=== PATIENT | male | born 1940 | race Caucasian/White ===

== ENCOUNTER 2017-01-18 09:15 | Outpatient (RCR) | payer MEDICARE ==
[~2017-01-18 09:15] MED LIST: ASPI325T32 PO; BNZ40T PO; EPLE50TA3 PO; FESO4TAB; HYDR-3583 PO; HYDROCODONE/APAP; IBP200T PO; LORA10TA2 PO; MELO-198 PO; MULT-608 PO; NF-ESOM40C; OLME20TA5; OMEP40CA36 PO; ONDA4TAB11 PO; PIOG1TAB6 PO; SIMV40TA2; SIMV80TA3 PO; SPIR50TA6; TANSULOSIN PO; TERA10CA15 PO; TMSL.4C; TOLTA4 PO; [UNRECOGNIZED DRUG - CODE]
== END 2017-01-18 10:07 | disposition home or self-care (01) ==
PROVIDERS: ATTEND Internal Medicine
DX: M48.06 Spinal stenosis, lumbar region (principal)

== ENCOUNTER → 2017-01-24 | Outpatient (CLI) | payer MEDICARE ==
--- NOTE | 2017-01-24 13:07 | Diagnostic Imaging Report ---
PROCEDURE: MRI lumbar spine. TECHNIQUE: Multiplanar, multisequence MRI of the lumbar spine was performed without contrast. INDICATION: Increased leg pain. COMPARISON: 03/17/2015. FINDINGS: There is minimal posterior translation of L2 over L3. Minimal posterior translation of L5 over S1 is also seen. This is similar to 2015 exam. There is straightening of the curvature in the upper lumbar spine and around the thoracolumbar junction. There is a mild old compression fracture of L1 vertebral body. There is a bone marrow edema in the posterior aspect of the endplates around L2-L3 level. This level demonstrates moderate disc height loss. There is also mild disc height loss at L5-S1. There is a congenital narrowing of the AP dimension of the spinal canal at the L2 level reducing the AP dimension of the spinal canal to 9.5 mm near the lower aspect of L2. Relatively narrow AP dimension of the spinal canal is also noted at L1 level, however no significant canal stenosis is present. There is also congenital spinal canal stenosis at the L5 vertebral level with the central canal AP dimension ranging from 5 mm at the upper vertebra to 6.6 mm at the caudal aspect of L5 vertebral body. T12-L1: There is a bilateral mild facet hypertrophy. No disc herniation. There is no central canal stenosis. There is mild narrowing of the AP dimension of the spinal canal along the right and left aspects of the canal from the facet and ligamentum flavum hypertrophy projecting along the posterolateral aspect of the thecal sac bilaterally with no high-grade stenosis. The foramina are patent. L1-L2: No disc herniation. There is zntq-si-uppbsaem facet hypertrophy. No central canal stenosis. The conus medullaris terminates at lower L1 level. No foraminal stenosis. There is mild spinal canal stenosis seen at the L2 vertebral body level secondary to congenital short pedicles reducing the AP dimension of the spinal canal to 9.5 mm. L2-L3: There is a diffuse disc bulge and bilateral thdbojly-fw-diedmk facet arthropathy. This results in severe spinal canal stenosis reducing the AP dimension of the canal to 6 mm and associated with severe compression of the lateral recess bilaterally at this level. This appears to have slightly worsened compared to 2015 exam. The neural foramina demonstrate bilateral moderate stenosis worse on the right side. L3-L4: There is a disc bulge asymmetric to the left and bilateral wkwtnrdg-iv-nmoepe facet hypertrophy. There is moderate central canal stenosis reducing the AP dimension of the canal to 8 mm. The lateral recess demonstrates vfhwfati-te-oxhlxn narrowing on the right side and moderate stenosis on the left. The foramina demonstrate bilateral stenosis, qsrwlmty-vw-wpdwld along the outer aspect of the left foramen and dvbqeutw-su-gqemga on the right side as well, particularly at the outer aspect of the foramen. The extraforaminal lateral aspect of the disc is also abutting the L3 spinal nerves just after exiting the foramina on both sides. L4-L5: There is a diffuse disc bulge and bilateral moderate facet hypertrophy, particularly on the right. Prominent posterior ligamentous hypertrophy is seen also at this level. There is hzbwprwg-ou-tbaxlv central canal stenosis, worst just below the disc level with reduced AP dimension of the spinal canal to 5 mm. The lateral recess demonstrates bilateral stenosis iesilshv-ud-apfycv on the right and moderate on the left. There is suggestion of prior left hemilaminectomy at this level. Correlate with surgical history. Bilateral foraminal stenosis mild on the left and moderate on the right side is seen. Extraforaminal disc component is abutting the exiting spinal nerves bilaterally. L5-S1: There is diffuse disc bulge and bilateral mild facet hypertrophy. There is moderate central canal stenosis reducing the AP dimension of the canal to 7.7 mm and there is bilateral lateral recess stenosis, ylutatxd-ym-bukunu on the left and moderate on the right side. The foramina demonstrate bilateral stenosis ymuamwke-lt-uidehm on the right and mild on the left. IMPRESSION: There is severe spinal canal stenosis at L2-L3 level. Multilevel spinal canal stenosis and other findings as described above. 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 Dictated by: Dictated on workstation # [id number]
== END ==
LOC: RAD 09:15
PROVIDERS: ATTEND Internal Medicine
DX: M48.06 Spinal stenosis, lumbar region (principal); M51.36 Other intervertebral disc degeneration, lumbar region
CPT/HCPCS: 72148

== ENCOUNTER → 2018-01-11 | Outpatient (RCR) | payer MEDICARE | END | disposition home or self-care (01) | LOC: CR3 12-12 07:30 | PROVIDERS: ATTEND Internal Medicine | DX: Z29.8 Encounter for other specified prophylactic measures (principal) ==

== ENCOUNTER → 2018-02-15 | Outpatient (RCR) | payer MEDICARE | END | disposition home or self-care (01) | LOC: CR3 01-16 13:00 | PROVIDERS: ATTEND Internal Medicine | DX: Z29.8 Encounter for other specified prophylactic measures (principal) ==

== ENCOUNTER 2018-03-16 06:00 | Outpatient (RCR) | payer MEDICARE | END 2018-03-19 | disposition home or self-care (01) | LOC: CR3 06:00 | PROVIDERS: ATTEND Internal Medicine | DX: Z29.8 Encounter for other specified prophylactic measures (principal) ==

== ENCOUNTER 2018-04-06 06:00 | Outpatient (RCR) | payer MEDICARE ==
[2018-04-12] MEDS ORDERED: OMEP40CA36 PO (16:10)
[2018-04-12] MEDS ORDERED: TAMS0.4C2 PO (16:10)
[2018-04-12] MEDS ORDERED: SIMV80TA5 PO (16:10)
[2018-04-12] MEDS ORDERED: EPLE25TA4 PO (16:10)
[2018-04-12] MEDS ORDERED: PIOG1TAB PO (16:10)
[2018-04-12] MEDS ORDERED: BENA20TA7 PO (16:10)
[2018-04-19] MEDS ORDERED: ASPI-808 PO (17:03)
[2018-04-19] MEDS ORDERED: CLD600T PO (17:03)
[2018-04-19] MEDS ORDERED: OXYC-471 PO (17:03)
== END 2018-04-20 | disposition home or self-care (01) ==
LOC: CR3 06:00
PROVIDERS: ATTEND Internal Medicine
DX: Z29.8 Encounter for other specified prophylactic measures (principal)

== ENCOUNTER 2018-04-12 10:04 | Inpatient (IN) | payer MEDICARE ==
[~2018-04-12] VITALS: Ht 177.8 cm; Wt 87.6 kg
[2018-04-12 14:10] VITALS: BP 154/90
--- NOTE | 2018-04-12 14:23 | Physical Therapy Evaluation ---
PT Evaluation-General Medical Diagnosis Admission Date 04/12/2018 Medical Diagnosis: left femur fx Onset Date: Apr 09, 2018 Therapy Diagnosis Therapy Diagnosis: Weakness; abn gait Height/Weight Height (Feet): 5 Height (Inches): 11.00 Weight (Pounds): 195 Weight (Ounces): 6.0 Precautions Precautions/Isolations: Standard Precautions Weight Bear Status Right Lower Extremity: Right Full Weight Bearing Left Lower Extremity: Left Weight Bearing/Tolerated Referral Physician: Dee Reason for Referral: Evaluation/Treatment Medical History Pertinent Medical History: DM, HTN Additional Medical History back surgery. Current History Pt tripped on a step at a scientology in [place]. He was transported to the hospital and found to have a left femur fx and underwent repair with IM nail. Reviewed History: Yes Social History Home: Single Level (with a basement) Current Living Status: Spouse Entry Into Home: Stairs Without Railing (2 steps to enter) PT Steps Inside Home: 14 Prior/Core FIM Prior Level of Function Functional [place] Measure 0=Not Assessed/NA 4=Minimal Assistance 1=Total Assistance 5=Supervision or Setup 2=Maximal Assistance 6=Modified [place] 3=Moderate Assistance 7=Complete [place] Bed Mobility: 7 Transfers (B,C,W/C) (FIM): 7 Gait: 7 community ambulator; still drives. PT Evaluation-Current Subjective Reports he feels "shaky" this afternoon. Pain Numeric Pain Scale: 10-Worst Possible Pain Location: Left Location Body Site: Hip Pain Description: Stabbing (sharp) Comment: pt reports pain to be 1/10 at rest. Pt/Family Goals Return home when able. Objective Patient Orientation: Person, Place, Time, Situation Problem Solving: Fair ROM/Strength ROM Lower Extremities WNL Strenght Lower Extremities Right LE grossly 5/5; left LE grossly 3/5. Integumentary/Posture Integumentary Refer to nursing notes. Bowel Incontinence: No Bladder Incontinence: No Posture normal and symmetrical Neuromuscular (Tone, Coordination, Reflexes) no noted functional deficits. Sensory Vision: Wears Glasses Hearing: Functional Sensation Right Lower Extremit: Intact Sensation Left Lower Extremity: Intact Transfers Functional [place] Measure 0=Not Assessed/NA 4=Minimal Assistance 1=Total Assistance 5=Supervision or Setup 2=Maximal Assistance 6=Modified [place] 3=Moderate Assistance 7=Complete IndependenceIRFPAI Quality Coding Scale 6 Independent with activity with or without an assistive device 5 Patient requires set up or clean up by helper. Patient completes activity by themselves 4 Supervision or touching assist (CGA). [place] provide cues , steadying assist 3 The helper provides less than half the effort to complete the activity 2 The helper provides more than half the effort to complete the activity 1 Dependent. The helper does all the effort to complete an activity 7 Patient refused to complete or attempt activity 9 The patient did not perform the activity before the current illness or injury 88 Not attempted due to Medical conditions or safety concerns Transfers (B, C, W/C) (FIM): 3 Roll Left to Right (QC): 3 Supine to/from Sit: 3 (assist with both legs to get in and out of bed; slow with transfer. ) Sit to/from Stand: 4 (min assist to stand and skilled cues for hand placement and sequencing. ) Sit to Lying (QC): 3 Lying to Sitting/Side of Bed(Q: 3 Sit to Stand (QC): 4 Chair/Yll-dm-Grjwl Xfer(QC): 4 Car Transfer (QC): 4 (assist to lift left leg out of car. ) skilled cues for sequencing and safety. Gait Does the Patient Walk?: Yes Mode of Locomotion: Walk Anticipated Mode of Locomotion: Walk Gait (FIM): 2 Distance (FIM): 1=up to 49 ft Walk 10 feet (QC): 4 Walk 50 ft with 2 Turns(QC): 88 Walk 150 ft (QC): 88 Walking 10ft/uneven surface-QC: 88 Distance: 25 ft x 2 Gait Level of Assist: 4 (CGA at gait belt; skilled cues for sequencing. ) Gait Assistive Device: FWW Comments/Gait Description Slow gait; slightly antalgic; painful with WB on the left. Wheelchair Training Does the Pt Use a Wheelchair?: No Stairs Stairs (FIM): 1 (not tested this date, but will assess 04/13/18) 1 Step (curb) (QC): 88 4 Steps (QC): 88 12 Steps (QC): 88 If not tested on admit;explain will assess 04/13/18 Balance Sitting Static: Good Sitting Dynamic: Good Standing Static: Fair Standing Dynamic: Fair Picking up an Object (QC): 88 Treatment Co treatment with OT to address functional mobility to address bed mobiltiy, toileting, walking in his room. PT addressed functional transfers and walking as OT addressed UE use and participation in tasks of ADL's. Pt worked on functional dynamic standing and seated balance as pt completed toileting and dressing tasks. Skill of 2 clinicians required due to cues required and complexity of tasks to complete. Pt's surgery is new and requires heavy cues and assist to complete skills. Assessment/Needs Pt is post fall with hip fracture left that has been reparied with IM nail He is WBAT but has pain with WB activities. He is significantly limited in functional transfers, gait, strength, balance and functional activity tolerance. He was indep at [facility] and needs up to mod assist with cues at this time. He is an excellent caandidate for skilled intervention to return to his [facility]. Rehab Potential: Good PT Short Term Goals Short Term Goals Time Frame: Apr 19, 2018 Transfers (B,C,W/C) (FIM): 4 Gait (FIM): 4 Distance (FIM): 3=150 ft Gait Level of Assist: 4 Gait Assistive Device: FWW PT Residential Subcontractor Goals Mcfp Goals PT Residential Subcontractor Goals Time Frame: Apr 28, 2018 Transfers (B,C,W/C) (FIM): 6 Sit to Lying (QC): 6 Lying-Sitting on Side/Bed(QC): 6 Sit to Stand (QC): 6 Roll Left to Right (QC): 6 Chair/Wni-io-Jvyec Xfer(QC): 6 Car Transfer (QC): 6 Does the Patient Walk: Yes Gait (FIM): 6 Gait distance (FIM): 3=150 ft Walk 10 feet (QC): 6 Walk 10ft-Uneven Surface(QC): 6 Walk 50ft with 2 Turns (QC): 6 Walk 150 ft (QC): 6 Gait Assistive Device: FWW Does the Pt use WC or Scooter?: No Stairs (FIM): 5 (household) # of Steps: 4 1 Step (curb) (QC): 6 4 Steps (QC): 6 12 Steps (QC): 88 Picking up an Object (QC): 4 PT Plan Problem List Problem List: Activity Tolerance, Functional Strength, Safety, Balance, Gait, Transfer, Bed Mobility Treatment/Plan Treatment Plan: Continue Plan of Care Treatment Plan: Bed Mobility, Education, Functional Activity True, Functional Strength, Group Therapy, Gait, Safety, Therapeutic Exercise, Transfers Treatment Duration: Apr 28, 2018 Frequency: At least 5 of 7 days/Wk (IRF) Estimated Hrs Per Day: 1.5 hours per day Patient and/or Family Agrees t: Yes Safety Risks/Education Patient Education: Gait Training, Transfer Techniques, Safety Issues Teaching Recipient: Patient, Family Teaching Methods: Discussion Response to Teaching: Reinforcement Needed Time/GCodes Time In: 1400 Time Out: 1540 (except 6090-7799 (OT eval)) Total Billed Treatment Time: 90 Total Billed Treatment visit EVM 10 FA 80 NOREEN HAQ PT Apr 12, 2018 14:23
--- NOTE | 2018-04-12 15:43 | Occupational Therapy Eval ---
OT Evaluation-General/PLF Medical Diagnosis Admission Date Apr 12, 2018 at 14:00 Medical Diagnosis: left femur fx Onset Date: Apr 09, 2018 Therapy Diagnosis Therapy Diagnosis: Weakness, Decreased ADL skills Height/Weight Height (Feet): 5 Height (Inches): 11.00 Weight (Pounds): 195 Weight (Ounces): 6.0 Precautions Precautions/Isolations: Standard Precautions Weight Bear Status Weight Bearing Restriction: Weight Bearing/Tolerated Referral Physician: Dee Referral Reason: Activity Tolerance, Self Care, Evaluation/Treatment, Strengthening/ROM Medical History Pertinent Medical History: DM, GERD, HTN Additional Medical History Spinal stenosis, back surgery Current History Pt. fell in bathroom while at congregation. Fx left femur. Had IM nail placed. Reviewed History: Yes Social History Home: Single Level (with a basement) Current Living Status: Spouse Entry Into Home: Stairs Without Railing (2 steps to enter) Steps Into Home: 2 Steps Inside Home: 14 ADL-Prior Level of Function ADL PLOF Comments Pt. was independent with all tasks. DME/Equipment: Shower DME/Equipment Comments Pt. does not have equipment. 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 reports pain with movement, but does not state a pain level. Nursing aware. Appearance Pt. is up in wheelchair upon entering facility. Agrees to work with therapy. Mental Status/Objective Patient Orientation: Person, Place, Time, Situation Current Glasses/Contacts: Yes Hearing Aids: Yes Hand Dominance: Right Upper Extremity ROM WFL ADL-Treatment Functional [place] Measure 0=Not Assessed/NA 4=Minimal Assistance 1=Total Assistance 5=Supervision or Setup 2=Maximal Assistance 6=Modified [place] 3=Moderate Assistance 7=Complete IndependenceIRFPAI Quality Coding Scale 6 Independent with activity with or without an assistive device 5 Patient requires set up or clean up by helper. Patient completes activity by themselves 4 Supervision or touching assist (CGA). [place] provide cues , steadying assist 3 The helper provides less than half the effort to complete the activity 2 The helper provides more than half the effort to complete the activity 1 Dependent. The helper does all the effort to complete an activity 7 Patient refused to complete or attempt activity 9 The patient did not perform the activity before the current illness or injury 88 Not attempted due to Medical conditions or safety concerns Lower Body Dressing (FIM): 2 (Pt. is unable to reach his feet or bring them up to him.) Lower Body Dressing (QC): 2 On/Off Footwear (QC): 2 Toileting (FIM): 4 (CGA in stance and assist to pull pants up from floor.) Toileting Hygiene (QC): 4 Transfers (B, C, W/C) (FIM): 4 (Min assist to ambulate with walker to bathroom. ) Toilet/Commode Transfer (FIM): 4 Toilet Transfer (QC): 4 Other Treatments OT/PT co-treated due to pt's fatigue from [place] in private vehicle. PT focused on transfer training and LE assessment while OT facilitated ADL training. Pt. unable to reach feet so OT issued and educated pt. on AE for hospital use. Pt. shown sock aide, dressing stick, shoe horn, and merchandise deliverer. Educated about rehab goals and OT goals. Pt. also issued red theraband and pink hand sponge to increase overall strength and independence with daily tasks. Pt. verbalizes understanding. OT ordered pt. dinner. All needs met in room. Education OT Patient Education: Correct positioning, Exercise program, Modified ADL techniques, Progress toward Goal/Update tx plan, Purpose of tx/functional activities, Reviewed precautions, Rehab process, Transfer techniques, Use of adapted equipment Teaching Recipient: Patient Teaching Methods: Demonstration, Discussion Response to Teaching: Verbalize Understanding, Return Demonstration OT Short Term Goals Short Term Goals Time Frame: Apr 19, 2018 Eating(FIM): 5 Grooming(FIM): 5 Bathing(FIM): 4 Upper Body Dressing(FIM): 5 Lower Body Dressing(FIM): 4 Toileting(FIM): 5 Transfers (B,C,W/C) (FIM): 5 Toilet/Commode Transfer(FIM): 5 Shower Transfer(FIM): 4 Additional Short Term Goals: 1-Demonstrate ADL Tasks, 2-Verbalize Understanding , 3-ImproveStrength/True 1=Demonstrate adherence to instructed precautions during ADL tasks. 2=Patient will verbalize/demonstrate understanding of assistive devices/ modifications for ADL. 3=Patient will improve strength/tolerance for activity to enable patient to perform ADL's. OT Highway Maintenance Technician Goals Highway Maintenance Technician Goals Time Frame: Apr 26, 2018 Eating (FIM): 6 Eating (QC): 6 Groomin Oral Hygiene (QC): 6 Bathing(FIM): 5 Shower/Bathe Self (QC): 5 Upper Body Dressing(FIM): 6 Upper Body Dressing (QC): 6 Lower Body Dressing(FIM): 6 Lower Body Dressing (QC): 6 On/Off Footwear (QC): 6 Toileting(FIM): 6 Toileting Hygiene (QC): 6 Transfers (B,C,W/C) (FIM): 6 Toilet/Commode Transfer(FIM): 6 Toilet/Commode Transfer (QC): 6 Shower Transfer(FIM): 5 Additional Goals: 1-Demonstrate ADL Tasks, 2-Verbalize Understanding, 3- ImproveStrength/True 1=Demonstrate adherence to instructed precautions during ADL tasks. 2=Patient will verbalize/demonstrate understanding of assistive devices/ modifications for ADL. 3=Patient will improve strength/tolerance for activity to enable patient to perform ADL's. OT Education/Plan Problem List/Assessment Assessment: Decreased Activ Tolerance, Dependent Transfers, Impaired I ADL's, Impaired Self-Care Skills Discharge Recommendations Plan/Recommendations: Continue POC Therapy D/C Recommendations: Home w/ Family Support, Occupational Therapy Home Care Equpiment Recommendations-D/C: Bath Chair, Hip Kit Comment Pt. will need walker. Patient/Family Goals To return home independently with spouse assist as needed. Treatment Plan/Plan of Care Treatment,Training & Education: Yes Patient would benefit from OT for education, treatment and training to promote independence in ADL's, mobility, safety and/or upper extremity function for ADL' s. Plan of Care: ADL Retraining, Functional Mobility Treatment Duration: Apr 26, 2018 Frequency: At least 5 of 7 days/Wk (IRF) Estimated Hrs Per Day: 1.5 hours per day Agreement: Yes Rehab Potential: Good Time/GCodes Start Time: 14:10 Stop Time: 15:40 Total Time Billed (hr/min): 90 Billed Treatment Time 4634-4197 1, EVM [id number]-va-treat with PT ADL x 50minutes, Ex x 30minutes Please see above note for designated co-treatment roles. EDGAR CARABALLO OT Apr 12, 2018 15:43
[2018-04-12] MEDS ORDERED: EPLE25TA4 PO (16:10)
[2018-04-12] MEDS ORDERED: SIMV80TA5 PO (16:10)
[2018-04-12] MEDS ORDERED: TAMS0.4C2 PO (16:10)
[2018-04-12] MEDS ORDERED: BENA20TA7 PO (16:10)
[2018-04-12] MEDS ORDERED: PIOG1TAB PO (16:10)
[2018-04-12] MEDS ORDERED: OMEP40CA36 PO (16:10)
[2018-04-12] MEDS: oxyCODONE/APAP 5/325MG (PERCOCET 5) TABLET PO PRN (16:20)
--- NOTE | 2018-04-12 17:12 | Consultation-Hospitalist ---
HPI History of Present Illness: HPI/Chief Complaint Mr. Ayala is a 77-year-old white male in his usual state of reasonable health until a fall occurring in the bathroom that was unfamiliar to him at a [place] in [place]. He was in somewhat of a hurry to get to the commode and reports he landed very hard on his left hip sustaining an apparent intertrochanteric fracture. He is now postop day 2 status post left hemiarthroplasty performed at a local [place] [facility]. Other than local soreness and one episode of a shaking spell that occurred when he was using his walker yesterday he voices no other complaints. He has a history of type II diabetes mellitus that is been under excellent control and has not had problems with a significant hyperglycemia. He denies chest discomfort or shortness of breath at rest. He did not have any associated lightheadedness when getting up and there was no change in consciousness was episode of bilateral upper extremity shaking that lasted for minutes or 2 and resolved when he sat down. Review of systems otherwise essentially unremarkable see below. Date Seen 04/12/18 Attending Physician Jed Kern MD PCP Dianne Suarez MD Referring Physician Date of Admission Apr 12, 2018 at 14:00 Home Medications & Allergies Home Medications Reviewed patient Home Medication Reconciliation performed by pharmacy medication reconciliations solid waste landfill technician and/or nursing. Patients Allergies have been reviewed. Allergies Allergies Coded Allergies No Known Drug Allergies (Verified10/26/07) Past Lbbtnfl-Drtsuu-Zzyjqb Hx Past Med/Social Hx: Reviewed and Corrections made Patient Social History Alcohol Use: Occasionally Uses Alcohol Beverage of Choice: Beer Recent Hopitalizations: No (OCT 20 HEART CATH) Immunizations Up To Date Date of Pneumonia Vaccine: Jun 12, 2014 Date of Influenza Vaccine: Jun 16, 2016 Seasonal Allergies Seasonal Allergies: Yes Past Medical History Surgeries: Gallbladder, Rectal, Vasectomy Neurological: Neuropathy Reproductive: No Sexually Transmitted Disease: No Musculoskeletal: Chronic Back Pain Endocrine: Diabetes, 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 Family History No Pertinent Family Hx Review of Systems Constitutional: no symptoms reported, see HPI Respiratory: no symptoms reported, see HPI; No cough, No dyspnea on exertion, No hemoptysis, No orthopnea, No phlegm, No short of breath Cardiovascular: no symptoms reported; No chest pain, No edema, No Hx of Intervention, No palpitations, No syncope, No vascular heart diseas Physical Exam Physical Exam Vital Signs Vital Signs - First Documented 04/12/18 04/12/18 14:10 14:59 Temp 97.7 Pulse 95 Resp 20 B/P (MAP) 154/90 (111) Pulse Ox 100 O2 Delivery Room Air Capillary Refill : Height, Weight, BMI Height: 5'11.00" Weight: 195lbs. 6.0oz. [id number]; BMI Method:Stated General Appearance: No Apparent Distress, WD/WN HEENT: PERRL/EOMI Neck: Full Range of Motion, Normal Inspection, Non Tender, Supple, Carotid Bruit Respiratory: Chest Non Tender, Lungs Clear, Normal Breath Sounds, No Accessory Muscle Use, No Respiratory Distress Cardiovascular: Regular Rate, Rhythm, No Edema, No Gallop, No JVD, Normal Peripheral Pulses, Systolic Murmur (2/6) Extremity: No Calf Tenderness, No Pedal Edema, Swelling (L thigh no purpura or evidence for hematoma/discreat.) Results Results/Procedures Labs Laboratory Tests 04/13/18 06:06 Patient resulted labs reviewed. Assessment/Plan Assessment and Plan Assess & Plan/Chief Complaint A/P 1. Postop day 2 status post left hemiarthroplasty for significant trauma- related fracture. Patient states that the orthopedist commented that his bones were strong and not consistent with osteoporosis patient transferred to acute rehabilitation for physical occupational therapy. 2. Hypertension we'll continue current medications as his initial supine blood pressure is mildly elevated in the 150/80 range but we'll obtain orthostatic blood pressure check if there is a significant drop we may need to hold his MARGARITA inhibitor for now we are resuming all of his home medications. 3. Type II diabetes mellitus continue pioglitazone/metformin twice a day fingersticks twice a day should be adequate. 4. Patient forces bowels have not moved postanesthesia and on narcotic therapy. Will initiate Senokot S twice a day and MiraLAX at at bedtime holding for diarrhea. 5. Prostatism continue Flomax obtain post void residual. DIANNE SUAREZ MD Apr 12, 2018 17:12
[2018-04-12 18:41] VITALS: BP 107/55
--- NOTE | 2018-04-12 19:41 | History & Physicial ---
History of Present Illness History of Present Illness Reason for visit/HPI Patient went to a cheondoism in [facility]. Patient went to the bathroom. Patient tripped over a step trying to get to the commode. Patient fell on his left hip getting an intertrochanteric fracture. Patient had surgery. Postop day 2. Patient has history of diabetes and hypertension. Previous surgeries anus, gallbladder, 2 back surgeries with laminectomies, vasectomy in 2 heart catheter negative. Family history heart and cancer in family denies asthma TB lung disease Date of Admission Apr 12, 2018 at 14:00 Time Seen by Provider: 19:10 I consulted on this patient on 04/12/18 19:31 Attending Physician Jed Kern MD Admitting Physician Ramone Hudson MD Consult Allergies and Home Medications Allergies Coded Allergies: No Known Drug Allergies (Verified , 10/26/07) Home Medications Benazepril HCl 20 Mg Tablet, 20 MG PO DAILY, (Reported) Eplerenone 25 Mg Tablet, 25 MG PO DAILY, (Reported) Omeprazole 40 Mg Capsule.dr, 40 MG PO DAILY, (Reported) Pioglitazone HCl/Metformin HCl 1 Each Tablet, 1 TAB PO BID, (Reported) Simvastatin 80 Mg Tablet, 80 MG PO HS, (Reported) Tamsulosin HCl 0.4 Mg Cap.er.24h, 0.4 MG PO DAILY, (Reported) Patient Home Medication List Home Medication List Reviewed: Yes Past Avxemld-Yzwyap-Pzscys Hx Patient Social History Marrital Status: Employed/Student: retired Alcohol Beverage of Choice: Beer Recent Foreign Travel: No Contact w/other who traveled: No Recent Hopitalizations: No (OCT 20 HEART CATH) Recent Infectious Disease Expo: No Immunizations Up To Date Date of Pneumonia Vaccine: Jun 12, 2014 Date of Influenza Vaccine: Jun 16, 2016 Seasonal Allergies Seasonal Allergies: Yes Surgeries Gallbladder, Rectal, Vasectomy Respiratory No Cardiovascular Hypertension Neurological Neuropathy Reproductive System Hx Reproductive Disorders: No Sexually Transmitted Disease: No Musculoskeletal Chronic Back Pain Endocrine Endocrine Disorders: Diabetes, Non-Insulin dep HEENT Hearing Impairment: Hearing Aide Left Cancer Skin Family Medical History Significant Family History: No Pertinent Family Hx Constitutional: no symptoms reported EENTM: no symptoms reported Respiratory: no symptoms reported Cardiovascular: no symptoms reported Genitourinary: no symptoms reported Physical Exam Vital Signs Vital Signs - First Documented 04/12/18 04/12/18 14:10 14:59 Temp 97.7 Pulse 95 Resp 20 B/P (MAP) 154/90 (111) Pulse Ox 100 O2 Delivery Room Air Capillary Refill : Height, Weight, BMI Height: 5'11.00" Weight: 195lbs. 6.0oz. 88.727168il; BMI Method:Stated General Appearance: No Apparent Distress, WD/WN Eyes: Bilateral Eye Normal Inspection HEENT: Normal ENT Inspection Neck: Full Range of Motion, Normal Inspection Respiratory: Chest Non Tender, Lungs Clear, No Accessory Muscle Use Cardiovascular: Regular Rate, Rhythm, No Murmur Gastrointestinal: Non Tender, Soft Assessment/Plan Assessment and Plan Left hip fracture. Diabetes. Hypertension. Admission Diagnosis Admission Status: Inpatient Order (span 2 midnights) Reason for Inpatient Admission: Hip fracture. Patient needs physical therapy and occupational therapy JANE CALL DO Apr 12, 2018 19:41
[2018-04-12] MEDS ORDERED: PATIENT MAY USE OWN MED,SINGLE MED PO SCH (20:00)
[2018-04-12] MEDS: SENNA W/DOCUSATE (SENOKOT S) TABLET PO SCH (20:26)
[2018-04-12] MEDS: ACETAMINOPHEN 325 MG TABLET PO SCH (20:26)
[2018-04-12] MEDS: POLYETHYLENE GLYCOL 17 GM (MIRALAX) PACK PO SCH (20:27)
[2018-04-12] MEDS: SIMvastatin 40 MG (ZOCOR) TAB PO SCH (20:27)
[2018-04-12] MEDS: ENOXAPARIN 40 MG/0.4 ML (LOVENOX) SYR SC SCH (20:38)
[2018-04-13 02:00] VITALS: BP_SYST 126; BP_SYST 138; BP_SYST 146; BP_DIAS 72; BP_DIAS 73
[2018-04-13] MEDS: metFORMIN 500 MG (GLUCOPHAGE) TAB PO SCH ×2 (06:08→17:30)
[2018-04-13] MEDS: PANTOPRAZOLE 40 MG (PROTONIX) TAB PO SCH ×2 (06:08→11:44)
[2018-04-13 06:23] LABS: HEMOGLOBIN 8.5 G/DL (13.3-17.7); MEAN PLATELET VOLUME 10.4 FL (7.4-10.4); RED BLOOD COUNT 2.93 10^6/uL (4.35-5.85); RED CELL DISTRIBUTION WIDTH 14.7 % (10.0-14.5)
[2018-04-13 06:38] LABS: ALANINE AMINOTRANSFERASE 12 U/L (0-55); ALBUMIN 3.3 GM/DL (3.2-4.5); ALKALINE PHOSPHATASE 55 U/L (40-136); BILIRUBIN,TOTAL 1.4 MG/DL (0.1-1.0); BUN/CREATININE RATIO 26; CALCIUM 9.1 MG/DL (8.5-10.1); CARBON DIOXIDE 26 MMOL/L (21-32); CHLORIDE 104 MMOL/L (98-107); CREATININE SERUM 0.82 MG/DL (0.60-1.30); GFR ESTIMATED > 60; GLUCOSE 134 MG/DL (70-105); POTASSIUM 4.4 MMOL/L (3.6-5.0); SODIUM 137 MMOL/L (135-145); TOTAL PROTEIN 5.6 GM/DL (6.4-8.2)
--- NOTE | 2018-04-13 07:06 | PM&R Post Admission Assessment ---
Post Admission Physician Asses Date seen by provider: Apr 13, 2018 Time seen by provider: 07:00 The preadmission screen agrees with the post admission assessment that the patient is a good candidate for inpatient rehabilitation. The patient will have a comprehensive program of inpatient rehabilitation with a goal of maximizing level of functional independence prior to discharge home with spouse. The patient will have PT/OT ninety minutes per day, each discipline, five days a week for 2 weeks for gait, strengthening, conditioning, balance, ADLs, any patient/family/caregiver training as necessary. Speech therapy to do cognitive assessment and treat as indicated. Rehabilitation nursing to assist with bowel, bladder, skin, wound care, medication administration, pain management. Parachute Cushion Installer to assist with discharge planning, community reentry. SCD's for DVT prophylaxis. He appears to be well motivated to participate in three hours of therapy a day. He should be able to tolerate three hours of therapy a day from a medical and surgical standpoint. He should benefit from the three hours of therapy a day. He has a reasonable discharge plan, reasonable discharge rehabilitation goals and a supportive family. He has various comorbidities that need to be closely monitored with medications and treatments adjusted on a daily basis as needed. These include: HTN Postopanemia BPH Type 2 DM Barriers to discharge for this patient who had been independent prior to this are for him to be modified independent to supervision for ADLs and mobility skills prior to discharge home with spouse, so as to lessen the burden of the caregivers. Risks for this patient include: 1. Fall 2. Fracture 3. DVT 4. Pulmonary embolism 5. Wound infection 6. Skin breakdown 7. Contractures 8. Poorly controlled pain 9. Urinary retention 10. UTI 11. Respiratory infection 12. Aspiration 13. poorly controlled HTN 14. Poorly controlled DM 15.Worsening postop anemia Estimated Length of Stay: 14 days Prognosis: Rehab prognosis appears good for goal of discharge home with spouse and C modified independent to supervision for ADLs and mobility skills. General: Alert, Oriented X3, Cooperative, No Acute Distress HEENT: Atraumatic, PERRLA, EOMI, Mucous Memb Moist/[place] Neck: Supple, No JVD Lungs: Clear to Auscultation Heart: Regular Rate Abdomen: Normal Bowel Sounds, Soft, No Tenderness Extremities: Other (Trace edema left ankle) Neuro: Other (Weakness left hip with guarding) TRESSA DELACRUZ MD Apr 13, 2018 07:06
[2018-04-13] MEDS: oxyCODONE/APAP 5/325MG (PERCOCET 5) TABLET PO PRN ×2 (08:07→21:29)
[2018-04-13] MEDS: ASPIRIN 325 MG (5 GR) TABLET PO SCH (08:07)
[2018-04-13] MEDS: SENNA W/DOCUSATE (SENOKOT S) TABLET PO SCH ×2 (08:07→20:34)
[2018-04-13] MEDS: lisINopril 20 MG (PRINIVIL) TABLET PO SCH (08:07)
[2018-04-13] MEDS: ACETAMINOPHEN 325 MG TABLET PO SCH ×3 (08:08→20:34)
--- NOTE | 2018-04-13 08:27 | Progress Note (SOAP) ---
Subjective Time Seen by Provider: 08:25 Subjective/Events-last exam Hip fracture. Patient feeling okay. Patient sore in half Objective Exam Vital Signs Date Time Temp Pulse Resp B/P (MAP) Pulse Ox O2 Delivery O2 Flow Rate FiO2 04/13/18 02:00 99.0 81 16 146/73 (97) 96 Room Air 04/13/18 02:00 146/73 (97) 138/72 (94) 126/73 (90) 04/12/18 18:41 95 20 107/55 (72) 96 Room Air 04/12/18 17:00 Room Air 04/12/18 14:59 97.7 04/12/18 14:10 95 20 154/90 (111) 100 Room Air I & O 04/13/18 07:00 Intake Total 690 ml Output Total 1000 ml Balance -310 ml Capillary Refill : Less Than 3 Seconds General Appearance: No Apparent Distress, WD/WN HEENT: Normal ENT Inspection Neck: Full Range of Motion, Normal Inspection Respiratory: Lungs Clear, Normal Breath Sounds, No Accessory Muscle Use, No Respiratory Distress Cardiovascular: Regular Rate, Rhythm Gastrointestinal: non tender, soft Results Lab Laboratory Tests 04/12/18 14:48: Glucometer 139H 04/12/18 20:23: Glucometer 174H 04/13/18 04:23: Glucometer 134H 04/13/18 06:06: White Blood Count 6.0, Red Blood Count 2.93L, Hemoglobin 8.5L, Hematocrit 25L, Mean Corpuscular Volume 87, Mean Corpuscular Hemoglobin 29, Mean Corpuscular Hemoglobin Concent 34, Red Cell Distribution Width 14.7H, Platelet Count 167, Mean Platelet Volume 10.4, Sodium Level 137, Potassium Level 4.4, Chloride Level 104, Carbon Dioxide Level 26, Anion Gap 7, Blood Urea Nitrogen 21H, Creatinine 0.82, Estimat Glomerular Filtration Rate > 60, BUN/Creatinine Ratio 26, Glucose Level 134H, Calcium Level 9.1, Total Bilirubin 1.4H, Aspartate Amino Transf (AST/SGOT) 22, Alanine Aminotransferase (ALT/SGPT) 12, Alkaline Phosphatase 55, Total Protein 5.6L, Albumin 3.3 Assessment/Plan Assessment/Plan Assess & Plan/Chief Complaint Hip fracture. Diabetes Clinical Quality Measures Admission Status Admission Dx Left hip fracture. Diabetes. Hypertension. DVT/VTE Risk/Contraindication: Risk Factor Score Per Nursin RFS Level Per Nursing on Admit: 4+=Very High JANE CALL DO Apr 13, 2018 08:27
[2018-04-13] MEDS ORDERED: BISACODYL 10 MG SUPP (DULCOLAX) PR PRN (08:30)
[2018-04-13] MEDS ORDERED: NON-FORMULARY MEDICATION 1 EA EA PO SCH (09:00)
--- NOTE | 2018-04-13 10:06 | Occupational Ther Daily Note ---
OT Current Status-Daily Note Subjective Pt. has just had a pain pill. Reports pain with movement but does not state a pain level. Appearance Pt. is up in chair. Agrees to shower. Mental Status/Objective Patient Orientation: Person, Place, Time, Situation Functional [place] Measure 0=Not Assessed/NA 4=Minimal Assistance 1=Total Assistance 5=Supervision or Setup 2=Maximal Assistance 6=Modified [place] 3=Moderate Assistance 7=Complete [place] ADL-Treatment Functional [place] Measure 0=Not Assessed/NA 4=Minimal Assistance 1=Total Assistance 5=Supervision or Setup 2=Maximal Assistance 6=Modified [place] 3=Moderate Assistance 7=Complete IndependenceIRFPAI Quality Coding Scale 6 Independent with activity with or without an assistive device 5 Patient requires set up or clean up by helper. Patient completes activity by themselves 4 Supervision or touching assist (CGA). [place] provide cues , steadying assist 3 The helper provides less than half the effort to complete the activity 2 The helper provides more than half the effort to complete the activity 1 Dependent. The helper does all the effort to complete an activity 7 Patient refused to complete or attempt activity 9 The patient did not perform the activity before the current illness or injury 88 Not attempted due to Medical conditions or safety concerns Grooming (FIM): 5 Oral Hygiene (QC): 5 Bathing (FIM): 4 (CGA in stance.) Shower/Bathe Self (QC): 4 Upper Body (FIM): 5 Upper Body Dressing (QC): 5 Lower Body Dressing (FIM): 3 (Pt. practiced with AE.) Lower Body Dressing (QC): 3 On/Off Footwear (QC): 3 Toileting (FIM): 5 Toileting Hygiene (QC): 4 Transfers (B, C, W/C) (FIM): 4 (CGA) Toilet/Commode Transfer (FIM): 4 Toilet Transfer (QC): 4 Shower Transfer(FIM): 4 Other Treatment Pt. practiced with AE. After ADLs, ambulated to dining area, approximately 100 feet, and then rested. All needs met. Required increased time and CGA at times. Education OT Patient Education: Correct positioning, Exercise program, Modified ADL techniques, Progress toward Goal/Update tx plan, Purpose of tx/functional activities, Reviewed precautions, Rehab process, Transfer techniques Teaching Recipient: Patient Teaching Methods: Demonstration, Discussion Response to Teaching: Verbalize Understanding, Return Demonstration OT Short Term Goals Short Term Goals Time Frame: Apr 19, 2018 Eating(FIM): 5 Grooming(FIM): 5 Bathing(FIM): 4 Upper Body Dressing(FIM): 5 Lower Body Dressing(FIM): 4 Toileting(FIM): 5 Transfers (B,C,W/C) (FIM): 4 Toilet/Commode Transfer(FIM): 5 Shower Transfer(FIM): 4 Additional Short Term Goals: 1-Demonstrate ADL Tasks, 2-Verbalize Understanding , 3-ImproveStrength/True 1=Demonstrate adherence to instructed precautions during ADL tasks. 2=Patient will verbalize/demonstrate understanding of assistive devices/ modifications for ADL. 3=Patient will improve strength/tolerance for activity to enable patient to perform ADL's. OT Detention Goals Cylinder Die Machine Helper Goals Time Frame: Apr 26, 2018 Eating (FIM): 6 Eating (QC): 6 Groomin Oral Hygiene (QC): 6 Bathing(FIM): 5 Shower/Bathe Self (QC): 5 Upper Body Dressing(FIM): 6 Upper Body Dressing (QC): 6 Lower Body Dressing(FIM): 6 Lower Body Dressing (QC): 6 On/Off Footwear (QC): 6 Toileting(FIM): 6 Toileting Hygiene (QC): 6 Transfers (B,C,W/C) (FIM): 6 Toilet/Commode Transfer(FIM): 6 Toilet/Commode Transfer (QC): 6 Shower Transfer(FIM): 5 Additional Goals: 1-Demonstrate ADL Tasks, 2-Verbalize Understanding, 3- ImproveStrength/True 1=Demonstrate adherence to instructed precautions during ADL tasks. 2=Patient will verbalize/demonstrate understanding of assistive devices/ modifications for ADL. 3=Patient will improve strength/tolerance for activity to enable patient to perform ADL's. OT Education/Plan Problem List/Assessment Assessment: Decreased Activ Tolerance, Impaired I ADL's, Impaired Self-Care Skills Discharge Recommendations Plan/Recommendations: Continue POC Therapy D/C Recommendations: Home w/ Family Support, Occupational Therapy Home Care Treatment Plan/Plan of Care Treatment,Training & Education: Yes Patient would benefit from OT for education, treatment and training to promote independence in ADL's, mobility, safety and/or upper extremity function for ADL' s. Plan of Care: ADL Retraining, Functional Mobility Treatment Duration: Apr 26, 2018 Frequency: At least 5 of 7 days/Wk (IRF) Estimated Hrs Per Day: 1.5 hours per day Agreement: Yes Rehab Potential: Good Time/GCodes Start Time: 08:30 Stop Time: 10:00 Total Time Billed (hr/min): 90 Billed Treatment Time 1, ADL x 6 EDGAR CARABALLO OT Apr 13, 2018 10:06
--- NOTE | 2018-04-13 11:26 | Physical Therapy Daily Note ---
PT Daily Note-Current Subjective Pt sitting in chair in Therapy [facility] after just finishing with OT upon arrival. Pt agrees to PT. Pain Numeric Pain Scale: 7 Location: Left Location Body Site: Hip Pain Description: Ache Mental Status Patient Orientation: Person, Place, Time, Situation Transfers Functional [place] Measure 0=Not Assessed/NA 4=Minimal Assistance 1=Total Assistance 5=Supervision or Setup 2=Maximal Assistance 6=Modified [place] 3=Moderate Assistance 7=Complete IndependenceIRFPAI Quality Coding Scale 6 Independent with activity with or without an assistive device 5 Patient requires set up or clean up by helper. Patient completes activity by themselves 4 Supervision or touching assist (CGA). [place] provide cues , steadying assist 3 The helper provides less than half the effort to complete the activity 2 The helper provides more than half the effort to complete the activity 1 Dependent. The helper does all the effort to complete an activity 7 Patient refused to complete or attempt activity 9 The patient did not perform the activity before the current illness or injury 88 Not attempted due to Medical conditions or safety concerns Scootin Supine to/from Sit: 4 Sit to/from Stand: 5 Sit to Lying (QC): 4 Sit to Stand (QC): 5 Weight Bearing Right Lower Extremity: Right Full Weight Bearing Left Lower Extremity: Left Weight Bearing/Tolerated Gait Training Does the Patient Walk?: Yes Distance (FIM): 3=150 ft Distance: 150' Walk 10 feet (QC): 5 Walk 50 ft with 2 Turns(QC): 5 Walk 150 ft (QC): 5 Walking 10ft/uneven surface-QC: 4 Gait Level of Assist: 4 Gait Persons Needed: 1 Gait Assistive Device: FWW Pt walks with slow oj & slight antalgic gait pattern but pt doesn't let this limit participation. Wheelchair Training Does the Pt Use a Wheelchair?: No Stair Training Stair Training: Handrails/: uses walker #of Steps: 1 1 Step (curb) (QC): 88 Pt reports increase in pain and cannot lift L knee to step on single stair. Pt will be tested again in a few days as pt continues to gain strength. Exercises Seated Therapy Exercises: Ankle pumps, Long arc quads, Hip flexion, Kicking activity, Hip abd/add Seated Reps: 20 NuStep Minutes: 10 NuStep Workload: 3 Treatments Pt transfers from chair to standing using FWW at [facility]. Pt ambulates in hallway using FWW at close SBA. Pt uses NuStep for 10m at [facility] 3 then takes short rest followed by Seated Ex in chair. Pt ambulates back to room and rest in bed. Pt transfers to supine in bed to rest at SBA. ST to follow for tx right after. Pt has all needs met, including call light in hand. Assessment Current Status: Good Progress Pt is motivated & pushes self to continue to make progress. Pt reports pain & weakness with Seated Ex but is making improvement with transfers and ambulation. PT Short Term Goals Short Term Goals Time Frame: Apr 19, 2018 Transfers (B,C,W/C) (FIM): 4 Gait (FIM): 4 Distance (FIM): 3=150 ft Gait Level of Assist: 4 Gait Assistive Device: FWW PT Appeals Rn Goals Skilled Nursing Goals PT Appeals Rn Goals Time Frame: Apr 28, 2018 Transfers (B,C,W/C) (FIM): 6 Sit to Lying (QC): 6 Lying-Sitting on Side/Bed(QC): 6 Sit to Stand (QC): 6 Roll Left to Right (QC): 6 Chair/Mog-sm-Vvzbu Xfer(QC): 6 Car Transfer (QC): 6 Does the Patient Walk: Yes Gait (FIM): 6 Gait distance (FIM): 3=150 ft Walk 10 feet (QC): 6 Walk 10ft-Uneven Surface(QC): 6 Walk 50ft with 2 Turns (QC): 6 Walk 150 ft (QC): 6 Gait Assistive Device: FWW Does the Pt use WC or Scooter?: No Stairs (FIM): 5 (household) # of Steps: 4 1 Step (curb) (QC): 6 4 Steps (QC): 6 12 Steps (QC): 88 Picking up an Object (QC): 4 PT Plan Problem List Problem List: Activity Tolerance, Functional Strength, Safety, Balance, Gait, Transfer Treatment/Plan Treatment Plan: Continue Plan of Care Treatment Plan: Bed Mobility, Education, Functional Activity True, Functional Strength, Group Therapy, Gait, Safety, Therapeutic Exercise, Transfers Treatment Duration: Apr 28, 2018 Frequency: At least 5 of 7 days/Wk (IRF) Estimated Hrs Per Day: 1.5 hours per day Patient and/or Family Agrees t: Yes Safety Risks/Education Patient Education: Gait Training, Transfer Techniques, Correct Positioning, Safety Issues Teaching Recipient: Patient Teaching Methods: Discussion Response to Teaching: Verbalize Understanding Time/GCodes Time In: 1000 Time Out: 1115 Total Billed Treatment Time: 75 Total Billed Treatment 1, GT x2 (30m), EX x2 (30m) & FA (15m) G Codes Necessary: GRETEL Mckenna CLASSIFIED ADVERTISING SUPERVISOR Apr 13, 2018 11:26
--- NOTE | 2018-04-13 11:40 | ST Cognitive Linguistic Eval ---
Speech Evaluation-General Medical Diagnosis left femur fx Onset Date: Apr 09, 2018 Therapy Diagnosis Therapy Diagnosis: Cognition Precautions Precautions/Isolations: Fall Prevention, Standard Precautions Referral Referring Physician: Dr. Kern Reason for Referral: Evaluation/Treatment Medical History Pertinent Medical History: DM, GERD, HTN Current History L Femur Fx Reviewed History: Yes Social History Home: Single Level Current Living Status: Other Family Speech PLF-Current Status Prior Level of Function pt was independent Subjective Pt pleasant and cooperative. Language Eval: Auditory Comprehends Simple Yes/No Ques: Functional Follows 1-Step Commands: Functional Follows Complex Directions: Functional Follows General Conversations: Functional Language Eval: Verbal Language Completes Spontaneous Greeting: Functional Word Finding: Functional Requests Basic Needs: Functional States Basic Personal Info: Functional Expresses Complex Ideas: Functional Language Evaluation: Reading NT Objective Cognitive Domain Attention: WNL Memory: WNL Problem Solving: Functional Objective Results [facility] was administered to assess Cognitive-linguistic functioning. Results are as follows: Memory: 3 word recall immediate 3/3; delayed 3/3 and remote delay 3/3 Paragraph recall immediate 4/4; delayed 4/4 Organization/sequencin/4 Problem Solving: Simple - 4.4; Abstract/complex 2/2 and Comparisons 5/5. Speech-language WFL Impression Cognitive-linguistic skills WFL. Communication/Social Cognition Comprehension: 7 Expression: 7 Social Interaction: 7 Problem Solvin Memory: 7 Speech Patient Assess Expression of Ideas/Wants: Expression (4) Understanding Verbal Content: Understands (4) Brief Interview-Mental Status: Yes Repetition of Three Words: Three (3) Temporal Orientation: Year: Correct (3) Temporal Orientation: Month: Accurate within 5 days(2) Temporal Orientation: Day: Correct (1) Recall : Wear to say "Sock": Yes, no cue required (2) Recall : Color: Yes, no cue required (2) Recall : Bed: Yes, no cue required (2) Speech Short Term Goals Short Term Goals Short Term Goals STGs not established as skilled ST not indicated at this time. Speech Usp Goals Administration Intern Goals LTGs not established as skilled ST is not indicated. Speech-Plan Patient/Family Goals Patient/Family Goals: to return to home Treatment Plan Speech Therapy Treatment Plan: Modify Plan, See Comments (Skilled ST not indicated.) no ST indicated. Frequency: Modified Program (IRF) (Skilled ST not indicated) Estimated Hrs Per Day: Other (no skilled ST indicated) Rehab Potential: Good Barriers to Learning: None identified. Pt/Family Agrees to Plan: Yes Safety Risks/Education Teaching Recipient: Patient, Significant Other Response to Teaching: Verbalize Understanding Time Speech Therapy Time In: 11:15 Speech Therapy Time Out: 11:30 Total Billed Time: 15 Billed Treatment Time 1, JERRINDJAHAIRA Gonsales Apr 13, 2018 11:40
[2018-04-13] MEDS ORDERED: inSUlin ASPART (NovoLOG) 1 UNIT/0.01 ML (CHARGE PER UNIT) SC SCH (16:00)
[2018-04-13] MEDS: TAMSULOSIN 0.4 MG (FLOMAX) CAP PO SCH (17:30)
[2018-04-13 18:05] VITALS: BP 122/68
[2018-04-13] MEDS: SIMvastatin 40 MG (ZOCOR) TAB PO SCH (20:34)
[2018-04-13] MEDS: ENOXAPARIN 40 MG/0.4 ML (LOVENOX) SYR SC SCH (20:35)
[2018-04-13] MEDS: POLYETHYLENE GLYCOL 17 GM (MIRALAX) PACK PO SCH (20:35)
[2018-04-13] MEDS: inSUlin ASPART (NovoLOG) 1 UNIT/0.01 ML (CHARGE PER UNIT) SC SCH (20:50)
[2018-04-14 05:37] VITALS: BP 144/67
[2018-04-14] MEDS: inSUlin ASPART (NovoLOG) 1 UNIT/0.01 ML (CHARGE PER UNIT) SC SCH ×4 (05:46→21:15)
[2018-04-14 06:06] LABS: HEMOGLOBIN 7.9 G/DL (13.3-17.7); MEAN PLATELET VOLUME 10.4 FL (7.4-10.4); RED BLOOD COUNT 2.65 10^6/uL (4.35-5.85); RED CELL DISTRIBUTION WIDTH 14.5 % (10.0-14.5); WHITE BLOOD COUNT 4.6 10^3/uL (4.3-11.0)
[2018-04-14] MEDS: metFORMIN 500 MG (GLUCOPHAGE) TAB PO SCH ×2 (06:44→17:40)
[2018-04-14] MEDS: PANTOPRAZOLE 40 MG (PROTONIX) TAB PO SCH (06:44)
[2018-04-14] MEDS: oxyCODONE/APAP 5/325MG (PERCOCET 5) TABLET PO PRN (07:58)
[2018-04-14] MEDS: SENNA W/DOCUSATE (SENOKOT S) TABLET PO SCH ×2 (07:58→21:21)
[2018-04-14] MEDS: ASPIRIN 325 MG (5 GR) TABLET PO SCH (07:58)
[2018-04-14] MEDS: ACETAMINOPHEN 325 MG TABLET PO SCH ×3 (08:03→21:22)
[2018-04-14] MEDS: lisINopril 20 MG (PRINIVIL) TABLET PO SCH (08:04)
--- NOTE | 2018-04-14 08:24 | PM & R (SOAP) Progress Note ---
Subjective This was a face to face visit with the patient. Date Seen by Provider: Apr 14, 2018 Time Seen by Provider: 08:15 Subjective/Events-last exam Patient was seen in his room this AM Records reviewed Patient min assist for transfers Appreciate Dr veliz note. Sitting up in chair Objective Physician Exam Last Set of Vital Signs Vital Signs Date Time Temp Pulse Resp B/P (MAP) Pulse Ox O2 Delivery O2 Flow Rate FiO2 04/14/18 05:37 98.2 89 19 144/67 (92) 97 Room Air Capillary Refill : Less Than 3 Seconds I&O Intake and Output 04/14/18 00:00 Intake Total 1190 ml Output Total 1000 ml Balance 190 ml Intake Oral 1190 ml Output Urine Total 1000 ml # Voids 5 General: Alert, Oriented X3, Cooperative, No Acute Distress HEENT: Atraumatic, PERRLA, EOMI, Mucous Memb Moist/[place] Neck: Supple, No JVD Lungs: Clear to Auscultation Heart: Regular Rate Abdomen: Normal Bowel Sounds, Soft, No Tenderness Extremities: Other (Trace edema left ankle) Neuro: Other (Weakness left hip with guarding) Results Lab Data Laboratory Tests 04/12/18 14:48: Glucometer 139H 04/12/18 20:23: Glucometer 174H 04/13/18 04:23: Glucometer 134H 04/13/18 06:06: White Blood Count 6.0, Red Blood Count 2.93L, Hemoglobin 8.5L, Hematocrit 25L, Mean Corpuscular Volume 87, Mean Corpuscular Hemoglobin 29, Mean Corpuscular Hemoglobin Concent 34, Red Cell Distribution Width 14.7H, Platelet Count 167, Mean Platelet Volume 10.4, Sodium Level 137, Potassium Level 4.4, Chloride Level 104, Carbon Dioxide Level 26, Anion Gap 7, Blood Urea Nitrogen 21H, Creatinine 0.82, Estimat Glomerular Filtration Rate > 60, BUN/Creatinine Ratio 26, Glucose Level 134H, Calcium Level 9.1, Total Bilirubin 1.4H, Aspartate Amino Transf (AST/SGOT) 22, Alanine Aminotransferase (ALT/SGPT) 12, Alkaline Phosphatase 55, Total Protein 5.6L, Albumin 3.3 04/13/18 12:24: Glucometer 135H 04/13/18 15:59: Glucometer 135H 04/13/18 20:00: Stool Occult Blood Immunoassay NEGATIVE 04/13/18 20:49: Glucometer 162H 04/14/18 05:04: Glucometer 125H 04/14/18 05:17: White Blood Count 4.6, Red Blood Count 2.65L, Hemoglobin 7.9L, Hematocrit 23L, Mean Corpuscular Volume 87, Mean Corpuscular Hemoglobin 30, Mean Corpuscular Hemoglobin Concent 34, Red Cell Distribution Width 14.5, Platelet Count 176, Mean Platelet Volume 10.4 Assessment/Plan Assessment and Plan S/P left hip repair as a result of fall Postop anemia Type 2 DM HTN controlled with meds Plan Continue PT/OT Team Conference next week 04-19-18 F/U with DR Hudson PRN Patient voiding and having BMS Co-Morbidities that are continuing to impact the rehab process: (include details ) TRESSA DELACRUZ MD Apr 14, 2018 08:24
--- NOTE | 2018-04-14 08:28 | Individualized Plan of Care ---
Individualized Plan of Care Rehab Nursing IPOC Order Admission Date Apr 12, 2018 at 14:00 Current Orders Orders Admission Arrival Bed Request (04/12/18 14:15) Admission Arrival Bed Request (04/12/18 14:00) Cho 60g/M 1snack (16-2000 Doroteo) (04/12/18 Lunch) Acetaminophen Tablet/Caplet (Tylenol T (04/12/18 21:00) Oxycodone/Apap 5/325mg Tablet (Percocet (04/12/18 15:15) Pt Evaluate/Treat Request (04/12/18 14:00) Request Ot Evaluate & Treat (04/12/18 14:00) Request For Cognitive Services (04/12/18 14:00) Consult Internal Medicine (04/12/18 14:00) Admission Order(Inpt,Obs,Sdc) (04/12/18 14:00) Patient Visit (04/12/18 ) Pt Eval Moderate Complexity (04/12/18 ) Functional Activities, Ea 15 (04/12/18 ) Cbc No Diff (04/13/18 06:00) Comprehensive Metabolic Panel (04/13/18 06:00) Nursing Communication (Order) (04/12/18 17:13) Aspirin Tablet (Aspirin Tablet) (04/13/18 09:00) Enoxaparin Injection (Lovenox Injection) (04/12/18 19:45) Simvastatin Tablet (Zocor Tablet) (04/12/18 21:00) Metformin Tablet (Glucophage Tablet) (04/13/18 07:00) Senna S Tablet (Senokot S Tablet) (04/12/18 21:00) Polyethylene Glycol Powder Pkt (Miralax (04/12/18 21:00) Tamsulosin Capsule (Flomax Capsule) (04/13/18 18:00) Non-Formulary Medication (Non-Formulary (04/13/18 09:00) Patient May Use Own Med,Single (Patient (04/12/18 20:00) Pantoprazole Tablet (Protonix Tablet) (04/13/18 07:00) Lisinopril Tablet (Zestril Tablet) (04/13/18 09:00) Ambulate TID (04/12/18 20:55) Sequential Compression Device 08,20 (04/12/18 20:55) Dvt/Vte Risk - Notifiy Physici 08 (04/12/18 20:55) Cbc No Diff (04/14/18 06:00) Occult Blood Stool (04/13/18 20:02) Bisacodyl Suppository (Dulcolax Supposit (04/13/18 08:30) Insulin Aspart (Novolog) (Novolog (Charg (04/13/18 16:00) Patient Visit (04/13/18 ) Gait Training, Ea 15 Min (04/13/18 ) Exercise Therap, Ea 15 Min (04/13/18 ) Functional Activities, Ea 15 (04/13/18 ) Insulin Aspart (Novolog) (Novolog (Charg (04/13/18 21:00) Patient Visit (04/13/18 ) Speech Sound Lang Comp (04/13/18 ) Rehab Nursing Orders: Disease Management & Educaiton, DVT Prophylaxis, Fall Prevention, Medication Management & Education, Nutrition Management, Pain Management, Patient/Family Support, Wound Management Other Nursing Orders: Monitor for postop urinary retention and constipation PT IPOC Problem List: Activity Tolerance, Functional Strength, Safety, Balance, Gait, Transfer Treatment Plan: Continue Plan of Care Bed Mobility, Education, Functional Activity True, Functional Strength, Group Therapy, Gait, Safety, Therapeutic Exercise, Transfers Treatment Duration: Apr 28, 2018 Frequency: At least 5 of 7 days/Wk (IRF) Estimated Hrs Per Day: 1.5 hours per day OT IPOC Problems: Decreased Activ Tolerance, Impaired I ADL's, Impaired Self-Care Skills OT Treatment, Training and Edu: Yes Plan of Care: ADL Retraining, Functional Mobility Treatment Duration: Apr 26, 2018 Frequency: At least 5 of 7 days/Wk (IRF) Estimated Hrs Per Day: 1.[address] IPOC Speech Therapy Treatment Plan: Discontinue ST Treatment Duration: Apr 14, 2018 Frequency: Modified Program (IRF) (Skilled ST not indicated) Estimated Hrs Per Day: Other (no skilled ST indicated) Chlorine Cell Tender/Case Mgmt Chlorine Cell Tender/Case Managemen: Discharge Planning, Patient/Family Counseling Dietitian/Ground Water Pump Installer Dietitian/Ground Water Pump Installer to monitor nutritional status and make changes and/or recommendations as needed and work with speech pathology on dietary upgrades as the occur. Physician IPOC Medical Issues being managed closely and that require the 24 hour availability of a physician: HTN DM Postop anemia Medical Issues: Bowel/Bladder Function, DVT Prophylaxis, Falls Precautions, Fluid/Electrolyte/Nutrition Balance, Infection Protection, Pain Management, Wound Care, Other (List) (as per above) Brief Synthesis of Preadmission Screen, Post-Admission Evaluation, and Therapy Evaluations: 77 yo male who fell while visiting a episcopalian in [facility] sustaining a left hip fracture had repair and now referred to IRU Had been Independent and living with spouse in [place] PCP DR sierra [facility] as per above DM2 and HTN Medical Prognosis: Good Anticipated Length of Stay: 04-26-18 Modified Independent to super vsion for adls and monbility skills Anticipated d/c Destination: Home with spouse with [facility] TRESSA DELACRUZ MD Apr 14, 2018 08:28
--- NOTE | 2018-04-14 11:10 | Progress Note-Hospitalist ---
Subjective HPI/CC On Admission Date Seen by Provider: Apr 14, 2018 Time Seen by Provider: 10:40 Mr. Ayala is a 77-year-old white male in his usual state of reasonable health until a fall occurring in the bathroom that was unfamiliar to him at a [place] in [place]. He was in somewhat of a hurry to get to the commode and reports he landed very hard on his left hip sustaining an apparent intertrochanteric fracture. He is now postop day 2 status post left hemiarthroplasty performed at a local [place] [facility]. Other than local soreness and one episode of a shaking spell that occurred when he was using his walker yesterday he voices no other complaints. He has a history of type II diabetes mellitus that is been under excellent control and has not had problems with a significant hyperglycemia. He denies chest discomfort or shortness of breath at rest. He did not have any associated lightheadedness when getting up and there was no change in consciousness was episode of bilateral upper extremity shaking that lasted for minutes or 2 and resolved when he sat down. Review of systems otherwise essentially unremarkable see below. Subjective/Events-last exam Patient was evaluated today while he was exercising on the new step machine. He was able to speak in sentences while exercising reported that yesterday he started to feel like he was making some progress. He is still having hip discomfort that was significant enough that he was unable to attempt to climb stairs yesterday. Little better today does limber up with activity. He was able to get out of bed with standby assistance but needs help getting back into bed present report. He's had no chest discomfort and over the past 24 hours is had 4 bowel movements without incontinence last slightly loose. MiraLAX has been discontinued. Normally he takes 2-3 Senokot daily to prevent constipation. He denies shortness of breath or abdominal pain. Objective Exam Vital Signs Vital Signs Date Time Temp Pulse Resp B/P (MAP) Pulse Ox O2 Delivery O2 Flow Rate FiO2 04/14/18 05:37 98.2 89 19 144/67 (92) 97 Room Air Capillary Refill : Less Than 3 Seconds General Appearance: No Apparent Distress, WD/WN HEENT: Pale Conjunctivae (L), Pale Conjunctivae (R) Respiratory: Chest Non Tender, Lungs Clear, Normal Breath Sounds, No Accessory Muscle Use, No Respiratory Distress Cardiovascular: Regular Rate, Rhythm, No Edema, No Gallop, No JVD, Normal Peripheral Pulses, Systolic Murmur (2/6 unchanged from baseline) Gastrointestinal: Normal Bowel Sounds, No Organomegaly, No Pulsatile Mass, Non Tender, Soft Extremity: Normal Capillary Refill, Normal Range of Motion, Non Tender, No Calf Tenderness, No Pedal Edema, Swelling (About the left hip only and decreased compared to Wednesdays evaluation. No purpura noted. No drainage on the bandaging.) Results/Procedures Lab Laboratory Tests 04/14/18 05:17 Patient resulted labs reviewed. Assessment/Plan Assessment and Plan Assess & Plan/Chief Complaint A/P 1. Postop day 4 status post left hemiarthroplasty for significant trauma- related fracture. Patient states that the orthopedist commented that his bones were strong and not consistent with osteoporosis. Patient is making good progress and highly motivated.. 2. Hypertension under reasonable control continue home medication. 3. Type II diabetes mellitus continue pioglitazone/ metformin with good control on fingerstick blood sugars and no hypoglycemia.. 4. Postoperative constipation resolved. Will continue Senokot the patient is used to taking and hold MiraLAX. 5. Prostatism continue Flomax no obstructive symptomatology. 6. Postoperative left hip pain discussed the addition of Celebrex there would likely for safe for pain control and the patient has no history of peptic ulcer disease and while he is on a regular strength aspirin daily is also on proton pump inhibitor therapy which should put him at low risk for ulceration. We'll monitor blood pressure and he was warned about the potential for edema exacerbation and indigestion. We'll give 100 mg Celebrex now and then 100 mg twice a day. Renal function has been normal. 6. Postoperative anemia secondary to blood loss hemoglobin 7.9 but he patient hemodynamically stable we'll check CBC in a couple of days. Hemoccult stools were negative as well.. Clinical Quality Measures DVT/VTE Risk/Contraindication: Risk Factor Score Per Nursin RFS Level Per Nursing on Admit: 4+=Very High DIANNE SUAREZ MD Apr 14, 2018 11:10
[2018-04-14] MEDS ORDERED: CELECOXIB 100 MG (CeleBREX) CAP PO NR (11:41)
--- NOTE | 2018-04-14 12:18 | Physical Therapy Daily Note ---
PT Daily Note-Current Subjective Pt in restroom upon arrival, Nurse present and reapplying bandages. Pt agrees to PT. Transfers Functional [place] Measure 0=Not Assessed/NA 4=Minimal Assistance 1=Total Assistance 5=Supervision or Setup 2=Maximal Assistance 6=Modified [place] 3=Moderate Assistance 7=Complete IndependenceIRFPAI Quality Coding Scale 6 Independent with activity with or without an assistive device 5 Patient requires set up or clean up by helper. Patient completes activity by themselves 4 Supervision or touching assist ([facility]). [place] provide cues , steadying assist 3 The helper provides less than half the effort to complete the activity 2 The helper provides more than half the effort to complete the activity 1 Dependent. The helper does all the effort to complete an activity 7 Patient refused to complete or attempt activity 9 The patient did not perform the activity before the current illness or injury 88 Not attempted due to Medical conditions or safety concerns Scootin Sit to/from Stand: 4 Sit to Stand (QC): 4 Weight Bearing Right Lower Extremity: Right Full Weight Bearing Left Lower Extremity: Left Weight Bearing/Tolerated Gait Training Does the Patient Walk?: Yes Distance (FIM): 3=150 ft Distance: 150' Walk 10 feet (QC): 4 Walk 50 ft with 2 Turns(QC): 4 Walk 150 ft (QC): 4 Gait Level of Assist: 4 Gait Persons Needed: 1 Gait Assistive Device: FWW Exercises Seated Therapy Exercises: Ankle pumps, Long arc quads, Hip flexion, Kicking activity, Hip abd/add Seated Reps: 15 NuStep Minutes: 15 NuStep Workload: 4 Treatments Pt finishes in restroom then rests in recliner. Pt transfers from recliner to standing using FWW at [facility]. Pt ambulates in hallway using FWW at [facility], taking a rest break along the way. Pt uses NuStep for 15m at [facility] 4, followed by Seated Ex. Pt returns to room to rest in recliner at end of tx. Pt has all needs met, including call light in hand. Assessment Current Status: Good Progress Pt takes extended time to ambulate and rests as needed for fatigue. PT Short Term Goals Short Term Goals Time Frame: Apr 19, 2018 Transfers (B,C,W/C) (FIM): 4 Gait (FIM): 4 Distance (FIM): 3=150 ft Gait Level of Assist: 4 Gait Assistive Device: FWW PT Crochet Beader Goals Usp Goals PT Usp Goals Time Frame: Apr 28, 2018 Transfers (B,C,W/C) (FIM): 6 Sit to Lying (QC): 6 Lying-Sitting on Side/Bed(QC): 6 Sit to Stand (QC): 6 Roll Left to Right (QC): 6 Chair/Cyn-gs-Smgaw Xfer(QC): 6 Car Transfer (QC): 6 Does the Patient Walk: Yes Gait (FIM): 6 Gait distance (FIM): 3=150 ft Walk 10 feet (QC): 6 Walk 10ft-Uneven Surface(QC): 6 Walk 50ft with 2 Turns (QC): 6 Walk 150 ft (QC): 6 Gait Assistive Device: FWW Does the Pt use WC or Scooter?: No Stairs (FIM): 5 (household) # of Steps: 4 1 Step (curb) (QC): 6 4 Steps (QC): 6 12 Steps (QC): 88 Picking up an Object (QC): 4 PT Plan Problem List Problem List: Activity Tolerance, Functional Strength, Gait Treatment/Plan Treatment Plan: Continue Plan of Care Treatment Plan: Bed Mobility, Education, Functional Activity True, Functional Strength, Group Therapy, Gait, Safety, Therapeutic Exercise, Transfers Treatment Duration: Apr 28, 2018 Frequency: At least 5 of 7 days/Wk (IRF) Estimated Hrs Per Day: 1.5 hours per day Patient and/or Family Agrees t: Yes Safety Risks/Education Patient Education: Gait Training, Transfer Techniques, Correct Positioning, Safety Issues Teaching Recipient: Patient Teaching Methods: Discussion Response to Teaching: Verbalize Understanding Time/GCodes Time In: 1000 Time Out: 1100 Total Billed Treatment Time: 60 Total Billed Treatment 1,GT (15m), FA (15m) & EX x2 (30m) G Codes Necessary: No GRETEL BARTLETT CUSTOMER SALES ADVISOR Apr 14, 2018 12:18
--- NOTE | 2018-04-14 14:17 | Occupational Ther Daily Note ---
OT Current Status-Daily Note Subjective Pt. reports that his knees are stiff, but does not report a pain level. Does state that he has had pain medication this morning. Appearance Pt. up in chair in room. Agrees to work with OT. Mental Status/Objective Patient Orientation: Person, Place Functional [place] Measure 0=Not Assessed/NA 4=Minimal Assistance 1=Total Assistance 5=Supervision or Setup 2=Maximal Assistance 6=Modified [place] 3=Moderate Assistance 7=Complete [place] ADL-Treatment Functional [place] Measure 0=Not Assessed/NA 4=Minimal Assistance 1=Total Assistance 5=Supervision or Setup 2=Maximal Assistance 6=Modified [place] 3=Moderate Assistance 7=Complete IndependenceIRFPAI Quality Coding Scale 6 Independent with activity with or without an assistive device 5 Patient requires set up or clean up by helper. Patient completes activity by themselves 4 Supervision or touching assist ([facility]). [place] provide cues , steadying assist 3 The helper provides less than half the effort to complete the activity 2 The helper provides more than half the effort to complete the activity 1 Dependent. The helper does all the effort to complete an activity 7 Patient refused to complete or attempt activity 9 The patient did not perform the activity before the current illness or injury 88 Not attempted due to Medical conditions or safety concerns Grooming (FIM): 5 (SBA to stand at sink and brush teeth and hair.) Oral Hygiene (QC): 4 Upper Body (FIM): 5 Upper Body Dressing (QC): 4 Lower Body Dressing (FIM): 4 (Min assist with AE. Pt. had difficulty getting left shoe on. OT donned it for him after putting elastic laces in shoes.) Lower Body Dressing (QC): 4 On/Off Footwear (QC): 3 Toileting (FIM): 5 Toileting Hygiene (QC): 5 Transfers (B, C, W/C) (FIM): 5 (With walker) Toilet/Commode Transfer (FIM): 5 Toilet Transfer (QC): 4 Other Treatment Pt. declined showering but agreed to get dressed. Pt. utilized AE this date and completed LE with AE. Tolerated this well with increased time needed. Pt. ambulated approximately 100 feet with SBA and walker after ADLs. Pt. up in chair awaiting PT after OT treatment. All needs met. Education OT Patient Education: Correct positioning, Modified ADL techniques, Progress toward Goal/Update tx plan, Purpose of tx/functional activities, Reviewed precautions, Rehab process, Transfer techniques, Use of adapted equipment Teaching Recipient: Patient Teaching Methods: Demonstration, Discussion Response to Teaching: Verbalize Understanding, Return Demonstration OT Short Term Goals Short Term Goals Time Frame: Apr 19, 2018 Eating(FIM): 5 Grooming(FIM): 5 Bathing(FIM): 4 Upper Body Dressing(FIM): 5 Lower Body Dressing(FIM): 4 Toileting(FIM): 5 Transfers (B,C,W/C) (FIM): 4 Toilet/Commode Transfer(FIM): 5 Shower Transfer(FIM): 4 Additional Short Term Goals: 1-Demonstrate ADL Tasks, 2-Verbalize Understanding , 3-ImproveStrength/True 1=Demonstrate adherence to instructed precautions during ADL tasks. 2=Patient will verbalize/demonstrate understanding of assistive devices/ modifications for ADL. 3=Patient will improve strength/tolerance for activity to enable patient to perform ADL's. OT Fpc Goals Vice President Of Software Development Goals Time Frame: Apr 26, 2018 Eating (FIM): 6 Eating (QC): 6 Groomin Oral Hygiene (QC): 6 Bathing(FIM): 5 Shower/Bathe Self (QC): 5 Upper Body Dressing(FIM): 6 Upper Body Dressing (QC): 6 Lower Body Dressing(FIM): 6 Lower Body Dressing (QC): 6 On/Off Footwear (QC): 6 Toileting(FIM): 6 Toileting Hygiene (QC): 6 Transfers (B,C,W/C) (FIM): 6 Toilet/Commode Transfer(FIM): 6 Toilet/Commode Transfer (QC): 6 Shower Transfer(FIM): 5 Additional Goals: 1-Demonstrate ADL Tasks, 2-Verbalize Understanding, 3- ImproveStrength/True 1=Demonstrate adherence to instructed precautions during ADL tasks. 2=Patient will verbalize/demonstrate understanding of assistive devices/ modifications for ADL. 3=Patient will improve strength/tolerance for activity to enable patient to perform ADL's. OT Education/Plan Problem List/Assessment Assessment: Decreased Activ Tolerance, Impaired I ADL's, Impaired Self-Care Skills Discharge Recommendations Plan/Recommendations: Continue POC Therapy D/C Recommendations: Home w/ Family Support, Occupational Therapy Home Care Treatment Plan/Plan of Care Treatment,Training & Education: Yes Patient would benefit from OT for education, treatment and training to promote independence in ADL's, mobility, safety and/or upper extremity function for ADL' s. Plan of Care: ADL Retraining, Functional Mobility, Group Exercise/Act as Ind, UE Funct Exercise/Act Treatment Duration: Apr 26, 2018 Frequency: At least 5 of 7 days/Wk (IRF) Estimated Hrs Per Day: 1.5 hours per day Agreement: Yes Rehab Potential: Good Time/GCodes Start Time: 08:30 Stop Time: 09:30 Total Time Billed (hr/min): 60 Billed Treatment Time 1, ADL x 4 EDGAR CARABALLO OT Apr 14, 2018 14:17
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
[2018-04-14 17:15] VITALS: BP 156/72
[2018-04-14] MEDS: TAMSULOSIN 0.4 MG (FLOMAX) CAP PO SCH (17:40)
[2018-04-14] MEDS: ENOXAPARIN 40 MG/0.4 ML (LOVENOX) SYR SC SCH (19:59)
[2018-04-14] MEDS: SIMvastatin 40 MG (ZOCOR) TAB PO SCH (21:22)
[2018-04-14] MEDS: CELECOXIB 100 MG (CeleBREX) CAP PO SCH (21:22)
[2018-04-14] MEDS: POLYETHYLENE GLYCOL 17 GM (MIRALAX) PACK PO SCH (21:23)
[2018-04-15] MEDS: inSUlin ASPART (NovoLOG) 1 UNIT/0.01 ML (CHARGE PER UNIT) SC SCH ×4 (05:58→21:54)
[2018-04-15 05:59] VITALS: BP 138/75
[2018-04-15] MEDS: PANTOPRAZOLE 40 MG (PROTONIX) TAB PO SCH (06:37)
[2018-04-15] MEDS: metFORMIN 500 MG (GLUCOPHAGE) TAB PO SCH ×2 (06:37→17:15)
[2018-04-15] MEDS: CALCIUM CARB + VIT D 600 MG (CALCARB + D) TAB PO SCH (06:37)
--- NOTE | 2018-04-15 08:00 | PM & R (SOAP) Progress Note ---
Subjective This was a face to face visit with the patient. Date Seen by Provider: Apr 15, 2018 Time Seen by Provider: 07:30 Subjective/Events-last exam Patient was seen in his room this AM Patient CGA to min assist for gait with walker.Appreciate DR veliz note and orders Review of Systems Musculoskeletal: leg pain Objective Physician Exam Last Set of Vital Signs Vital Signs Date Time Temp Pulse Resp B/P (MAP) Pulse Ox O2 Delivery O2 Flow Rate FiO2 04/15/18 05:59 98.6 82 20 138/75 (96) 98 Room Air Capillary Refill : Less Than 3 Seconds I&O Intake and Output 04/15/18 00:00 Intake Total 1060 ml Output Total 1120 ml Balance -60 ml Intake Oral 1060 ml Output Urine Total 1120 ml # Voids 4 # Bowel Movements 4 General: Alert, Oriented X3, Cooperative, No Acute Distress HEENT: Atraumatic, PERRLA, EOMI, Mucous Memb Moist/[place] Neck: Supple, No JVD Lungs: Clear to Auscultation Heart: Regular Rate Abdomen: Normal Bowel Sounds, Soft, No Tenderness Extremities: Other (Trace edema left ankle) Neuro: Other (Weakness left hip with guarding) Results Lab Data Laboratory Tests 04/12/18 14:48: Glucometer 139H 04/12/18 20:23: Glucometer 174H 04/13/18 04:23: Glucometer 134H 04/13/18 06:06: White Blood Count 6.0, Red Blood Count 2.93L, Hemoglobin 8.5L, Hematocrit 25L, Mean Corpuscular Volume 87, Mean Corpuscular Hemoglobin 29, Mean Corpuscular Hemoglobin Concent 34, Red Cell Distribution Width 14.7H, Platelet Count 167, Mean Platelet Volume 10.4, Sodium Level 137, Potassium Level 4.4, Chloride Level 104, Carbon Dioxide Level 26, Anion Gap 7, Blood Urea Nitrogen 21H, Creatinine 0.82, Estimat Glomerular Filtration Rate > 60, BUN/Creatinine Ratio 26, Glucose Level 134H, Calcium Level 9.1, Total Bilirubin 1.4H, Aspartate Amino Transf (AST/SGOT) 22, Alanine Aminotransferase (ALT/SGPT) 12, Alkaline Phosphatase 55, Total Protein 5.6L, Albumin 3.3 04/13/18 12:24: Glucometer 135H 04/13/18 15:59: Glucometer 135H 04/13/18 20:00: Stool Occult Blood Immunoassay NEGATIVE 04/13/18 20:49: Glucometer 162H 04/14/18 05:04: Glucometer 125H 04/14/18 05:17: White Blood Count 4.6, Red Blood Count 2.65L, Hemoglobin 7.9L, Hematocrit 23L, Mean Corpuscular Volume 87, Mean Corpuscular Hemoglobin 30, Mean Corpuscular Hemoglobin Concent 34, Red Cell Distribution Width 14.5, Platelet Count 176, Mean Platelet Volume 10.4 04/14/18 10:57: Glucometer 132H 04/14/18 15:49: Glucometer 134H 04/14/18 21:08: Glucometer 163H 04/15/18 04:52: Glucometer 130H Assessment/Plan Assessment and Plan S/P left hip repair as a result of fall Post op anemia Type 2 DM HTN controlled with med Plan Continue PT/Ot Calsium replacement Celebrex resumed for arthric pain Team Conference next week F/U with PCP PRN Co-Morbidities that are continuing to impact the rehab process: (include details ) TRESSA DELACRUZ MD Apr 15, 2018 08:00
[2018-04-15] MEDS: ASPIRIN 325 MG (5 GR) TABLET PO SCH (08:16)
[2018-04-15] MEDS: SENNA W/DOCUSATE (SENOKOT S) TABLET PO SCH ×2 (08:16→21:55)
[2018-04-15] MEDS: CELECOXIB 100 MG (CeleBREX) CAP PO SCH ×2 (08:16→21:54)
[2018-04-15] MEDS: lisINopril 20 MG (PRINIVIL) TABLET PO SCH (08:16)
[2018-04-15] MEDS: ACETAMINOPHEN 325 MG TABLET PO SCH ×3 (08:16→21:54)
--- NOTE | 2018-04-15 11:24 | Physical Therapy Daily Note ---
PT Daily Note-Current Subjective States that he is doing okay. Pain Numeric Pain Scale: 5-Moderate Pain Transfers Functional [place] Measure 0=Not Assessed/NA 4=Minimal Assistance 1=Total Assistance 5=Supervision or Setup 2=Maximal Assistance 6=Modified [place] 3=Moderate Assistance 7=Complete IndependenceIRFPAI Quality Coding Scale 6 Independent with activity with or without an assistive device 5 Patient requires set up or clean up by helper. Patient completes activity by themselves 4 Supervision or touching assist (CGA). [place] provide cues , steadying assist 3 The helper provides less than half the effort to complete the activity 2 The helper provides more than half the effort to complete the activity 1 Dependent. The helper does all the effort to complete an activity 7 Patient refused to complete or attempt activity 9 The patient did not perform the activity before the current illness or injury 88 Not attempted due to Medical conditions or safety concerns Transfers (B, C, W/C) (FIM): 5 Scootin Rollin Supine to/from Sit: 5 Sit to/from Stand: 5 Weight Bearing Right Lower Extremity: Right Full Weight Bearing Left Lower Extremity: Left Weight Bearing/Tolerated Gait Training Gait (FIM): 5 Distance (FIM): 3=150 ft Distance: 150' x 2 Gait Level of Assist: 5 Gait Persons Needed: 1 Gait Assistive Device: FWW Exercises Standin way Ex=Flex, Abd, Ext Standing Reps: 10 NuStep Minutes: 10 NuStep Workload: 5 Assessment Current Status: Excellent Progress The patient did well with all activities. PT Short Term Goals Short Term Goals Time Frame: Apr 19, 2018 Transfers (B,C,W/C) (FIM): 4 Gait (FIM): 4 Distance (FIM): 3=150 ft Gait Level of Assist: 4 Gait Assistive Device: FWW PT Senior Care Goals Brake Linings Coater Goals PT Senior Care Goals Time Frame: Apr 28, 2018 Transfers (B,C,W/C) (FIM): 6 Sit to Lying (QC): 6 Lying-Sitting on Side/Bed(QC): 6 Sit to Stand (QC): 6 Roll Left to Right (QC): 6 Chair/Qph-no-Htxpo Xfer(QC): 6 Car Transfer (QC): 6 Does the Patient Walk: Yes Gait (FIM): 6 Gait distance (FIM): 3=150 ft Walk 10 feet (QC): 6 Walk 10ft-Uneven Surface(QC): 6 Walk 50ft with 2 Turns (QC): 6 Walk 150 ft (QC): 6 Gait Assistive Device: FWW Does the Pt use WC or Scooter?: No Stairs (FIM): 5 (household) # of Steps: 4 1 Step (curb) (QC): 6 4 Steps (QC): 6 12 Steps (QC): 88 Picking up an Object (QC): 4 PT Plan Treatment/Plan Treatment Plan: Continue Plan of Care Treatment Plan: Bed Mobility, Education, Functional Activity True, Functional Strength, Group Therapy, Gait, Safety, Therapeutic Exercise, Transfers Treatment Duration: Apr 28, 2018 Frequency: At least 5 of 7 days/Wk (IRF) Estimated Hrs Per Day: 1.5 hours per day Patient and/or Family Agrees t: Yes Time/GCodes Time In: 1030 Time Out: 1100 Total Billed Treatment Time: 30 Total Billed Treatment 1, GT x 15, EX x 15 JOHNNIE JIM PT Apr 15, 2018 11:24
[2018-04-15 18:04] VITALS: BP 162/82
[2018-04-15] MEDS: TAMSULOSIN 0.4 MG (FLOMAX) CAP PO SCH (18:06)
[2018-04-15] MEDS: oxyCODONE/APAP 5/325MG (PERCOCET 5) TABLET PO PRN (21:54)
[2018-04-15] MEDS: ENOXAPARIN 40 MG/0.4 ML (LOVENOX) SYR SC SCH (21:54)
[2018-04-15] MEDS: SIMvastatin 40 MG (ZOCOR) TAB PO SCH (21:54)
[2018-04-15] MEDS: POLYETHYLENE GLYCOL 17 GM (MIRALAX) PACK PO SCH (21:55)
[2018-04-16 05:34] VITALS: BP 164/70
[2018-04-16] MEDS: metFORMIN 500 MG (GLUCOPHAGE) TAB PO SCH ×2 (06:34→17:28)
[2018-04-16] MEDS: CALCIUM CARB + VIT D 600 MG (CALCARB + D) TAB PO SCH (06:34)
[2018-04-16] MEDS: PANTOPRAZOLE 40 MG (PROTONIX) TAB PO SCH (06:34)
[2018-04-16] MEDS: inSUlin ASPART (NovoLOG) 1 UNIT/0.01 ML (CHARGE PER UNIT) SC SCH ×4 (06:34→21:24)
[2018-04-16] MEDS: ACETAMINOPHEN 325 MG TABLET PO SCH ×3 (07:44→20:07)
[2018-04-16] MEDS: lisINopril 20 MG (PRINIVIL) TABLET PO SCH (07:44)
[2018-04-16] MEDS: ASPIRIN 325 MG (5 GR) TABLET PO SCH (07:44)
[2018-04-16] MEDS: CELECOXIB 100 MG (CeleBREX) CAP PO SCH ×2 (07:45→20:07)
[2018-04-16] MEDS: SENNA W/DOCUSATE (SENOKOT S) TABLET PO SCH ×2 (07:45→20:08)
[2018-04-16] MEDS ORDERED: PATIENT MAY USE OWN MED,SINGLE MED PO SCH ×2 (09:15→17:00)
[2018-04-16] MEDS ORDERED: EPLERONONE 25 MG PO SCH ×2 (09:30→10:00)
[2018-04-16 10:58] LABS: BASOPHILS % (AUTO) 1 % (0-10); EOSINOPHILS # (AUTO) 0.1 10^3/uL (0.0-0.3); EOSINOPHILS % (AUTO) 3 % (0-10); HEMATOCRIT 26 % (40-54); HEMOGLOBIN 8.5 G/DL (13.3-17.7); LYMPHOCYTES # (AUTO) 0.8 X 10^3 (1.0-4.0); LYMPHOCYTES % (AUTO) 18 % (12-44); MEAN CORPUSCULAR HEMOGLOBIN 29 PG (25-34); MEAN CORPUSCULAR HGB CONC 33 G/DL (32-36); MEAN CORPUSCULAR VOLUME 88 FL (80-99); MEAN PLATELET VOLUME 9.8 FL (7.4-10.4); MONOCYTES # (AUTO) 0.8 X 10^3 (0.0-1.0); MONOCYTES % (AUTO) 17 % (0-12); NEUTROPHILS # (AUTO) 2.8 X 10^3 (1.8-7.8); NEUTROPHILS % (AUTO) 62 % (42-75); PLATELET COUNT 273 10^3/uL (130-400); RED BLOOD COUNT 2.94 10^6/uL (4.35-5.85); RED CELL DISTRIBUTION WIDTH 14.9 % (10.0-14.5); WHITE BLOOD COUNT 4.5 10^3/uL (4.3-11.0)
[2018-04-16 11:39] LABS: BUN/CREATININE RATIO 30; CALCIUM 9.3 MG/DL (8.5-10.1); CARBON DIOXIDE 23 MMOL/L (21-32); CHLORIDE 101 MMOL/L (98-107); GFR ESTIMATED > 60; GLUCOSE 106 MG/DL (70-105); POTASSIUM 4.3 MMOL/L (3.6-5.0); SODIUM 135 MMOL/L (135-145)
[2018-04-16 13:02] LABS: BASOPHILS % (MANUAL) 2 %; EOSINOPHILS % (MANUAL) 3 %; LYMPHOCYTES % (MANUAL) 28 %; MONOCYTES % (MANUAL) 9 %; NEUTROPHILS % (MANUAL) 58 %; RBC MORPH NORMAL
[2018-04-16] MEDS: oxyCODONE/APAP 5/325MG (PERCOCET 5) TABLET PO PRN (14:52)
[2018-04-16 15:49] VITALS: BP 142/76
[2018-04-16] MEDS: TAMSULOSIN 0.4 MG (FLOMAX) CAP PO SCH (17:28)
[2018-04-16] MEDS: EPLERONONE 25 MG PO SCH (17:29)
[2018-04-16] MEDS: ENOXAPARIN 40 MG/0.4 ML (LOVENOX) SYR SC SCH (20:06)
[2018-04-16] MEDS: SIMvastatin 40 MG (ZOCOR) TAB PO SCH (20:07)
[2018-04-16] MEDS: POLYETHYLENE GLYCOL 17 GM (MIRALAX) PACK PO SCH (20:07)
[2018-04-17 05:10] VITALS: BP 135/66
[2018-04-17] MEDS: inSUlin ASPART (NovoLOG) 1 UNIT/0.01 ML (CHARGE PER UNIT) SC SCH ×4 (06:08→21:24)
[2018-04-17] MEDS: CALCIUM CARB + VIT D 600 MG (CALCARB + D) TAB PO SCH (06:09)
[2018-04-17] MEDS: metFORMIN 500 MG (GLUCOPHAGE) TAB PO SCH ×2 (06:09→17:33)
[2018-04-17] MEDS: PANTOPRAZOLE 40 MG (PROTONIX) TAB PO SCH (06:09)
--- NOTE | 2018-04-17 08:37 | Occupational Ther Daily Note ---
OT Current Status-Daily Note Subjective No pain reported. Appearance Pt. up in chair. Agrees to shower. Mental Status/Objective Patient Orientation: Person, Place, Time, Situation Functional [place] Measure 0=Not Assessed/NA 4=Minimal Assistance 1=Total Assistance 5=Supervision or Setup 2=Maximal Assistance 6=Modified [place] 3=Moderate Assistance 7=Complete [place] ADL-Treatment Functional [place] Measure 0=Not Assessed/NA 4=Minimal Assistance 1=Total Assistance 5=Supervision or Setup 2=Maximal Assistance 6=Modified [place] 3=Moderate Assistance 7=Complete IndependenceIRFPAI Quality Coding Scale 6 Independent with activity with or without an assistive device 5 Patient requires set up or clean up by helper. Patient completes activity by themselves 4 Supervision or touching assist (CGA). [place] provide cues , steadying assist 3 The helper provides less than half the effort to complete the activity 2 The helper provides more than half the effort to complete the activity 1 Dependent. The helper does all the effort to complete an activity 7 Patient refused to complete or attempt activity 9 The patient did not perform the activity before the current illness or injury 88 Not attempted due to Medical conditions or safety concerns Grooming (FIM): 5 (SBA to stand and shave/brush teeth.) Oral Hygiene (QC): 4 Bathing (FIM): 5 Shower/Bathe Self (QC): 4 Upper Body (FIM): 5 Upper Body Dressing (QC): 5 Lower Body Dressing (FIM): 5 (SBA with AE) Lower Body Dressing (QC): 4 On/Off Footwear (QC): 4 Transfers (B, C, W/C) (FIM): 5 Shower Transfer(FIM): 5 Education OT Patient Education: Correct positioning, Modified ADL techniques, Progress toward Goal/Update tx plan, Purpose of tx/functional activities, Reviewed precautions, Rehab process, Transfer techniques Teaching Recipient: Patient Teaching Methods: Demonstration, Discussion Response to Teaching: Verbalize Understanding, Return Demonstration OT Short Term Goals Short Term Goals Time Frame: Apr 19, 2018 Eating(FIM): 5 Grooming(FIM): 5 Bathing(FIM): 4 Upper Body Dressing(FIM): 5 Lower Body Dressing(FIM): 4 Toileting(FIM): 5 Transfers (B,C,W/C) (FIM): 4 Toilet/Commode Transfer(FIM): 5 Shower Transfer(FIM): 4 Additional Short Term Goals: 1-Demonstrate ADL Tasks, 2-Verbalize Understanding , 3-ImproveStrength/True 1=Demonstrate adherence to instructed precautions during ADL tasks. 2=Patient will verbalize/demonstrate understanding of assistive devices/ modifications for ADL. 3=Patient will improve strength/tolerance for activity to enable patient to perform ADL's. OT Inspector Barrel Goals Group Home Goals Time Frame: Apr 26, 2018 Eating (FIM): 6 Eating (QC): 6 Groomin Oral Hygiene (QC): 6 Bathing(FIM): 5 Shower/Bathe Self (QC): 5 Upper Body Dressing(FIM): 6 Upper Body Dressing (QC): 6 Lower Body Dressing(FIM): 6 Lower Body Dressing (QC): 6 On/Off Footwear (QC): 6 Toileting(FIM): 6 Toileting Hygiene (QC): 6 Transfers (B,C,W/C) (FIM): 6 Toilet/Commode Transfer(FIM): 6 Toilet/Commode Transfer (QC): 6 Shower Transfer(FIM): 5 Additional Goals: 1-Demonstrate ADL Tasks, 2-Verbalize Understanding, 3- ImproveStrength/True 1=Demonstrate adherence to instructed precautions during ADL tasks. 2=Patient will verbalize/demonstrate understanding of assistive devices/ modifications for ADL. 3=Patient will improve strength/tolerance for activity to enable patient to perform ADL's. OT Education/Plan Problem List/Assessment Assessment: Decreased Activ Tolerance, Impaired I ADL's, Impaired Self-Care Skills Discharge Recommendations Plan/Recommendations: Continue POC Therapy D/C Recommendations: Home w/ Family Support Equpiment Recommendations-D/C: Extended Bath Bench Treatment Plan/Plan of Care Treatment,Training & Education: Yes Patient would benefit from OT for education, treatment and training to promote independence in ADL's, mobility, safety and/or upper extremity function for ADL' s. Plan of Care: ADL Retraining, Functional Mobility, Group Exercise/Act as Ind, UE Funct Exercise/Act Treatment Duration: Apr 26, 2018 Frequency: At least 5 of 7 days/Wk (IRF) Estimated Hrs Per Day: 1.5 hours per day Agreement: Yes Rehab Potential: Good Time/GCodes Start Time: 07:30 Stop Time: 08:15 Total Time Billed (hr/min): 45 Billed Treatment Time 1, ADL x 3 NACCARATO,EDGAR OT Apr 17, 2018 08:36
[2018-04-17] MEDS: SENNA W/DOCUSATE (SENOKOT S) TABLET PO SCH ×2 (08:55→20:00)
[2018-04-17] MEDS: ASPIRIN 325 MG (5 GR) TABLET PO SCH (08:55)
[2018-04-17] MEDS: lisINopril 20 MG (PRINIVIL) TABLET PO SCH (08:55)
[2018-04-17] MEDS: CELECOXIB 100 MG (CeleBREX) CAP PO SCH ×2 (08:55→20:14)
[2018-04-17] MEDS: ACETAMINOPHEN 325 MG TABLET PO SCH ×2 (08:56→12:21)
--- NOTE | 2018-04-17 10:07 | Physical Therapy Daily Note ---
PT Daily Note-Current Subjective Patient reports he just received his pain medication. Pain Numeric Pain Scale: 7 Location: Left Location Body Site: Thigh Pain Description: Ache, Acute Mental Status Patient Orientation: Normal For Age Transfers Functional [place] Measure 0=Not Assessed/NA 4=Minimal Assistance 1=Total Assistance 5=Supervision or Setup 2=Maximal Assistance 6=Modified [place] 3=Moderate Assistance 7=Complete IndependenceIRFPAI Quality Coding Scale 6 Independent with activity with or without an assistive device 5 Patient requires set up or clean up by helper. Patient completes activity by themselves 4 Supervision or touching assist (CGA). [place] provide cues , steadying assist 3 The helper provides less than half the effort to complete the activity 2 The helper provides more than half the effort to complete the activity 1 Dependent. The helper does all the effort to complete an activity 7 Patient refused to complete or attempt activity 9 The patient did not perform the activity before the current illness or injury 88 Not attempted due to Medical conditions or safety concerns Transfers (B, C, W/C) (FIM): 6 Scootin Rollin Roll Left to Right (QC): 6 Supine to/from Sit: 6 Sit to/from Stand: 6 Sit to Lying (QC): 6 Sit to Stand (QC): 6 Chair/Fht-hm-Unhug Xfer(QC): 6 Bed to/from Chair: 6 Car Transfer (QC): 6 Weight Bearing Right Lower Extremity: Right Full Weight Bearing Left Lower Extremity: Left Weight Bearing/Tolerated Gait Training Does the Patient Walk?: Yes Gait (FIM): 6 Distance (FIM): 3=150 ft Distance: 200' x 4 Walk 10 feet (QC): 6 Walk 50 ft with 2 Turns(QC): 6 Walk 150 ft (QC): 6 Gait Level of Assist: 6 Gait Assistive Device: FWW slow, steady, antalgic Exercises Supine Ex: Ankle pumps, Quad Set, Heel Slides, Straight leg raise Supine Reps: 25 Seated Therapy Exercises: Long arc quads Seated Reps: 25 (2 sets) NuStep Minutes: 15 NuStep Workload: 6 (to improve functional strength and mobility) Assessment Patient progressing with treatment plan and voices desire to return to home this week. PT Short Term Goals Short Term Goals Time Frame: Apr 19, 2018 Transfers (B,C,W/C) (FIM): 4 Gait (FIM): 4 Distance (FIM): 3=150 ft Gait Level of Assist: 4 Gait Assistive Device: FWW PT Intermediate Goals Sap Pp Consultant Goals PT Intermediate Goals Time Frame: Apr 28, 2018 Transfers (B,C,W/C) (FIM): 6 Sit to Lying (QC): 6 Lying-Sitting on Side/Bed(QC): 6 Sit to Stand (QC): 6 Rollin Roll Left to Right (QC): 6 Chair/Gbs-yv-Kmfca Xfer(QC): 6 Car Transfer (QC): 6 Does the Patient Walk: Yes Gait (FIM): 6 Gait distance (FIM): 3=150 ft Walk 10 feet (QC): 6 Walk 10ft-Uneven Surface(QC): 6 Walk 50ft with 2 Turns (QC): 6 Walk 150 ft (QC): 6 Gait Assistive Device: FWW Does the Pt use WC or Scooter?: No Stairs (FIM): 5 (household) # of Steps: 4 1 Step (curb) (QC): 6 4 Steps (QC): 6 12 Steps (QC): 88 Picking up an Object (QC): 4 PT Plan Treatment/Plan Treatment Plan: Continue Plan of Care Treatment Plan: Bed Mobility, Education, Functional Activity True, Functional Strength, Group Therapy, Gait, Safety, Therapeutic Exercise, Transfers Treatment Duration: Apr 28, 2018 Frequency: At least 5 of 7 days/Wk (IRF) Estimated Hrs Per Day: 1.5 hours per day Patient and/or Family Agrees t: Yes Time/GCodes Time In: 903 Time Out: 1003 Total Billed Treatment Time: 60 Total Billed Treatment 1 visit EX x 2 35 min GT x 2 25 min ELPIDIO CARDOSO PT Apr 17, 2018 10:07
--- NOTE | 2018-04-17 14:48 | Therapy Group Daily Note ---
Therapy Daily Group Note Patient Education Topic Home Safety, Fall Prevention Exercises LE Seated Exercise, UE Exercise Other/Notes Pt ambulated using FWW to OT/PT group. Group consisted of introductions (name, place living, favorite food/restaurant), socialization, pt led UE/LE seated exercises, safe transfers, fall prevention and home safety. Pt introduced self appropriately and actively listened to peers. Pt was able to complete UE/LE seated exercises and lead one exercise. Pt contributed to peer conversations and discussions throughout group. Pt verbalized understanding about educational topics. Pt ambulated back to room after group and sat in recliner. Call light/phone in reach. All needs met in room. Start Time: 13:00 Stop Time: 14:15 Total Billed Treatment Time: 75 Total Billed Treatment 1-GRP NOREEN MACDONALD Apr 17, 2018 14:48
[2018-04-17] MEDS: TAMSULOSIN 0.4 MG (FLOMAX) CAP PO SCH (17:33)
[2018-04-17] MEDS: EPLERONONE 25 MG PO SCH (17:44)
--- NOTE | 2018-04-17 18:01 | PM & R (SOAP) Progress Note ---
Subjective This was a face to face visit with the patient. Date Seen by Provider: Apr 17, 2018 Time Seen by Provider: 17:30 Subjective/Events-last exam Patient was seen in his room this afternoon.Patient Modified Independent for transfers.Moved to Independent living apartment Objective Physician Exam Last Set of Vital Signs Vital Signs Date Time Temp Pulse Resp B/P (MAP) Pulse Ox O2 Delivery O2 Flow Rate FiO2 04/17/18 05:10 98.7 84 17 135/66 (89) 95 Room Air Capillary Refill : Less Than 3 Seconds I&O Intake and Output 04/17/18 00:00 Intake Total 910 ml Output Total 1065 ml Balance -155 ml Intake Oral 910 ml Output Urine Total 1065 ml # Bowel Movements 2 General: Alert, Oriented X3, Cooperative, No Acute Distress HEENT: Atraumatic, PERRLA, EOMI, Mucous Memb Moist/[place] Neck: Supple, No JVD Lungs: Clear to Auscultation Heart: Regular Rate Abdomen: Normal Bowel Sounds, Soft, No Tenderness Extremities: Other (Trace edema left ankle) Neuro: Other (Weakness left hip with guarding) Results Lab Data Laboratory Tests 04/14/18 21:08: Glucometer 163H 04/15/18 04:52: Glucometer 130H 04/15/18 11:31: Glucometer 122H 04/15/18 15:56: Glucometer 113H 04/15/18 20:34: Glucometer 124H 04/16/18 05:48: Glucometer 110 04/16/18 10:34: Glucometer 117H 04/16/18 10:50: White Blood Count 4.5, Red Blood Count 2.94L, Hemoglobin 8.5L, Hematocrit 26L, Mean Corpuscular Volume 88, Mean Corpuscular Hemoglobin 29, Mean Corpuscular Hemoglobin Concent 33, Red Cell Distribution Width 14.9H, Platelet Count 273, Mean Platelet Volume 9.8, Neutrophils (%) (Auto) 62, Lymphocytes (%) (Auto) 18, Monocytes (%) (Auto) 17H, Eosinophils (%) (Auto) 3, Basophils (%) (Auto) 1, Neutrophils # (Auto) 2.8, Lymphocytes # (Auto) 0.8L, Monocytes # (Auto) 0.8, Eosinophils # (Auto) 0.1, Basophils # (Auto) 0.0, Neutrophils % (Manual) 58, Lymphocytes % (Manual) 28, Monocytes % (Manual) 9, Eosinophils % (Manual) 3, Basophils % (Manual) 2, Blood Morphology Comment NORMAL, Sodium Level 135, Potassium Level 4.3, Chloride Level 101, Carbon Dioxide Level 23, Anion Gap 11, Blood Urea Nitrogen 27H, Creatinine 0.90, Estimat Glomerular Filtration Rate > 60, BUN/Creatinine Ratio 30, Glucose Level 106H, Calcium Level 9.3 04/16/18 16:14: Glucometer 126H 04/16/18 20:16: Glucometer 143H 04/17/18 05:33: Glucometer 120H 04/17/18 11:02: Glucometer 109 04/17/18 15:55: Glucometer 113H Assessment/Plan Assessment and Plan S/P left hip repair as a result of fall Postop anemia Type 2 DM HTN controlled with med Plan Continue PT/Ot Team Conference 04-19-18 F/U with PCP PRN Co-Morbidities that are continuing to impact the rehab process: (include details ) TRESSA DELACRUZ MD Apr 17, 2018 18:01
[2018-04-17 18:50] VITALS: BP 159/73
[2018-04-17] MEDS: POLYETHYLENE GLYCOL 17 GM (MIRALAX) PACK PO SCH (20:00)
[2018-04-17] MEDS: SIMvastatin 40 MG (ZOCOR) TAB PO SCH (20:14)
[2018-04-17] MEDS: ENOXAPARIN 40 MG/0.4 ML (LOVENOX) SYR SC SCH (20:14)
[2018-04-18 05:15] VITALS: BP 147/72
[2018-04-18] MEDS: inSUlin ASPART (NovoLOG) 1 UNIT/0.01 ML (CHARGE PER UNIT) SC SCH ×4 (05:46→21:14)
[2018-04-18] MEDS: metFORMIN 500 MG (GLUCOPHAGE) TAB PO SCH ×2 (06:01→16:56)
[2018-04-18] MEDS: CALCIUM CARB + VIT D 600 MG (CALCARB + D) TAB PO SCH (06:01)
[2018-04-18] MEDS: PANTOPRAZOLE 40 MG (PROTONIX) TAB PO SCH (06:01)
[2018-04-18] MEDS: SENNA W/DOCUSATE (SENOKOT S) TABLET PO SCH ×2 (08:12→20:20)
[2018-04-18] MEDS: ASPIRIN 325 MG (5 GR) TABLET PO SCH (08:13)
[2018-04-18] MEDS: lisINopril 20 MG (PRINIVIL) TABLET PO SCH (08:13)
[2018-04-18] MEDS: CELECOXIB 100 MG (CeleBREX) CAP PO SCH ×2 (08:13→20:19)
[2018-04-18] MEDS: oxyCODONE/APAP 5/325MG (PERCOCET 5) TABLET PO PRN ×2 (08:18→12:09)
--- NOTE | 2018-04-18 08:44 | PM & R (SOAP) Progress Note ---
Subjective This was a face to face visit with the patient. Date Seen by Provider: Apr 18, 2018 Time Seen by Provider: 07:55 Subjective/Events-last exam Patient was seen in his room this AM Patient Modified Independent for transfers Having BMS and voiding . Objective Physician Exam Last Set of Vital Signs Vital Signs Date Time Temp Pulse Resp B/P (MAP) Pulse Ox O2 Delivery O2 Flow Rate FiO2 04/18/18 05:15 97.8 79 17 147/72 (97) 97 Room Air Capillary Refill : Less Than 3 Seconds I&O Intake and Output 04/18/18 00:00 Intake Total 1650 ml Output Total 1650 ml Balance 0 ml Intake Oral 1650 ml Output Urine Total 1650 ml # Voids 7 # Bowel Movements 3 General: Alert, Oriented X3, Cooperative, No Acute Distress HEENT: Atraumatic, PERRLA, EOMI, Mucous Memb Moist/[place] Neck: Supple, No JVD Lungs: Clear to Auscultation Heart: Regular Rate Abdomen: Normal Bowel Sounds, Soft, No Tenderness Extremities: Other (Trace edema left ankle) Neuro: Other (Weakness left hip with guarding) Results Lab Data Laboratory Tests 04/15/18 11:31: Glucometer 122H 04/15/18 15:56: Glucometer 113H 04/15/18 20:34: Glucometer 124H 04/16/18 05:48: Glucometer 110 04/16/18 10:34: Glucometer 117H 04/16/18 10:50: White Blood Count 4.5, Red Blood Count 2.94L, Hemoglobin 8.5L, Hematocrit 26L, Mean Corpuscular Volume 88, Mean Corpuscular Hemoglobin 29, Mean Corpuscular Hemoglobin Concent 33, Red Cell Distribution Width 14.9H, Platelet Count 273, Mean Platelet Volume 9.8, Neutrophils (%) (Auto) 62, Lymphocytes (%) (Auto) 18, Monocytes (%) (Auto) 17H, Eosinophils (%) (Auto) 3, Basophils (%) (Auto) 1, Neutrophils # (Auto) 2.8, Lymphocytes # (Auto) 0.8L, Monocytes # (Auto) 0.8, Eosinophils # (Auto) 0.1, Basophils # (Auto) 0.0, Neutrophils % (Manual) 58, Lymphocytes % (Manual) 28, Monocytes % (Manual) 9, Eosinophils % (Manual) 3, Basophils % (Manual) 2, Blood Morphology Comment NORMAL, Sodium Level 135, Potassium Level 4.3, Chloride Level 101, Carbon Dioxide Level 23, Anion Gap 11, Blood Urea Nitrogen 27H, Creatinine 0.90, Estimat Glomerular Filtration Rate > 60, BUN/Creatinine Ratio 30, Glucose Level 106H, Calcium Level 9.3 04/16/18 16:14: Glucometer 126H 04/16/18 20:16: Glucometer 143H 04/17/18 05:33: Glucometer 120H 04/17/18 11:02: Glucometer 109 04/17/18 15:55: Glucometer 113H 04/17/18 20:10: Glucometer 122H 04/18/18 05:38: Glucometer 122H Assessment/Plan Assessment and Plan S/P left hip repair for fracture as a result of a fall Postop anemia Type 2 DM HTN controlled Plan Continue PT/OT Team Conference in AM Co-Morbidities that are continuing to impact the rehab process: (include details ) TRESSA DELACRUZ MD Apr 18, 2018 08:44
--- NOTE | 2018-04-18 08:48 | Occupational Ther Daily Note ---
OT Current Status-Daily Note Subjective Pt alert, sitting in chair. Pt agrees to therapy. No c/o pain at this time. Mental Status/Objective Patient Orientation: Person, Place, Time, Situation Functional [place] Measure 0=Not Assessed/NA 4=Minimal Assistance 1=Total Assistance 5=Supervision or Setup 2=Maximal Assistance 6=Modified [place] 3=Moderate Assistance 7=Complete [place] ADL-Treatment Functional [place] Measure 0=Not Assessed/NA 4=Minimal Assistance 1=Total Assistance 5=Supervision or Setup 2=Maximal Assistance 6=Modified [place] 3=Moderate Assistance 7=Complete IndependenceIRFPAI Quality Coding Scale 6 Independent with activity with or without an assistive device 5 Patient requires set up or clean up by helper. Patient completes activity by themselves 4 Supervision or touching assist (CGA). [place] provide cues , steadying assist 3 The helper provides less than half the effort to complete the activity 2 The helper provides more than half the effort to complete the activity 1 Dependent. The helper does all the effort to complete an activity 7 Patient refused to complete or attempt activity 9 The patient did not perform the activity before the current illness or injury 88 Not attempted due to Medical conditions or safety concerns Grooming (FIM): 6 (Using FWW at sink, pt able to complete by self.) Oral Hygiene (QC): 6 Bathing (FIM): 6 (Using shower bench, hand held shower, grabbar and long handle sponge pt able to complete by self.) Bathing Location: L Arm, R Arm, L Upper Leg, R Upper Leg, L Lower Leg ( including foot), R Lower Leg (including foot), Chest, Abdomen, Buttocks, Perineal Area Shower/Bathe Self (QC): 6 Upper Body (FIM): 5 (After set up, pt able to complete by self.) Upper Body Dressing (QC): 5 Lower Body Dressing (FIM): 5 (After set up, pt able to complete by self using AE.) Lower Body Dressing (QC): 5 On/Off Footwear (QC): 5 Tub Transfer(FIM): 5 (SBA using tub transfer bench, FWW and grabbars.) After therapy, pt left in care of PT. All needs met in room. OT Short Term Goals Short Term Goals Time Frame: Apr 19, 2018 Eating(FIM): 5 Grooming(FIM): 5 Bathing(FIM): 4 Upper Body Dressing(FIM): 5 Lower Body Dressing(FIM): 4 Toileting(FIM): 5 Transfers (B,C,W/C) (FIM): 4 Toilet/Commode Transfer(FIM): 5 Shower Transfer(FIM): 4 Additional Short Term Goals: 1-Demonstrate ADL Tasks, 2-Verbalize Understanding , 3-ImproveStrength/True 1=Demonstrate adherence to instructed precautions during ADL tasks. 2=Patient will verbalize/demonstrate understanding of assistive devices/ modifications for ADL. 3=Patient will improve strength/tolerance for activity to enable patient to perform ADL's. OT Manager Assisted Living Goals Manager Assisted Living Goals Time Frame: Apr 26, 2018 Eating (FIM): 6 Eating (QC): 6 Groomin Oral Hygiene (QC): 6 Bathing(FIM): 5 Shower/Bathe Self (QC): 5 Upper Body Dressing(FIM): 6 Upper Body Dressing (QC): 6 Lower Body Dressing(FIM): 6 Lower Body Dressing (QC): 6 On/Off Footwear (QC): 6 Toileting(FIM): 6 Toileting Hygiene (QC): 6 Transfers (B,C,W/C) (FIM): 6 Toilet/Commode Transfer(FIM): 6 Toilet/Commode Transfer (QC): 6 Shower Transfer(FIM): 5 Additional Goals: 1-Demonstrate ADL Tasks, 2-Verbalize Understanding, 3- ImproveStrength/True 1=Demonstrate adherence to instructed precautions during ADL tasks. 2=Patient will verbalize/demonstrate understanding of assistive devices/ modifications for ADL. 3=Patient will improve strength/tolerance for activity to enable patient to perform ADL's. OT Education/Plan Discharge Recommendations Plan/Recommendations: Continue POC Treatment Plan/Plan of Care Patient would benefit from OT for education, treatment and training to promote independence in ADL's, mobility, safety and/or upper extremity function for ADL' s. Plan of Care: ADL Retraining, Functional Mobility, Group Exercise/Act as Ind, UE Funct Exercise/Act Treatment Duration: Apr 26, 2018 Frequency: At least 5 of 7 days/Wk (IRF) Estimated Hrs Per Day: 1.5 hours per day Agreement: Yes Rehab Potential: Good Time/GCodes Start Time: 08:00 Stop Time: 09:00 Total Time Billed (hr/min): 60 Billed Treatment Time 1 visit-ADL 4 (60 min) NOREEN MACDONALD Apr 18, 2018 08:48
--- NOTE | 2018-04-18 10:02 | Physical Therapy Daily Note ---
PT Daily Note-Current Subjective Patient has been instructed to be ad you in room and hallway. RN notified. Pain Numeric Pain Scale: 5-Moderate Pain Location: Left Location Body Site: Hip Pain Description: Ache Comment: with pain medication issued Mental Status Patient Orientation: Normal For Age Transfers Functional [place] Measure 0=Not Assessed/NA 4=Minimal Assistance 1=Total Assistance 5=Supervision or Setup 2=Maximal Assistance 6=Modified [place] 3=Moderate Assistance 7=Complete IndependenceIRFPAI Quality Coding Scale 6 Independent with activity with or without an assistive device 5 Patient requires set up or clean up by helper. Patient completes activity by themselves 4 Supervision or touching assist (CGA). [place] provide cues , steadying assist 3 The helper provides less than half the effort to complete the activity 2 The helper provides more than half the effort to complete the activity 1 Dependent. The helper does all the effort to complete an activity 7 Patient refused to complete or attempt activity 9 The patient did not perform the activity before the current illness or injury 88 Not attempted due to Medical conditions or safety concerns Transfers (B, C, W/C) (FIM): 6 Scootin Rollin Roll Left to Right (QC): 6 Supine to/from Sit: 6 Sit to/from Stand: 6 Sit to Lying (QC): 6 Sit to Stand (QC): 6 Chair/Xev-sp-Truun Xfer(QC): 6 Bed to/from Chair: 6 Car Transfer (QC): 6 Weight Bearing Right Lower Extremity: Right Full Weight Bearing Left Lower Extremity: Left Weight Bearing/Tolerated Gait Training Gait (FIM): 6 Distance (FIM): 3=150 ft Distance: 300' x 2 Walk 10 feet (QC): 6 Walk 50 ft with 2 Turns(QC): 6 Walk 150 ft (QC): 6 Walking 10ft/uneven surface-QC: 6 Gait Level of Assist: 6 Gait Assistive Device: FWW antalgic, functional, safe with FWW Exercises Supine Ex: Ankle pumps, Quad Set, Heel Slides, Straight leg raise Supine Reps: 20 (2 sets) Standin way Ex=Flex, Abd, Ext, Mini squats Standing Reps: 20 (2 sets) NuStep Minutes: 15 NuStep Workload: 6 (to improve functional mobility and strength) Assessment Patient requires recovery periods due to fatigue. Patient is much improved and feels comfortable with modified independent LOF with gross motor skills. PT Short Term Goals Short Term Goals Time Frame: Apr 19, 2018 Transfers (B,C,W/C) (FIM): 4 Gait (FIM): 4 Distance (FIM): 3=150 ft Gait Level of Assist: 4 Gait Assistive Device: FWW PT Snf Goals Snf Goals PT Snf Goals Time Frame: Apr 28, 2018 Transfers (B,C,W/C) (FIM): 6 Sit to Lying (QC): 6 Lying-Sitting on Side/Bed(QC): 6 Sit to Stand (QC): 6 Rollin Roll Left to Right (QC): 6 Chair/Eaf-tn-[place] Xfer(QC): 6 Car Transfer (QC): 6 Does the Patient Walk: Yes Gait (FIM): 6 Gait distance (FIM): 3=150 ft Walk 10 feet (QC): 6 Walk 10ft-Uneven Surface(QC): 6 Walk 50ft with 2 Turns (QC): 6 Walk 150 ft (QC): 6 Gait Assistive Device: FWW Does the Pt use WC or Scooter?: No Stairs (FIM): 5 (household) # of Steps: 4 1 Step (curb) (QC): 6 4 Steps (QC): 6 12 Steps (QC): 88 Picking up an Object (QC): 4 PT Plan Treatment/Plan Treatment Plan: Continue Plan of Care Treatment Plan: Bed Mobility, Education, Functional Activity True, Functional Strength, Group Therapy, Gait, Safety, Therapeutic Exercise, Transfers Treatment Duration: Apr 28, 2018 Frequency: At least 5 of 7 days/Wk (IRF) Estimated Hrs Per Day: 1.5 hours per day Patient and/or Family Agrees t: Yes Time/GCodes Time In: 900 Time Out: 1000 Total Billed Treatment Time: 60 Total Billed Treatment 1 visit FA 14 min EX x 3 46 min ELPIDIO CARDOSO PT Apr 18, 2018 10:02
--- NOTE | 2018-04-18 14:15 | Physical Therapy Daily Note ---
PT Daily Note-Current Subjective Patient met PT in hallway. Pain Numeric Pain Scale: 5-Moderate Pain Location: Left Location Body Site: Hip Pain Description: Acute Mental Status Patient Orientation: Normal For Age Transfers Functional [place] Measure 0=Not Assessed/NA 4=Minimal Assistance 1=Total Assistance 5=Supervision or Setup 2=Maximal Assistance 6=Modified [place] 3=Moderate Assistance 7=Complete IndependenceIRFPAI Quality Coding Scale 6 Independent with activity with or without an assistive device 5 Patient requires set up or clean up by helper. Patient completes activity by themselves 4 Supervision or touching assist (CGA). [place] provide cues , steadying assist 3 The helper provides less than half the effort to complete the activity 2 The helper provides more than half the effort to complete the activity 1 Dependent. The helper does all the effort to complete an activity 7 Patient refused to complete or attempt activity 9 The patient did not perform the activity before the current illness or injury 88 Not attempted due to Medical conditions or safety concerns Transfers (B, C, W/C) (FIM): 6 Scootin Rollin Roll Left to Right (QC): 6 Supine to/from Sit: 6 Sit to/from Stand: 6 Sit to Lying (QC): 6 Sit to Stand (QC): 6 Chair/Xvu-kz-Cdckf Xfer(QC): 6 Bed to/from Chair: 6 Car Transfer (QC): 6 Weight Bearing Right Lower Extremity: Right Partial Weight Bearing Left Lower Extremity: Left Weight Bearing/Tolerated Gait Training Does the Patient Walk?: Yes Gait (FIM): 6 Distance (FIM): 3=150 ft Distance: 225' x 2 Walk 10 feet (QC): 6 Walk 50 ft with 2 Turns(QC): 6 Walk 150 ft (QC): 6 Gait Level of Assist: 6 Gait Assistive Device: FWW steady, antalgic Stair Training Stair Training: Handrails/: 1 handrail, uses walker Stairs (FIM): 5 #of Steps: 8 1 Step (curb) (QC): 5 4 Steps (QC): 5 Stairs: Pattern: Step to Level of Assist: 5 Exercises NuStep Minutes: 15 NuStep Workload: 6 Assessment Patient is highly motivated with progress and has no c/o at this time. PT to increase activity as tolerated by patient. PT Short Term Goals Short Term Goals Time Frame: Apr 19, 2018 Transfers (B,C,W/C) (FIM): 4 Gait (FIM): 4 Distance (FIM): 3=150 ft Gait Level of Assist: 4 Gait Assistive Device: FWW PT Residential Goals Residential Goals PT [employer] Aid Goals Time Frame: Apr 28, 2018 Transfers (B,C,W/C) (FIM): 6 Sit to Lying (QC): 6 Lying-Sitting on Side/Bed(QC): 6 Sit to Stand (QC): 6 Rollin Roll Left to Right (QC): 6 Chair/Beb-yo-Ryyco Xfer(QC): 6 Car Transfer (QC): 6 Does the Patient Walk: Yes Gait (FIM): 6 Gait distance (FIM): 3=150 ft Walk 10 feet (QC): 6 Walk 10ft-Uneven Surface(QC): 6 Walk 50ft with 2 Turns (QC): 6 Walk 150 ft (QC): 6 Gait Assistive Device: FWW Does the Pt use WC or Scooter?: No Stairs (FIM): 5 (household) # of Steps: 4 1 Step (curb) (QC): 6 4 Steps (QC): 6 12 Steps (QC): 88 Picking up an Object (QC): 4 PT Plan Treatment/Plan Treatment Plan: Continue Plan of Care Treatment Plan: Bed Mobility, Education, Functional Activity True, Functional Strength, Group Therapy, Gait, Safety, Therapeutic Exercise, Transfers Treatment Duration: Apr 28, 2018 Frequency: At least 5 of 7 days/Wk (IRF) Estimated Hrs Per Day: 1.5 hours per day Patient and/or Family Agrees t: Yes Time/GCodes Time In: 1300 Time Out: 1330 Total Billed Treatment Time: 30 Total Billed Treatment 1 visit EX 15 min FA 15 min ELPIDIO CARDOSO PT Apr 18, 2018 14:15
--- NOTE | 2018-04-18 14:46 | Occupational Ther Daily Note ---
OT Current Status-Daily Note Subjective Took over care from PT. Mental Status/Objective Patient Orientation: Person, Place, Time, Situation Functional [place] Measure 0=Not Assessed/NA 4=Minimal Assistance 1=Total Assistance 5=Supervision or Setup 2=Maximal Assistance 6=Modified [place] 3=Moderate Assistance 7=Complete [place] ADL-Treatment Functional [place] Measure 0=Not Assessed/NA 4=Minimal Assistance 1=Total Assistance 5=Supervision or Setup 2=Maximal Assistance 6=Modified [place] 3=Moderate Assistance 7=Complete IndependenceIRFPAI Quality Coding Scale 6 Independent with activity with or without an assistive device 5 Patient requires set up or clean up by helper. Patient completes activity by themselves 4 Supervision or touching assist (CGA). [place] provide cues , steadying assist 3 The helper provides less than half the effort to complete the activity 2 The helper provides more than half the effort to complete the activity 1 Dependent. The helper does all the effort to complete an activity 7 Patient refused to complete or attempt activity 9 The patient did not perform the activity before the current illness or injury 88 Not attempted due to Medical conditions or safety concerns Pt completed arm bike 15 min duration at 30 hernandez resistance to increase strength and activity tolerance for daily functional tasks. Pt completed fine motor tasks to strengthen career development associate and pinch for daily functional tasks. Resistive clothespins 2x each hand completed. Medium resistive theraputty with small objects to find completed. After therapy, pt sitting in EOB with call light/ phone in reach. All needs met in room. OT Short Term Goals Short Term Goals Time Frame: Apr 19, 2018 Eating(FIM): 5 Grooming(FIM): 5 Bathing(FIM): 4 Upper Body Dressing(FIM): 5 Lower Body Dressing(FIM): 4 Toileting(FIM): 5 Transfers (B,C,W/C) (FIM): 4 Toilet/Commode Transfer(FIM): 5 Shower Transfer(FIM): 4 Additional Short Term Goals: 1-Demonstrate ADL Tasks, 2-Verbalize Understanding , 3-ImproveStrength/True 1=Demonstrate adherence to instructed precautions during ADL tasks. 2=Patient will verbalize/demonstrate understanding of assistive devices/ modifications for ADL. 3=Patient will improve strength/tolerance for activity to enable patient to perform ADL's. OT Meter Reader Chief Goals Snf Goals Time Frame: Apr 26, 2018 Eating (FIM): 6 Eating (QC): 6 Groomin Oral Hygiene (QC): 6 Bathing(FIM): 5 Shower/Bathe Self (QC): 5 Upper Body Dressing(FIM): 6 Upper Body Dressing (QC): 6 Lower Body Dressing(FIM): 6 Lower Body Dressing (QC): 6 On/Off Footwear (QC): 6 Toileting(FIM): 6 Toileting Hygiene (QC): 6 Transfers (B,C,W/C) (FIM): 6 Toilet/Commode Transfer(FIM): 6 Toilet/Commode Transfer (QC): 6 Shower Transfer(FIM): 5 Additional Goals: 1-Demonstrate ADL Tasks, 2-Verbalize Understanding, 3- ImproveStrength/True 1=Demonstrate adherence to instructed precautions during ADL tasks. 2=Patient will verbalize/demonstrate understanding of assistive devices/ modifications for ADL. 3=Patient will improve strength/tolerance for activity to enable patient to perform ADL's. OT Education/Plan Discharge Recommendations Plan/Recommendations: Continue POC Treatment Plan/Plan of Care Patient would benefit from OT for education, treatment and training to promote independence in ADL's, mobility, safety and/or upper extremity function for ADL' s. Plan of Care: ADL Retraining, Functional Mobility, Group Exercise/Act as Ind, UE Funct Exercise/Act Treatment Duration: Apr 26, 2018 Frequency: At least 5 of 7 days/Wk (IRF) Estimated Hrs Per Day: 1.5 hours per day Agreement: Yes Rehab Potential: Good Time/GCodes Start Time: 13:30 Stop Time: 14:00 Total Time Billed (hr/min): 30 Billed Treatment Time 1 visit-EX 2 (30 min) NOREEN MACDONALD Apr 18, 2018 14:46
[2018-04-18] MEDS: TAMSULOSIN 0.4 MG (FLOMAX) CAP PO SCH (16:56)
[2018-04-18] MEDS: EPLERONONE 25 MG PO SCH (17:17)
[2018-04-18 17:50] VITALS: BP 162/78
[2018-04-18] MEDS: ENOXAPARIN 40 MG/0.4 ML (LOVENOX) SYR SC SCH (20:19)
[2018-04-18] MEDS: SIMvastatin 40 MG (ZOCOR) TAB PO SCH (20:20)
[2018-04-18] MEDS: POLYETHYLENE GLYCOL 17 GM (MIRALAX) PACK PO SCH (20:20)
[2018-04-19 05:15] VITALS: BP 134/71
[2018-04-19] MEDS: inSUlin ASPART (NovoLOG) 1 UNIT/0.01 ML (CHARGE PER UNIT) SC SCH ×4 (05:40→20:20)
[2018-04-19] MEDS: metFORMIN 500 MG (GLUCOPHAGE) TAB PO SCH ×2 (06:20→16:59)
[2018-04-19] MEDS: CALCIUM CARB + VIT D 600 MG (CALCARB + D) TAB PO SCH (06:20)
[2018-04-19] MEDS: PANTOPRAZOLE 40 MG (PROTONIX) TAB PO SCH (06:20)
--- NOTE | 2018-04-19 08:20 | PM & R (SOAP) Progress Note ---
Subjective This was a face to face visit with the patient. Date Seen by Provider: Apr 19, 2018 Time Seen by Provider: 07:50 Subjective/Events-last exam Patient was seen in his room this AM C/O left wrist pain thinks it his CTS asks about Brace will f/u.Patient Modified Independent for transfers. Review of Systems Musculoskeletal: other (left wrist pain) Objective Physician Exam Last Set of Vital Signs Vital Signs Date Time Temp Pulse Resp B/P (MAP) Pulse Ox O2 Delivery O2 Flow Rate FiO2 04/19/18 05:15 99.6 73 16 134/71 (92) 96 Room Air Capillary Refill : Less Than 3 Seconds I&O Intake and Output 04/19/18 00:00 Intake Total 1320 ml Balance 1320 ml Intake Oral 1320 ml # Voids 8 # Bowel Movements 6 General: Alert, Oriented X3, Cooperative, No Acute Distress HEENT: Atraumatic, PERRLA, EOMI, Mucous Memb Moist/[place]ck: Supple, No JVD Lungs: Clear to Auscultation Heart: Regular Rate Abdomen: Normal Bowel Sounds, Soft, No Tenderness Extremities: Other (Trace edema left ankle) Neuro: Other (Weakness left hip with guarding) Results Lab Data Laboratory Tests 04/16/18 10:34: Glucometer 117H 04/16/18 10:50: White Blood Count 4.5, Red Blood Count 2.94L, Hemoglobin 8.5L, Hematocrit 26L, Mean Corpuscular Volume 88, Mean Corpuscular Hemoglobin 29, Mean Corpuscular Hemoglobin Concent 33, Red Cell Distribution Width 14.9H, Platelet Count 273, Mean Platelet Volume 9.8, Neutrophils (%) (Auto) 62, Lymphocytes (%) (Auto) 18, Monocytes (%) (Auto) 17H, Eosinophils (%) (Auto) 3, Basophils (%) (Auto) 1, Neutrophils # (Auto) 2.8, Lymphocytes # (Auto) 0.8L, Monocytes # (Auto) 0.8, Eosinophils # (Auto) 0.1, Basophils # (Auto) 0.0, Neutrophils % (Manual) 58, Lymphocytes % (Manual) 28, Monocytes % (Manual) 9, Eosinophils % (Manual) 3, Basophils % (Manual) 2, Blood Morphology Comment NORMAL, Sodium Level 135, Potassium Level 4.3, Chloride Level 101, Carbon Dioxide Level 23, Anion Gap 11, Blood Urea Nitrogen 27H, Creatinine 0.90, Estimat Glomerular Filtration Rate > 60, BUN/Creatinine Ratio 30, Glucose Level 106H, Calcium Level 9.3 04/16/18 16:14: Glucometer 126H 04/16/18 20:16: Glucometer 143H 04/17/18 05:33: Glucometer 120H 04/17/18 11:02: Glucometer 109 04/17/18 15:55: Glucometer 113H 04/17/18 20:10: Glucometer 122H 04/18/18 05:38: Glucometer 122H 04/18/18 10:54: Glucometer 120H 04/18/18 15:53: Glucometer 108 04/18/18 20:57: Glucometer 137H 04/19/18 05:38: Glucometer 121H Assessment/Plan Assessment and Plan S/P left hip repair for fracture /fall Postop anemia Left wrist pain due to WT bearing Postop anemia Thye 2 DM HTN controlled Plan Continue PT/OT Team Conference later today-see report for full functional update and POC and ELOS F/U re RX for left wrist pain most likely due to overuse Discharge probably by end of week Co-Morbidities that are continuing to impact the rehab process: (include details ) TRESSA DELACRUZ MD Apr 19, 2018 08:20
[2018-04-19] MEDS: ASPIRIN 325 MG (5 GR) TABLET PO SCH (08:27)
[2018-04-19] MEDS: oxyCODONE/APAP 5/325MG (PERCOCET 5) TABLET PO PRN (08:27)
[2018-04-19] MEDS: CELECOXIB 100 MG (CeleBREX) CAP PO SCH ×2 (08:27→19:59)
[2018-04-19] MEDS: lisINopril 20 MG (PRINIVIL) TABLET PO SCH (08:27)
[2018-04-19] MEDS: SENNA W/DOCUSATE (SENOKOT S) TABLET PO SCH ×2 (08:33→20:06)
--- NOTE | 2018-04-19 09:34 | Occupational Ther Daily Note ---
OT Current Status-Daily Note Subjective No pain reported. Appearance Pt. is sitting up in chair. Agrees to shower. Mental Status/Objective Patient Orientation: Person, Place, Time, Situation Functional [place] Measure 0=Not Assessed/NA 4=Minimal Assistance 1=Total Assistance 5=Supervision or Setup 2=Maximal Assistance 6=Modified [place] 3=Moderate Assistance 7=Complete [place] ADL-Treatment Functional [place] Measure 0=Not Assessed/NA 4=Minimal Assistance 1=Total Assistance 5=Supervision or Setup 2=Maximal Assistance 6=Modified [place] 3=Moderate Assistance 7=Complete IndependenceIRFPAI Quality Coding Scale 6 Independent with activity with or without an assistive device 5 Patient requires set up or clean up by helper. Patient completes activity by themselves 4 Supervision or touching assist (CGA). [place] provide cues , steadying assist 3 The helper provides less than half the effort to complete the activity 2 The helper provides more than half the effort to complete the activity 1 Dependent. The helper does all the effort to complete an activity 7 Patient refused to complete or attempt activity 9 The patient did not perform the activity before the current illness or injury 88 Not attempted due to Medical conditions or safety concerns Grooming (FIM): 6 Oral Hygiene (QC): 6 Bathing (FIM): 6 Shower/Bathe Self (QC): 6 Upper Body (FIM): 6 Upper Body Dressing (QC): 6 Lower Body Dressing (FIM): 6 Lower Body Dressing (QC): 6 On/Off Footwear (QC): 6 Toileting (FIM): 6 Toileting Hygiene (QC): 6 Transfers (B, C, W/C) (FIM): 6 Toilet/Commode Transfer (FIM): 6 Toilet Transfer (QC): 6 Tub Transfer(FIM): 6 Other Treatment Pt. showered this date and dressed. Completed all tasks with Mod I. Pt. utilized adaptive equipment for dressing, tub transfer bench to shower, and walker to stand at sink. All needs met in room after pt. done. Education OT Patient Education: Correct positioning, Modified ADL techniques, Progress toward Goal/Update tx plan, Purpose of tx/functional activities, Reviewed precautions, Rehab process, Transfer techniques, Use of adapted equipment Teaching Recipient: Patient Teaching Methods: Demonstration, Discussion Response to Teaching: Verbalize Understanding, Return Demonstration OT Short Term Goals Short Term Goals Time Frame: Apr 19, 2018 Eating(FIM): 5 Grooming(FIM): 5 Bathing(FIM): 4 Upper Body Dressing(FIM): 5 Lower Body Dressing(FIM): 4 Toileting(FIM): 5 Transfers (B,C,W/C) (FIM): 4 Toilet/Commode Transfer(FIM): 5 Shower Transfer(FIM): 4 Additional Short Term Goals: 1-Demonstrate ADL Tasks, 2-Verbalize Understanding , 3-ImproveStrength/Rtue 1=Demonstrate adherence to instructed precautions during ADL tasks. 2=Patient will verbalize/demonstrate understanding of assistive devices/ modifications for ADL. 3=Patient will improve strength/tolerance for activity to enable patient to perform ADL's. OT Drywall Mechanic Goals Drywall Mechanic Goals Time Frame: Apr 26, 2018 Eating (FIM): 6 Eating (QC): 6 Groomin Oral Hygiene (QC): 6 Bathing(FIM): 5 Shower/Bathe Self (QC): 5 Upper Body Dressing(FIM): 6 Upper Body Dressing (QC): 6 Lower Body Dressing(FIM): 6 Lower Body Dressing (QC): 6 On/Off Footwear (QC): 6 Toileting(FIM): 6 Toileting Hygiene (QC): 6 Transfers (B,C,W/C) (FIM): 6 Toilet/Commode Transfer(FIM): 6 Toilet/Commode Transfer (QC): 6 Shower Transfer(FIM): 5 Additional Goals: 1-Demonstrate ADL Tasks, 2-Verbalize Understanding, 3- ImproveStrength/True 1=Demonstrate adherence to instructed precautions during ADL tasks. 2=Patient will verbalize/demonstrate understanding of assistive devices/ modifications for ADL. 3=Patient will improve strength/tolerance for activity to enable patient to perform ADL's. OT Education/Plan Problem List/Assessment Assessment: Decreased Activ Tolerance Discharge Recommendations Plan/Recommendations: Continue POC Therapy D/C Recommendations: Home w/ Family Support Equpiment Recommendations-D/C: Extended Bath Bench, Hip Kit Treatment Plan/Plan of Care Treatment,Training & Education: Yes Patient would benefit from OT for education, treatment and training to promote independence in ADL's, mobility, safety and/or upper extremity function for ADL' s. Plan of Care: ADL Retraining, Functional Mobility, Group Exercise/Act as Ind, UE Funct Exercise/Act Treatment Duration: Apr 26, 2018 Frequency: At least 5 of 7 days/Wk (IRF) Estimated Hrs Per Day: 1.5 hours per day Agreement: Yes Rehab Potential: Good Time/GCodes Start Time: 08:30 Stop Time: 09:30 Total Time Billed (hr/min): 60 Billed Treatment Time 1, ADL x 4 EDGAR CARABALLO OT Apr 19, 2018 09:34
--- NOTE | 2018-04-19 10:18 | D/C HH Face to Face Order ---
D/C Face to Face Orders Instructions for Patient Patient Instructions/FollowUp: Dr. Hudson Physician to follow Patient: Dr. Hudson Discharge Diet for Home: other diet (60 CHO) Patient Data-Allergies,Ht & Wt Patient Allergies: Coded Allergies: No Known Drug Allergies (Verified , 10/26/07) Height (Feet): 5 Height (Inches): 10.00 Weight (Pounds): 193 Weight (Ounces): 0.6 Home Health Need/Face to Face Date of Face to Face: Apr 20, 2018 Clinical Findings: Generalized weakness and fatigue, Muscle weakness I have seen Pt [id number]: Yes Discharged To: Home Diagnosis/Conditions: L hip fracture Patient is Homebound due to: Muscle weakness Homebound Status Due to the above stated illness, injury or surgical procedure (medical condition or diagnosis) and associated clinical findings, the patient is homebound because of his/her inability to leave home except with aid of a supportive device and/or person AND leaving the home requires a considerable and taxing effort or is medically contraindicated. Pt req the following assistanc: Walker Home Health Nursing Orders Home Health Services Order: Staffing Rn-Evaluate & Treat, Physical Therapy-Evaluate & Treat Therapy Orders Therapy Orders: OT (must have SN or PT order), Physical Therapy Therapy Specific Orders: Eval assistive deivces, Teach enviro modifications/ safety, Gait training, Increase strength/endurance Certify Stmt I certify that this patient is under my care and that I, a nurse practitioner or a physician; a dermatology physician assistant working with me, had a face to face encounter that - meets the physician face to face encounter requirements with this patient as dated. I personally scribed for TRESSA DELACRUZ MD ([facility]) on 04/19/18 at 10:18. Electronically submitted by Ayla Villatoro ([id number]). TRESSA DELACRUZ MD Apr 19, 2018 10:18
--- NOTE | 2018-04-19 10:55 | Physical Therapy Daily Note ---
PT Daily Note-Current Subjective Agreeable to PT. Reports he feels ready for discharge home tomorrow. Pain Numeric Pain Scale: 3 Location: Left Location Body Site: Hip Pain Description: Ache (sore) Mental Status Patient Orientation: Person, Place, Time, Situation Transfers Functional [place] Measure 0=Not Assessed/NA 4=Minimal Assistance 1=Total Assistance 5=Supervision or Setup 2=Maximal Assistance 6=Modified [place] 3=Moderate Assistance 7=Complete IndependenceIRFPAI Quality Coding Scale 6 Independent with activity with or without an assistive device 5 Patient requires set up or clean up by helper. Patient completes activity by themselves 4 Supervision or touching assist (CGA). [place] provide cues , steadying assist 3 The helper provides less than half the effort to complete the activity 2 The helper provides more than half the effort to complete the activity 1 Dependent. The helper does all the effort to complete an activity 7 Patient refused to complete or attempt activity 9 The patient did not perform the activity before the current illness or injury 88 Not attempted due to Medical conditions or safety concerns Transfers (B, C, W/C) (FIM): 7 Roll Left to Right (QC): 6 Supine to/from Sit: 7 Sit to/from Stand: 7 Sit to Lying (QC): 6 Sit to Stand (QC): 6 Chair/Nlw-ku-Adeoq Xfer(QC): 6 Bed to/from Chair: 7 Car Transfer (QC): 6 Pt requires no assist or assistive device for transfers. Completes safely. Weight Bearing Right Lower Extremity: Right Partial Weight Bearing Left Lower Extremity: Left Weight Bearing/Tolerated Gait Training Does the Patient Walk?: Yes Gait (FIM): 6 Distance (FIM): 3=150 ft Distance: 200 ft x 2 Walk 10 feet (QC): 6 Walk 50 ft with 2 Turns(QC): 6 Walk 150 ft (QC): 6 Walking 10ft/uneven surface-QC: 6 Gait Assistive Device: FWW Safe and steady gait. Wheelchair Training Does the Pt Use a Wheelchair?: No Stair Training Stair Training: Handrails/: 1 handrail (and cane) Stairs (FIM): 5 #of Steps: 8 1 Step (curb) (QC): 6 4 Steps (QC): 6 12 Steps (QC): 0 (dash) Stairs: Pattern: Step to mod indep on stairs with correct use of walker and handrail as well as correct sequencing. Balance Picking up an Object (QC): 4 Exercises NuStep Minutes: 15 Assessment Current Status: Excellent Progress Excellent progress. Meeting all goals set at evaluation. Mod indep with mobilty. PT Short Term Goals Short Term Goals Time Frame: Apr 19, 2018 Transfers (B,C,W/C) (FIM): 4 Gait (FIM): 4 Distance (FIM): 3=150 ft Gait Level of Assist: 4 Gait Assistive Device: FWW PT Mcfp Goals Mcfp Goals PT Bucket Pusher Goals Time Frame: Apr 28, 2018 Transfers (B,C,W/C) (FIM): 6 (exceeded) Sit to Lying (QC): 6 (met) Lying-Sitting on Side/Bed(QC): 6 (met) Sit to Stand (QC): 6 (met) Rollin (met) Roll Left to Right (QC): 6 (met) Chair/Dsy-at-Vozfr Xfer(QC): 6 (met) Car Transfer (QC): 6 (met) Does the Patient Walk: Yes Gait (FIM): 6 (met) Gait distance (FIM): 3=150 ft Walk 10 feet (QC): 6 (met) Walk 10ft-Uneven Surface(QC): 6 (et) Walk 50ft with 2 Turns (QC): 6 (met) Walk 150 ft (QC): 6 (met) Gait Assistive Device: FWW Does the Pt use WC or Scooter?: No Stairs (FIM): 5 (household) # of Steps: 4 1 Step (curb) (QC): 6 4 Steps (QC): 6 12 Steps (QC): 88 Picking up an Object (QC): 4 (met) All goals met. PT Plan Problem List Problem List: Activity Tolerance, Functional Strength Treatment/Plan Treatment Plan: Continue Plan of Care Treatment Plan: Bed Mobility, Education, Functional Activity True, Functional Strength, Group Therapy, Gait, Safety, Therapeutic Exercise, Transfers Treatment Duration: Apr 28, 2018 Frequency: At least 5 of 7 days/Wk (IRF) Estimated Hrs Per Day: 1.5 hours per day Patient and/or Family Agrees t: Yes Safety Risks/Education Patient Education: Safety Issues Teaching Recipient: Patient Teaching Methods: Discussion Response to Teaching: Return Demonstration Discharge Recommendations Therapy D/C Recommendations: Physical Therapy Home Care Time/GCodes Time In: 945 Time Out: 1045 Total Billed Treatment Time: 60 Total Billed Treatment visit FA 45 EX 15 NOREEN HAQ PT Apr 19, 2018 10:54
--- NOTE | 2018-04-19 14:35 | Therapy Group Daily Note ---
Therapy Daily Group Note Patient Education Topic Other List Below Exercises LE Seated Exercise, UE Exercise Other/Notes Pt ambulated with SBA to therapy gym for OT/PT group. Group consisted of introductions (name, place living, biggest change in life), socialization, adapting to change and pt led UE/LE seated exercises. Pt was able to introduce self appropriately and actively listened to other patients throughout group. Pt contributed to discussions and conversations and listened intently to others. Pt lead one exercise then was able to complete exercises. Pt ambulated back to room after group and sat in recliner. All needs met in room. Start Time: 13:00 Stop Time: 14:05 Total Billed Treatment Time: 65 Total Billed Treatment 1-GRP NOREEN MACDONALD Apr 19, 2018 14:35
[2018-04-19 16:20] VITALS: BP 117/69
[2018-04-19] MEDS ORDERED: CLD600T PO (17:03)
[2018-04-19] MEDS ORDERED: OXYC-471 PO (17:03)
[2018-04-19] MEDS ORDERED: ASPI-808 PO (17:03)
[2018-04-19] MEDS: EPLERONONE 25 MG PO SCH (17:04)
[2018-04-19] MEDS: TAMSULOSIN 0.4 MG (FLOMAX) CAP PO SCH (17:05)
[2018-04-19] MEDS: ENOXAPARIN 40 MG/0.4 ML (LOVENOX) SYR SC SCH (20:00)
[2018-04-19] MEDS: SIMvastatin 40 MG (ZOCOR) TAB PO SCH (20:00)
[2018-04-19] MEDS: POLYETHYLENE GLYCOL 17 GM (MIRALAX) PACK PO SCH (20:20)
[2018-04-20 05:13] VITALS: BP 112/72
[2018-04-20] MEDS: inSUlin ASPART (NovoLOG) 1 UNIT/0.01 ML (CHARGE PER UNIT) SC SCH (06:00)
[2018-04-20] MEDS: CALCIUM CARB + VIT D 600 MG (CALCARB + D) TAB PO SCH (06:00)
[2018-04-20] MEDS: metFORMIN 500 MG (GLUCOPHAGE) TAB PO SCH (06:00)
[2018-04-20] MEDS: PANTOPRAZOLE 40 MG (PROTONIX) TAB PO SCH (06:00)
[2018-04-20 06:01] VITALS: BP 139/78
[2018-04-20] MEDS: CELECOXIB 100 MG (CeleBREX) CAP PO SCH (07:58)
[2018-04-20] MEDS: ASPIRIN 325 MG (5 GR) TABLET PO SCH (07:58)
[2018-04-20] MEDS: lisINopril 20 MG (PRINIVIL) TABLET PO SCH (07:59)
[2018-04-20] MEDS: SENNA W/DOCUSATE (SENOKOT S) TABLET PO SCH (07:59)
--- NOTE | 2018-04-20 08:45 | PM & R (SOAP) Progress Note ---
Subjective This was a face to face visit with the patient. Date Seen by Provider: Apr 20, 2018 Time Seen by Provider: 07:50 Subjective/Events-last exam Patient was seen in his room this AM Current labs reviewed Stool for OB negative Accucheks show good control Postop anemia stable Objective Physician Exam Last Set of Vital Signs Vital Signs Date Time Temp Pulse Resp B/P (MAP) Pulse Ox O2 Delivery O2 Flow Rate FiO2 04/20/18 06:01 98.7 90 16 139/78 (98) 98 Room Air Capillary Refill : Less Than 3 Seconds I&O Intake and Output 04/20/18 00:00 Intake Total 1850 ml Balance 1850 ml Intake Oral 1850 ml # Voids 8 # Bowel Movements 2 General: Alert, Oriented X3, Cooperative, No Acute Distress HEENT: Atraumatic, PERRLA, EOMI, Mucous Memb Moist/[place] Neck: Supple, No JVD Lungs: Clear to Auscultation Heart: Regular Rate Abdomen: Normal Bowel Sounds, Soft, No Tenderness Extremities: Other (Trace edema left ankle) Neuro: Other (Weakness left hip with guarding) Results Lab Data Laboratory Tests 04/17/18 11:02: Glucometer 109 04/17/18 15:55: Glucometer 113H 04/17/18 20:10: Glucometer 122H 04/18/18 05:38: Glucometer 122H 04/18/18 10:54: Glucometer 120H 04/18/18 15:53: Glucometer 108 04/18/18 20:57: Glucometer 137H 04/19/18 05:38: Glucometer 121H 04/19/18 10:56: Glucometer 118H 04/19/18 16:06: Glucometer 100 04/19/18 20:04: Glucometer 170H 04/20/18 05:59: Glucometer 123H Assessment/Plan Assessment and Plan Home today with spouse and HHC F/U with PCP and ortho Current meds reviewed See orders Co-Morbidities that are continuing to impact the rehab process: (include details ) TRESSA DELACRUZ MD Apr 20, 2018 08:45
--- NOTE | 2018-04-20 08:55 | Therapy Team Discharge Summary ---
Therapy Discharge Summary Discharge Recommendations Date of Discharge 04-20-18 Therapy D/C Recommendations: Home w/ Family Support, Physical Therapy Home Care Occupational Therapy Pt. has been seen by occupational therapy. Pt. has met all goals. Pt. will need a tub transfer bench and hip kit. No further OT needed at this time. Pt. is discharging home with spouse. No Skilled OT Needs ID'd PT Marking Devices Assembler Goals Custodial Goals PT Custodial Goals Time Frame: Apr 28, 2018 Transfers (B,C,W/C) (FIM): 6 (exceeded) Roll Left to Right (QC): 6 (met) Sit to Lying (QC): 6 (met) Lying-Sitting on Side/Bed(QC): 6 (met) Sit to Stand (QC): 6 (met) Chair/Xbk-rv-Ghqki Xfer(QC): 6 (met) Car Transfer (QC): 6 (met) Does the Patient Walk: Yes Gait (FIM): 6 (met) Gait distance (FIM): 3=150 ft Walk 10 feet (QC): 6 (met) Walk 10ft-Uneven Surface(QC): 6 (et) Walk 50ft with 2 Turns (QC): 6 (met) Walk 150 ft (QC): 6 (met) Gait Assistive Device: FWW Does the Pt use WC or Scooter?: No Stairs (FIM): 5 (household) # of Steps: 4 1 Step (curb) (QC): 6 4 Steps (QC): 6 12 Steps (QC): 88 Picking up an Object (QC): 4 (met) OT Custodial Goals Marking Devices Assembler Goals Time Frame: Apr 26, 2018 Eating (FIM): 6 (met) Eating (QC): 6 (met) Oral Hygiene (QC): 6 (met) Grooming(FIM): 6 (met) Bathing(FIM): 5 (met) Shower/Bathe Self (QC): 5 (met) Upper Body Dressing(FIM): 6 (met) Upper Body Dressing (QC): 6 (met) Lower Body Dressing(FIM): 6 (met) Lower Body Dressing (QC): 6 (met) On/Off Footwear (QC): 6 (met) Toileting(FIM): 6 (met) Toileting Hygiene (QC): 6 (met) Transfers (B,C,W/C) (FIM): 6 (met) Toilet/Commode Transfer(FIM): 6 (met) Toilet/Commode Transfer (QC): 6 (met) Shower Transfer(FIM): 5 (met) Additional Goals: 1-Demonstrate ADL Tasks, 2-Verbalize Understanding, 3- ImproveStrength/True 1=Demonstrate adherence to instructed precautions during ADL tasks. 2=Patient will verbalize/demonstrate understanding of assistive devices/ modifications for ADL. 3=Patient will improve strength/tolerance for activity to enable patient to perform ADL's. Speech Marking Devices Assembler Goals Marking Devices Assembler Goals LTGs not established as skilled ST is not indicated. EDGAR CARABALLO OT Apr 20, 2018 08:55
[2018-04-20 10:34] VITALS: BP 139/78
--- NOTE | 2018-04-20 11:48 | Therapy Team Discharge Summary ---
Therapy Discharge Summary Discharge Recommendations Date of Discharge Apr 20, 2018 at 11:05 Therapy D/C Recommendations: Home w/ Family Support, Physical Therapy Home Care Physical Therapy This patient was admitted to ARU post fall with left hip fracture that had been repaired with an IM nail. Prior to this fall, he was indep with all mobility and was active with community mobilty and driving. Upon admission to this unit , he was mod assist with transfers, ambulated short distances with min assist and needed full assist to attempt stairs. Treatment has focused on functional strength training, activity tolerance, transfers, gait and balance all to progress him to a mod indep level to allow him to return home and care for himself. He has made excellent progress and achieved all goals set at evaluation. [facility] PT to follow upon discharge. DC PT. Occupational Therapy No Skilled OT Needs ID'd PT [facility] Goals Web Production Designer Goals PT [facility] Goals Time Frame: Apr 28, 2018 Transfers (B,C,W/C) (FIM): 6 (exceeded) Roll Left to Right (QC): 6 (met) Sit to Lying (QC): 6 (met) Lying-Sitting on Side/Bed(QC): 6 (met) Sit to Stand (QC): 6 (met) Chair/Brc-be-Gpsrs Xfer(QC): 6 (met) Car Transfer (QC): 6 (met) Does the Patient Walk: Yes Gait (FIM): 6 (met) Gait distance (FIM): 3=150 ft Walk 10 feet (QC): 6 (met) Walk 10ft-Uneven Surface(QC): 6 (et) Walk 50ft with 2 Turns (QC): 6 (met) Walk 150 ft (QC): 6 (met) Gait Assistive Device: FWW Does the Pt use WC or Scooter?: No Stairs (FIM): 5 (household) # of Steps: 4 1 Step (curb) (QC): 6 4 Steps (QC): 6 12 Steps (QC): 88 Picking up an Object (QC): 4 (met) This patient has met all goals OT [facility] Goals Web Production Designer Goals Time Frame: Apr 26, 2018 Eating (FIM): 6 (met) Eating (QC): 6 (met) Oral Hygiene (QC): 6 (met) Grooming(FIM): 6 (met) Bathing(FIM): 5 (met) Shower/Bathe Self (QC): 5 (met) Upper Body Dressing(FIM): 6 (met) Upper Body Dressing (QC): 6 (met) Lower Body Dressing(FIM): 6 (met) Lower Body Dressing (QC): 6 (met) On/Off Footwear (QC): 6 (met) Toileting(FIM): 6 (met) Toileting Hygiene (QC): 6 (met) Transfers (B,C,W/C) (FIM): 6 (met) Toilet/Commode Transfer(FIM): 6 (met) Toilet/Commode Transfer (QC): 6 (met) Shower Transfer(FIM): 5 (met) Additional Goals: 1-Demonstrate ADL Tasks, 2-Verbalize Understanding, 3- ImproveStrength/True 1=Demonstrate adherence to instructed precautions during ADL tasks. 2=Patient will verbalize/demonstrate understanding of assistive devices/ modifications for ADL. 3=Patient will improve strength/tolerance for activity to enable patient to perform ADL's. Speech [facility] Goals Web Production Designer Goals LTGs not established as skilled ST is not indicated. NOREEN HAQ PT Apr 20, 2018 11:48
== END 2018-04-20 11:05 | disposition home health service (06) | DRG 561 ==
PROVIDERS: ADMIT Family Medicine; ATTEND Physical Medicine & Rehabilitation
DX: S72.142D Displaced intertrochanteric fracture of left femur, subsequent encounter for closed fracture with routine healing (principal); Z96.642 Presence of left artificial hip joint; E11.9 Type 2 diabetes mellitus without complications; N40.0 Benign prostatic hyperplasia without lower urinary tract symptoms; I10 Essential (primary) hypertension; D64.9 Anemia, unspecified; Z79.84 Long term (current) use of oral hypoglycemic drugs; W19.XXXD Unspecified fall, subsequent encounter; Y92.22 Religious institution as the place of occurrence of the external cause
CPT/HCPCS: 36415; 80048; 80053; 82274; 82962; 85007; 85027

== ENCOUNTER 2018-06-08 09:04 | Outpatient (RCR) | payer MEDICARE ==
[~2018-06-08 09:04] MED LIST changes: +ASPI-808 PO; +BENA20TA7 PO; +CLD600T PO; +EPLE25TA4 PO; +OXYC-471 PO; +PIOG1TAB PO; +SIMV80TA5 PO; +TAMS0.4C2 PO
== END 2018-06-12 08:47 | disposition home or self-care (01) ==
PROVIDERS: ATTEND Orthopaedic Surgery
DX: S72.142D Displaced intertrochanteric fracture of left femur, subsequent encounter for closed fracture with routine healing (principal); E11.9 Type 2 diabetes mellitus without complications; I10 Essential (primary) hypertension

== ENCOUNTER 2018-07-28 11:20 | Outpatient (RCR) | payer MEDICARE | END 2018-08-02 14:13 | disposition home or self-care (01) | PROVIDERS: ATTEND Orthopaedic Surgery | DX: S72.142D Displaced intertrochanteric fracture of left femur, subsequent encounter for closed fracture with routine healing (principal); E11.9 Type 2 diabetes mellitus without complications; I10 Essential (primary) hypertension ==

== ENCOUNTER 2019-07-20 05:38 | Outpatient (CLI) | payer MEDICARE ==
[~2019-07-20] VITALS: Ht 177 cm; Wt 86.3 kg
[~2019-07-20 05:38] MED LIST changes: -PIOG1TAB PO; +PIOG1TAB29 PO; +SIMV80TA21 PO; -SIMV80TA5 PO
[2019-07-20] MEDS ORDERED: EPLE50TA3 PO (09:57)
[2019-07-20] MEDS ORDERED: TAMS0.4C98 PO (09:57)
[2019-07-20] MEDS ORDERED: DOCU100C37 PO (09:58)
[2019-07-20] MEDS ORDERED: LORA10TA7 PO (09:58)
[2019-07-20] MEDS ORDERED: FLAX10002 PO (09:58)
== END 2019-07-20 10:52 | disposition home or self-care (01) ==
LOC: PREOP 05:38
PROVIDERS: ATTEND Internal Medicine
DX: Z01.818 Encounter for other preprocedural examination (principal)

== ENCOUNTER 2019-08-13 12:57 | Outpatient (RCR) | payer MEDICARE ==
[~2019-08-13 12:57] MED LIST changes: +DOCU100C37 PO; +FLAX10002 PO; +LORA10TA7 PO; +TAMS0.4C98 PO
[2019-08-18] MEDS ORDERED: CLON0.2T12 PO (09:20)
[2019-08-27] MEDS ORDERED: ATOR40TA70 PO (10:17)
[2019-08-27] MEDS ORDERED: DOCU-143 PO (10:17)
[2019-08-27] MEDS ORDERED: FERR-84 PO (10:17)
[2019-08-27] MEDS ORDERED: AMLO5TAB9 PO (10:17)
[2019-08-30] MEDS ORDERED: METO-370 PO (09:12)
[2019-08-30] MEDS ORDERED: ATOR80TA76 PO (09:12)
[2019-08-30] MEDS ORDERED: DOXA2TAB2 PO (09:12)
[2019-08-30] MEDS ORDERED: CLOP75TA28 PO (09:12)
[2019-08-30] MEDS ORDERED: AMLO10TA7 PO (09:12)
[2019-08-30] MEDS ORDERED: ASPI-999 PO (09:12)
== END 2019-09-10 11:35 | disposition home or self-care (01) ==
PROVIDERS: ATTEND Orthopaedic Surgery
DX: M62.81 Muscle weakness (generalized) (principal); R26.9 Unspecified abnormalities of gait and mobility; Z96.642 Presence of left artificial hip joint

== ENCOUNTER 2019-08-18 08:12 | Emergency (ER) | payer MEDICARE ==
[~2019-08-18] VITALS: Ht 177.8 cm; Wt 86.3 kg
[~2019-08-18 08:12] MED LIST changes: +OMEP40CA27 PO; -TAMS0.4C98 PO; +TMSL.4C PO
[2019-08-18] MEDS ORDERED: cloNIDine 0.2 MG (CATAPRES) TAB PO ONE (08:30)
--- NOTE | 2019-08-18 08:40 | ED General ---
General Chief Complaint: Cardiac/General Problems Stated Complaint: HIGH BP 213/90 Nursing Triage Note: AMB TO ROOM REORTS HAS CONCER BECAUSE HIS SYSTOLIC B/P HAS BEEN IN 200'S AND 190'S REPORTS NO PAIN Nursing Sepsis Screen: No Definite Risk Source of Information: Patient, Family Exam Limitations: No Limitations History of Present Illness Date Seen by Provider: Aug 18, 2019 Time Seen by Provider: 08:35 Initial Comments This 78-year-old white male presents with elevated blood pressure. The patient was seen in the orthopedic surgeon's office yesterday and noted to have elevated blood pressure. The patient has had hypertension for more than 50 years well treated with medication. Currently the patient takes an MARGARITA inhibitor and diuretic. The patient has been compliant on his medication. Patient denies associated chest pain, shortness of breath, headache, stiff neck, or photophobia. He has noted no change in peripheral edema. The patient's blood pressure was above 200 systolic this morning precipitating his presentation to the emergency department. Allergies and Home Medications Allergies Coded Allergies: No Known Drug Allergies (Unverified , 07/20/19) Home Medications Benazepril HCl 20 Mg Tablet, 20 MG PO DAILY, (Reported) Docusate Sodium 100 Mg Capsule, 100 MG PO TID, (Reported) Eplerenone 50 Mg Tablet, 50 MG PO DAILY, (Reported) Flaxseed Oil 1,000 Mg Capsule, 1,000 MG PO DAILY, (Reported) Loratadine 10 Mg Tablet, 10 MG PO DAILY, (Reported) Omeprazole 40 Mg Capsule.dr, 40 MG PO DAILY, (Reported) Pioglitazone HCl/Metformin HCl 1 Each Tablet, 1 TAB PO BID, (Reported) Simvastatin 80 Mg Tablet, 80 MG PO HS, (Reported) Tamsulosin HCl 0.4 Mg Cap, 0.4 MG PO DAILY, (Reported) Patient Home Medication List Home Medication List Reviewed: Yes Review of Systems Review of Systems Constitutional: No chills, No fever, No malaise, No weakness EENTM: no symptoms reported; No blurred vision Respiratory: No cough, No short of breath Cardiovascular: No chest pain, No palpitations Gastrointestinal: No abdominal pain, No nausea, No vomiting Genitourinary: no symptoms reported Musculoskeletal: no symptoms reported Skin: No change in color, No rash Psychiatric/Neurological: No Symptoms Reported Hematologic/Lymphatic: No Symptoms Reported Immunological/Allergic: no symptoms reported Past Vesdxdl-Tzkiju-Zdngif Hx Past Med/Social Hx: Reviewed Nursing Past Med/Soc Hx Patient Social History Alcohol Use: Denies Use Number of Drinks Today: AA Alcohol Beverage of Choice: Beer Recreational Drug Use: No Smoking Status: Never a Smoker 2nd Hand Smoke Exposure: No Recent Foreign Travel: No Contact w/Someone Who Travel: No Recent Infectious Disease Expo: No Recent Hopitalizations: Yes (Creighton Rodney, Lt femur nailing post fall) Immunizations Up To Date Date of Pneumonia Vaccine: Jun 12, 2014 Date of Influenza Vaccine: Jun 18, 2019 Seasonal Allergies Seasonal Allergies: Yes Past Medical History Surgeries: Yes ( BACK X2, LT HIP, LT FEMUR) Gallbladder, Rectal, Vasectomy Respiratory: No Currently Using CPAP: No Currently Using BIPAP: No Cardiac: Yes High Cholesterol, Hypertension Neurological: Yes Neuropathy Reproductive Disorders: No Sexually Transmitted Disease: No HIV/AIDS: No Genitourinary: Yes (dribbling) Gastrointestinal: Yes Gastroesophageal Reflux, Chronic Constipation Musculoskeletal: Yes (Laminectomy x 2, spinal stenosis) Arthritis, Chronic Back Pain Endocrine: Yes Diabetes, Non-Insulin dep HEENT: Yes (GLASSES) Loss of Vision: Denies Hearing Impairment: Hard of Hearing, Bilateral Hearing Aide Cancer: Yes Skin Psychosocial: No Integumentary: No Blood Disorders: Yes (MILD ANEMIA) Adverse Reaction/Blood Tranf: No (N/A) Family Medical History No Pertinent Family Hx Physical Exam Vital Signs Vital Signs - First Documented 08/18/19 08:15 Temp 35.8 Pulse 69 Resp 18 B/P (MAP) 199/89 (125) Pulse Ox 97 O2 Delivery Room Air Capillary Refill : Less Than 3 Seconds Height, Weight, BMI Height: 5'10.00" Weight: 193lbs. 0.6oz. 87.212823tu; 27.00 BMI Method:Stated General Appearance: No Apparent Distress, WD/WN Eyes: Bilateral Eye Normal Inspection HEENT: Normal ENT Inspection Neck: Normal Inspection Respiratory: Lungs Clear, Normal Breath Sounds Cardiovascular: Regular Rate, Rhythm Gastrointestinal: Normal Bowel Sounds Extremity: Normal Inspection, Normal Range of Motion Neurologic/Psychiatric: Oriented x3, No Motor/Sensory Deficits Skin: Normal Color, Warm/Dry Progress/Results/Core Measures Suspected Sepsis Recent Fever Within 48 Hours: No Infection Criteria Present: None New/Unexplained Altered Menta: No Sepsis Screen: No Definite Risk SIRS Temperature: Pulse: 69 Respiratory Rate: 18 Laboratory Tests 08/18/19 08:36: White Blood Count 3.3L Blood Pressure 199 /89 Mean: 125 Laboratory Tests 08/18/19 08:36: Creatinine 0.99, Platelet Count 188, Total Bilirubin 0.7 Results/Orders Lab Results Laboratory Tests Test 08/18/19 08:36 Range/Units White Blood Count 3.3 L 4.3-11.0 10^3/uL Red Blood Count 4.05 L 4.35-5.85 10^6/uL Hemoglobin 10.5 L 13.3-17.7 G/DL Hematocrit 33 L 40-54 % Mean Corpuscular Volume 81 80-99 FL Mean Corpuscular Hemoglobin 26 25-34 PG Mean Corpuscular Hemoglobin Concent 32 32-36 G/DL Red Cell Distribution Width 17.1 H 10.0-14.5 % Platelet Count 188 130-400 10^3/uL Mean Platelet Volume 10.8 H 7.4-10.4 FL Neutrophils (%) (Auto) 50 42-75 % Lymphocytes (%) (Auto) 31 12-44 % Monocytes (%) (Auto) 15 H 0-12 % Eosinophils (%) (Auto) 3 0-10 % Basophils (%) (Auto) 1 0-10 % Neutrophils # (Auto) 1.6 L 1.8-7.8 X 10^3 Lymphocytes # (Auto) 1.0 1.0-4.0 X 10^3 Monocytes # (Auto) 0.5 0.0-1.0 X 10^3 Eosinophils # (Auto) 0.1 0.0-0.3 10^3/uL Basophils # (Auto) 0.0 0.0-0.1 10^3/uL Sodium Level 142 135-145 MMOL/L Potassium Level 3.9 3.6-5.0 MMOL/L Chloride Level 106 98-107 MMOL/L Carbon Dioxide Level 25 21-32 MMOL/L Anion Gap 11 5-14 MMOL/L Blood Urea Nitrogen 21 H 7-18 MG/DL Creatinine 0.99 0.60-1.30 MG/DL Estimat Glomerular Filtration Rate > 60 BUN/Creatinine Ratio 21 Glucose Level 115 H 70-105 MG/DL Calcium Level 9.4 8.5-10.1 MG/DL Corrected Calcium 9.3 8.5-10.1 MG/DL Total Bilirubin 0.7 0.1-1.0 MG/DL Aspartate Amino Transf (AST/SGOT) 17 5-34 U/L Alanine Aminotransferase (ALT/SGPT) 8 0-55 U/L Alkaline Phosphatase 83 40-136 U/L Total Protein 6.4 6.4-8.2 GM/DL Albumin 4.1 3.2-4.5 GM/DL My Orders Orders - DIANNE POST MD Clonidine Tablet (Catapres Tablet) (08/18/19 08:30) Cbc With Automated Diff (08/18/19 08:26) Comprehensive Metabolic Panel (08/18/19 08:26) Ekg Tracing (08/18/19 08:26) BNP (08/18/19 08:26) Chest 1 View, Ap/Pa Only (08/18/19 08:26) Medications Given in ED Current Medications Medications Dose Ordered Sig/Shahriar Route Start Time Stop Time Status Last Admin Dose Admin Clonidine HCl 0.2 mg ONCE ONCE PO 08/18/19 08:30 08/18/19 08:31 DC 08/18/19 08:31 0.2 MG Vital Signs/I&O 08/18/19 08/18/19 08:15 08:56 Temp 35.8 Pulse 69 45 Resp 18 18 B/P (MAP) 199/89 (125) 168/90 (116) Pulse Ox 97 97 O2 Delivery Room Air Room Air Capillary Refill : Less Than 3 Seconds Blood Pressure Mean: 125 POS Progress Note : Time: 09:11 Progress Note Patient received 0.2 mg Catapres. The patient's blood pressure decreased to approximately 122/78. Patient's EKG demonstrated sinus rhythm no acute current of injury was noted. Patient's chest x-ray was unremarkable. His laboratory evaluation was similarly benign other than a borderline hemoglobin. I discussed the results of the tree mode patient and his . They'll follow- up closely with Dr. Suarez early this next week. In the interim will continue with his present antihypertensive agents and add Catapres 0.2 mg twice daily.. Departure Impression Primary Impression: Elevated blood pressure reading Disposition: 01 HOME, SELF-CARE Condition: Improved Departure-Patient Inst. Decision time for Depature: 09:18 Referrals: DIANNE SUAREZ MD (PCP/Family) Primary Care Physician Patient Instructions: High Blood Pressure (DC), High Blood Pressure in Adults Add. Discharge Instructions: Add Catapres to your current antihypertensive regimen. Take 0.2 mg of Catapres twice daily. See Dr. Suarez early this next week for further evaluation and modification as needed. Return if any problems or questions. All discharge instructions reviewed with patient and/or family. Voiced understanding. Scripts Clonidine HCl (Catapres) 0.2 Mg Tablet 0.2 MG PO BID for 14 Days, #30 TAB Prov: DIANNE POST MD 08/18/19 DIANNE POST MD Aug 18, 2019 08:40 POS
[2019-08-18 08:51] LABS: BASOPHILS % (AUTO) 1 % (0-10); EOSINOPHILS # (AUTO) 0.1 10^3/uL (0.0-0.3); EOSINOPHILS % (AUTO) 3 % (0-10); HEMATOCRIT 33 % (40-54); HEMOGLOBIN 10.5 G/DL (13.3-17.7); LYMPHOCYTES % (AUTO) 31 % (12-44); MEAN CORPUSCULAR HEMOGLOBIN 26 PG (25-34); MEAN CORPUSCULAR HGB CONC 32 G/DL (32-36); MEAN CORPUSCULAR VOLUME 81 FL (80-99); MEAN PLATELET VOLUME 10.8 FL (7.4-10.4); MONOCYTES # (AUTO) 0.5 X 10^3 (0.0-1.0); MONOCYTES % (AUTO) 15 % (0-12); NEUTROPHILS # (AUTO) 1.6 X 10^3 (1.8-7.8); NEUTROPHILS % (AUTO) 50 % (42-75); PLATELET COUNT 188 10^3/uL (130-400); RED CELL DISTRIBUTION WIDTH 17.1 % (10.0-14.5); WHITE BLOOD COUNT 3.3 10^3/uL (4.3-11.0)
[2019-08-18 08:56] VITALS: BP 168/90
[2019-08-18 09:03] LABS: ALANINE AMINOTRANSFERASE 8 U/L (0-55); ALBUMIN 4.1 GM/DL (3.2-4.5); ALKALINE PHOSPHATASE 83 U/L (40-136); BILIRUBIN,TOTAL 0.7 MG/DL (0.1-1.0); BUN/CREATININE RATIO 21; CALCIUM 9.4 MG/DL (8.5-10.1); CARBON DIOXIDE 25 MMOL/L (21-32); CHLORIDE 106 MMOL/L (98-107); CREATININE SERUM 0.99 MG/DL (0.60-1.30); GFR ESTIMATED > 60; GLUCOSE 115 MG/DL (70-105); POTASSIUM 3.9 MMOL/L (3.6-5.0); SODIUM 142 MMOL/L (135-145); TOTAL PROTEIN 6.4 GM/DL (6.4-8.2)
--- NOTE | 2019-08-18 09:11 | Diagnostic Imaging Report ---
EXAMINATION: Chest 1 view HISTORY: Elevated blood pressure. COMPARISON: 08/14/2009 FINDINGS: The lung volumes are normal. No focal consolidation is seen. No large pleural effusion or pneumothorax is seen. The cardiomediastinal silhouette is normal in size and contour. No acute osseous abnormality is seen. IMPRESSION: 1. No acute pleuroparenchymal process. Dictated by: Dictated on workstation # [id number]
[2019-08-18] MEDS ORDERED: CLON0.2T12 PO (09:20)
[2019-08-18 09:28] VITALS: BP 122/60
[2019-08-30] MEDS ORDERED: METO50TA7 PO (09:12)
--- OUTSIDE RECORDS SUMMARY | 2019-09-13 10:13 | XMS REPORT ---
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 Name Role Phone Migration, Doctor Unavailable Unavailable PROBLEMS Type Condition ICD9-CM Code [id number] Code Onset Dates Condition S tatus SNOMED Code Problem PPV23 (PNEUMOVAX) DX V03.82 Active [id number] ALLERGIES No Information ENCOUNTERS Encounter Location Date Diagnosis [facility] [address] [facility] [id number] [address] [place] [id number] Aug, [facility] [address] [facility] [id number] [address] [place] [id number] Aug, IMMUNIZATIONS No Known Immunizations SOCIAL HISTORY Never Assessed REASON FOR VISIT PLAN OF CARE VITAL SIGNS MEDICATIONS Unknown Medications RESULTS No Results PROCEDURES No Known procedures INSTRUCTIONS MEDICATIONS ADMINISTERED No Known Medications
--- OUTSIDE RECORDS SUMMARY | 2019-09-13 10:14 | XMS REPORT | Continuity of Care Document ---
Author Organization Unknown Address Unknown Phone Unavailable Allergies Active Description Code Type Severity Reaction Onset Reported/Identified Relationship to Patient Clinical Status Yes No Known Drug Allergies [id number] Drug Allergy Unknown N/A 07/20/2019 Medications There is no data. Problems Date Dx Coded Attending Type Code Diagnosis Diagnosed By ANNA HOPE, TERE Reinoso Ot E11.9 TYPE 2 DIABETES MELLITUS WITHOUT COMPLIC TERE CASTILLO MD Ot I10 ESSENTIAL (PRIMARY) HYPERTENSION TERE CASTILLO MD Ot S72.14 2D DISPL INTERTROCH FX L FEMUR, SUBS FOR CL 08/11/1412 TERE CASTILLO MD Ot E11.9 TYPE 2 DIABETES MELLITUS WITHOUT COMPLIC 08/11/1412 TERE CASTILLO MD Ot I10 ESSENTIAL (PRIMARY) HYPERTENSION 08/11/1412 TERE CASTILLO MD Ot S72.142D DISPL INTERTROCH FX L FEMUR, SUBS FOR CL 09/15/2010 Ot 401.9 09/15/2010 Ot 550.90 09/15/2010 Ot V58.69 12/21/2011 Ot 455.0 12/21/2011 Ot 562.10 12/21/2011 Ot 569.3 12/21/2011 Ot 787.99 02/10/2012 Ot 565.0 02/10/2012 Ot 565.1 02/10/2012 Ot V58.69 08/21/2014 GREG NGUYEN DO V03.82 PCV-13 (PREVNAR) DX 03/17/2015 Ot 550.90 03/17/2015 Ot V72.63 03/17/2015 Ot V72.81 03/17/2015 Ot V74.8 03/17/2015 Ot V72.84 03/17/2015 Ot 565.0 03/17/2015 Ot V72.63 03/17/2015 Ot V74.8 04/09/2015 DIANNE SUAREZ MD Ot 724. 4 04/18/2015 DIANNE SUAREZ MD Ot 724. 4 08/01/2015 KAYLA MCGUIRE Ot M25.551 PAIN IN RIGHT HIP 08/01/2015 KAYLA MCGUIRE Ot M54.16 RADICULOPATHY, LUMBAR REGION 09/08/2016 STEPHENIE RODRIGUEZ MD Ot E11.9 TYPE 2 DIABETES MELLITUS WITHOUT COMPLIC 09/08/2016 STEPHENIE RODRIGUEZ MD Ot E86.0 DEHYDRATION 09/08/2016 STEPHENIE RODRIGUEZ MD Ot R11.2 NAUSEA WITH VOMITING, UNSPECIFIED 09/08/2016 STEPHENIE RODRIGUEZ MD Ot R19.7 DIARRHEA, UNSPECIFIED 09/08/2016 STEPHENIE RODRIGUEZ MD Ot Z79.82 TAPE EDITOR (CURRENT) USE OF ASPIRIN 09/09/2016 STEPHENIE RODRIGUEZ MD Ot E11.9 TYPE 2 DIABETES MELLITUS WITHOUT COMPLIC 09/09/2016 STEPHENIE RODRIGUEZ MD Ot E86.0 DEHYDRATION 09/09/2016 STEPHENIE RODRIGUEZ MD Ot R11.2 NAUSEA WITH VOMITING, UNSPECIFIED 09/09/2016 STEPHENIE RODRIGUEZ MD Ot R19.7 DIARRHEA, UNSPECIFIED 09/09/2016 STEPHENIE RODRIGUEZ MD Ot Z79.82 CUSTODIAL (CURRENT) USE OF ASPIRIN 01/07/2017 DIANNE SUAREZ MD Ot M48. 06 SPINAL STENOSIS, LUMBAR REGION 01/18/2017 DIANNE SUAREZ MD Ot M48. 06 SPINAL STENOSIS, LUMBAR REGION 01/26/2017 DIANNE SUAREZ MD Ot M48. 06 SPINAL STENOSIS, LUMBAR REGION 01/26/2017 DIANNE SUAREZ MD Ot M51. 36 OTHER INTERVERTEBRAL DISC DEGENERATION, 02/21/2017 DIANNE SUAREZ MD Ot M48. 06 SPINAL STENOSIS, LUMBAR REGION 02/21/2017 DIANNE SUAREZ MD Ot M51. 36 OTHER INTERVERTEBRAL DISC DEGENERATION, 03/04/2017 DIANNE SUAREZ MD Ot M48. 06 SPINAL STENOSIS, LUMBAR REGION 03/04/2017 DIANNE SUAREZ MD Ot M51. 36 OTHER INTERVERTEBRAL DISC DEGENERATION, 01/11/2018 DIANNE SUAREZ MD Ot Z29. 8 ENCOUNTER FOR OTHER SPECIFIED PROPHYLACT 01/18/2018 DIANNE SUAREZ MD Ot 724. 4 LUMBOSACRAL NEURITIS NOS 01/18/2018 DANIELA HOPE, DIANNE Ríos Ot M48. 06 SPINAL STENOSIS, LUMBAR REGION 01/18/2018 DANIELA HOPE, DIANNE Ríos Ot M51. 36 OTHER INTERVERTEBRAL DISC DEGENERATION, 01/19/2018 DANIELA HOPE, DIANNE Ríos Ot Z29. 8 ENCOUNTER FOR OTHER SPECIFIED PROPHYLACT 02/15/2018 DANIELA HOPE, DIANNE Ríos Ot Z29. 8 ENCOUNTER FOR OTHER SPECIFIED PROPHYLACT 03/19/2018 DIANNE SUAREZ MD Ot Z29. 8 ENCOUNTER FOR OTHER SPECIFIED PROPHYLACT 04/20/2018 Ot D64.9 ANEM IA, UNSPECIFIED 04/20/2018 Ot E11.9 TYPE 2 DIABETES MELLITUS WITHOUT COMPLIC 04/20/2018 Ot I10 ESSENT IAL (PRIMARY) HYPERTENSION 04/20/2018 Ot N40.0 LUIS GN PROSTATIC HYPERPLASIA WITHOUT LOW 04/20/2018 Ot S72.142D D ISPL INTERTROCH FX L FEMUR, SUBS FOR CL 04/20/2018 Ot W19.XXXD U NSPECIFIED FALL, SUBSEQUENT ENCOUNTER 04/20/2018 Ot Y92.[address] 04/20/2018 Ot Z79.84 MONICA G TERM (CURRENT) USE OF ORAL HYPOGLYC 04/20/2018 Ot Z96.642 NC ESENCE OF LEFT ARTIFICIAL HIP JOINT 06/02/2018 TERE CASTILLO MD, Ot E11.9 TYPE 2 DIABETES MELLITUS WITHOUT COMPLIC 06/02/2018 TERE CASTILLO MD Ot I10 ESSENTIAL (PRIMARY) HYPERTENSION 06/02/2018 TERE CASTILLO MD Ot S72.142D DISPL INTERTROCH FX L FEMUR, SUBS FOR CL 06/12/2018 TERE CASTILLO MD, Ot E11.9 TYPE 2 DIABETES MELLITUS WITHOUT COMPLIC 06/12/2018 TERE CSATILLO MD Ot I10 ESSENTIAL (PRIMARY) HYPERTENSION 06/12/2018 TERE CASTILLO MD Ot S72.142D DISPL INTERTROCH FX L FEMUR, SUBS FOR CL 06/12/2018 TERE CASTILLO MD, Ot E11.9 TYPE 2 DIABETES MELLITUS WITHOUT COMPLIC 06/12/2018 TERE CASTILLO MD Ot I10 ESSENTIAL (PRIMARY) HYPERTENSION 06/12/2018 TERE CASTILLO MD Ot S72.142D DISPL INTERTROCH FX L FEMUR, SUBS FOR CL 06/12/2018 TERE CASTILLO MD, Ot E11.9 TYPE 2 DIABETES MELLITUS WITHOUT COMPLIC 06/12/2018 TERE CASTILLO MD, Ot I10 ESSENTIAL (PRIMARY) HYPERTENSION 06/12/2018 TERE CASTILLO MD, Ot S72.142D DISPL INTERTROCH FX L FEMUR, SUBS FOR CL 06/16/2018 TERE CASTILLO MD, Ot E11.9 TYPE 2 DIABETES MELLITUS WITHOUT COMPLIC 06/16/2018 TERE CASTILLO MD, Ot I10 ESSENTIAL (PRIMARY) HYPERTENSION 06/16/2018 TERE CASTILLO MD, Ot S72.142D DISPL INTERTROCH FX L FEMUR, SUBS FOR CL 08/02/2018 TERE CASTILLO MD, Ot E11.9 TYPE 2 DIABETES MELLITUS WITHOUT COMPLIC 08/02/2018 TERE CASTILLO MD, Ot I10 ESSENTIAL (PRIMARY) HYPERTENSION 08/02/2018 TERE CASTILLO MD, Ot S72.142D DISPL INTERTROCH FX L FEMUR, SUBS FOR CL 07/12/2019 TERE CASTILLO MD, Ot M62.8 1 MUSCLE WEAKNESS (GENERALIZED) 07/12/2019 TERE CASTILLO MD, Ot R26.9 UNSPECIFIED ABNORMALITIES OF GAIT AND MO 07/12/2019 TERE CASTILLO MD, Ot Z96.6 42 PRESENCE OF LEFT ARTIFICIAL HIP JOINT 07/20/2019 DIANNE SUAREZ MD Ot Z01.818 ENCOUNTER FOR OTHER PREPROCEDURAL EXAMIN 07/26/2019 TERE CASTILLO MD, Ot M62.8 1 MUSCLE WEAKNESS (GENERALIZED) 07/26/2019 TERE CASTILLO MD, Ot R26.9 UNSPECIFIED ABNORMALITIES OF GAIT AND MO 07/26/2019 TERE CASTILLO MD, Ot Z96.6 42 PRESENCE OF LEFT ARTIFICIAL HIP JOINT 07/27/2019 DIANNE SUAREZ MD Ot D50. 9 IRON DEFICIENCY ANEMIA, UNSPECIFIED 07/27/2019 DIANNE SUAREZ MD, Ot E11. 42 TYPE 2 DIABETES MELLITUS WITH DIABETIC P 07/27/2019 DIANNE SUAREZ MD, Ot G89. 29 OTHER CHRONIC PAIN 07/27/2019 DIANNE SUAREZ MD Ot I10 ESSENTIAL (PRIMARY) HYPERTENSION 07/27/2019 DIANNE SUAREZ MD, Ot K21. 0 GASTRO-ESOPHAGEAL REFLUX DISEASE WITH ES 07/27/2019 DIANNE SUAREZ MD Ot K21. 9 GASTRO-ESOPHAGEAL REFLUX DISEASE WITHOUT 07/27/2019 DIANNE SUAREZ MD Ot M54. 9 DORSALGIA, UNSPECIFIED 07/27/2019 DIANNE SUAREZ MD Ot Z79. 84 TAPE EDITOR (CURRENT) USE OF ORAL HYPOGLYC 07/27/2019 DIANNE SUAREZ MD, Ot Z82. 49 FAMILY HX OF ISCHEM HEART DIS AND OTH DI 07/27/2019 DIANNE SUAREZ MD, Ot Z83. 3 FAMILY HISTORY OF DIABETES MELLITUS 07/27/2019 DIANNE SUAREZ MD, Ot Z90. 49 ACQUIRED ABSENCE OF OTHER SPECIFIED PART 08/03/2019 TERE CASTILLO MD Ot M62.8 1 MUSCLE WEAKNESS (GENERALIZED) 08/03/2019 TERE CASTILLO MD Ot R26.9 UNSPECIFIED ABNORMALITIES OF GAIT AND MO 08/03/2019 TERE CASTILLO MD Ot Z96.6 42 PRESENCE OF LEFT ARTIFICIAL HIP JOINT 08/20/2019 DIANNE SUAREZ MD, Ot Z29. 8 ENCOUNTER FOR OTHER SPECIFIED PROPHYLACT 08/23/2019 BRISEIDA GILMAN MD Ot D64. 9 ANEMIA, UNSPECIFIED 08/23/2019 BRISEIDA GILMAN MD Ot E11. 40 TYPE 2 DIABETES MELLITUS WITH DIABETIC N 08/23/2019 BRISEIDA GILMAN MD Ot E78. 00 PURE HYPERCHOLESTEROLEMIA, UNSPECIFIED 08/23/2019 BRISEIDA GILMAN MD Ot I10 ESSENTIAL (PRIMARY) HYPERTENSION 08/23/2019 BRISEIDA GILMAN MD Ot K21. 9 GASTRO-ESOPHAGEAL REFLUX DISEASE WITHOUT 08/23/2019 BRISEIDA GILMAN MD Ot R03. 0 ELEVATED BLOOD-PRESSURE READING, W/O MIRA 08/23/2019 BRISEIDA GILMAN MD Ot Z79. 84 CUSTODIAL (CURRENT) USE OF ORAL HYPOGLYC 08/23/2019 BRISEIDA GILMAN MD Ot Z85.828 PERSONAL HISTORY OF OTHER MALIGNANT NEOP 08/27/2019 BRISEIDA GILMAN MD Ot D64. 9 ANEMIA, UNSPECIFIED 08/27/2019 BRISEIDA GILMAN MD Ot E11. 40 TYPE 2 DIABETES MELLITUS WITH DIABETIC N 08/27/2019 BRISEIDA GILMAN MD Ot E78. 00 PURE HYPERCHOLESTEROLEMIA, UNSPECIFIED 08/27/2019 BRISEIDA GILMAN MD Ot I10 ESSENTIAL (PRIMARY) HYPERTENSION 08/27/2019 BRISEIDA GILMAN MD Ot K21. 9 GASTRO-ESOPHAGEAL REFLUX DISEASE WITHOUT 08/27/2019 BRISEIDA GILMAN MD Ot R03. 0 ELEVATED BLOOD-PRESSURE READING, W/O MIRA 08/27/2019 BRISEIDA GILMAN MD Ot Z79. 84 CUSTODIAL (CURRENT) USE OF ORAL HYPOGLYC 08/27/2019 BRISEIDA GILMAN MD Ot Z85.828 PERSONAL HISTORY OF OTHER MALIGNANT NEOP 08/29/2019 DIANNE SUAREZ MD Ot D64. 9 ANEMIA, UNSPECIFIED 08/29/2019 DANIELA HOPE, DIANNE Ríos Ot E11. 40 TYPE 2 DIABETES MELLITUS WITH DIABETIC N 08/29/2019 DIANNE SUAREZ MD Ot E78. 00 PURE HYPERCHOLESTEROLEMIA, UNSPECIFIED 08/29/2019 DIANNE SUAREZ MD Ot H91. 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 0 ATHEROSCLEROSIS OF [place]ORT[place] 08/29/2019 DIANNE SUAREZ MD Ot I71. 02 DISSECTION OF ABDOMINAL [place] 08/29/2019 DIANNE SUAREZ MD Ot J30. 2 OTHER SEASONAL ALLERGIC RHINITIS 08/29/2019 DIANNE SUAREZ MD Ot K21. 9 GASTRO-ESOPHAGEAL REFLUX DISEASE WITHOUT 08/29/2019 DIANNE SUAREZ MD Ot K59. 09 OTHER CONSTIPATION 08/29/2019 DIANNE SUAREZ MD Ot M19. 91 PRIMARY OSTEOARTHRITIS, UNSPECIFIED SITE 08/29/2019 DIANNE SUAREZ MD Ot M54. 9 DORSALGIA, UNSPECIFIED 08/29/2019 DIANNE SUAREZ MD Ot N40. 0 BENIGN PROSTATIC HYPERPLASIA WITHOUT LOW 08/29/2019 DIANNE SUAREZ MD Ot Z79. 84 CUSTODIAL (CURRENT) USE OF ORAL HYPOGLYC 08/29/2019 DIANNE SUAREZ MD Ot Z85.828 PERSONAL HISTORY OF OTHER MALIGNANT NEOP 08/29/2019 DIANNE SUAREZ MD Ot Z96.642 PRESENCE OF LEFT ARTIFICIAL HIP JOINT 08/29/2019 DIANNE SUAREZ MD Ot Z97. 4 PRESENCE OF EXTERNAL HEARING-AID 08/29/2019 DIANNE SUAREZ MD Ot Z98. 1 ARTHRODESIS STATUS 08/29/2019 DIANNE SUAREZ MD Ot D64. 9 ANEMIA, UNSPECIFIED 08/29/2019 DIANNE SUAREZ MD Ot E11. 40 TYPE 2 DIABETES MELLITUS WITH DIABETIC N 08/29/2019 DIANNE SUAREZ MD Ot E78. 00 PURE HYPERCHOLESTEROLEMIA, UNSPECIFIED 08/29/2019 DIANNE SUAREZ MD Ot H91. 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 0 ATHEROSCLEROSIS OF [place] 08/29/2019 DIANNE SUAREZ MD Ot I71. 02 DISSECTION OF ABDOMINAL [place] 08/29/2019 DIANNE SUAREZ MD Ot J30. 2 OTHER SEASONAL ALLERGIC RHINITIS 08/29/2019 DIANNE SUAREZ MD Ot K21. 9 GASTRO-ESOPHAGEAL REFLUX DISEASE WITHOUT 08/29/2019 DIANNE SUAREZ MD Ot K59. 09 OTHER CONSTIPATION 08/29/2019 DIANNE SUAREZ MD Ot M19. 91 PRIMARY OSTEOARTHRITIS, UNSPECIFIED SITE 08/29/2019 DIANNE SUAREZ MD Ot M54. 9 DORSALGIA, UNSPECIFIED 08/29/2019 DIANNE SUAREZ MD Ot N40. 0 BENIGN PROSTATIC HYPERPLASIA WITHOUT LOW 08/29/2019 DIANNE SUAREZ MD Ot Z79. 84 CUSTODIAL (CURRENT) USE OF ORAL HYPOGLYC 08/29/2019 DIANNE SUAREZ MD Ot Z85.828 PERSONAL HISTORY OF OTHER MALIGNANT NEOP 08/29/2019 DIANNE SUAREZ MD Ot Z96.642 PRESENCE OF LEFT ARTIFICIAL HIP JOINT 08/29/2019 DIANNE SUAREZ MD Ot Z97. 4 PRESENCE OF EXTERNAL HEARING-AID 08/29/2019 DIANNE SUAREZ MD Ot Z98. 1 ARTHRODESIS STATUS 08/29/2019 DIANNE SUAREZ MD Ot D64. 9 ANEMIA, UNSPECIFIED 08/29/2019 DIANNE SUAREZ MD Ot E11. 40 TYPE 2 DIABETES MELLITUS WITH DIABETIC N 08/29/2019 DIANNE SUAREZ MD Ot E78. 00 PURE HYPERCHOLESTEROLEMIA, UNSPECIFIED 08/29/2019 DIANNE SUAREZ MD Ot H91. 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 0 ATHEROSCLEROSIS OF [place] 08/29/2019 IDANNE SUAREZ MD Ot I71. 02 DISSECTION OF ABDOMINAL [place] 08/29/2019 DIANNE SUAREZ MD Ot J30. 2 OTHER SEASONAL ALLERGIC RHINITIS 08/29/2019 DIANNE SUAREZ MD Ot K21. 9 GASTRO-ESOPHAGEAL REFLUX DISEASE WITHOUT 08/29/2019 DIANNE SUAREZ MD Ot K59. 09 OTHER CONSTIPATION 08/29/2019 DIANNE SUAREZ MD Ot M19. 91 PRIMARY OSTEOARTHRITIS, UNSPECIFIED SITE 08/29/2019 DIANNE SUAREZ MD Ot M54. 9 DORSALGIA, UNSPECIFIED 08/29/2019 DIANNE SUAREZ MD Ot N40. 0 BENIGN PROSTATIC HYPERPLASIA WITHOUT LOW 08/29/2019 DIANNE SUAREZ MD Ot Z79. 84 CUSTODIAL (CURRENT) USE OF ORAL HYPOGLYC 08/29/2019 DIANNE SUAREZ MD Ot Z85.828 PERSONAL HISTORY OF OTHER MALIGNANT NEOP 08/29/2019 DIANNE SUAREZ MD Ot Z96.642 PRESENCE OF LEFT ARTIFICIAL HIP JOINT 08/29/2019 DIANNE SUAREZ MD Ot Z97. 4 PRESENCE OF EXTERNAL HEARING-AID 08/29/2019 DIANNE SUAREZ MD Ot Z98. 1 ARTHRODESIS STATUS 08/30/2019 DIANNE SUAREZ MD Ot D64. 9 ANEMIA, UNSPECIFIED 08/30/2019 DIANNE SUAREZ MD Ot E11. 40 TYPE 2 DIABETES MELLITUS WITH DIABETIC N 08/30/2019 DIANNE SUAREZ MD Ot E78. 00 PURE HYPERCHOLESTEROLEMIA, UNSPECIFIED 08/30/2019 DIANNE SUAREZ MD Ot H91. 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 0 ATHEROSCLEROSIS OF [place] 08/30/2019 DIANNE SUAREZ MD Ot I71. 02 DISSECTION OF ABDOMINAL [place] 08/30/2019 DIANNE SUAREZ MD Ot J30. 2 OTHER SEASONAL ALLERGIC RHINITIS 08/30/2019 DIANNE SUAREZ MD Ot K21. 9 GASTRO-ESOPHAGEAL REFLUX DISEASE WITHOUT 08/30/2019 DIANNE SUAREZ MD Ot K59. 09 OTHER CONSTIPATION 08/30/2019 DIANNE SUAREZ MD Ot M19. 91 PRIMARY OSTEOARTHRITIS, UNSPECIFIED SITE 08/30/2019 DIANNE SUAREZ MD Ot M54. 9 DORSALGIA, UNSPECIFIED 08/30/2019 DIANNE SUAREZ MD Ot N40. 0 BENIGN PROSTATIC HYPERPLASIA WITHOUT LOW 08/30/2019 DIANNE SUAREZ MD Ot Z79. 84 TAPE EDITOR (CURRENT) USE OF ORAL HYPOGLYC 08/30/2019 DIANNE SUAREZ MD Ot Z85.828 PERSONAL HISTORY OF OTHER MALIGNANT NEOP 08/30/2019 DIANNE SUAREZ MD Ot Z96.642 PRESENCE OF LEFT ARTIFICIAL HIP JOINT 08/30/2019 DIANNE SUAREZ MD Ot Z97. 4 PRESENCE OF EXTERNAL HEARING-AID 08/30/2019 DIANNE SUAREZ MD Ot Z98. 1 ARTHRODESIS STATUS 08/30/2019 DIANNE SUAREZ MD Ot D64. 9 ANEMIA, UNSPECIFIED 08/30/2019 DIANNE SUAREZ MD Ot E11. 40 TYPE 2 DIABETES MELLITUS WITH DIABETIC N 08/30/2019 DIANNE SUAREZ MD Ot E78. 00 PURE HYPERCHOLESTEROLEMIA, UNSPECIFIED 08/30/2019 DIANNE SUAREZ MD Ot E78. 5 HYPERLIPIDEMIA, UNSPECIFIED 08/30/2019 DIANNE SUAREZ MD Ot H91. 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 0 ATHEROSCLEROSIS OF [place] 08/30/2019 DIANNE SUAREZ MD Ot I71. 02 DISSECTION OF ABDOMINAL [place] 08/30/2019 DIANNE SUAREZ MD Ot J30. 2 OTHER SEASONAL ALLERGIC RHINITIS 08/30/2019 DIANNE SUAREZ MD Ot K21. 9 GASTRO-ESOPHAGEAL REFLUX DISEASE WITHOUT 08/30/2019 DIANNE SUAREZ MD Ot K59. 09 OTHER CONSTIPATION 08/30/2019 DIANNE SUAREZ MD Ot M19. 91 PRIMARY OSTEOARTHRITIS, UNSPECIFIED SITE 08/30/2019 DIANNE SUAREZ MD Ot M54. 9 DORSALGIA, UNSPECIFIED 08/30/2019 DIANNE SUAREZ MD Ot N40. 0 BENIGN PROSTATIC HYPERPLASIA WITHOUT LOW 08/30/2019 DIANNE SUAREZ MD Ot Z79. 84 TAPE EDITOR (CURRENT) USE OF ORAL HYPOGLYC 08/30/2019 DIANNE SUAREZ MD Ot Z85.828 PERSONAL HISTORY OF OTHER MALIGNANT NEOP 08/30/2019 DIANNE SUAREZ MD Ot Z96.642 PRESENCE OF LEFT ARTIFICIAL HIP JOINT 08/30/2019 DIANNE SUAREZ MD Ot Z97. 4 PRESENCE OF EXTERNAL HEARING-AID 08/30/2019 DIANNE SUAREZ MD Ot Z98. 1 ARTHRODESIS STATUS Procedures Code Description Performed By Per formed On [id number] DI LATION OF 1 COR ART WITH DRUG-ELUT INT 08/26/2019 [id number] ME ASURE OF CARDIAC SAMPL PRESSURE, L H 08/26/2019 [id number] FL UOROSCOPY OF MULT COR ART USING L OSM 08/26/2019 [id number] FL UOROSCOPY OF LEFT HEART USING LOW OSMO 08/26/2019 [id number] FL UOROSCOPY OF ABDOMINAL [place] USING LOW 08/26/2019 [id number] ME ASURE OF CARDIAC SAMPL PRESSURE, L H 08/29/2019 [id number] FL UOROSCOPY OF MULT COR ART USING L OSM 08/29/2019 [id number] FL UOROSCOPY OF [place], BI LE ART USING L 08/29/2019 Results Test Result Range Complete blood count (CBC) with automate d white blood cell (WBC) differential - 09/08/16 08:30 Blood leukocytes automated count (number/volume) 5.8 10*3/uL 4.3-11.0 Blood erythrocytes automated count (number/volume) 4.91 10*6/uL 4.35-5.85 Venous blood hemoglobin measurement (mass/volume) 13.9 g/dL 13.3-17.7 Blood hematocrit (volume fraction) 42 % 40-54 Automated erythrocyte mean corpuscular volume 85 [ foz_us] 80-99 Automated erythrocyte mean corpuscular h emoglobin (mass per erythrocyte) 28 pg 25-34 Automated erythrocyte mean corpuscular h emoglobin concentration measurement (mass/volume) 33 g/dL 32-36 Automated erythrocyte distribution width ratio 14. 9 % 10.0- 14.5 Automated blood platelet count (count/volume) 169 10*3/uL 130-400 Automated blood platelet mean volume measurement 10.8 [foz_us] 7.4-10.4 Automated blood neutrophils/100 leukocytes 87 % 42-75 Automated blood lymphocytes/100 leukocytes 2 % 12-44 Blood monocytes/100 leukocytes 10 % 0-12 Automated blood eosinophils/100 leukocytes 0 % 0-10 Automated blood basophils/100 leukocytes 0 % 0-10 Blood neutrophils automated count (number/volume) 5.1 10*3 1.8-7.8 Blood lymphocytes automated count (number/volume) 0.1 10*3 1.0-4.0 Blood monocytes automated count (number/volume) 0. 6 10*3 0.0-1.0 Automated eosinophil count 0.0 10*3/uL 0 .0-0.3 Automated blood basophil count (count/volume) 0.0 10*3/uL 0.0-0.1 Blood manual differential performed dete ction - 09/08/16 08:30 Blood monocytes/100 leukocytes 5 % NRG Manual blood segmented neutrophils/100 leukocytes 89 % NRG Blood band neutrophils/100 leukocytes 0 % NRG Manual blood lymphocytes/100 leukocytes 5 % NRG Manual eosinophils/100 leukocytes in nose 1 % NRG Manual blood basophils/100 leukocytes 0 % NRG Blood ovalocytes detection by light microscopy SLI GHT NRG Blood poikilocytosis detection by light microscopy SLIGHT NRG Comprehensive metabolic panel - 09/08/16 08:30 Serum or plasma sodium measurement (moles/volume) 140 mmol/L 135-145 Serum or plasma potassium measurement (moles/volume) 4.0 mmol/L 3.6-5.0 Serum or plasma chloride measurement (moles/volume) 106 mmol/L 98-107 Carbon dioxide 23 mmol/L 21-32 Serum or plasma anion gap determination (moles/volume) 11 mmol/L 5-14 Serum or plasma urea nitrogen measurement (mass/volume ) 24 mg/dL 7-18 Serum or plasma creatinine measurement (mass/volume) 1.03 mg/dL 0.60-1.30 Serum or plasma urea nitrogen/creatinine mass ratio 23 NRG Serum or plasma creatinine measurement w ith calculation of estimated glomerular filtration rate > NRG Serum or plasma glucose measurement (mass/volume) 182 mg/dL 70-105 Serum or plasma calcium measurement (mass/volume) 8.8 mg/dL 8.5-10.1 Serum or plasma total bilirubin measurement (mass/volu me) 1.2 mg/dL 0.1-1.0 Serum or plasma alkaline phosphatase luke surement (enzymatic activity/volume) 76 U/L 40-136 Serum or plasma aspartate aminotransfera se measurement (enzymatic activity/volume) 36 U/L 5-34 Serum or plasma alanine aminotransferase measurement (enzymatic activity/volume) 26 U/L 0-55 Serum or plasma protein measurement (mass/volume) 6.2 g/dL 6.4-8.2 Serum or plasma albumin measurement (mass/volume) 4.1 g/dL 3.2-4.5 Magnesium - 09/08/16 08:30 Magnesium 1.6 mg/dL 1.8-2.4 Serum or plasma C reactive protein measu rement (mass/volume) - 09/08/16 08:30 Serum or plasma C reactive protein measurement (mass/v olume) 0.41 mg/dL 0.00-0.50 Complete urinalysis with reflex to cultu re - 09/08/16 09:40 Urine color determination YELLOW NRG Urine clarity determination CLEAR NR G Urine pH measurement by test strip 6 5-9 Specific gravity of urine by test strip 1.015 1.016-1.022 Urine protein assay by test strip, semi-quantitative 1+ NEGATIVE Urine glucose detection by automated test strip 3+ NEGATIVE Erythrocytes detection in urine sediment by light micr oscopy NEGATIVE NEGATIVE Urine ketones detection by automated test strip 2+ NEGATIVE Urine nitrite detection by test strip NEGATIVE NEGATIVE Urine total bilirubin detection by test strip NEGA TIVE NEGATIVE Urine urobilinogen measurement by automated test strip (mass/volume) NORMAL NORMAL Urine leukocyte esterase detection by dipstick NEG ATIVE NEGATIVE Automated urine sediment erythrocyte cou nt by microscopy (number/high power field) NONE NRG Automated urine sediment leukocyte count by microscopy (number/high power field) NONE NRG Bacteria detection in urine sediment by light microsco py NEGATIVE NRG Squamous epithelial cells detection in u rine sediment by light microscopy RARE NRG Crystals detection in urine sediment by light microsco py NONE NRG Casts detection in urine sediment by light microscopy NONE NRG Mucus detection in urine sediment by light microscopy NEGATIVE NRG Complete urinalysis with reflex to culture NO NRG Capillary blood glucose measurement by g lucometer (mass/volume) - 04/12/18 14:48 Capillary blood glucose measurement by glucometer (mas s/volume) 139 mg/dL 70-110 Capillary blood glucose measurement by g lucometer (mass/volume) - 04/12/18 20:23 Capillary blood glucose measurement by glucometer (mas s/volume) 174 mg/dL 70-110 Capillary blood glucose measurement by g lucometer (mass/volume) - 04/13/18 04:23 Capillary blood glucose measurement by glucometer (mas s/volume) 134 mg/dL 70-110 Automated blood complete blood count (he mogram) panel - 04/13/18 06:06 Blood leukocytes automated count (number/volume) 6.0 10*3/uL 4.3-11.0 Blood erythrocytes automated count (number/volume) 2.93 10*6/uL 4.35-5.85 Venous blood hemoglobin measurement (mass/volume) 8.5 g/dL 13.3-17.7 Blood hematocrit (volume fraction) 25 % 40-54 Automated erythrocyte mean corpuscular volume 87 [ foz_us] 80-99 Automated erythrocyte mean corpuscular h emoglobin (mass per erythrocyte) 29 pg 25-34 Automated erythrocyte mean corpuscular h emoglobin concentration measurement (mass/volume) 34 g/dL 32-36 Automated erythrocyte distribution width ratio 14. 7 % 10.0- 14.5 Automated blood platelet count (count/volume) 167 10*3/uL 130-400 Automated blood platelet mean volume measurement 10.4 [foz_us] 7.4-10.4 Comprehensive metabolic panel - 04/13/18 06:06 Serum or plasma sodium measurement (moles/volume) 137 mmol/L 135-145 Serum or plasma potassium measurement (moles/volume) 4.4 mmol/L 3.6-5.0 Serum or plasma chloride measurement (moles/volume) 104 mmol/L 98-107 Carbon dioxide 26 mmol/L 21-32 Serum or plasma anion gap determination (moles/volume) 7 mmol/L 5-14 Serum or plasma urea nitrogen measurement (mass/volume ) 21 mg/dL 7-18 Serum or plasma creatinine measurement (mass/volume) 0.82 mg/dL 0.60-1.30 Serum or plasma urea nitrogen/creatinine mass ratio 26 NRG Serum or plasma creatinine measurement w ith calculation of estimated glomerular filtration rate > NRG Serum or plasma glucose measurement (mass/volume) 134 mg/dL 70-105 Serum or plasma calcium measurement (mass/volume) 9.1 mg/dL 8.5-10.1 Serum or plasma total bilirubin measurement (mass/volu me) 1.4 mg/dL 0.1-1.0 Serum or plasma alkaline phosphatase luke surement (enzymatic activity/volume) 55 U/L 40-136 Serum or plasma aspartate aminotransfera se measurement (enzymatic activity/volume) 22 U/L 5-34 Serum or plasma alanine aminotransferase measurement (enzymatic activity/volume) 12 U/L 0-55 Serum or plasma protein measurement (mass/volume) 5.6 g/dL 6.4-8.2 Serum or plasma albumin measurement (mass/volume) 3.3 g/dL 3.2-4.5 Capillary blood glucose measurement by g lucometer (mass/volume) - 04/13/18 12:24 Capillary blood glucose measurement by glucometer (mas s/volume) 135 mg/dL 70-110 Capillary blood glucose measurement by g lucometer (mass/volume) - 04/13/18 15:59 Capillary blood glucose measurement by glucometer (mas s/volume) 135 mg/dL 70-110 Stool occult blood screen - 04/13/18 20: 00 Stool gastrointestinal hemoglobin detection NEGATI VE NEGATIVE Capillary blood glucose measurement by g lucometer (mass/volume) - 04/13/18 20:49 Capillary blood glucose measurement by glucometer (mas s/volume) 162 mg/dL 70-110 Capillary blood glucose measurement by g lucometer (mass/volume) - 04/14/18 05:04 Capillary blood glucose measurement by glucometer (mas s/volume) 125 mg/dL 70-110 Automated blood complete blood count (he mogram) panel - 04/14/18 05:17 Blood leukocytes automated count (number/volume) 4.6 10*3/uL 4.3-11.0 Blood erythrocytes automated count (number/volume) 2.65 10*6/uL 4.35-5.85 Venous blood hemoglobin measurement (mass/volume) 7.9 g/dL 13.3-17.7 Blood hematocrit (volume fraction) 23 % 40-54 Automated erythrocyte mean corpuscular volume 87 [ foz_us] 80-99 Automated erythrocyte mean corpuscular h emoglobin (mass per erythrocyte) 30 pg 25-34 Automated erythrocyte mean corpuscular h emoglobin concentration measurement (mass/volume) 34 g/dL 32-36 Automated erythrocyte distribution width ratio 14. 5 % 10.0- 14.5 Automated blood platelet count (count/volume) 176 10*3/uL 130-400 Automated blood platelet mean volume measurement 10.4 [foz_us] 7.4-10.4 Capillary blood glucose measurement by g lucometer (mass/volume) - 04/14/18 10:57 Capillary blood glucose measurement by glucometer (mas s/volume) 132 mg/dL 70-110 Capillary blood glucose measurement by g lucometer (mass/volume) - 04/14/18 15:49 Capillary blood glucose measurement by glucometer (mas s/volume) 134 mg/dL 70-110 Capillary blood glucose measurement by g lucometer (mass/volume) - 04/14/18 21:08 Capillary blood glucose measurement by glucometer (mas s/volume) 163 mg/dL 70-110 Capillary blood glucose measurement by g lucometer (mass/volume) - 04/15/18 04:52 Capillary blood glucose measurement by glucometer (mas s/volume) 130 mg/dL 70-110 Capillary blood glucose measurement by g lucometer (mass/volume) - 04/15/18 11:31 Capillary blood glucose measurement by glucometer (mas s/volume) 122 mg/dL 70-110 Capillary blood glucose measurement by g lucometer (mass/volume) - 04/15/18 15:56 Capillary blood glucose measurement by glucometer (mas s/volume) 113 mg/dL 70-110 Capillary blood glucose measurement by g lucometer (mass/volume) - 04/15/18 20:34 Capillary blood glucose measurement by glucometer (mas s/volume) 124 mg/dL 70-110 Capillary blood glucose measurement by g lucometer (mass/volume) - 04/16/18 05:48 Capillary blood glucose measurement by glucometer (mas s/volume) 110 mg/dL 70-110 Capillary blood glucose measurement by g lucometer (mass/volume) - 04/16/18 10:34 Capillary blood glucose measurement by glucometer (mas s/volume) 117 mg/dL 70-110 Blood CBC with ordered manual differenti al panel - 04/16/18 10:50 Blood leukocytes automated count (number/volume) 4.5 10*3/uL 4.3-11.0 Blood erythrocytes automated count (number/volume) 2.94 10*6/uL 4.35-5.85 Venous blood hemoglobin measurement (mass/volume) 8.5 g/dL 13.3-17.7 Blood hematocrit (volume fraction) 26 % 40-54 Automated erythrocyte mean corpuscular volume 88 [ foz_us] 80-99 Automated erythrocyte mean corpuscular h emoglobin (mass per erythrocyte) 29 pg 25-34 Automated erythrocyte mean corpuscular h emoglobin concentration measurement (mass/volume) 33 g/dL 32-36 Automated erythrocyte distribution width ratio 14. 9 % 10.0- 14.5 Automated blood platelet count (count/volume) 273 10*3/uL 130-400 Automated blood platelet mean volume measurement 9.8 [foz_us] 7.4-10.4 Automated blood neutrophils/100 leukocytes 62 % 42-75 Automated blood lymphocytes/100 leukocytes 18 % 12-44 Blood monocytes/100 leukocytes 9 % NRG Automated blood eosinophils/100 leukocytes 3 % 0-10 Automated blood basophils/100 leukocytes 1 % 0-10 Blood neutrophils automated count (number/volume) 2.8 10*3 1.8-7.8 Blood lymphocytes automated count (number/volume) 0.8 10*3 1.0-4.0 Blood monocytes automated count (number/volume) 0. 8 10*3 0.0-1.0 Automated eosinophil count 0.1 10*3/uL 0 .0-0.3 Automated blood basophil count (count/volume) 0.0 10*3/uL 0.0-0.1 Manual blood segmented neutrophils/100 leukocytes 58 % NR Manual blood lymphocytes/100 leukocytes 28 % NRG Manual eosinophils/100 leukocytes in nose 3 % NR Manual blood basophils/100 leukocytes 2 % NR Blood erythrocyte morphology finding identification [facility] Whole blood basic metabolic panel - 01/27 10:50 Serum or plasma sodium measurement (moles/volume) 135 mmol/L 135-145 Serum or plasma potassium measurement (moles/volume) 4.3 mmol/L 3.6-5.0 Serum or plasma chloride measurement (moles/volume) 101 mmol/L 98-107 Carbon dioxide 23 mmol/L 21-32 Serum or plasma anion gap determination (moles/volume) 11 mmol/L 5-14 Serum or plasma urea nitrogen measurement (mass/volume ) 27 mg/dL 7-18 Serum or plasma creatinine measurement (mass/volume) 0.90 mg/dL 0.60-1.30 Serum or plasma urea nitrogen/creatinine mass ratio 30 NRG Serum or plasma creatinine measurement w ith calculation of estimated glomerular filtration rate > NRG Serum or plasma glucose measurement (mass/volume) 106 mg/dL 70-105 Serum or plasma calcium measurement (mass/volume) 9.3 mg/dL 8.5-10.1 Capillary blood glucose measurement by g lucometer (mass/volume) - 04/16/18 16:14 Capillary blood glucose measurement by glucometer (mas s/volume) 126 mg/dL 70-110 Capillary blood glucose measurement by g lucometer (mass/volume) - 04/16/18 20:16 Capillary blood glucose measurement by glucometer (mas s/volume) 143 mg/dL 70-110 Capillary blood glucose measurement by g lucometer (mass/volume) - 04/17/18 05:33 Capillary blood glucose measurement by glucometer (mas s/volume) 120 mg/dL 70-110 Capillary blood glucose measurement by g lucometer (mass/volume) - 04/17/18 11:02 Capillary blood glucose measurement by glucometer (mas s/volume) 109 mg/dL 70-110 Capillary blood glucose measurement by g lucometer (mass/volume) - 04/17/18 15:55 Capillary blood glucose measurement by glucometer (mas s/volume) 113 mg/dL 70-110 Capillary blood glucose measurement by g lucometer (mass/volume) - 04/17/18 20:10 Capillary blood glucose measurement by glucometer (mas s/volume) 122 mg/dL 70-110 Capillary blood glucose measurement by g lucometer (mass/volume) - 04/18/18 05:38 Capillary blood glucose measurement by glucometer (mas s/volume) 122 mg/dL 70-110 Capillary blood glucose measurement by g lucometer (mass/volume) - 04/18/18 10:54 Capillary blood glucose measurement by glucometer (mas s/volume) 120 mg/dL 70-110 Capillary blood glucose measurement by g lucometer (mass/volume) - 04/18/18 15:53 Capillary blood glucose measurement by glucometer (mas s/volume) 108 mg/dL 70-110 Capillary blood glucose measurement by g lucometer (mass/volume) - 04/18/18 20:57 Capillary blood glucose measurement by glucometer (mas s/volume) 137 mg/dL 70-110 Capillary blood glucose measurement by g lucometer (mass/volume) - 04/19/18 05:38 Capillary blood glucose measurement by glucometer (mas s/volume) 121 mg/dL 70-110 Capillary blood glucose measurement by g lucometer (mass/volume) - 04/19/18 10:56 Capillary blood glucose measurement by glucometer (mas s/volume) 118 mg/dL 70-110 Capillary blood glucose measurement by g lucometer (mass/volume) - 04/19/18 16:06 Capillary blood glucose measurement by glucometer (mas s/volume) 100 mg/dL 70-110 Capillary blood glucose measurement by g lucometer (mass/volume) - 04/19/18 20:04 Capillary blood glucose measurement by glucometer (mas s/volume) 170 mg/dL 70-110 Capillary blood glucose measurement by g lucometer (mass/volume) - 04/20/18 05:59 Capillary blood glucose measurement by glucometer (mas s/volume) 123 mg/dL 70-110 Complete blood count (CBC) with automate d white blood cell (WBC) differential - 08/18/19 08:36 Blood leukocytes automated count (number/volume) 3.3 10*3/uL 4.3-11.0 Blood erythrocytes automated count (number/volume) 4.05 10*6/uL 4.35-5.85 Venous blood hemoglobin measurement (mass/volume) 10.5 g/dL 13.3-17.7 Blood hematocrit (volume fraction) 33 % 40-54 Automated erythrocyte mean corpuscular volume 81 [ foz_us] 80-99 Automated erythrocyte mean corpuscular h emoglobin (mass per erythrocyte) 26 pg 25-34 Automated erythrocyte mean corpuscular h emoglobin concentration measurement (mass/volume) 32 g/dL 32-36 Automated erythrocyte distribution width ratio 17. 1 % 10.0- 14.5 Automated blood platelet count (count/volume) 188 10*3/uL 130-400 Automated blood platelet mean volume measurement 10.8 [foz_us] 7.4-10.4 Automated blood neutrophils/100 leukocytes 50 % 42-75 Automated blood lymphocytes/100 leukocytes 31 % 12-44 Blood monocytes/100 leukocytes 15 % 0-12 Automated blood eosinophils/100 leukocytes 3 % 0-10 Automated blood basophils/100 leukocytes 1 % 0-10 Blood neutrophils automated count (number/volume) 1.6 10*3 1.8-7.8 Blood lymphocytes automated count (number/volume) 1.0 10*3 1.0-4.0 Blood monocytes automated count (number/volume) 0. 5 10*3 0.0-1.0 Automated eosinophil count 0.1 10*3/uL 0 .0-0.3 Automated blood basophil count (count/volume) 0.0 10*3/uL 0.0-0.1 Comprehensive metabolic panel - 08/18/19 08:36 Serum or plasma sodium measurement (moles/volume) 142 mmol/L 135-145 Serum or plasma potassium measurement (moles/volume) 3.9 mmol/L 3.6-5.0 Serum or plasma chloride measurement (moles/volume) 106 mmol/L 98-107 Carbon dioxide 25 mmol/L 21-32 Serum or plasma anion gap determination (moles/volume) 11 mmol/L 5-14 Serum or plasma urea nitrogen measurement (mass/volume ) 21 mg/dL 7-18 Serum or plasma creatinine measurement (mass/volume) 0.99 mg/dL 0.60-1.30 Serum or plasma urea nitrogen/creatinine mass ratio 21 NRG Serum or plasma creatinine measurement w ith calculation of estimated glomerular filtration rate > NRG Serum or plasma glucose measurement (mass/volume) 115 mg/dL 70-105 Serum or plasma calcium measurement (mass/volume) 9.4 mg/dL 8.5-10.1 Serum or plasma total bilirubin measurement (mass/volu me) 0.7 mg/dL 0.1-1.0 Serum or plasma alkaline phosphatase luke surement (enzymatic activity/volume) 83 U/L 40-136 Serum or plasma aspartate aminotransfera se measurement (enzymatic activity/volume) 17 U/L 5-34 Serum or plasma alanine aminotransferase measurement (enzymatic activity/volume) 8 U/L 0-55 Serum or plasma protein measurement (mass/volume) 6.4 g/dL 6.4-8.2 Serum or plasma albumin measurement (mass/volume) 4.1 g/dL 3.2-4.5 CALCIUM CORRECTED 9.3 mg/dL 8.5-10.1 Serum or plasma lithium measurement (mol es/volume) - 08/18/19 08:36 BNP PT 20.7 pg/mL <100.0 Complete blood count (CBC) with automate d white blood cell (WBC) differential - 08/23/19 20:44 Blood leukocytes automated count (number/volume) 4.9 10*3/uL 4.3-11.0 Blood erythrocytes automated count (number/volume) 4.26 10*6/uL 4.35-5.85 Venous blood hemoglobin measurement (mass/volume) 10.9 g/dL 13.3-17.7 Blood hematocrit (volume fraction) 34 % 40-54 Automated erythrocyte mean corpuscular volume 81 [ foz_us] 80-99 Automated erythrocyte mean corpuscular h emoglobin (mass per erythrocyte) 26 pg 25-34 Automated erythrocyte mean corpuscular h emoglobin concentration measurement (mass/volume) 32 g/dL 32-36 Automated erythrocyte distribution width ratio 17. 9 % 10.0- 14.5 Automated blood platelet count (count/volume) 180 10*3/uL 130-400 Automated blood platelet mean volume measurement 11.0 [foz_us] 7.4-10.4 Automated blood neutrophils/100 leukocytes 45 % 42-75 Automated blood lymphocytes/100 leukocytes 36 % 12-44 Blood monocytes/100 leukocytes 17 % 0-12 Automated blood eosinophils/100 leukocytes 2 % 0-10 Automated blood basophils/100 leukocytes 1 % 0-10 Blood neutrophils automated count (number/volume) 2.2 10*3 1.8-7.8 Blood lymphocytes automated count (number/volume) 1.8 10*3 1.0-4.0 Blood monocytes automated count (number/volume) 0. 8 10*3 0.0-1.0 Automated eosinophil count 0.1 10*3/uL 0 .0-0.3 Automated blood basophil count (count/volume) 0.0 10*3/uL 0.0-0.1 Comprehensive metabolic panel - 08/23/19 20:44 Serum or plasma sodium measurement (moles/volume) 142 mmol/L 135-145 Serum or plasma potassium measurement (moles/volume) 3.9 mmol/L 3.6-5.0 Serum or plasma chloride measurement (moles/volume) 108 mmol/L 98-107 Carbon dioxide 23 mmol/L 21-32 Serum or plasma anion gap determination (moles/volume) 11 mmol/L 5-14 Serum or plasma urea nitrogen measurement (mass/volume ) 27 mg/dL 7-18 Serum or plasma creatinine measurement (mass/volume) 1.13 mg/dL 0.60-1.30 Serum or plasma urea nitrogen/creatinine mass ratio 24 NRG Serum or plasma creatinine measurement w ith calculation of estimated glomerular filtration rate > NRG Serum or plasma glucose measurement (mass/volume) 113 mg/dL 70-105 Serum or plasma calcium measurement (mass/volume) 9.8 mg/dL 8.5-10.1 Serum or plasma total bilirubin measurement (mass/volu me) 0.6 mg/dL 0.1-1.0 Serum or plasma alkaline phosphatase luke surement (enzymatic activity/volume) 96 U/L 40-136 Serum or plasma aspartate aminotransfera se measurement (enzymatic activity/volume) 15 U/L 5-34 Serum or plasma alanine aminotransferase measurement (enzymatic activity/volume) 7 U/L 0-55 Serum or plasma protein measurement (mass/volume) 7.1 g/dL 6.4-8.2 Serum or plasma albumin measurement (mass/volume) 4.4 g/dL 3.2-4.5 CALCIUM CORRECTED 9.5 mg/dL 8.5-10.1 Serum or plasma creatine kinase measurem ent (enzymatic activity/volume) - 08/23/19 20:44 Serum or plasma creatine kinase measurem ent (enzymatic activity/volume) 147 U/L 30-200 Serum or plasma troponin i.cardiac measu rement (mass/volume) - 08/23/19 20:44 Serum or plasma troponin i.cardiac measurement (mass/v olume) < ng/mL <0.028 Capillary blood glucose measurement by g lucometer (mass/volume) - 08/23/19 20:46 Capillary blood glucose measurement by glucometer (mas s/volume) 111 mg/dL 70-110 Serum or plasma troponin i.cardiac measu rement (mass/volume) - 08/23/19 22:42 Serum or plasma troponin i.cardiac measurement (mass/v olume) < ng/mL <0.028 Complete blood count (CBC) with automate d white blood cell (WBC) differential - 08/26/19 10:14 Blood leukocytes automated count (number/volume) 3.9 10*3/uL 4.3-11.0 Blood erythrocytes automated count (number/volume) 4.70 10*6/uL 4.35-5.85 Venous blood hemoglobin measurement (mass/volume) 12.3 g/dL 13.3-17.7 Blood hematocrit (volume fraction) 38 % 40-54 Automated erythrocyte mean corpuscular volume 81 [ foz_us] 80-99 Automated erythrocyte mean corpuscular h emoglobin (mass per erythrocyte) 26 pg 25-34 Automated erythrocyte mean corpuscular h emoglobin concentration measurement (mass/volume) 32 g/dL 32-36 Automated erythrocyte distribution width ratio 18. 2 % 10.0- 14.5 Automated blood platelet count (count/volume) 187 10*3/uL 130-400 Automated blood platelet mean volume measurement 10.9 [foz_us] 7.4-10.4 Automated blood neutrophils/100 leukocytes 48 % 42-75 Automated blood lymphocytes/100 leukocytes 31 % 12-44 Blood monocytes/100 leukocytes 18 % 0-12 Automated blood eosinophils/100 leukocytes 2 % 0-10 Automated blood basophils/100 leukocytes 1 % 0-10 Blood neutrophils automated count (number/volume) 1.9 10*3 1.8-7.8 Blood lymphocytes automated count (number/volume) 1.2 10*3 1.0-4.0 Blood monocytes automated count (number/volume) 0. 7 10*3 0.0-1.0 Automated eosinophil count 0.1 10*3/uL 0 .0-0.3 Automated blood basophil count (count/volume) 0.1 10*3/uL 0.0-0.1 PT panel in platelet poor plasma by coag ulation assay - 08/26/19 10:14 Prothrombin time (PT) in platelet poor plasma by coagu lation assay 13.1 s 12.2-14.7 INR in platelet poor plasma or blood by coagulation as say 1.0 0.8-1.4 Activated partial thromboplastin time (a PTT) in platelet poor plasma bycoagulation assay - 08/26/19 10:14 Activated partial thromboplastin time (a PTT) in platelet poor plasma bycoagulation assay 28 s 24-35 Comprehensive metabolic panel - 08/26/19 10:14 Serum or plasma sodium measurement (moles/volume) 143 mmol/L 135-145 Serum or plasma potassium measurement (moles/volume) 3.8 mmol/L 3.6-5.0 Serum or plasma chloride measurement (moles/volume) 106 mmol/L 98-107 Carbon dioxide 22 mmol/L 21-32 Serum or plasma anion gap determination (moles/volume) 15 mmol/L 5-14 Serum or plasma urea nitrogen measurement (mass/volume ) 18 mg/dL 7-18 Serum or plasma creatinine measurement (mass/volume) 0.94 mg/dL 0.60-1.30 Serum or plasma urea nitrogen/creatinine mass ratio 19 NRG Serum or plasma creatinine measurement w ith calculation of estimated glomerular filtration rate > NRG Serum or plasma glucose measurement (mass/volume) 119 mg/dL 70-105 Serum or plasma calcium measurement (mass/volume) 9.8 mg/dL 8.5-10.1 Serum or plasma total bilirubin measurement (mass/volu me) 1.0 mg/dL 0.1-1.0 Serum or plasma alkaline phosphatase luke surement (enzymatic activity/volume) 97 U/L 40-136 Serum or plasma aspartate aminotransfera se measurement (enzymatic activity/volume) 16 U/L 5-34 Serum or plasma alanine aminotransferase measurement (enzymatic activity/volume) 12 U/L 0-55 Serum or plasma protein measurement (mass/volume) 7.6 g/dL 6.4-8.2 Serum or plasma albumin measurement (mass/volume) 4.8 g/dL 3.2-4.5 Magnesium - 08/26/19 10:14 Magnesium 1.4 mg/dL 1.6-2.4 Serum or plasma creatine kinase measurem ent (enzymatic activity/volume) - 08/26/19 10:14 Serum or plasma creatine kinase measurem ent (enzymatic activity/volume) 154 U/L 30-200 Serum or plasma creatine kinase MB measu rement (enzymatic activity/volume) - 08/26/19 10:14 Serum or plasma creatine kinase MB measu rement (enzymatic activity/volume) 3.8 ng/mL <6.6 Serum or plasma troponin i.cardiac measu rement (mass/volume) - 08/26/19 10:14 Serum or plasma troponin i.cardiac measurement (mass/v olume) < ng/mL <0.028 Myoglobin, serum - 08/26/19 10:14 Myoglobin, serum 73.8 ng/mL 10.0-92.0 Lipase - 08/26/19 10:14 Lipase 16 U/L 8-78 Serum or plasma lithium measurement (mol es/volume) - 08/26/19 10:14 BNP PT 32.6 pg/mL <100.0 Capillary blood glucose measurement by g lucometer (mass/volume) - 08/26/19 16:32 Capillary blood glucose measurement by glucometer (mas s/volume) 89 mg/dL 70-110 Capillary blood glucose measurement by g lucometer (mass/volume) - 08/26/19 20:43 Capillary blood glucose measurement by glucometer (mas s/volume) 126 mg/dL 70-110 Complete blood count (CBC) with automate d white blood cell (WBC) differential - 08/27/19 03:16 Blood leukocytes automated count (number/volume) 3.8 10*3/uL 4.3-11.0 Blood erythrocytes automated count (number/volume) 3.77 10*6/uL 4.35-5.85 Venous blood hemoglobin measurement (mass/volume) 9.8 g/dL 13.3-17.7 Blood hematocrit (volume fraction) 31 % 40-54 Automated erythrocyte mean corpuscular volume 83 [ foz_us] 80-99 Automated erythrocyte mean corpuscular h emoglobin (mass per erythrocyte) 26 pg 25-34 Automated erythrocyte mean corpuscular h emoglobin concentration measurement (mass/volume) 31 g/dL 32-36 Automated erythrocyte distribution width ratio 17. 8 % 10.0- 14.5 Automated blood platelet count (count/volume) 138 10*3/uL 130-400 Automated blood platelet mean volume measurement 11.4 [foz_us] 7.4-10.4 Automated blood neutrophils/100 leukocytes 49 % 42-75 Automated blood lymphocytes/100 leukocytes 28 % 12-44 Blood monocytes/100 leukocytes 20 % 0-12 Automated blood eosinophils/100 leukocytes 2 % 0-10 Automated blood basophils/100 leukocytes 1 % 0-10 Blood neutrophils automated count (number/volume) 1.9 10*3 1.8-7.8 Blood lymphocytes automated count (number/volume) 1.1 10*3 1.0-4.0 Blood monocytes automated count (number/volume) 0. 8 10*3 0.0-1.0 Automated eosinophil count 0.1 10*3/uL 0 .0-0.3 Automated blood basophil count (count/volume) 0.1 10*3/uL 0.0-0.1 Comprehensive metabolic panel - 08/27/19 03:16 Serum or plasma sodium measurement (moles/volume) 140 mmol/L 135-145 Serum or plasma potassium measurement (moles/volume) 3.8 mmol/L 3.6-5.0 Serum or plasma chloride measurement (moles/volume) 109 mmol/L 98-107 Carbon dioxide 22 mmol/L 21-32 Serum or plasma anion gap determination (moles/volume) 9 mmol/L 5-14 Serum or plasma urea nitrogen measurement (mass/volume ) 16 mg/dL 7-18 Serum or plasma creatinine measurement (mass/volume) 0.83 mg/dL 0.60-1.30 Serum or plasma urea nitrogen/creatinine mass ratio 19 NRG Serum or plasma creatinine measurement w ith calculation of estimated glomerular filtration rate > NRG Serum or plasma glucose measurement (mass/volume) 100 mg/dL 70-105 Serum or plasma calcium measurement (mass/volume) 8.7 mg/dL 8.5-10.1 Serum or plasma total bilirubin measurement (mass/volu me) 1.0 mg/dL 0.1-1.0 Serum or plasma alkaline phosphatase luke surement (enzymatic activity/volume) 70 U/L 40-136 Serum or plasma aspartate aminotransfera se measurement (enzymatic activity/volume) 16 U/L 5-34 Serum or plasma alanine aminotransferase measurement (enzymatic activity/volume) 10 U/L 0-55 Serum or plasma protein measurement (mass/volume) 5.5 g/dL 6.4-8.2 Serum or plasma albumin measurement (mass/volume) 3.7 g/dL 3.2-4.5 CALCIUM CORRECTED 8.9 mg/dL 8.5-10.1 Lipid 1996 panel - 08/27/19 03:16 Serum or plasma triglyceride measurement (mass/volume) 71 mg/dL <150 Serum or plasma cholesterol measurement (mass/volume) 108 mg/dL < 200 Serum or plasma cholesterol in HDL measurement (mass/v olume) 51 mg/dL 40-60 Cholesterol in LDL [mass/volume] in serum or plasma by direct assay 46 mg/dL 1-129 Serum or plasma cholesterol in VLDL measurement (mass/ volume) 14 mg/dL 5-40 Capillary blood glucose measurement by g lucometer (mass/volume) - 08/27/19 05:18 Capillary blood glucose measurement by glucometer (mas s/volume) 99 mg/dL 70-110 Capillary blood glucose measurement by g lucometer (mass/volume) - 08/27/19 11:40 Capillary blood glucose measurement by glucometer (mas s/volume) 117 mg/dL 70-110 Capillary blood glucose measurement by g lucometer (mass/volume) - 08/27/19 15:52 Capillary blood glucose measurement by glucometer (mas s/volume) 139 mg/dL 70-110 Capillary blood glucose measurement by g lucometer (mass/volume) - 08/27/19 21:49 Capillary blood glucose measurement by glucometer (mas s/volume) 178 mg/dL 70-110 Capillary blood glucose measurement by g lucometer (mass/volume) - 08/28/19 05:34 Capillary blood glucose measurement by glucometer (mas s/volume) 112 mg/dL 70-110 Capillary blood glucose measurement by g lucometer (mass/volume) - 08/28/19 11:15 Capillary blood glucose measurement by glucometer (mas s/volume) 111 mg/dL 70-110 Automated blood complete blood count (he mogram) panel - 08/28/19 11:35 Blood leukocytes automated count (number/volume) 4.6 10*3/uL 4.3-11.0 Blood erythrocytes automated count (number/volume) 4.24 10*6/uL 4.35-5.85 Venous blood hemoglobin measurement (mass/volume) 11.1 g/dL 13.3-17.7 Blood hematocrit (volume fraction) 34 % 40-54 Automated erythrocyte mean corpuscular volume 81 [ foz_us] 80-99 Automated erythrocyte mean corpuscular h emoglobin (mass per erythrocyte) 26 pg 25-34 Automated erythrocyte mean corpuscular h emoglobin concentration measurement (mass/volume) 32 g/dL 32-36 Automated erythrocyte distribution width ratio 18. 3 % 10.0- 14.5 Automated blood platelet count (count/volume) 160 10*3/uL 130-400 Automated blood platelet mean volume measurement 10.4 [foz_us] 7.4-10.4 Whole blood basic metabolic panel - 08/12 03/30 11:35 Serum or plasma sodium measurement (moles/volume) 141 mmol/L 135-145 Serum or plasma potassium measurement (moles/volume) 4.0 mmol/L 3.6-5.0 Serum or plasma chloride measurement (moles/volume) 105 mmol/L 98-107 Carbon dioxide 24 mmol/L 21-32 Serum or plasma anion gap determination (moles/volume) 12 mmol/L 5-14 Serum or plasma urea nitrogen measurement (mass/volume ) 15 mg/dL 7-18 Serum or plasma creatinine measurement (mass/volume) 0.96 mg/dL 0.60-1.30 Serum or plasma urea nitrogen/creatinine mass ratio 16 NRG Serum or plasma creatinine measurement w ith calculation of estimated glomerular filtration rate > NRG Serum or plasma glucose measurement (mass/volume) 105 mg/dL 70-105 Serum or plasma calcium measurement (mass/volume) 9.3 mg/dL 8.5-10.1 Capillary blood glucose measurement by g lucometer (mass/volume) - 08/28/19 15:56 Capillary blood glucose measurement by glucometer (mas s/volume) 157 mg/dL 70-110 Capillary blood glucose measurement by g lucometer (mass/volume) - 08/28/19 20:19 Capillary blood glucose measurement by glucometer (mas s/volume) 139 mg/dL 70-110 Capillary blood glucose measurement by g lucometer (mass/volume) - 08/29/19 04:56 Capillary blood glucose measurement by glucometer (mas s/volume) 112 mg/dL 70-110 Capillary blood glucose measurement by g lucometer (mass/volume) - 08/29/19 11:27 Capillary blood glucose measurement by glucometer (mas s/volume) 115 mg/dL 70-110 Capillary blood glucose measurement by g lucometer (mass/volume) - 08/29/19 16:22 Capillary blood glucose measurement by glucometer (mas s/volume) 113 mg/dL 70-110 Capillary blood glucose measurement by g lucometer (mass/volume) - 08/29/19 21:29 Capillary blood glucose measurement by glucometer (mas s/volume) 101 mg/dL 70-110 Capillary blood glucose measurement by g lucometer (mass/volume) - 08/30/19 05:59 Capillary blood glucose measurement by glucometer (mas s/volume) 94 mg/dL 70-110 Automated blood complete blood count (he mogram) panel - 08/30/19 06:05 Blood leukocytes automated count (number/volume) 3.0 10*3/uL 4.3-11.0 Blood erythrocytes automated count (number/volume) 4.08 10*6/uL 4.35-5.85 Venous blood hemoglobin measurement (mass/volume) 10.6 g/dL 13.3-17.7 Blood hematocrit (volume fraction) 33 % 40-54 Automated erythrocyte mean corpuscular volume 81 [ foz_us] 80-99 Automated erythrocyte mean corpuscular h emoglobin (mass per erythrocyte) 26 pg 25-34 Automated erythrocyte mean corpuscular h emoglobin concentration measurement (mass/volume) 32 g/dL 32-36 Automated erythrocyte distribution width ratio 17. 8 % 10.0- 14.5 Automated blood platelet count (count/volume) 159 10*3/uL 130-400 Automated blood platelet mean volume measurement 11.3 [foz_us] 7.4-10.4 Whole blood basic metabolic panel - 08/12 05/31 06:05 Serum or plasma sodium measurement (moles/volume) 142 mmol/L 135-145 Serum or plasma potassium measurement (moles/volume) 3.7 mmol/L 3.6-5.0 Serum or plasma chloride measurement (moles/volume) 107 mmol/L 98-107 Carbon dioxide 22 mmol/L 21-32 Serum or plasma anion gap determination (moles/volume) 13 mmol/L 5-14 Serum or plasma urea nitrogen measurement (mass/volume ) 17 mg/dL 7-18 Serum or plasma creatinine measurement (mass/volume) 0.81 mg/dL 0.60-1.30 Serum or plasma urea nitrogen/creatinine mass ratio 21 NRG Serum or plasma creatinine measurement w ith calculation of estimated glomerular filtration rate > NRG Serum or plasma glucose measurement (mass/volume) 94 mg/dL 70-105 Serum or plasma calcium measurement (mass/volume) 9.0 mg/dL 8.5-10.1 Capillary blood glucose measurement by g lucometer (mass/volume) - 08/30/19 10:35 Capillary blood glucose measurement by glucometer (mas s/volume) 116 mg/dL 70-110 Encounters ACCT No. Visit Date/Time Discharge Status Pt. Type Provider Facility Loc./Unit Complaint [id number] 08/21/2014 13:18:00 08/21/2014 23:59: 59 CLS Outpatient GREG NGUYEN DO [id number] 08/13/2019 12:57:00 11:35:00 DIS Outpatient TERE CASTILLO MD [facility] REHAB L HUGO REVISION;WEAKNESS L HIP/ANKLE [id number] 08/26/2019 12:50:00 11:32:00 DIS Inpatient DANIELA HOPE, DIANNE Ríos [facility] 4TH CHEST PAIN, HTN [id number] 08/23/2019 20:34:00 23:33:00 DIS Emergency MUKUL HOPE, BRISEIDA Cordero [facility] ER HIGH BP [id number] 08/18/2019 08:13:00 09:28:00 DIS Emergency DIANNE POST MD [facility] ER HIGH BP 213/90 [id number] 07/27/2019 08:50:00 12:05:00 DIS Outpatient DIANNE SUAREZ MD [facility] ENDO DSYPHAGIA/IRON DEF ANEM IA [id number] 07/20/2019 05:38:00 10:52:00 DIS Outpatient DIANNE SUAREZ MD [facility] PREOP EGD [id number] 07/28/2018 11:20:00 14:13:00 DIS Outpatient TERE CASTILLO MD [facility] REHAB L HIP FX [id number] 06/08/2018 09:04:00 08:47:00 DIS Outpatient TERE CASTILLO MD [facility] REHAB L HIP FX [id number] 04/06/2018 06:00:00 23:59:59 CLS Outpatient DIANNE SUAREZ MD [facility] CR3 WELLNESS [id number] 03/16/2018 06:00:00 00:01:00 DIS Outpatient DIANNE SUAREZ MD [facility] [place] [address] WELLNESS [id number] 02/15/2018 13:13:00 018 00:01:00 DIS Outpatient DIANNE SUAREZ MD [facility] [place] [address] WELLNESS [id number] 01/11/2018 15:17:00 018 00:01:00 DIS Outpatient DIANNE SUAREZ MD [facility] [place] [address] WELLNESS [id number] 01/24/2017 09:30:00 017 23:59:59 CLS Outpatient DIANNE SUAREZ MD [facility] RAD INCREASED PSEUDOCLAUDIC ATION, FAILED PT [id number] 01/18/2017 09:15:00 017 10:07:00 DIS Outpatient DIANNE SUAREZ MD [facility] REHAB ACQUIRED SPINAL STENOSI S [id number] 09/08/2016 07:43:00 016 11:19:00 DIS Emergency STEPHENIE RODRIGUEZ MD [facility] ER VOMITING [id number] 08/01/2015 11:10:00 015 14:23:00 DIS Outpatient KAYLA MCGUIRE [facility] REHAB R LE AND HIP PA IN;LUMBAR RADICULOPATHY [id number] 03/17/2015 10:05:00 015 23:59:59 CLS Outpatient DIANNE SUAREZ MD [facility] RAD LUMBAR RADICULOPATHY [id number] 07/20/2019 09:55:00 Document Registration [id number] 04/13/2018 08:29:00 Document Registration [id number] 03/17/2015 10:03:00 Document Registration [id number] 03/17/2015 10:03:00 Document Registration [id number] 03/17/2015 10:03:00 Document Registration [id number] 02/10/2012 05:55:00 Document Registration [id number] 12/17/2011 08:01:00 Document Registration [id number] 09/15/2010 05:43:00 Document Registration [id number] 09/14/2010 07:51:00 Document Registration [id number] 06/20/2015 15:19:17 ACT Document Registration
== END 2019-08-18 09:28 | disposition home or self-care (01) ==
LOC: EDUNIT# 08:12 → ER 08:13
DX: I10 Essential (primary) hypertension (principal); E78.00 Pure hypercholesterolemia, unspecified; E11.40 Type 2 diabetes mellitus with diabetic neuropathy, unspecified; K21.9 Gastro-esophageal reflux disease without esophagitis; D64.9 Anemia, unspecified; Z85.828 Personal history of other malignant neoplasm of skin
CPT/HCPCS: 36415; 71045; 80053; 83880; 85025; 93005

== ENCOUNTER 2019-08-23 20:33 | Emergency (ER) | payer MEDICARE ==
[~2019-08-23] VITALS: Ht 177.8 cm; Wt 86.3 kg
[~2019-08-23 20:33] MED LIST changes: +CLON0.2T12 PO; -OMEP40CA27 PO; +TAMS0.4C98 PO; -TMSL.4C PO
[2019-08-23 20:58] LABS: BASOPHILS % (AUTO) 1 % (0-10); EOSINOPHILS # (AUTO) 0.1 10^3/uL (0.0-0.3); EOSINOPHILS % (AUTO) 2 % (0-10); HEMATOCRIT 34 % (40-54); HEMOGLOBIN 10.9 G/DL (13.3-17.7); LYMPHOCYTES # (AUTO) 1.8 X 10^3 (1.0-4.0); LYMPHOCYTES % (AUTO) 36 % (12-44); MEAN CORPUSCULAR HEMOGLOBIN 26 PG (25-34); MEAN CORPUSCULAR HGB CONC 32 G/DL (32-36); MEAN CORPUSCULAR VOLUME 81 FL (80-99); MONOCYTES # (AUTO) 0.8 X 10^3 (0.0-1.0); MONOCYTES % (AUTO) 17 % (0-12); NEUTROPHILS # (AUTO) 2.2 X 10^3 (1.8-7.8); NEUTROPHILS % (AUTO) 45 % (42-75); PLATELET COUNT 180 10^3/uL (130-400); RED CELL DISTRIBUTION WIDTH 17.9 % (10.0-14.5); WHITE BLOOD COUNT 4.9 10^3/uL (4.3-11.0)
--- NOTE | 2019-08-23 20:58 | ED General ---
General Stated Complaint: HIGH BP Source of Information: Patient, Spouse Exam Limitations: No Limitations History of Present Illness Date Seen by Provider: Aug 23, 2019 Time Seen by Provider: 20:32 Initial Comments Patient presents to ER by private conveyance with his spouse and chief complaint that he was at a program at [facility] and when he concluded he stood up and started feeling very shaky. He is diabetic but did not check his blood sugar at that time. He is not on insulin. He takes. The Pioglitazone and metformin. He did check his blood pressure and noticed it was high about 200/100 so he took the amlodipine which was recently started by Dr. Hudson yesterday. He then immediately rechecked his blood pressure was 217/105 and so he decided to come the ER. He is not having any chest pain or shortness of breath but he does endorse having a hard time breathing. He does not take anything for anxiety. He does not have a history of heart disease. He's had 2 heart catheteri zations that were negative. He has no stents or history of CO or stroke. He does not take blood thinners or antiplatelets. Historically he was on Epleronone and benazepril and was in Tuesday, 5 days ago to the ER for high blood pressure and was started on Catapres. He did not like how Catapres made him very labile his blood pressure so he went Dr. Hudson and was switched yesterday to amlodipine. This was his first dose of the amlodipine 5 mg. He has not had any fevers or chills. He denies a cough nausea vomiting diarrhea chest pain constipation abdominal pain or weakness. He does have some urinary hesitancy of time and takes tamsulosin for this. He denies dysuria. Allergies and Home Medications Allergies Coded Allergies: No Known Drug Allergies (Unverified , 07/20/19) Home Medications Benazepril HCl 20 Mg Tablet, 20 MG PO DAILY, (Reported) Clonidine HCl 0.2 Mg Tablet, 0.2 MG PO BID Prescribed by: DIANNE POST MD on 08/18/19 0920 Docusate Sodium 100 Mg Capsule, 100 MG PO TID, (Reported) Eplerenone 50 Mg Tablet, 50 MG PO DAILY, (Reported) Flaxseed Oil 1,000 Mg Capsule, 1,000 MG PO DAILY, (Reported) Loratadine 10 Mg Tablet, 10 MG PO DAILY, (Reported) Omeprazole 40 Mg Capsule.dr, 40 MG PO DAILY, (Reported) Pioglitazone HCl/Metformin HCl 1 Each Tablet, 1 TAB PO BID, (Reported) Simvastatin 80 Mg Tablet, 80 MG PO HS, (Reported) Tamsulosin HCl 0.4 Mg Cap, 0.4 MG PO DAILY, (Reported) Patient Home Medication List Home Medication List Reviewed: Yes Review of Systems Review of Systems Constitutional: No chills, No diaphoresis, No dizziness, No fever, No weakness EENTM: No ear pain, No eye pain Respiratory: No cough; short of breath; No wheezing Cardiovascular: No chest pain, No edema, No Hx of Intervention, No palpitations, No syncope, No vascular heart diseas Gastrointestinal: No abdominal pain, No constipation, No diarrhea, No dysphagia Genitourinary: see HPI; No discharge, No dysuria; hesitancy Musculoskeletal: No back pain, No joint pain All Other Systems Reviewed Negative Unless Noted: Yes Past Ruvobfr-Mvhlvq-Sztsub Hx Patient Social History Alcohol Use: Occasionally Uses Alcohol Beverage of Choice: Beer Recreational Drug Use: No Smoking Status: Never a Smoker 2nd Hand Smoke Exposure: No Recent Foreign Travel: No Contact w/Someone Who Travel: No Recent Hopitalizations: Yes ([place], Lt femur nailing post fall) Immunizations Up To Date Date of Pneumonia Vaccine: Jun 12, 2014 Date of Influenza Vaccine: Jun 18, 2019 Seasonal Allergies Seasonal Allergies: Yes Past Medical History Surgeries: Yes ( BACK X2, LT HIP, LT FEMUR) Gallbladder, Rectal, Vasectomy Respiratory: No Currently Using CPAP: No Currently Using BIPAP: No Cardiac: Yes High Cholesterol, Hypertension Neurological: Yes Neuropathy Reproductive Disorders: No Sexually Transmitted Disease: No HIV/AIDS: No Genitourinary: Yes (dribbling) Gastrointestinal: Yes Gastroesophageal Reflux, Chronic Constipation Musculoskeletal: Yes (Laminectomy x 2, spinal stenosis) Arthritis, Chronic Back Pain Endocrine: Yes Diabetes, Non-Insulin dep HEENT: Yes (GLASSES) Loss of Vision: Denies Hearing Impairment: Hard of Hearing, Bilateral Hearing Aide Cancer: Yes Skin Psychosocial: No Integumentary: No Blood Disorders: Yes (MILD ANEMIA) Adverse Reaction/Blood Tranf: No (N/A) Family Medical History No Pertinent Family Hx Physical Exam Vital Signs Capillary Refill : Height, Weight, BMI Height: 5'10.00" Weight: 193lbs. 0.6oz. [id number]; 27.00 BMI Method:Stated General Appearance: No Apparent Distress, WD/WN, Anxious Eyes: Bilateral Eye Normal Inspection, Bilateral Eye PERRL, Bilateral Eye EOMI HEENT: PERRL/EOMI, Normal ENT Inspection, Pharynx Normal, Moist Mucous Membranes Neck: Full Range of Motion, Normal Inspection, Non Tender, Supple Respiratory: Chest Non Tender, Lungs Clear, Normal Breath Sounds, No Accessory Muscle Use, No Respiratory Distress Cardiovascular: Regular Rate, Rhythm, No Edema, Normal Peripheral Pulses, Systolic Murmur Gastrointestinal: Normal Bowel Sounds, No Organomegaly, Non Tender, Soft Extremity: Normal Capillary Refill, Normal Inspection, Normal Range of Motion, No Pedal Edema Neurologic/Psychiatric: Alert, Oriented x3, No Motor/Sensory Deficits, 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 as Tested, Other (anxious affect) Skin: Normal Color, Warm/Dry Progress/Results/Core Measures Suspected Sepsis SIRS Temperature: Pulse: Respiratory Rate: Laboratory Tests 08/23/19 20:44: White Blood Count 4.9 Blood Pressure / Mean: Laboratory Tests 08/23/19 20:44: Creatinine 1.13, Platelet Count 180, Total Bilirubin 0.6 Results/Orders Lab Results Laboratory Tests Test 08/23/19 20:44 08/23/19 20:46 08/23/19 22:42 Range/Units White Blood Count 4.9 4.3-11.0 10^3/uL Red Blood Count 4.26 L 4.35-5.85 10^6/uL Hemoglobin 10.9 L 13.3-17.7 G/DL Hematocrit 34 L 40-54 % Mean Corpuscular Volume 81 80-99 FL Mean Corpuscular Hemoglobin 26 25-34 PG Mean Corpuscular Hemoglobin Concent 32 32-36 G/DL Red Cell Distribution Width 17.9 H 10.0-14.5 % Platelet Count 180 130-400 10^3/uL Mean Platelet Volume 11.0 H 7.4-10.4 FL Neutrophils (%) (Auto) 45 42-75 % Lymphocytes (%) (Auto) 36 12-44 % Monocytes (%) (Auto) 17 H 0-12 % Eosinophils (%) (Auto) 2 0-10 % Basophils (%) (Auto) 1 0-10 % Neutrophils # (Auto) 2.2 1.8-7.8 X 10^3 Lymphocytes # (Auto) 1.8 1.0-4.0 X 10^3 Monocytes # (Auto) 0.8 0.0-1.0 X 10^3 Eosinophils # (Auto) 0.1 0.0-0.3 10^3/uL Basophils # (Auto) 0.0 0.0-0.1 10^3/uL Sodium Level 142 135-145 MMOL/L Potassium Level 3.9 3.6-5.0 MMOL/L Chloride Level 108 H 98-107 MMOL/L Carbon Dioxide Level 23 21-32 MMOL/L Anion Gap 11 5-14 MMOL/L Blood Urea Nitrogen 27 H 7-18 MG/DL Creatinine 1.13 0.60-1.30 MG/DL Estimat Glomerular Filtration Rate > 60 BUN/Creatinine Ratio 24 Glucose Level 113 H 70-105 MG/DL Calcium Level 9.8 8.5-10.1 MG/DL Corrected Calcium 9.5 8.5-10.1 MG/DL Total Bilirubin 0.6 0.1-1.0 MG/DL Aspartate Amino Transf (AST/SGOT) 15 5-34 U/L Alanine Aminotransferase (ALT/SGPT) 7 0-55 U/L Alkaline Phosphatase 96 40-136 U/L Total Creatine Kinase 147 30-200 U/L Troponin I < 0.028 < 0.028 <0.028 NG/ML Total Protein 7.1 6.4-8.2 GM/DL Albumin 4.4 3.2-4.5 GM/DL Glucometer 111 H 70-110 MG/DL My Orders Orders - BRISEIDA GILMAN Continuous Ekg Monitoring (08/23/19 20:34) Ekg Tracing (08/23/19 20:34) Ed Iv/Invasive Line Start (08/23/19 20:49) Cbc With Automated Diff (08/23/19 20:49) Comprehensive Metabolic Panel (08/23/19 20:49) Ua Culture If Indicated (08/23/19 20:49) Creatine Kinase (08/23/19 20:49) Troponin I (08/23/19 20:49) Accucheck Stat ONCE (08/23/19 20:49) Chest Pa/Lat (2 View) (08/23/19 20:49) Troponin I (08/23/19 22:40) Vital Signs/I&O Capillary Refill : Progress Note #1: Time: 20:59 Progress Note Hx CPK since he is on a statin. We'll check an EKG and troponin however he does not show any outward evidence of distress. His vitals are okay with the exception of his initial blood pressure 180/84. Suspect he may have some anxiety as he endorsed apprehension over taking a new medication especially after the Catapres made his blood pressure very labile. We checked his blood sugar and is 111 so does not seem to be hypoglycemic. Initial EKG was unremarkable. We'll get a chest x-ray and look for infection or other problems. Cardiac catheterization by Dr. Bella 2008: Mild coronary artery disease except for severe disease within a miniscule right intraocular branch of the small nondominant right coronary artery. Ejection fraction 60%. No significant mitral regurgitation. Progress Note #2: Time: 21:58 Progress Note The patient's blood pressure and shaking have both improved simultaneously. His last blood pressure is around 150 systolic and is no longer shaking. Suspect anxiety could be part of this. He doesn't have anything on initial labs that is concerning. Plan to get a delta troponin for possible atypical presentation since his last cardiac angiogram was over 10 years ago. We have discussed appropriate blood pressure management for his labile blood pressure and we'll encourage him to follow-up with primary care ECG Initial ECG Impression Date: Aug 23, 2019 Initial ECG Impression Time: 20:38 Initial ECG Rate: 68 Initial ECG Rhythm: Normal Sinus Initial ECG Intervals: Normal Initial ECG Impression: Normal, Nonspecific Changes Initial ECG Comparisson: Unchanged Comment No ST elevation or depression. Diagnostic Imaging Diagonstic Imaging: Xray Plain Films/CT/US/NM/MRI: chest (2v) Comments No acute cardiopulmonary process noted on a 2 view chest x-ray. NAME: [facility] REC#: [id number] PT STATUS: REG ER : 1940 PHYSICIAN: BRISEIDA GILMAN MD ADMIT DATE: 08/23/19/ER Draft POSDate of Exam:08/23/19 CHEST PA/LAT (2 VIEW) EXAM: CHEST PA/LAT (2 VIEW) INDICATION: Weakness. COMPARISON: 08/18/2019. FINDINGS: Normal heart size and pulmonary vascularity. No dense consolidation, pleural effusion or pneumothorax. No acute osseous findings. No significant change. IMPRESSION: No acute cardiopulmonary findings. Dictated on workstation # [id number] Dict: 08/23/192136 Trans: 08/23/192139 SHARAN [id number] Interpreted by: KENDRICK AC MD Electronically signed by: Reviewed: Reviewed by Me Departure Impression Primary Impression: Labile essential hypertension Additional Impression: Hypertension Qualified Codes: I10 - Essential (primary) hypertension Disposition: HOME, SELF-CARE Condition: Improved Departure-Patient Inst. Decision time for Depature: 23:20 Referrals: DIANNE HUDSON MD (PCP/Family) Primary Care Physician Patient Instructions: High Blood Pressure (DC), High Blood Pressure Emergencies Add. Discharge Instructions: Continue taking the blood pressure medicines as described. Check your blood pressure read 5 times a day week first thing in the morning. Return to the ER if you have chest pain, shortness of breath or other worrisome symptoms. Follow-up with your primary care doctor. BRISEIDA GILMAN Aug 23, 2019 20:58 POS
[2019-08-23 21:12] LABS: ALANINE AMINOTRANSFERASE 7 U/L (0-55); ALBUMIN 4.4 GM/DL (3.2-4.5); ALKALINE PHOSPHATASE 96 U/L (40-136); BILIRUBIN,TOTAL 0.6 MG/DL (0.1-1.0); BUN/CREATININE RATIO 24; CALCIUM 9.8 MG/DL (8.5-10.1); CARBON DIOXIDE 23 MMOL/L (21-32); CHLORIDE 108 MMOL/L (98-107); CREATINE KINASE 147 U/L (30-200); CREATININE SERUM 1.13 MG/DL (0.60-1.30); GFR ESTIMATED > 60; GLUCOSE 113 MG/DL (70-105); POTASSIUM 3.9 MMOL/L (3.6-5.0); SODIUM 142 MMOL/L (135-145); TOTAL PROTEIN 7.1 GM/DL (6.4-8.2)
--- NOTE | 2019-08-23 21:41 | Diagnostic Imaging Report ---
EXAM: CHEST PA/LAT (2 VIEW) INDICATION: Weakness. COMPARISON: 08/18/2019. FINDINGS: Normal heart size and pulmonary vascularity. No dense consolidation, pleural effusion or pneumothorax. No acute osseous findings. No significant change. IMPRESSION: No acute cardiopulmonary findings. Dictated by: Dictated on workstation # [id number]
[2019-08-23 23:33] VITALS: BP 154/82
== END 2019-08-23 23:33 | disposition home or self-care (01) ==
LOC: EDUNIT# 20:33 → ER 20:34
DX: I10 Essential (primary) hypertension (principal); E11.40 Type 2 diabetes mellitus with diabetic neuropathy, unspecified; E78.00 Pure hypercholesterolemia, unspecified; K21.9 Gastro-esophageal reflux disease without esophagitis; D64.9 Anemia, unspecified; Z85.828 Personal history of other malignant neoplasm of skin; Z79.84 Long term (current) use of oral hypoglycemic drugs
CPT/HCPCS: 36415; 71046; 80053; 82550; 82962; 84484; 85025; 93005

== ENCOUNTER 2019-08-26 10:03 | Inpatient (IN) | payer MEDICARE ==
[2019-08-26] VITALS (12 sets, daily range): BP systolic 128–180; BP diastolic 72–92
[~2019-08-26] VITALS: Ht 177.8 cm; Wt 83.9 kg
[2019-08-26] MEDS ORDERED: ASPIRIN 81 MG CHEW (CHILDREN'S ASA) PO ONE (10:15)
[2019-08-26 10:23] LABS: BASOPHILS # (AUTO) 0.1 10^3/uL (0.0-0.1); BASOPHILS % (AUTO) 1 % (0-10); EOSINOPHILS # (AUTO) 0.1 10^3/uL (0.0-0.3); EOSINOPHILS % (AUTO) 2 % (0-10); HEMATOCRIT 38 % (40-54); HEMOGLOBIN 12.3 G/DL (13.3-17.7); LYMPHOCYTES # (AUTO) 1.2 X 10^3 (1.0-4.0); LYMPHOCYTES % (AUTO) 31 % (12-44); MEAN CORPUSCULAR HEMOGLOBIN 26 PG (25-34); MEAN CORPUSCULAR HGB CONC 32 G/DL (32-36); MEAN CORPUSCULAR VOLUME 81 FL (80-99); MEAN PLATELET VOLUME 10.9 FL (7.4-10.4); MONOCYTES # (AUTO) 0.7 X 10^3 (0.0-1.0); MONOCYTES % (AUTO) 18 % (0-12); NEUTROPHILS # (AUTO) 1.9 X 10^3 (1.8-7.8); NEUTROPHILS % (AUTO) 48 % (42-75); PLATELET COUNT 187 10^3/uL (130-400); RED CELL DISTRIBUTION WIDTH 18.2 % (10.0-14.5); WHITE BLOOD COUNT 3.9 10^3/uL (4.3-11.0)
[2019-08-26] MEDS: NITROGLYCERIN 0.4 MG SL TABS BTL 25'S SL PRN ×2 (10:31→21:42)
[2019-08-26 10:33] LABS: PROTHROMBIN TIME PATIENT 13.1 SEC (12.2-14.7)
[2019-08-26 10:42] LABS: ALANINE AMINOTRANSFERASE 12 U/L (0-55); ALBUMIN 4.8 GM/DL (3.2-4.5); ALKALINE PHOSPHATASE 97 U/L (40-136); BUN/CREATININE RATIO 19; CALCIUM 9.8 MG/DL (8.5-10.1); CARBON DIOXIDE 22 MMOL/L (21-32); CHLORIDE 106 MMOL/L (98-107); CREATINE KINASE 154 U/L (30-200); CREATININE SERUM 0.94 MG/DL (0.60-1.30); GFR ESTIMATED > 60; GLUCOSE 119 MG/DL (70-105); LIPASE 16 U/L (8-78); MAGNESIUM 1.4 MG/DL (1.6-2.4); POTASSIUM 3.8 MMOL/L (3.6-5.0); SODIUM 143 MMOL/L (135-145); TOTAL PROTEIN 7.6 GM/DL (6.4-8.2)
[2019-08-26 10:50] LABS: CREATINE KINASE MB 3.8 NG/ML (<6.6)
--- NOTE | 2019-08-26 11:06 | Diagnostic Imaging Report ---
INDICATION: Chest pain. COMPARISON: Comparison made with prior examination 08/23/2019. FINDINGS: The heart size, mediastinal configuration, and pulmonary vascularity are within normal limits. There is no pleural effusion, pneumothorax, or pneumonia. The osseous structures are unremarkable. IMPRESSION: No acute cardiopulmonary abnormality. Dictated by: Dictated on workstation # [id number]
[2019-08-26] MEDS ORDERED: PANTOPRAZOLE 40 MG (PROTONIX) VIAL ONE (11:07)
[2019-08-26] MEDS ORDERED: MAGNESIUM 1 GM/100 ML IVPB 100 ML IV ONE (11:15)
[2019-08-26] MEDS ORDERED: PANTOPRAZOLE 40 MG (PROTONIX) VIAL IV ONE (11:15)
[2019-08-26] MEDS ORDERED: PANTOPRAZOLE 40 MG (PROTONIX) VIAL IVP ONE (11:15)
[2019-08-26] MEDS ORDERED: NS 100 ML (IVPB) BAG IV ONE (11:45)
[2019-08-26] MEDS ORDERED: HOLD METFORMIN - RECEIVED CONTRAST 20 ML VIAL IV SCH (11:45)
[2019-08-26] MEDS ORDERED: IOHEXOL 350 MG/ML 150 ML (OMNIPAQUE 350) VIAL IV ONE (11:45)
[2019-08-26] MEDS ORDERED: NS IV 1000 ML 1,000 ML IV ONE (11:48)
--- NOTE | 2019-08-26 12:28 | Diagnostic Imaging Report ---
EXAMINATION: CT angiogram of the chest and CT abdomen and pelvis with contrast. TECHNIQUE: After intravenous administration of contrast, CT angiography of the chest was performed. MIP reconstructions were provided. Postcontrast enhanced CT of the abdomen and pelvis also obtained. Coronal and sagittal reformats were provided. INDICATION: Intermittent chest pain. Upper abdominal pain. FINDINGS: There are mild atherosclerotic calcifications within the thoracic aorta but no findings of aneurysm or dissection. Examination was not optimized for assessment of the pulmonary arteries but there is no central pulmonary arterial filling defect. The heart size appears appropriate. There are advanced [place] coronary artery calcifications. There is no pericardial collection. There are small non-pathologically enlarged mediastinal lymph nodes. Lungs demonstrate no focal infiltrate or consolidation. There is minimal dependent atelectasis. There is a small left lower lobe granuloma. There are calcified left hilar lymph nodes. There is a small hiatal hernia. Within the abdomen, there are atherosclerotic calcifications within the aorta. 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 The intimal flap is calcified. This does not extend into the iliacs. The mesenteric and renal arteries appear patent. There is patent runoff to both groins. The liver demonstrates no evidence of a focal intrahepatic abnormality. The gallbladder is surgically absent. There is no biliary dilatation. Spleen is normal. Pancreas demonstrates no focal abnormality. There is no adrenal mass. The kidneys appear nonobstructed. The stomach appears diffusely thickened. Small bowel are normal in caliber. There is moderate stool throughout the colon. No abnormal colonic thickening is evident. There are no findings of free air, free fluid or abscess. The urinary bladder is nondistended. There is no pathologic enlargement of abdominal or pelvic lymph nodes. There has been left hip arthroplasty. There are degenerative changes demonstrated throughout the thoracic and lumbar spine, but no acute or suspicious osseous abnormalities. There is chronic-appearing wedging of L1. IMPRESSION: 1. No CT evidence of a thoracic aortic dissection or aneurysm. In the distal abdominal aorta is a short segment chronic-appearing calcified [id number] dissection that does not extend into the iliacs. 2. Advanced coronary artery disease. 3. Lungs demonstrate no acute infiltrate or effusion. 4. There is no pathologic adenopathy within the chest, abdomen, and pelvis. 5. Abnormally thickened appearance of the stomach. Gastritis or even a neoplastic process not excluded. Consider follow-up with endoscopy. 6. No findings of bowel obstruction. There is no free air, free fluid, or abscess. 7. Apparent chronic compression fracture of L1 with advanced multilevel degenerative disc disease and facet arthropathy. Dictated by: Dictated on workstation # [id number]
[2019-08-26] MEDS ORDERED: meTOprolol SUCCINATE 100 MG (TOPROL XL) TAB PO ONE (13:00)
--- NOTE | 2019-08-26 13:39 | ED Chest Pain ---
General Chief Complaint: Chest Pain Stated Complaint: CHEST PAIN, HTN Nursing Triage Note: PT TO RM 7 BY JAYME WITH COMPLAINT OF CHEST DISCOMFORT. STATES HE HAS BEEN HAVING INTERMITTENT CHEST PAIN FOR OVER A WEEK. HAS BEEN SEEN IN ER TWO PREVIOUS TIMES. WAS STARTED ON A SECOND BLOOD PRESSURE MEDICINE ON TUESDAY BY DR SUAREZ. PT STATES DISCOMFORT STARTED THIS MORNING AROUND 915. 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 PT WAS FOUND TO HAVE SIGNIFICANTLY ELEVATED BP ON BOTH OCCASIONS, AND PT HAS BEEN STARTED ON / SWITCHED MEDICATIONS FOR ELEVATED BLOOD PRESSURE THIS WEEKZ PT HAD CARDIAC CATH IN 2007--WAS FOUND TO HAVE MILD CAD, NO INTERVENTION WAS DONE AT THAT TIME PT HAS NOT HAD ANY OTHER CARDIAC TESTS SINCE THEN. PT DENIES ANY PRIOR HEART PROBLEMS PT HAD EGD 07/27/[address] SUAREZ, FOR ANEMIA AND DYSPHAGIA--WAS FOUND TO HAVE SOME INCREASED TONE OF LOWER ESOPHAGEAL SPHINCTER AND HAD DILATION OF ESOPHAGUS PCP: DR. SUAREZ Allergies and Home Medications Allergies Coded Allergies: No Known Drug Allergies (Unverified , 07/20/19) Home Medications Benazepril HCl 20 Mg Tablet, 20 MG PO DAILY, (Reported) Clonidine HCl 0.2 Mg Tablet, 0.2 MG PO BID Prescribed by: DIANNE POST MD on 08/18/19 0920 Docusate Sodium 100 Mg Capsule, 100 MG PO TID, (Reported) Eplerenone 50 Mg Tablet, 50 MG PO DAILY, (Reported) Flaxseed Oil 1,000 Mg Capsule, 1,000 MG PO DAILY, (Reported) Loratadine 10 Mg Tablet, 10 MG PO DAILY, (Reported) Omeprazole 40 Mg Capsule., 40 MG PO DAILY, (Reported) Pioglitazone HCl/Metformin HCl 1 Each Tablet, 1 TAB PO BID, (Reported) Simvastatin 80 Mg Tablet, 80 MG PO HS, (Reported) Tamsulosin HCl 0.4 Mg Cap, 0.4 MG PO DAILY, (Reported) Patient Home Medication List Home Medication List Reviewed: Yes Review of Systems Review of Systems Constitutional: see HPI; No chills, No diaphoresis; dizziness; No fever EENTM: No Symptoms Reported Respiratory: No Symptoms Reported; Denies Cough, Denies Orthopnea, Denies Shortness of Air, Denies SOA With Exertion Cardiovascular: See HPI, Chest Pain; Denies Edema, Denies Irregular Heart Rate; Lightheadedness; Denies Palpitations, Denies Syncope Gastrointestinal: See HPI; Denies Abdominal Pain, Denies Constipated, Denies Diarrhea; Nausea; Denies Vomiting Genitourinary: No Symptoms Reported Musculoskeletal: No back pain Skin: no symptoms reported Psychiatric/Neurological: No Symptoms Reported Endocrine: No Symptoms Reported Hematologic/Lymphatic: No Symptoms Reported Past Txnrnop-Qmgalx-Xzegoi Hx Patient Social History Alcohol Use: Rarely Uses Number of Drinks Today: AA Alcohol Beverage of Choice: Beer Recreational Drug Use: No Smoking Status: Never a Smoker 2nd Hand Smoke Exposure: No Recent Foreign Travel: No Contact w/Someone Who Travel: No Recent Infectious Disease Expo: No Recent Hopitalizations: No Physical Abuse: No Sexual Abuse: No Mistreated: No Fear: No Immunizations Up To Date Date of Pneumonia Vaccine: Jun 12, 2014 Date of Influenza Vaccine: Jun 18, 2019 Seasonal Allergies Seasonal Allergies: Yes Past Medical History Surgeries: Yes ( BACK X2 WITH LUMBAR LAMINECTOMY; LEFT HIP REPLACEMENT; LEFT FEMUR SURGERY; CARDIAC CATH X 2, LAST ONE 2007--NO INTERVENTION; EGD 07/27/19 WITH ESOPHAGEAL DILATION; COLONOSCOPY; RIGHT INGUINAL HERNIA REPAIR; LUMBAR LAMINECTOMY; CYSTOSCOPY AND CIRCUMCISION) Cardiac, Gallbladder, Joint Replacement, Orthopedic, Rectal, Vasectomy Respiratory: No Currently Using CPAP: No Currently Using BIPAP: No Cardiac: Yes High Cholesterol, Hypertension Neurological: Yes Neuropathy Reproductive Disorders: No Sexually Transmitted Disease: No HIV/AIDS: No Genitourinary: Yes (dribbling) Benign Prostatic Hyperpl Gastrointestinal: Yes (ANAL FISSURE; RIGHT INGUINAL HERNIA REPAIR; EGD WITH DILATION 07/27/19) Abdominal Hernia, Gastroesophageal Reflux, Chronic Constipation Musculoskeletal: Yes (Laminectomy x 2, spinal stenosis; LEFT HIP REPLACEMENT) Arthritis, Chronic Back Pain Endocrine: Yes Diabetes, Non-Insulin dep HEENT: Yes (GLASSES) Loss of Vision: Denies Hearing Impairment: Hard of Hearing, Bilateral Hearing Aide Cancer: Yes Skin Psychosocial: No Integumentary: No Blood Disorders: Yes (MILD ANEMIA) Adverse Reaction/Blood Tranf: No (N/A) Family Medical History No Pertinent Family Hx Physical Exam Vital Signs Vital Signs - First Documented 08/26/19 10:07 Pulse 78 Resp 16 B/P (MAP) 178/108 (131) Pulse Ox 99 O2 Delivery Room Air Capillary Refill : Less Than 3 Seconds Height, Weight, BMI Height: 5'10.00" Weight: 193lbs. 0.6oz. 87.826332nt; 27.00 BMI Method:Stated General Appearance: No Apparent Distress, WD/WN HEENT: PERRL/EOMI, Normal ENT Inspection; No Pale Conjunctivae (L), No Pale Conjunctivae (R) Neck: Normal Inspection, Non Tender, Supple, Other ([place] BILATERALLY VS RADIATION OF MURMUR) Respiratory: Chest Non Tender, Normal Breath Sounds, No Accessory Muscle Use, No Respiratory Distress Cardiovascular: Regular Rate, Rhythm, No Edema, No JVD, Normal Peripheral Pulses, Systolic Murmur (2/6) Gastrointestinal: Normal Bowel Sounds, No Organomegaly, No Pulsatile Mass, Non Tender, Soft Extremity: Normal Capillary Refill, Normal Inspection, Normal Range of Motion, Non Tender, No Calf Tenderness, No Pedal Edema Neurologic/Psychiatric: Alert, Oriented x3, No Motor/Sensory Deficits, Normal Mood/Affect, kit assembler II-XII Norm as Tested, Other (VERY MILD RESTING TREMOR) Skin: Normal Color, Warm/Dry Progress/Results/Core Measures Results/Orders Lab Results Laboratory Tests Test 08/26/19 10:14 Range/Units White Blood Count 3.9 L 4.3-11.0 10^3/uL Red Blood Count 4.70 4.35-5.85 10^6/uL Hemoglobin 12.3 L 13.3-17.7 G/DL Hematocrit 38 L 40-54 % Mean Corpuscular Volume 81 80-99 FL Mean Corpuscular Hemoglobin 26 25-34 PG Mean Corpuscular Hemoglobin Concent 32 32-36 G/DL Red Cell Distribution Width 18.2 H 10.0-14.5 % Platelet Count 187 130-400 10^3/uL Mean Platelet Volume 10.9 H 7.4-10.4 FL Neutrophils (%) (Auto) 48 42-75 % Lymphocytes (%) (Auto) 31 12-44 % Monocytes (%) (Auto) 18 H 0-12 % Eosinophils (%) (Auto) 2 0-10 % Basophils (%) (Auto) 1 0-10 % Neutrophils # (Auto) 1.9 1.8-7.8 X 10^3 Lymphocytes # (Auto) 1.2 1.0-4.0 X 10^3 Monocytes # (Auto) 0.7 0.0-1.0 X 10^3 Eosinophils # (Auto) 0.1 0.0-0.3 10^3/uL Basophils # (Auto) 0.1 0.0-0.1 10^3/uL Prothrombin Time 13.1 12.2-14.7 SEC INR Comment 1.0 0.8-1.4 Activated Partial Thromboplast Time 28 24-35 SEC Sodium Level 143 135-145 MMOL/L Potassium Level 3.8 3.6-5.0 MMOL/L Chloride Level 106 98-107 MMOL/L Carbon Dioxide Level 22 21-32 MMOL/L Anion Gap 15 H 5-14 MMOL/L Blood Urea Nitrogen 18 7-18 MG/DL Creatinine 0.94 0.60-1.30 MG/DL Estimat Glomerular Filtration Rate > 60 BUN/Creatinine Ratio 19 Glucose Level 119 H 70-105 MG/DL Calcium Level 9.8 8.5-10.1 MG/DL Corrected Calcium 8.5-10.1 MG/DL Magnesium Level 1.4 L 1.6-2.4 MG/DL Total Bilirubin 1.0 0.1-1.0 MG/DL Aspartate Amino Transf (AST/SGOT) 16 5-34 U/L Alanine Aminotransferase (ALT/SGPT) 12 0-55 U/L Alkaline Phosphatase 97 40-136 U/L Total Creatine Kinase 154 30-200 U/L Creatine Kinase MB 3.8 <6.6 NG/ML Myoglobin 73.8 10.0-92.0 NG/ML Troponin I < 0.028 <0.028 NG/ML B-Type Natriuretic Peptide 32.6 <100.0 PG/ML Total Protein 7.6 6.4-8.2 GM/DL Albumin 4.8 H 3.2-4.5 GM/DL Lipase 16 8-78 U/L My Orders Orders - ARTURO FLORENCE DO Cbc With Automated Diff (08/26/19 10:08) Magnesium (08/26/19 10:08) Chest 1 View, Ap/Pa Only (08/26/19 10:08) Ekg Tracing (08/26/19 10:08) Comprehensive Metabolic Panel (08/26/19 10:08) Myoglobin Serum (08/26/19 10:08) Protime With Inr (08/26/19 10:08) Partial Thromboplastin Time (08/26/19 10:08) O2 (08/26/19 10:08) Monitor-Rhythm Ecg Trace Only (08/26/19 10:08) Lipid Panel (08/27/19 06:00) Ed Iv/Invasive Line Start (08/26/19 10:08) Creatine Kinase (08/26/19 10:08) Creatine Kinase Mb (08/26/19 10:08) Lipase (08/26/19 10:08) BNP (08/26/19 10:08) Nitroglycerin 0.4 Mg Btl 25's (Nitrostat (08/26/19 10:15) Aspirin Chewable Tablet (Baby Aspirin Ch (08/26/19 10:15) Troponin I (08/26/19 10:14) Ekg Tracing (08/26/19 10:33) Magnesium 1 Gm/100 Ml Ivpb (Magnesium Castellanos (08/26/19 11:15) Pantoprazole Injection (Protonix Injecti (08/26/19 11:15) Pantoprazole Injection (Protonix Injecti (08/26/19 11:15) Pantoprazole Injection (Protonix Injecti (08/26/19 11:07) Ct Miladis Chest/Noang Abd-Pelv W (08/26/19 11:21) Iohexol Injection (Omnipaque 350 Mg/Ml 1 (08/26/19 11:45) Received Contrast (Hold Metformin- Contr (08/26/19 11:45) Ns (Ivpb) (Sodium Chloride 0.9% Ivpb Bag (08/26/19 11:45) Ed Iv/Invasive Line Start (08/26/19 11:48) Ns Iv 1000 Ml (Sodium Chloride 0.9%) (08/26/19 11:48) Medications Given in ED Current Medications Medications Dose Ordered Sig/Shahriar Route Start Time Stop Time Status Last Admin Dose Admin Aspirin 324 mg ONCE ONCE PO 08/26/19 10:15 08/26/19 10:18 DC 08/26/19 10:31 324 MG Iohexol 150 ml ONCE ONCE IV 08/26/19 11:45 08/26/19 11:46 DC 08/26/19 11:44 125 ML Magnesium Sulfate/ Dextrose 100 ml @ 100 mls/hr ONCE ONCE IV 08/26/19 11:15 08/26/19 12:14 DC 08/26/19 11:17 100 MLS/HR Nitroglycerin 0.4 mg UD PRN SL 08/26/19 10:15 08/26/19 10:31 0.4 MG Pantoprazole 40 mg ONCE ONCE IV 08/26/19 11:15 08/26/19 11:16 DC 08/26/19 11:17 40 MG Sodium Chloride 100 ml ONCE ONCE IV 08/26/19 11:45 08/26/19 11:46 DC 08/26/19 11:44 80 ML Sodium Chloride 1,000 ml @ 0 mls/hr Q0M ONCE IV 08/26/19 11:48 08/26/19 11:49 DC 08/26/19 12:25 1,000 MLS/HR Vital Signs/I&O 08/26/19 10:07 Pulse 78 Resp 16 B/P (MAP) 178/108 (131) Pulse Ox 99 O2 Delivery Room Air Blood Pressure Mean: 131 POS Progress Progress Note : Progress Note GIVEN NTG X 1 WITH IMPROVEMENT IN PAIN, PT DECLINES A SECOND NTG 1100--PT NOW C/O MID/UPPER ABDOMINAL PAIN --GIVEN PROTONIX WITH IMPROVEMENT IN SYMPTOMS BP DOWN AT TIME OF ADMIT PT HAD NO FURTHER COMPLAINTS DURING ER STAY Initial ECG Impression Date: Aug 26, 2019 Initial ECG Impression Time: 10:20 Initial ECG Rate: 72 Initial ECG Rhythm: Normal Sinus EKG : EKG Time: 10:21 Rate: 69 Rhythm: Normal Sinus Diagnostic Imaging Comments CXR--NO ACUTE PROCESS, PER RADIOLOGIST REPORT AT 1110 CT CHEST ANGIOGRAM / ABDOMEN-PELVIS--NO P.E. OR ACUTE PROCESS IN CHEST OR ABDOMEN; NO ANEURYSM. ASVD WITH ADVANCED SAULT [place] CORONARY ARTERY CALCIFICATIONS; SMALL HIATAL HERNIA; SHORT CHRONIC-APPEARING, NON-FLOW LIMITING DISSECTION OF DISTAL ABDOMINAL AORTA, WITH CALCIFICATION OF INTIMAL FLAP. DOES NOT EXTEND INTO ILIACS; DIFFUSE THICKENING OF STOMACH; CHRONIC WEDGING OF L1; OTHER NON- ACUTE/CHRONIC FINDINGS--PER RADIOLOGIST REPORT AT 1245 Reviewed: Reviewed by Me Departure Communication (Admissions) 1250--SPOKE WITH DR. ALBARADO, ACCEPTS PT FOR ADMIT 1251--SPOKE WITH DR. SHERWOOD FOR CARDIOLOGY CONSULT. HE ADVISES A BETA CAITLYN, STATIN ( PT IS ALREADY TAKING ) AND ASPIRIN. PLAN TO DO CARDIAC CATH TOMORROW. Impression Primary Impression: Chest pain Additional Impression: HTN (hypertension) Disposition: ADMITTED INPATIENT Condition: Improved Admissions Decision to Admit Reason: Admit from ER (General) Decision to Admit/Date: Aug 26, 2019 Time/Decision to Admit Time: 12:50 Departure-Patient Inst. Referrals: DIANNE SUAREZ MD (PCP/Family) Primary Care Physician ARTURO FLORENCE DO Aug 26, 2019 13:39 POS
[2019-08-26] MEDS ORDERED: LIDOCAINE 1% INJ 20 ML 20 ML VIAL ONE (13:47)
[2019-08-26] MEDS ORDERED: NS IV 1000 ML 2,000 ML ONE (13:47)
[2019-08-26] MEDS ORDERED: HEParin 1000 UNIT/ML (10ML VIAL) FOR BOLUS ONE (13:47)
[2019-08-26] MEDS ORDERED: MIDAZOLAM 5 MG/5 ML (VERSED) VIAL ONE (14:00)
[2019-08-26] MEDS ORDERED: fentaNYL INJECTION 100 MCG/2 ML AMP ONE (14:01)
[2019-08-26] MEDS ORDERED: morphine INJ 4 MG/ML 1 ML (VIAL/SYRINGE) IV PRN (14:30)
[2019-08-26] MEDS ORDERED: ONDANSETRON 4 MG/2 ML (SDV) Z0FRAN IV PRN (14:30)
[2019-08-26] MEDS ORDERED: NITROGLYCERIN 0.4 MG SL TABS BTL 25'S SL PRN (14:30)
--- NOTE | 2019-08-26 14:47 | NUR ---
1430 PT TO HEART CATH VIA BED ACCOMPANIED BY AND HEART CATH STAFF.
[2019-08-26] MEDS ORDERED: ADENOSINE 3 MG/1 ML (ADENOSCAN) 30ML VIAL IV ONE ×2 (15:02→15:20)
[2019-08-26] MEDS ORDERED: EPTIFIBATIDE BOLUS 20 ML IV ONE (15:31)
[2019-08-26] MEDS ORDERED: ATROPINE INJECTION 1 MG/10 ML SYR (ABBOTT) ONE (15:40)
[2019-08-26] MEDS ORDERED: CLOPIDOGREL 300 MG (PLAVIX) TABLET PO ONE (16:05)
[2019-08-26] MEDS ORDERED: NS IV 1000 ML 1,000 ML IV SCH (16:35)
--- NOTE | 2019-08-26 16:42 | Consultation-Cardiology ---
HPI-Cardiology Cardiology Consultation: Date of Consultation 08/26/19 Time Seen by a Provider: 15:00 Date of Admission Attending Physician Dianne Hudson MD Admitting Physician Dianne Hudson MD Consulting Physician SARAH BETH SHERWOOD MA, MD, FACP, FACC, FSCAI, CCDS HPI: Chief Complaint: CC: Chest discomfort HPI 78 yo man with 1-2 weeks of chest discomfort, mild to mod, pressure-like, lasting min to a couple of hours, daily, non-radiating, somewhat worse with exertion, not associated with other symptoms. Has chronic, mild, slowly progressive, exertional shortness of breath No leg swelling or palp or syncope Review of Systems-Cardiology Review of Systems Constitutional: No malaise, No tiredness, No weight loss, No weight gain Eyes: No vision change Ears/Nose/Throat: No ear discharge, No nasal drainage Respiratory: As described under HPI Cardiovascular: As described under HPI Gastrointestinal: No diarrhea, No nausea, No vomiting Genitourinary: No dysuria, No hematuria, No urine frequency changes Musculoskeletal: No back pain, No joint pain Skin: No rash, No ulcerations Psychiatric/Neurological: No seizure, No focal weakness, No syncope Hematologic: No bleeding abnormalities EZG-[id number]-Tsxncl Hx Patient Social History Alcohol Use: Rarely Uses Recreational Drug Use: No Smoking Status: Never a Smoker 2nd Hand Smoke Exposure: No Recent Foreign Travel: No Recent Infectious Disease Expo: No Hospitalization with Isolation: Denies Immunizations Up To Date Date of Pneumonia Vaccine: Jun 12, 2014 Date of Influenza Vaccine: Jun 18, 2019 Past Medical History PMH As described under Assessment. Family Medical History Family Medical History: Father had heart trouble in his 50s (details unknown) Allergies and Home Medications Allergies Coded Allergies: No Known Drug Allergies (Unverified , 07/20/19) Home Medications Benazepril HCl 20 Mg Tablet, 20 MG PO DAILY, (Reported) Clonidine HCl 0.2 Mg Tablet, 0.2 MG PO BID Prescribed by: DIANNE POST MD on 08/18/19 0920 Docusate Sodium 100 Mg Capsule, 100 MG PO TID, (Reported) Eplerenone 50 Mg Tablet, 50 MG PO DAILY, (Reported) Flaxseed Oil 1,000 Mg Capsule, 1,000 MG PO DAILY, (Reported) Loratadine 10 Mg Tablet, 10 MG PO DAILY, (Reported) Omeprazole 40 Mg Capsule.dr, 40 MG PO DAILY, (Reported) Pioglitazone HCl/Metformin HCl 1 Each Tablet, 1 TAB PO BID, (Reported) Simvastatin 80 Mg Tablet, 80 MG PO HS, (Reported) Tamsulosin HCl 0.4 Mg Cap, 0.4 MG PO DAILY, (Reported) Patient Home Medication List Home Medication List Reviewed: Yes Physical Exam-Cardiology Physical Exam Vital Signs/I&O 08/26/19 08/26/19 08/26/19 08/26/19 10:07 13:35 14:20 14:20 Temp 36.6 Pulse 78 53 51 Resp 16 13 20 B/P (MAP) 178/108 (131) 164/83 171/91 (117) Pulse Ox 99 98 99 100 O2 Delivery Room Air Room Air Room Air Room Air 08/26/19 08/26/19 16:20 16:25 Temp 36.0 Pulse 49 B/P (MAP) 159/84 (109) Pulse Ox 99 O2 Delivery Room Air Capillary Refill : Less Than 3 Seconds Constitutional: AAO x 3, well-developed, well-nourished HEENT: hearing is well preserved; No xanthelasmas are seen Neck: carotid pulses are 2 + bilaterally, with good upstrokes Respiratory: No accessory muscle use; other (good bilat air entry) Cardiovascular: regular rate-rhythm, S1 and S2, systolic murmur (2/6 JOANNE at card base) Gastrointestinal: No tender; soft; No guarding, No rebound; audible bowel sounds Extremities: No clubbing, No cyanosis, No significant edema Neurologic/Psychiatric: oriented x 3, other (moves all limbs equally) Skin: No rash on exposed areas, No ulcerations on exposed areas Data Review Labs Laboratory Tests 08/26/19 10:14: White Blood Count 3.9L, Red Blood Count 4.70, Hemoglobin 12.3L, Hematocrit 38L, Mean Corpuscular Volume 81, Mean Corpuscular Hemoglobin 26, Mean Corpuscular Hemoglobin Concent 32, Red Cell Distribution Width 18.2H, Platelet Count 187, Mean Platelet Volume 10.9H, Neutrophils (%) (Auto) 48, Lymphocytes (%) (Auto) 31, Monocytes (%) (Auto) 18H, Eosinophils (%) (Auto) 2, Basophils (%) (Auto) 1, Neutrophils # (Auto) 1.9, Lymphocytes # (Auto) 1.2, Monocytes # (Auto) 0.7, Eosinophils # (Auto) 0.1, Basophils # (Auto) 0.1, Prothrombin Time 13.1, INR Comment 1.0, Activated Partial Thromboplast Time 28, Sodium Level 143, Potassium Level 3.8, Chloride Level 106, Carbon Dioxide Level 22, Anion Gap 15H, Blood Urea Nitrogen 18, Creatinine 0.94, Estimat Glomerular Filtration Rate > 60, BUN/Creatinine Ratio 19, Glucose Level 119H, Calcium Level 9.8, Corrected Ca lcium , Magnesium Level 1.4L, Total Bilirubin 1.0, Aspartate Amino Transf (AST/ SGOT) 16, Alanine Aminotransferase (ALT/SGPT) 12, Alkaline Phosphatase 97, Total Creatine Kinase 154, Creatine Kinase MB 3.8, Myoglobin 73.8, Troponin I < 0.028, B-Type Natriuretic Peptide 32.6, Total Protein 7.6, Albumin 4.8H, Lipase 16 Laboratory Tests 08/26/19 10:14 A/P-Cardiology Assessment/Admission Diagnosis Unstable angina, treated with LAD PCI on 08/26/19 (see below) Card cath of 08/26/19: mod, diffuse CAD with cor calcification, 70-80% mid LAD treated with successful stenting with Alp Xience 2.75 x 18, LVEDP 16, LVEF 60% Abd ao angio on 08/26/19 showed calcification and chronic, small, 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 No renal artery stenoses DM II Htn Hyperlipidemia Discussion and Recomendations * DAPT * BB * Statin * Monitor labs * I discussed his CV findings and interventions undertaken and future plans with him and his SARAH BETH SHERWOOD MD FACP FAC CCDS Aug 26, 2019 16:42 POS
[2019-08-26] MEDS ORDERED: PATIENT MAY USE OWN MEDS, ALL PO SCH (16:45)
[2019-08-26] MEDS: inSUlin ASPART (NovoLOG) 1 UNIT/0.01 ML (CHARGE PER UNIT) SC SCH ×2 (16:55→20:48)
--- NOTE | 2019-08-26 19:32 | CARDIAC CATHETERIZATION ---
DATE OF SERVICE: 08/26/2019 CARDIAC CATHETERIZATION AND CORONARY INTERVENTION REPORT The patient is a 72-year-old gentleman with multiple coronary artery disease risk factors who presented with symptoms of chest discomfort and the discussion was consistent with unstable angina. He had earlier, in the emergency room, had an abdominal aortic angiogram to evaluate for thoracic aortic aneurysm or dissection and was found to have marked coronary calcification on that imaging. It also showed a chronic small dissection in the lower abdominal aorta. Given continuing symptoms, cardiac catheterization was recommended and informed consent was obtained for coronary angiography and possible ad hoc intervention. DESCRIPTION OF PROCEDURE: He was brought to the cardiac catheterization laboratory. Right groin was prepared and draped in the usual sterile fashion. Lidocaine 1% was used for local anesthesia. Modified Seldinger technique was used to advance a 5-Turkmen sheath in right femoral artery. Angiography of the right femoral artery was carried out through the sheath. A straight catheter was advanced to the level just cephalic to the aortoiliac bifurcation and angiography was performed to evaluate his chronic lower abdominal aortic dissection. Subsequently, catheter exchanges were carried out over an exchange length wire. We used a 5-Turkmen JL4 catheter for left coronary angiography and 5-Turkmen JR4 catheter for right coronary angiography. We used a 5-Turkmen pigtail catheter to carry out left heart catheterization. Following completion of the interventional procedure that is described below, we used 5-Turkmen pigtail catheter to carry out abdominal aortic angiography. FRACTIONAL FLOW RESERVE MEASUREMENT IN THE LEFT ANTERIOR DESCENDING: The left anterior descending artery was exhibiting approximately 40% ostial and 70% mid vessel stenosis. We carried out fractional flow reserve measurement. We exchanged the sheath over a wire for a 6-Turkmen sheath. We used a 6-Turkmen JL4 guide catheter to engage the left coronary artery. We advanced a pressure wire across the lesion. A 140 mcg per kilogram of adenosine was given as an infusion. The fractional flow reserve was measured at 0.81. PERCUTANEOUS INTERVENTION OF LEFT ANTERIOR DESCENDING ARTERY: Because the patient had symptoms consistent with unstable angina and had a 70% to 80% mid vessel stenosis of the left anterior descending that was associated with significant calcification and because of the fractional flow measurement indicated a fractional flow reserve of approximately 0.8, we felt that coronary stenting would be appropriate. We used a 6-Turkmen JL4 guide catheter. We advanced a BMW wire across the lesion and the tip was placed in the distal vessel. With considerable difficulty, we were able to advance Alpine Xience 2.75 x 18 mm stent across the lesion. The entire lesion was fully covered and the stent was deployed at 24 atmospheres. Subsequent angiography revealed 0% residual stenosis and flow throughout the vessel is normal. The patient tolerated the procedure well. Angioplasty equipment was removed. As stated above, following completion of the intervention procedure, we did carry out abdominal aortic angiography to further delineate his known small chronic dissection of the lower abdominal aorta. The catheter was removed and Mynx was used to achieve hemostasis. He tolerated the procedure well. HEMODYNAMICS: Left ventricular end-diastolic pressure following coronary angiography was 16 mmHg. There was approximately 15 pressure gradient across the aortic valve. Ascending aortic pressure was 125/57 with a mean 81 mmHg. CORONARY ANGIOGRAPHY: Diffuse coronary calcification is seen. Left main coronary artery does not exhibit significant disease. Left anterior descending artery has 40% ostial stenosis and 70% to 80% mid vessel stenosis that was successfully stented. Distal left anterior descending artery has multiple stenoses of approximately 40%. Left circumflex artery has multiple stenoses of 40% to 50%. Left circumflex artery is dominant. Right coronary artery is small and nondominant and has mild diffuse disease. LEFT VENTRICULAR ANGIOGRAPHY: Left ventricular angiography was carried out in the right anterior oblique projection. Global left ventricular systolic function normal. No regional wall motion abnormalities seen. Left ventricular ejection fraction approximately 60%. ABDOMEN AORTIC ANGIOGRAPHY: Lower abdominal aortic angiography was carried out with the help of a 5-Turkmen straight catheter. The upper, mid, and lower abdominal aortic angiography was carried out with the help of a 5-Turkmen pigtail catheter. There is a dense calcification of the abdominal aorta. There is a localized contained dissection versus a small localized aneurysm in the lower abdominal aorta just above the aortoiliac bifurcation. The renal arteries are identified and do not exhibit significant stenoses. The mesenteric vessels, to the extent visualized, do not exhibit significant stenosis. CONCLUSIONS: 1. Coronary artery disease, diffuse, moderate, along with a 70% to 80% mid vessel stenosis of the left anterior descending artery that was successfully stented with Alpine Xience 2.75 x 18 mm stent deployed at 24 atmospheres. 2. Normal global left ventricular systolic function with ejection fraction approximately 60%. 3. Mild elevation of left ventricular end-diastolic pressure. 4. Calcification of the abdominal aorta and a chronic contained and localized dissection versus a small aneurysm of the lower abdominal aorta. DISCUSSION AND RECOMMENDATIONS: Dual-antiplatelet therapy, beta-blockers, statins will be used for further treatment. Risk factor modification has been reviewed. Further decision will be based on his hospital course. Job ID: [id number] DocumentID: [id number] Dictated Date: 08/26/2019 16:17:13 Ripening Room Hand Date: 08/26/2019 19:32:43 Dictated By: SARAH BETH SHERWOOD MD, MA, FACP, FACC,
[2019-08-27 00:40] VITALS: BP 150/74
[2019-08-27 03:37] LABS: BASOPHILS # (AUTO) 0.1 10^3/uL (0.0-0.1); BASOPHILS % (AUTO) 1 % (0-10); EOSINOPHILS # (AUTO) 0.1 10^3/uL (0.0-0.3); EOSINOPHILS % (AUTO) 2 % (0-10); HEMATOCRIT 31 % (40-54); HEMOGLOBIN 9.8 G/DL (13.3-17.7); LYMPHOCYTES # (AUTO) 1.1 X 10^3 (1.0-4.0); LYMPHOCYTES % (AUTO) 28 % (12-44); MEAN CORPUSCULAR HEMOGLOBIN 26 PG (25-34); MEAN CORPUSCULAR HGB CONC 31 G/DL (32-36); MEAN CORPUSCULAR VOLUME 83 FL (80-99); MEAN PLATELET VOLUME 11.4 FL (7.4-10.4); MONOCYTES # (AUTO) 0.8 X 10^3 (0.0-1.0); MONOCYTES % (AUTO) 20 % (0-12); NEUTROPHILS # (AUTO) 1.9 X 10^3 (1.8-7.8); NEUTROPHILS % (AUTO) 49 % (42-75); PLATELET COUNT 138 10^3/uL (130-400); RED CELL DISTRIBUTION WIDTH 17.8 % (10.0-14.5); WHITE BLOOD COUNT 3.8 10^3/uL (4.3-11.0)
[2019-08-27 04:00] VITALS: BP 161/77
[2019-08-27 04:03] LABS: ALANINE AMINOTRANSFERASE 10 U/L (0-55); ALBUMIN 3.7 GM/DL (3.2-4.5); ALKALINE PHOSPHATASE 70 U/L (40-136); BUN/CREATININE RATIO 19; CALCIUM 8.7 MG/DL (8.5-10.1); CARBON DIOXIDE 22 MMOL/L (21-32); CHLORIDE 109 MMOL/L (98-107); CHOLESTEROL 108 MG/DL (< 200); CREATININE SERUM 0.83 MG/DL (0.60-1.30); GFR ESTIMATED > 60; GLUCOSE 100 MG/DL (70-105); HDL CHOLESTEROL 51 MG/DL (40-60); POTASSIUM 3.8 MMOL/L (3.6-5.0); SODIUM 140 MMOL/L (135-145); TOTAL PROTEIN 5.5 GM/DL (6.4-8.2); TRIGLYCERIDES 71 MG/DL (<150); VLDL CHOLESTEROL 14 MG/DL (5-40)
[2019-08-27] MEDS: inSUlin ASPART (NovoLOG) 1 UNIT/0.01 ML (CHARGE PER UNIT) SC SCH ×4 (05:56→21:00)
[2019-08-27 08:00] VITALS: BP 158/82
--- NOTE | 2019-08-27 08:30 | Progress Note - Cardiology ---
Cardiology SOAP Progress Note Subjective: Sitting up in bed. States last evening after walking around the room he had an episode of mod left sided chest pain. He states he was given nitro with no relief. He was then given morphine IV which did relieve the pain. This morning after ambulating to the [facility] he had another episode of chest discomfort which lasted for approx 15 minutes. No assoc symptoms with the episodes. No c/o palpitations, syncope, near syncope or groin discomfort. Objective: I&O/Vital Signs 08/28/19 08/28/19 08/28/19 08/28/19 00:50 01:00 04:00 06:49 Temp 37.4 36.5 Pulse 85 71 77 92 Resp 20 16 B/P (MAP) 186/81 (116) 172/83 (112) Pulse Ox 97 97 O2 Delivery Room Air Room Air 08/28/19 08/28/19 08:00 09:00 Temp 37.2 Pulse 70 Resp 20 B/P (MAP) 171/79 (109) Pulse Ox 98 O2 Delivery Room Air Room Air 08/27/19 23:59 Intake Total 840 ml Output Total 400 ml Balance 440 ml Weight (Pounds): 193 Weight (Ounces): 0.6 Weight (Calculated Kilograms): 87.996389 Side: right Condition: DP/PT pulses palpable, extremity w/d/p Bruising: mild bruising Constitutional: AAO x 3, well-developed, well-nourished Respiratory: No accessory muscle use; other (good bilat air entry) Cardiovascular: regular rate-rhythm, S1 and S2, systolic murmur (2/6 JOANNE at card base) Gastrointestional: No tender; soft; No guarding, No rebound; audible bowel sounds Extremities: No clubbing, No cyanosis, No significant edema Neurologic/Psychiatric: oriented x 3, other (moves all limbs equally) Skin: No rash on exposed areas, No ulcerations on exposed areas Results/Procedures: Labs Laboratory Tests 08/27/19 11:40: Glucometer 117H 08/27/19 15:52: Glucometer 139H 08/27/19 21:49: Glucometer 178H 08/28/19 05:34: Glucometer 112H A/P: Assessment: Unstable angina, treated with LAD PCI on 12/15/19 (see below) Card cath of 08/26/19: mod, diffuse CAD with cor calcification, 70-80% mid LAD treated with successful stenting with Alp Xience 2.75 x 18, LVEDP 16, LVEF 60% Abd ao angio on 08/26/19 showed calcification and chronic, small, 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 No renal artery stenoses DM II Htn Hyperlipidemia Plan: * Continue DAPT, BB and statin * Monitor labs * Increase activity KAYLA DOUGLAS Aug 27, 2019 08:30 POS
[2019-08-27] MEDS ORDERED: ASPIRIN E.C. 81 MG (ECOTRIN) TAB PO SCH (09:00)
[2019-08-27] MEDS ORDERED: amLODIPine 5 MG (NORVASC) TAB PO SCH (09:00)
[2019-08-27] MEDS ORDERED: meTOprolol SUCCINATE 100 MG (TOPROL XL) TAB PO SCH (09:00)
--- NOTE | 2019-08-27 09:04 | Progress Note - Cardiology ---
Cardiology SOAP Progress Note Subjective: No chest discomfort of the kind he presented with, but has had a different discomfort in the chest since stent placed that has gradually been resolving No palp or syncope or groin discomfort or leg discomfort No N/V Objective: I&O/Vital Signs 08/26/19 08/26/19 08/26/19 08/26/19 21:00 21:09 22:00 23:00 Pulse 49 51 47 Resp 10 16 9 B/P (MAP) 170/87 (114) 157/79 (105) 128/72 (90) Pulse Ox 99 97 97 94 O2 Delivery Room Air Room Air Room Air Room Air 08/27/19 08/27/19 08/27/19 08/27/19 00:40 01:00 04:00 04:00 Temp 37.0 Pulse 46 47 47 Resp 14 22 B/P (MAP) 150/74 (99) 161/77 (105) Pulse Ox 94 95 O2 Delivery Room Air Room Air 08/27/19 00:00 Intake Total 400 ml Output Total 300 ml Balance 100 ml Weight (Pounds): 193 Weight (Ounces): 0.6 Weight (Calculated Kilograms): 87.833264 Side: right Condition: DP/PT pulses palpable, extremity w/d/p Bruising: mild bruising Constitutional: AAO x 3, well-developed, well-nourished Respiratory: No accessory muscle use; other (good bilat air entry) Cardiovascular: regular rate-rhythm, S1 and S2, systolic murmur (2/6 JOANNE at card base) Gastrointestional: No tender; soft; No guarding, No rebound; audible bowel sounds Extremities: No clubbing, No cyanosis, No significant edema Neurologic/Psychiatric: oriented x 3, other (moves all limbs equally) Skin: No rash on exposed areas, No ulcerations on exposed areas Results/Procedures: Labs Laboratory Tests 08/26/19 10:14: White Blood Count 3.9L, Red Blood Count 4.70, Hemoglobin 12.3L, Hematocrit 38L, Mean Corpuscular Volume 81, Mean Corpuscular Hemoglobin 26, Mean Corpuscular Hemoglobin Concent 32, Red Cell Distribution Width 18.2H, Platelet Count 187, Mean Platelet Volume 10.9H, Neutrophils (%) (Auto) 48, Lymphocytes (%) (Auto) 31, Monocytes (%) (Auto) 18H, Eosinophils (%) (Auto) 2, Basophils (%) (Auto) 1, Neutrophils # (Auto) 1.9, Lymphocytes # (Auto) 1.2, Monocytes # (Auto) 0.7, Eosinophils # (Auto) 0.1, Basophils # (Auto) 0.1, Prothrombin Time 13.1, INR Comment 1.0, Activated Partial Thromboplast Time 28, Sodium Level 143, Potassium Level 3.8, Chloride Level 106, Carbon Dioxide Level 22, Anion Gap 15H, Blood Urea Nitrogen 18, Creatinine 0.94, Estimat Glomerular Filtration Rate > 60, BUN/Creatinine Ratio 19, Glucose Level 119H, Calcium Level 9.8, Corrected Ca lcium , Magnesium Level 1.4L, Total Bilirubin 1.0, Aspartate Amino Transf (AST/ SGOT) 16, Alanine Aminotransferase (ALT/SGPT) 12, Alkaline Phosphatase 97, Total Creatine Kinase 154, Creatine Kinase MB 3.8, Myoglobin 73.8, Troponin I < 0.028, B-Type Natriuretic Peptide 32.6, Total Protein 7.6, Albumin 4.8H, Lipase 16 08/26/19 16:32: Glucometer 89 08/26/19 20:43: Glucometer 126H 08/27/19 03:16: White Blood Count 3.8L, Red Blood Count 3.77L, Hemoglobin 9.8#L, Hematocrit 31L, Mean Corpuscular Volume 83, Mean Corpuscular Hemoglobin 26, Mean Corpuscular Hemoglobin Concent 31L, Red Cell Distribution Width 17.8H, Platelet Count 138, Mean Platelet Volume 11.4H, Neutrophils (%) (Auto) 49, Lymphocytes (%) (Auto) 28, Monocytes (%) (Auto) 20H, Eosinophils (%) (Auto) 2, Basophils (%) (Auto) 1, Neutrophils # (Auto) 1.9, Lymphocytes # (Auto) 1.1, Monocytes # (Auto) 0.8, Eo sinophils # (Auto) 0.1, Basophils # (Auto) 0.1, Sodium Level 140, Potassium Level 3.8, Chloride Level 109H, Carbon Dioxide Level 22, Anion Gap 9, Blood Urea Nitrogen 16, Creatinine 0.83, Estimat Glomerular Filtration Rate > 60, BUN/Creatinine Ratio 19, Glucose Level 100, Calcium Level 8.7, Corrected Calcium 8.9, Total Bilirubin 1.0, Aspartate Amino Transf (AST/SGOT) 16, Alanine Aminotransferase (ALT/SGPT) 10, Alkaline Phosphatase 70, Total Protein 5.5L, Albumin 3.7, Triglycerides Level 71, Cholesterol Level 108, LDL Cholesterol Direct 46, VLDL Cholesterol 14, HDL Cholesterol 51 08/27/19 05:18: Glucometer 99 Laboratory Tests 08/26/19 10:14 08/27/19 03:16 A/P: Assessment: Unstable angina, treated with LAD PCI on 08/26/19 (see below) Card cath of 08/26/19: mod, diffuse CAD with cor calcification, 70-80% mid LAD treated with successful stenting with Alp Xience 2.75 x 18, LVEDP 16, LVEF 60% Abd ao angio on 08/26/19 showed calcification and chronic, small, 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 No renal artery stenoses DM II Htn Hyperlipidemia Plan: * D/c BB due to bradycardia * Start amlodipine for htn * Continue DAPT and atrovastatin * Repeat ECG * May transfer to floor on tele * Monitor labs * Increase activity SARAH BETH SHERWOOD MD FACP FAC CCDS Aug 27, 2019 09:04 POS
[2019-08-27] MEDS ORDERED: amLODIPine 5 MG (NORVASC) TAB ONE ×2 (09:05→09:07)
[2019-08-27] MEDS: CLOPIDOGREL 75 MG (PLAVIX) TABLET PO SCH (09:05)
[2019-08-27] MEDS: ASPIRIN 81 MG CHEW (CHILDREN'S ASA) PO SCH (09:06)
--- NOTE | 2019-08-27 09:12 | Short Stay Summary-Hospitalist ---
History of Present Illness HPI/Chief Complaint Pt is a 78yoCM with a PMH of HTN, NIDDMII, HLD who presented to the ER duet o chest pain. He reports this started this week and he was having chest discomfort and shakiness intermittently. He was seen in the ER and they believed it to be due to his elevated BP and he was started on catapress. He then saw his PCP Dr Hudson and his BP medicine was changed but he was unable to fill it until 08/23. Despite this he began to feel shaky again and his BP was >200. 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 He happened to be by two local physicians and they conferred and recommended he seek care in the ER. On arrival here his troponin was negative but due to his continuing symptoms and concern for unstable angina so he was taken directly to the geotechnical laboratory technician and found to have an LAD stent. He still has slight discomfort with exertion today when ambulating to the bathroom. Source: patient Date Seen 08/27/19 Time Seen by a Provider: 07:30 Attending Physician Ramone Hudson MD PCP Ramone Hudson MD Referring Physician Date of Admission Aug 26, 2019 at 12:50 Home Medications & Allergies Home Medications Reviewed patient Home Medication Reconciliation performed by pharmacy medication reconciliations motion study technician and/or nursing. Patients Allergies have been reviewed. Allergies Allergies Coded Allergies No Known Drug Allergies ([id number]/8/19) Past Xkqijge-Ogncer-Cooavr Hx Past Med/Social Hx: Reviewed Nursing Past Med/Soc Hx Patient Social History Alcohol Use: Rarely Uses Alcohol Beverage of Choice: Beer Recreational Drug Use: No Smoking Status: Never a Smoker 2nd Hand Smoke Exposure: No Recent Foreign Travel: No Contact w/other who traveled: No Recent Hopitalizations: No Recent Infectious Disease Expo: No Immunizations Up To Date Date of Pneumonia Vaccine: Jun 12, 2014 Date of Influenza Vaccine: Jun 18, 2019 Seasonal Allergies Seasonal Allergies: Yes Past Medical History Surgeries: Cardiac, Gallbladder, Joint Replacement, Orthopedic, Rectal, Vasectomy Currently Using CPAP: No Currently Using BIPAP: No Cardiac: High Cholesterol, Hypertension Neurological: Neuropathy Reproductive: No Sexually Transmitted Disease: No HIV/AIDS: No Genitourinary: Benign Prostatic Hyperpl Gastrointestinal: Abdominal Hernia, Gastroesophageal Reflux, Chronic Co nstipation Musculoskeletal: Arthritis, Chronic Back Pain Endocrine: Diabetes, Non-Insulin dep Loss of Vision: Denies Hearing Impairment: Hard of Hearing, Bilateral Hearing Aide 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) Adverse Reaction to Blood Bynum: No (N/A) Family History Reviewed Nursing Family Hx No Pertinent Family Hx Review of Systems Constitutional: No chills, No fever EENTM: no symptoms reported Respiratory: dyspnea on exertion Cardiovascular: chest pain; No edema, No Hx of Intervention Gastrointestinal: no symptoms reported Genitourinary: no symptoms reported Musculoskeletal: no symptoms reported Skin: no symptoms reported Psychiatric/Neurological: No Symptoms Reported Physical Exam Physical Exam Vital Signs Vital Signs - First Documented 08/26/19 10:07 Pulse 78 Resp 16 B/P (MAP) 178/108 (131) Pulse Ox 99 O2 Delivery Room Air Capillary Refill : Less Than 3 Seconds Height, Weight, BMI Height: 5'10.00" Weight: 193lbs. 0.6oz. 87.528763fa; 27.33 BMI Method:Stated General Appearance: No Apparent Distress, WD/WN HEENT: PERRL/EOMI, Normal ENT Inspection; No Pale Conjunctivae (L), No Pale Conjunctivae (R) Neck: Normal Inspection, Non Tender, Supple, Other ([place] BILATERALLY VS RADIATION OF MURMUR) Respiratory: Chest Non Tender, Normal Breath Sounds, No Accessory Muscle Use, No Respiratory Distress Cardiovascular: Regular Rate, Rhythm, No Edema, No JVD, Normal Peripheral Pulses, Systolic Murmur (2/6) Gastrointestinal: Normal Bowel Sounds, No Organomegaly, No Pulsatile Mass, Non Tender, Soft Extremity: Normal Capillary Refill, Normal Inspection, Normal Range of Motion, Non Tender, No Calf Tenderness, No Pedal Edema Neurologic/Psychiatric: Alert, Oriented x3, No Motor/Sensory Deficits, Normal Mood/Affect, dianetic counselor II-XII Norm as Tested, Other (VERY MILD RESTING TREMOR) Skin: Normal Color, Warm/Dry Results Results/Procedures Labs Laboratory Tests 08/26/19 10:14 08/27/19 03:16 Patient resulted labs reviewed. Imaging: Reviewed Imaging Report Short Stay Diagnosis Discharge Diagnosis-Short Stay Admission Diagnosis Unstable Angina Final Discharge Diagnosis Unstable Angina with LAD lesion Conclusion Plan Unstable Angina with LAD lesion CAD HTN HLD s/p cath yesterday with LAD stent Continue DAPT Metoprolol ordered but slightly bradycardiac- trend Dr Bella consulted, appreciate recs NIDDMII Continue home meds as able Hold metformin due to contrast Clinical Quality Measures DVT/VTE Risk/Contraindication: Risk Factor Score Per Nursin RFS Level Per Nursing on Admit: 2=Moderate BENJAMIN COX MD Aug 27, 2019 09:12 POS
--- NOTE | 2019-08-27 09:32 | Physical Therapy Evaluation ---
PT Evaluation-General Medical Diagnosis Admission Date Aug 26, 2019 at 12:50 Medical Diagnosis: CP/HTN Onset Date: Aug 26, 2019 Therapy Diagnosis Therapy Diagnosis: debility/weakness Height/Weight Height (Feet): 5 Height (Inches): 10.00 Weight (Pounds): 193 Weight (Ounces): 0.6 Precautions Precautions/Isolations: Standard Precautions Weight Bear Status Right Lower Extremity: Right Weight Bearing/Tolerated Left Lower Extremity: Left Weight Bearing/Tolerated Referral Physician: Nicho Reason for Referral: Evaluation/Treatment Medical History Pertinent Medical History: DM, GERD, HTN, Neuropathy Additional Medical History left THR in March 2019 Current History ER secondary to CP/s/p heart cath with 1 stent placed Reviewed History: Yes Social History Home: Single Level Current Living Status: Spouse Entry Into Home: Stairs With Railing PT Steps Into Home: 4 Prior Prior Level of Function SCALE: Activities may be completed with or without assistive devices. 1-Iznectbhzd-owyrspi completes the activity by him/herself with no assistance from a helper. 5-Set-up or Clean-up Assistance-helper sets up or cleans up; patient completes activity. [place] assists only prior to or following the activity. 4-Supervision or Touching Assistance-helper provides verbal cues and/or touching/steadying and/or contact guard assistance as patient completes activity. Assistance may be provided throughout the activity or intermittently. 3-Partial/Moderate Assistance-helper does LESS THAN HALF the effort. [place] lifts, holds or supports trunk or limbs, but provides less than half the effort. 2-Substantial/Maximal Assistance-helper does MORE THAN HALF the effort. [place] lifts or holds trunk or limbs and provides more than half the effort. 9-Iddmrfnta-swfqnj does ALL the effort. Patient does none of the effort to com plete the activity. Or, the assistance of 2 or more helpers is required for the patient to complete the activity. If activity was not attempted, code reason: 7-Patient Refused. 9-Not Applicable-not attempted and the patient did not perform the activity before the current illness, exacerbation or injury. 10-Not Attempted due to Environmental Limitations-(lack of equipment, weather restraints, etc.). 88-Not Attempted due to Medical Conditions or Safety Concerns. Bed Mobility: 6 Transfers (B,C,W/C): 6 Gait: 6 Stairs: 6 Indoor Mobility (Ambulation): Independent Stairs: Independent Prior Devices Use: Other-see list below Prior Device Use: SBQC PT Evaluation-Current Subjective Patient is very agreeable to participate with PT. Spouse present. Pain Numeric Pain Scale: 0-No Pain Location: No Pain Reported Objective Patient Orientation: Normal For Age ROM/Strength ROM Lower Extremities left THR Strength Lower Extremities 4+/5 grossly bilateral LE Integumentary/Posture Integumentary refer to nursing notes Bowel Incontinence: No Bladder Incontinence: No Posture WFL Neuromuscular (Tone, Coordination, Reflexes) grossly intact Sensory Vision: Wears Glasses Hearing: Functional Sensation Right Lower Extremit: Impaired Sensation Left Lower Extremity: Impaired Transfers Roll Left to Right (QC): 6 Sit to Lying (QC): 6 Lying to Sitting/Side of Bed(Q: 6 Sit to Stand (QC): 6 Chair/Xfs-sm-Uwgko Xfer(QC): 6 Car Transfer (QC): 10 Gait Does the Patient Walk?: Yes Mode of Locomotion: Walk Anticipated Mode of Locomotion: Walk Walk 10 feet (QC): 6 Walk 50 ft with 2 Turns(QC): 6 Walk 150 ft (QC): 6 Walking 10ft/uneven surface-QC: 6 Distance: 300' Gait Assistive Device: Cane Small Base Quad Comments/Gait Description safe and functional Wheelchair Training Does the Pt Use a Wheelchair?: No Wheel 50 ft with 2 turns (QC): 9 Wheel 150 ft (QC): 9 Type of Wheelchair: Manual Stairs 1 Step (curb) (QC): 88 4 Steps (QC): 88 12 Steps (QC): 88 Balance Sitting Static: Normal Sitting Dynamic: Normal Standing Static: Normal Standing Dynamic: Normal Picking up an Object (QC): 6 Assessment/Needs 78 y.o. male, is currently in independent PLOF with all gross motor skills and reports he is independent with exercise program. No skilled PT indicated at this time. Rehab Potential: Good PT Correction Goals Correction Goals PT Correction Goals Time Frame: Aug 27, 2019 Roll Left & Right (QC): 6 Sit to Lying (QC): 6 Lying-Sitting on Side/Bed(QC): 6 Sit to Stand (QC): 6 Chair/Ozu-im-Fnnej Xfer(QC): 6 Toilet Transfer (QC): 6 Car Transfer (QC): 6 Does the Patient Walk: Yes Walk 10 feet (QC): 6 Walk 50ft with 2 Turns (QC): 6 Walk 150 ft (QC): 6 Walking 10ft on Uneven Surface: 6 1 Step (curb) (QC): 6 4 Steps (QC): 6 12 Steps (QC): 6 Picking up an Object (QC): 6 Does the Pt use WC or Scooter?: No Type: N/A Type: N/A PT Plan Treatment/Plan Treatment Plan: Discontinue PT, goals met Treatment Plan: Other Treatment Duration: Aug 27, 2019 Frequency: 1 time per week Estimated Hrs Per Day: .25 hour per day Patient and/or Family Agrees t: Yes Time/GCodes Time In: 831 Time Out: 844 Total Billed Treatment Time: 13 Total Billed Treatment 1 visit EVLowC 13 min ELPIDIO CARDOSO PT Aug 27, 2019 09:32 POS
[2019-08-27] MEDS ORDERED: AMLO5TAB9 PO (10:17)
[2019-08-27] MEDS ORDERED: ATOR40TA70 PO (10:17)
[2019-08-27] MEDS ORDERED: DOCU-143 PO (10:17)
[2019-08-27] MEDS ORDERED: FERR-84 PO (10:17)
--- NOTE | 2019-08-27 10:21 | NUR ---
SPOKE WITH THE PATIENT ABOUT HIS MEDICATIONS. WE WENT OVER THE EXT MED HX AND HE VERIFIED HOW HE TAKES THEM. HE STATES HE IS NO LONGER TAKING THE CLONIDINE THAT WAS FILLED FROM THE EMERGENCY ROOM. HE ALSO VERIFIED THE SIMVASTATIN WAS CHANGED TO ATORVASTATIN. HE TAKES THE FOLLOWING OTC: IRON DAILY FLAXSEED OIL DAILY LORATADINE PRN COLACE 1 AM 2 HS
--- NOTE | 2019-08-27 11:20 | NUR ---
Pastoral care visit, pt retired [employer], coping well.
[2019-08-27 12:00] VITALS: BP 188/89
--- NOTE | 2019-08-27 15:23 | NUR ---
REPORT RECEIVED FROM ACADEMIC COACH SVETA. ICU PCCT BROUGHT PATIENT TO ROOM 406 VIA WHEELCHAIR. PATIENT'S AT BEDSIDE. PATIENT SITTING IN RECLINER. DENIES ANY NEEDS AT THIS TIME. WILL CONTINUE TO MONITOR.
[2019-08-27 16:13] VITALS: BP 188/81
--- NOTE | 2019-08-27 16:31 | NUR ---
DR SHERWOOD RETURNED MY CALL. PT. BP 188/81 HR 57. PATIENT RECEIVED HIS NORVASC THIS MORNING. GIVE 2 MG PO CARDURA NOW. THEN 1 MG PO Q6PRN FOR SBP >160. Addendum: 08/27/19 at 1638 by SHERRILL HENDRIX RN 10 MG PO NORVASC GIVEN AT 0909 TODAY
[2019-08-27] MEDS ORDERED: doxAzosin 2 MG (CARDURA) TAB PO NR (16:45)
[2019-08-27 20:00] VITALS: BP 173/81
[2019-08-28 00:50] VITALS: BP 186/81
[2019-08-28] MEDS: doxAzosin 1 MG (CARDURA) TAB PO PRN (01:18)
[2019-08-28 04:00] VITALS: BP 172/83
[2019-08-28] MEDS: inSUlin ASPART (NovoLOG) 1 UNIT/0.01 ML (CHARGE PER UNIT) SC SCH ×4 (06:41→20:24)
[2019-08-28 08:00] VITALS: BP 171/79
[2019-08-28] MEDS: CLOPIDOGREL 75 MG (PLAVIX) TABLET PO SCH (08:45)
[2019-08-28] MEDS: ASPIRIN 81 MG CHEW (CHILDREN'S ASA) PO SCH (08:45)
[2019-08-28] MEDS: amLODIPine 10 MG (NORVASC) TAB PO SCH (08:45)
--- NOTE | 2019-08-28 11:04 | Progress Note - Cardiology ---
Cardiology SOAP Progress Note Subjective: States walked in the monk this morning and felt his HR did increase with some assoc chest pressure, but significantly improved from yesterday. No c/o dyspnea, syncope or near syncope. Objective: I&O/Vital Signs 08/28/19 08/28/19 08/28/19 08/28/19 04:00 06:49 08:00 09:00 Temp 36.5 37.2 Pulse 77 92 70 Resp 16 20 B/P (MAP) 172/83 (112) 171/79 (109) Pulse Ox 97 98 O2 Delivery Room Air Room Air Room Air 08/28/19 12:00 Temp 37.1 Pulse 70 Resp 20 B/P (MAP) 154/77 (102) Pulse Ox 95 O2 Delivery Room Air 08/28/19 00:00 Intake Total 840 ml Output Total 400 ml Balance 440 ml Weight (Pounds): 193 Weight (Ounces): 0.6 Weight (Calculated Kilograms): 87.316359 Side: right Condition: DP/PT pulses palpable, extremity w/d/p Bruising: mild bruising Constitutional: AAO x 3, well-developed, well-nourished Respiratory: No accessory muscle use; other (good bilat air entry) Cardiovascular: regular rate-rhythm, S1 and S2, systolic murmur (2/6 JOANNE at card base) Gastrointestional: No tender; soft; No guarding, No rebound; audible bowel sounds Extremities: No clubbing, No cyanosis, No significant edema Neurologic/Psychiatric: oriented x 3, other (moves all limbs equally) Skin: No rash on exposed areas, No ulcerations on exposed areas Results/Procedures: Labs Laboratory Tests 08/27/19 21:49: Glucometer 178H 08/28/19 05:34: Glucometer 112H 08/28/19 11:15: Glucometer 111H 08/28/19 11:35: White Blood Count 4.6, Red Blood Count 4.24L, Hemoglobin 11.1L, Hematocrit 34L, Mean Corpuscular Volume 81, Mean Corpuscular Hemoglobin 26, Mean Corpuscular Hemoglobin Concent 32, Red Cell Distribution Width 18.3H, Platelet Count 160, Mean Platelet Volume 10.4, Sodium Level 141, Potassium Level 4.0, Chloride Level 105, Carbon Dioxide Level 24, Anion Gap 12, Blood Urea Nitrogen 15, Creatinine 0.96, Estimat Glomerular Filtration Rate > 60, BUN/Creatinine Ratio 16, Glucose Level 105, Calcium Level 9.3 A/P: Assessment: Unstable angina, treated with LAD PCI on 08/26/19 (see below) Card cath of 08/26/19: mod, diffuse CAD with cor calcification, 70-80% mid LAD treated with successful stenting with Alp Xience 2.75 x 18, LVEDP 16, LVEF 60% Abd ao angio on 08/26/19 showed calcification and chronic, small, 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 No renal artery stenoses DM II Htn Hyperlipidemia Plan: * Continue amlodipine * Continue doxazosin * Continue DAPT and atrovastatin * Add BB for BP control KAYLA DOUGLAS Aug 28, 2019 11:04 POS
[2019-08-28] MEDS ORDERED: meTOproloL SUCCINATE 50 MG (TOPROL XL) TAB PO NR (11:15)
[2019-08-28 11:41] LABS: HEMOGLOBIN 11.1 G/DL (13.3-17.7); MEAN PLATELET VOLUME 10.4 FL (7.4-10.4); RED CELL DISTRIBUTION WIDTH 18.3 % (10.0-14.5); WHITE BLOOD COUNT 4.6 10^3/uL (4.3-11.0)
[2019-08-28 12:00] VITALS: BP 154/77
[2019-08-28 12:01] LABS: BUN/CREATININE RATIO 16; CALCIUM 9.3 MG/DL (8.5-10.1); CARBON DIOXIDE 24 MMOL/L (21-32); CHLORIDE 105 MMOL/L (98-107); CREATININE SERUM 0.96 MG/DL (0.60-1.30); GFR ESTIMATED > 60; GLUCOSE 105 MG/DL (70-105); SODIUM 141 MMOL/L (135-145)
--- NOTE | 2019-08-28 13:02 | Progress Note - Cardiology ---
Cardiology SOAP Progress Note Subjective: Had a feeling of heart thumping a vague discomfort during that this am, lasted a a min or two No syncope No recurrence of the type of chest discomfort he had prior to admission Objective: I&O/Vital Signs 08/28/19 08/28/19 08/28/19 08/28/19 04:00 06:49 08:00 09:00 Temp 36.5 37.2 Pulse 77 92 70 Resp 16 20 B/P (MAP) 172/83 (112) 171/79 (109) Pulse Ox 97 98 O2 Delivery Room Air Room Air Room Air 08/28/19 00:00 Intake Total 840 ml Output Total 400 ml Balance 440 ml Weight (Pounds): 193 Weight (Ounces): 0.6 Weight (Calculated Kilograms): 87.311872 Side: right Condition: DP/PT pulses palpable, extremity w/d/p Bruising: mild bruising Constitutional: AAO x 3, well-developed, well-nourished Respiratory: No accessory muscle use; other (good bilat air entry) Cardiovascular: regular rate-rhythm, S1 and S2, systolic murmur (2/6 JOANNE at card base) Gastrointestional: No tender; soft; No guarding, No rebound; audible bowel sounds Extremities: No clubbing, No cyanosis, No significant edema Neurologic/Psychiatric: oriented x 3, other (moves all limbs equally) Skin: No rash on exposed areas, No ulcerations on exposed areas Results/Procedures: Labs Laboratory Tests 08/27/19 15:52: Glucometer 139H 08/27/19 21:49: Glucometer 178H 08/28/19 05:34: Glucometer 112H 08/28/19 11:15: Glucometer 111H 08/28/19 11:35: White Blood Count 4.6, Red Blood Count 4.24L, Hemoglobin 11.1L, Hematocrit 34L, Mean Corpuscular Volume 81, Mean Corpuscular Hemoglobin 26, Mean Corpuscular Hemoglobin Concent 32, Red Cell Distribution Width 18.3H, Platelet Count 160, Mean Platelet Volume 10.4, Sodium Level 141, Potassium Level 4.0, Chloride Level 105, Carbon Dioxide Level 24, Anion Gap 12, Blood Urea Nitrogen 15, Creatinine 0.96, Estimat Glomerular Filtration Rate > 60, BUN/Creatinine Ratio 16, Glucose Level 105, Calcium Level 9.3 A/P: Assessment: Unstable angina, treated with LAD PCI on 08/26/19 (see below) Card cath of 08/26/19: mod, diffuse CAD with cor calcification, 70-80% mid LAD treated with successful stenting with Alp Xience 2.75 x 18, LVEDP 16, LVEF 60% Abd ao angio on 08/26/19 showed calcification and chronic, small, 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 No renal artery stenoses DM II Htn Hyperlipidemia Plan: * Vague discomfort/palp w/o ECG changes * Continue amlodipine * Continue doxazosin * Continue DAPT and atrovastatin * Add low-dose BB for BP control * If symptoms persist, then consider cath * I had a detailed discussion with him and his * Also discussed his case with SARAH BETH Martínez MD FACP [facility] Aug 28, 2019 13:02 POS
--- NOTE | 2019-08-28 13:14 | Progress Note - Hospitalist ---
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 On Tuesday while at [facility] he began to have chest pain at rest. He had previously had these symptoms and had had a workup. He was on medical management but obviously was having significant breakthrough. He was sent from the [facility] to the emergency room and then underwent immediate angiography. Significant obstruction of the LAD was noted and he was treated with angioplasty and stenting. Today it was planned that he would be discharged. However he related that he was having chest pressure while walking in the halls and it is now planned that he will return to the catheter lab this afternoon. The patient was in the shower during my visit and these issues were discussed with his . SUREKHA CARRANZA MD Aug 28, 2019 13:14 POS
[2019-08-28 15:57] VITALS: BP 165/75
[2019-08-28 20:23] VITALS: BP 166/75
[2019-08-29] VITALS (14 sets, daily range): BP systolic 135–196; BP diastolic 70–91
[2019-08-29] MEDS: doxAzosin 1 MG (CARDURA) TAB PO PRN
[2019-08-29] MEDS: CLOPIDOGREL 75 MG (PLAVIX) TABLET PO SCH (09:10)
[2019-08-29] MEDS: ASPIRIN 81 MG CHEW (CHILDREN'S ASA) PO SCH (09:10)
[2019-08-29] MEDS: meTOproloL SUCCINATE 50 MG (TOPROL XL) TAB PO SCH (09:10)
[2019-08-29] MEDS: amLODIPine 10 MG (NORVASC) TAB PO SCH (09:10)
[2019-08-29] MEDS: inSUlin ASPART (NovoLOG) 1 UNIT/0.01 ML (CHARGE PER UNIT) SC SCH ×4 (09:16→21:32)
--- NOTE | 2019-08-29 10:42 | Progress Note - Hospitalist ---
Progress Note Progress Notes/Assess & Plan Date Seen 08/29/19 Time Seen by Provider: 10:36 Assessment & Plan The patient reports that he is to have his angiography at 1600 today. Multiple conflicts Kept That from being done yesterday. He also reports that again this morning when he walked in the monk he felt tightness in his chest. He is bright and alert. Physical exam: Lungs are clear to auscultation. CV is regular without murmur. Extremities show pretibial edema on the left but not the right. He reports that this began with back troubles and a left hip surgery. The right is not affected. Impression: Status post angiography and stenting LAD on 08/26. 2.recurrent chest pain post procedure. Plan: Angiography at 1600 today. SUREKHA CARRANZA MD Aug 29, 2019 10:42
--- NOTE | 2019-08-29 13:30 | NUR ---
Engaged in supportive visit with the pt and his . 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 He describes personal, dynamic cristi in God, loving relationship with his , and care for others. After I offered prayer he gave me his own blessing, for which I thanked him.
[2019-08-29] MEDS ORDERED: LIDOCAINE 1% INJ 20 ML 20 ML VIAL ONE (15:41)
[2019-08-29] MEDS ORDERED: HEParin 1000 UNIT/ML (10ML VIAL) FOR BOLUS ONE (15:41)
[2019-08-29] MEDS ORDERED: NS IV 1000 ML 2,000 ML ONE (15:42)
[2019-08-29] MEDS ORDERED: fentaNYL INJECTION 100 MCG/2 ML AMP ONE (15:55)
[2019-08-29] MEDS ORDERED: MIDAZOLAM 5 MG/5 ML (VERSED) VIAL ONE (15:55)
[2019-08-29] MEDS ORDERED: NS IV 1000 ML 1,000 ML ONE (17:23)
[2019-08-29] MEDS ORDERED: NS IV 1000 ML 1,000 ML IV SCH (18:14)
--- NOTE | 2019-08-29 18:14 | Progress Note - Cardiology ---
Cardiology SOAP Progress Note Subjective: Has continued to have mild, nonspecific chest discomfort that is somewhat worse with exertion No chest discomfort of the kind he was having before cor intervention No palp or thumping of the kind he was reporting yesterday No leg discomfort No syncope Objective: I&O/Vital Signs 08/29/19 08/29/19 08/29/19 08/29/19 06:50 07:00 08:00 09:00 Temp 37.0 Pulse 90 53 69 Resp 20 B/P (MAP) 176/79 (111) Pulse Ox 97 97 O2 Delivery Room Air Room Air 08/29/19 08/29/19 08/29/19 12:00 12:41 16:38 Temp 36.5 36.7 Pulse 57 64 53 Resp 20 20 B/P (MAP) 150/81 (104) 178/78 (111) Pulse Ox 97 98 O2 Delivery Room Air Room Air 08/29/19 00:00 Intake Total 1200 ml Balance 1200 ml Weight (Pounds): 193 Weight (Ounces): 0.6 Weight (Calculated Kilograms): 87.278827 Side: right Condition: DP/PT pulses palpable, extremity w/d/p Bruising: mild bruising Constitutional: AAO x 3, well-developed, well-nourished Respiratory: No accessory muscle use; other (good bilat air entry) Cardiovascular: regular rate-rhythm, S1 and S2, systolic murmur (2/6 JOANNE at card base) Gastrointestional: No tender; soft; No guarding, No rebound; audible bowel sounds Extremities: No clubbing, No cyanosis, No significant edema Neurologic/Psychiatric: oriented x 3, other (moves all limbs equally) Skin: No rash on exposed areas, No ulcerations on exposed areas Results/Procedures: Labs Laboratory Tests 08/28/19 20:19: Glucometer 139H 08/29/19 04:56: Glucometer 112H 08/29/19 11:27: Glucometer 115H 08/29/19 16:22: Glucometer 113H A/P: Assessment: Unstable angina, treated with LAD PCI on 08/26/19 (see below) Card cath of 08/26/19: mod, diffuse CAD with cor calcification, 70-80% mid LAD treated with successful stenting with Alp Xience 2.75 x 18, LVEDP 16, LVEF 60%. 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 No renal artery stenoses. Peripheral angio on 08/29/19: no changed to chronic dissection, no significant obstructive disease of the ilio-femoral system DM II HTN Hyperlipidemia Plan: * Continue current regimen * Increase bp med * D/c tomorrow, if stable SARAH BETH SHERWOOD MD FACP FAC CCDS Aug 29, 2019 18:14
[2019-08-29] MEDS ORDERED: PATIENT MAY USE OWN MEDS, ALL PO SCH (18:15)
[2019-08-29] MEDS ORDERED: lisINopril 20 MG (PRINIVIL) TABLET PO NR (18:30)
[2019-08-29] MEDS ORDERED: hydrALAZINE (APRESOLINE) 25 MG TAB PO PRN (18:30)
--- NOTE | 2019-08-29 19:29 | NUR ---
2100 dose of Cardura 2mg held and Lisinopril 40mg held d/t bradycardia in the 30-[address] Ceja via text.
[2019-08-29] MEDS ORDERED: doxAzosin 4 MG (CARDURA) TAB PO SCH (21:00)
--- NOTE | 2019-08-29 21:48 | NUR ---
Telephone update given to Dr Ceja at this time. Patient HR sustaining 50's at this time. Bedrest complete, ambulated without complication. Okay for patient to go back to his room on 4th floor at this time.
--- NOTE | 2019-08-29 21:57 | NUR ---
Report called to Mary GEORGE. Patient update given. Will transport patient via bed to room 406.
--- NOTE | 2019-08-29 22:30 | NUR ---
PT TO ROOM BY ICU STAFF. PT ALERT AND ORIENTED. LUNGS CLEAR TO AUSCULTATION. NO C/O CHEST PAIN. SITE TO RIGHT GROIN SOFT WITHOUT REDNESS OR EDEMA. NO SIGN OF BLEEDING. DRESSING TO RIGHT GROIN , CLEAN, DRY AND INTACT. POSITIVE PEDAL PULSES BILAT. WILL CONTINUE TO MONITOR.
--- NOTE | 2019-08-30 00:44 | CARDIAC CATHETERIZATION ---
DATE OF SERVICE: 08/29/2019 CARDIAC CATHETERIZATION REPORT INDICATION: The patient is a 78-year-old man, who underwent intervention to the mid left anterior descending artery on 08/26/2019. He has been having chest discomfort, which is a different from the discomfort that he had before the coronary intervention. However, this has caused him concern and the question is whether this is related to coronary artery disease. Informed consent was obtained for a repeat cardiac catheterization. DESCRIPTION OF PROCEDURE: He was brought to the cardiac catheterization laboratory in a fasting state. Right groin was prepared and draped in the usual sterile fashion. Lidocaine 1% was used for local anesthesia. Modified Seldinger technique was used to advance a 5-Syrian sheath in the right femoral artery. He is known to have a small contained dissection in the lower abdominal aorta (infrarenal abdominal aorta). We were aware of the location of this is a chronic contained dissection/small aneurysm and we used a 5-Syrian JR4 catheter and a STORQ wire to cross this section of the aorta and subsequent catheter exchanges were carried out over an exchange length wire. We used a 5-Syrian JR4 catheter for right coronary angiography and 5-Syrian JL4 catheter for left coronary angiography. We then used a 5-Syrian pigtail catheter to carry out lower abdominal aortic angiography with runoff. 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 We placed a pigtail catheter below the renal arteries and just above the area of the chronic dissection and angiography was performed with runoff down to the level of the popliteal arteries and the popliteal trifurcation. The patient tolerated the procedure well. The pigtail catheter was then removed over a wire and the wire was removed as well. The sheath was removed and manual pressure was used to achieve hemostasis. CORONARY ANGIOGRAPHY: There is marked coronary calcification, especially of the left coronary system. Left main coronary artery does not exhibit significant obstructive disease. Left anterior descending artery has approximately 40% ostial stenosis. There is a widely patent stent in the mid left anterior descending. There is no evidence of any dissection or clot or any unstable lesion. The left circumflex artery has diffuse moderate disease. The left circumflex artery is dominant. Right coronary artery is small and nondominant and does not exhibit significant obstructive disease. LOWER ABDOMINAL AORTIC ANGIOGRAPHY WITH RUNOFF: Lower abdominal aortic angiography shows the known small contained chronic dissection in the infrarenal abdominal aorta with small aneurysm formation. The aortoiliac bifurcation is intact and does not exhibit significant disease. The iliac arteries and the femoral arteries are intact and do not exhibit significant obstructive disease. There is mild plaque throughout the iliac and the femoral arteries. CONCLUSIONS: 1. Coronary artery disease, angiographically, mild. There is a widely patent stent in the mid left anterior descending artery that is known to be Xience Kourtney 2.75 x 18 mm stent that was placed on 08/26/2019. 2. 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 3. No significant obstructive disease of the ilio-femoral arterial system. DISCUSSION AND RECOMMENDATIONS: Based on the results of the study, it appears appropriate to continue a conservative approach. His chest discomfort does not appear to be of a coronary origin. Job ID: [id number] DocumentID: [id number] Dictated Date: 08/29/2019 18:08:32 Repairer Art Objects Date: 08/30/2019 00:43:54 Dictated By: SARAH BETH SHERWOOD MD, MA, FACP, FACC, MTDD
[2019-08-30 04:26] VITALS: BP 168/79
[2019-08-30] MEDS: inSUlin ASPART (NovoLOG) 1 UNIT/0.01 ML (CHARGE PER UNIT) SC SCH (06:02)
[2019-08-30 06:29] LABS: HEMOGLOBIN 10.6 G/DL (13.3-17.7); MEAN PLATELET VOLUME 11.3 FL (7.4-10.4); RED CELL DISTRIBUTION WIDTH 17.8 % (10.0-14.5)
[2019-08-30 06:40] LABS: BUN/CREATININE RATIO 21; CARBON DIOXIDE 22 MMOL/L (21-32); CHLORIDE 107 MMOL/L (98-107); CREATININE SERUM 0.81 MG/DL (0.60-1.30); GFR ESTIMATED > 60; GLUCOSE 94 MG/DL (70-105); POTASSIUM 3.7 MMOL/L (3.6-5.0); SODIUM 142 MMOL/L (135-145)
[2019-08-30 08:15] VITALS: BP 141/69
[2019-08-30] MEDS ORDERED: lisINopril 20 MG (PRINIVIL) TABLET PO SCH (09:00)
[2019-08-30] MEDS ORDERED: DOXA2TAB2 PO (09:12)
[2019-08-30] MEDS ORDERED: ATOR80TA76 PO (09:12)
[2019-08-30] MEDS ORDERED: METO-370 PO (09:12)
[2019-08-30] MEDS ORDERED: AMLO10TA7 PO (09:12)
[2019-08-30] MEDS ORDERED: ASPI-999 PO (09:12)
[2019-08-30] MEDS ORDERED: CLOP75TA28 PO (09:12)
[2019-08-30] MEDS: meTOproloL SUCCINATE 50 MG (TOPROL XL) TAB PO SCH (09:14)
[2019-08-30] MEDS: ASPIRIN 81 MG CHEW (CHILDREN'S ASA) PO SCH (09:14)
[2019-08-30] MEDS: CLOPIDOGREL 75 MG (PLAVIX) TABLET PO SCH (09:14)
[2019-08-30] MEDS: amLODIPine 10 MG (NORVASC) TAB PO SCH (09:14)
--- NOTE | 2019-08-30 09:46 | Discharge Inst-Cardiology ---
Discharge Inst-Cardiac Discharge Medications New Medications: Atorvastatin Calcium (Atorvastatin Calcium) 80 Mg Tablet 80 MG PO HS, #30 TAB 5 Refills Doxazosin Mesylate (Doxazosin Mesylate) 2 Mg Tablet 2 MG PO HS, #30 TAB 5 Refills Amlodipine Besylate (Amlodipine Besylate) 10 Mg Tablet 10 MG PO DAILY, #30 TAB 5 Refills Aspirin (Aspirin) 81 Mg Tab.chew 81 MG PO DAILY, #20 TAB 5 Refills Clopidogrel Bisulfate (Clopidogrel) 75 Mg Tablet 75 MG PO DAILY, #20 TAB 5 Refills Metoprolol Succinate (Metoprolol Succinate) 50 Mg Tab.er.24h 50 MG PO DAILY, #30 TAB 5 Refills Continued Medications: Benazepril HCl (Benazepril HCl) 20 Mg Tablet 20 MG PO DAILY, TAB Docusate Sodium (Docusate Sodium) 100 Mg Capsule 100 MG PO DAILY, CAP Docusate Sodium (Colace) 100 Mg Capsule 200 MG PO HS, CAP TAKES 2 (100MG) CAPSULES Ferrous Sulfate (Iron) 325 Mg Tablet 325 MG PO DAILY, TAB Flaxseed Oil (Flax Oil) 1,000 Mg Capsule 1000 MG PO DAILY, CAP Loratadine (Loratadine) 10 Mg Tablet 10 MG PO DAILY PRN for ALLERGIES, TAB Omeprazole (Omeprazole) 40 Mg Capsule.dr 40 MG PO DAILY, CAP Pioglitazone HCl/Metformin HCl (Pioglitazone-Metformin 15-500) 1 Each Tablet 1 TAB PO BID, TAB Tamsulosin HCl (Flomax) 0.4 Mg Cap 0.4 MG PO 1800, CAP Discontinued Medications: Amlodipine Besylate (Amlodipine Besylate) 5 Mg Tablet 5 MG PO HS, TAB Atorvastatin Calcium (Atorvastatin Calcium) 40 Mg Tablet 40 MG PO HS, TAB Eplerenone (Eplerenone) 50 Mg Tablet 50 MG PO 1800, TAB New, Converted or Re-Newed RX: Transmitted to Pharmacy Patient Instructions Patient Instructions: Follow up appointment to see Dr. Bella in September DO NOT TAKE Pioglitazone-Metformin today or tomorrow. Restart on Tuesday, Sep 01, 2019 KAYLA DOUGLAS Aug 30, 2019 09:46
--- NOTE | 2019-08-30 10:40 | NUR ---
Important Message from Medicare presented, reviewed, signed and placed in patient chart. Patient voiced no intention to appeal and deny any needs or further questions at this time.
--- NOTE | 2019-08-30 10:56 | Discharge Summary ---
Diagnosis/Chief Complaint Date of Admission Aug 26, 2019 at 12:50 Date of Discharge Discharge Date: Aug 30, 2019 Admission Diagnosis Unstable Angina Primary Care Ramone Hudson MD Discharge Summary Discharge Physical Exam Allergies: Coded Allergies: No Known Drug Allergies (Unverified , 07/20/19) Vitals & I&Os Vital Signs Date Time Temp Pulse Resp B/P (MAP) Pulse Ox O2 Delivery O2 Flow Rate FiO2 08/30/19 09:00 97 Room Air 08/30/19 08:15 36.6 65 18 141/69 (93) Hospital Course Labs (last 24 hrs) Laboratory Tests 08/29/19 11:27: Glucometer 115H 08/29/19 16:22: Glucometer 113H 08/29/19 21:29: Glucometer 101 08/30/19 05:59: Glucometer 94 08/30/19 06:05: White Blood Count 3.0L, Red Blood Count 4.08L, Hemoglobin 10.6L, Hematocrit 33L, Mean Corpuscular Volume 81, Mean Corpuscular Hemoglobin 26, Mean Corpuscular Hemoglobin Concent 32, Red Cell Distribution Width 17.8H, Platelet Count 159, Mean Platelet Volume 11.3H, Sodium Level 142, Potassium Level 3.7, Chloride Level 107, Carbon Dioxide Level 22, Anion Gap 13, Blood Urea Nitrogen 17, Creatinine 0.81, Estimat Glomerular Filtration Rate > 60, BUN/Creatinine Ratio 21, Glucose Level 94, Calcium Level 9.0 08/30/19 10:35: Glucometer 116H Patient resulted labs reviewed. Pending Labs Laboratory Tests 08/30/19 05:59: Glucometer 94 08/30/19 06:05: White Blood Count 3.0, Red Blood Count 4.08, Hemoglobin 10.6, Hematocrit 33, Mean Corpuscular Volume 81, Mean Corpuscular Hemoglobin 26, Mean Corpuscular Hemoglobin Concent 32, Red Cell Distribution Width 17.8, Platelet Count 159, Mean Platelet Volume 11.3, Sodium Level 142, Potassium Level 3.7, Chloride Level 107, Carbon Dioxide Level 22, Anion Gap 13, Blood Urea Nitrogen 17, Creatinine 0.81, Estimat Glomerular Filtration Rate > 60, BUN/Creatinine Ratio 21, Glucose Level 94, Calcium Level 9.0 08/30/19 10:35: Glucometer 116 Imaging: Reviewed Imaging Report Discharge Home Medications: Active Scripts Active Aspirin 81 Mg Tab.chew 81 Mg PO DAILY Amlodipine Besylate 10 Mg Tablet 10 Mg PO DAILY Metoprolol Succinate 50 Mg Tab.er.24h 50 Mg PO DAILY Doxazosin Mesylate 2 Mg Tablet 2 Mg PO HS Atorvastatin Calcium 80 Mg Tablet 80 Mg PO HS Clopidogrel (Clopidogrel Bisulfate) 75 Mg Tablet 75 Mg PO DAILY Reported Iron (Ferrous Sulfate) 325 Mg Tablet 325 Mg PO DAILY Colace (Docusate Sodium) 100 Mg Capsule 200 Mg PO HS TAKES 2 (100MG) CAPSULES Amlodipine Besylate 5 Mg Tablet 5 Mg PO HS Atorvastatin Calcium 40 Mg Tablet 40 Mg PO HS Loratadine 10 Mg Tablet 10 Mg PO DAILY PRN Flax Oil (Flaxseed Oil) 1,000 Mg Capsule 1,000 Mg PO DAILY Docusate Sodium 100 Mg Capsule 100 Mg PO DAILY Flomax (Tamsulosin HCl) 0.4 Mg Cap 0.4 Mg PO 1800 Eplerenone 50 Mg Tablet 50 Mg PO 1800 Omeprazole 40 Mg Capsule.dr 40 Mg PO DAILY Pioglitazone-Metformin 15-500 (Pioglitazone HCl/Metformin HCl) 1 Each Tablet 1 Tab PO BID Benazepril HCl 20 Mg Tablet 20 Mg PO DAILY Instructions to patient/family Please see electronic discharge instructions given to patient. Clinical Quality Measures DVT/VTE Risk/Contraindication: Risk Factor Score Per Nursin RFS Level Per Nursing on Admit: 2=Moderate BENJAMIN COX MD Aug 30, 2019 10:55
== END 2019-08-30 11:32 | disposition home or self-care (01) | DRG 246 ==
LOC: EDUNIT# 10:03 → ER 10:04 → ICU 12:50 → 4TH 08-27 15:31 → ICU 08-29 18:23 → 4TH 08-29 22:30
PROVIDERS: ADMIT Internal Medicine; ATTEND Internal Medicine
PROC: 027034Z Dilation of Coronary Artery, One Artery with Drug-eluting Intraluminal Device, Percutaneous Approach (ICD-10-PCS; principal; 2019-08-26)
PROC: 4A023N7 Measurement of Cardiac Sampling and Pressure, Left Heart, Percutaneous Approach (ICD-10-PCS; 2019-08-26)
PROC: B2111ZZ Fluoroscopy of Multiple Coronary Arteries using Low Osmolar Contrast (ICD-10-PCS; 2019-08-26)
PROC: B2151ZZ Fluoroscopy of Left Heart using Low Osmolar Contrast (ICD-10-PCS; 2019-08-26)
PROC: B4101ZZ Fluoroscopy of Abdominal Aorta using Low Osmolar Contrast (ICD-10-PCS; 2019-08-26)
PROC: 4A023N7 Measurement of Cardiac Sampling and Pressure, Left Heart, Percutaneous Approach (ICD-10-PCS; 2019-08-29)
PROC: B2111ZZ Fluoroscopy of Multiple Coronary Arteries using Low Osmolar Contrast (ICD-10-PCS; 2019-08-29)
PROC: B41D1ZZ Fluoroscopy of Aorta and Bilateral Lower Extremity Arteries using Low Osmolar Contrast (ICD-10-PCS; 2019-08-29)
DX: I25.110 Atherosclerotic heart disease of native coronary artery with unstable angina pectoris (principal); I71.02 Dissection of abdominal aorta; I70.0 Atherosclerosis of aorta; I10 Essential (primary) hypertension; E11.40 Type 2 diabetes mellitus with diabetic neuropathy, unspecified; E78.00 Pure hypercholesterolemia, unspecified; E78.5 Hyperlipidemia, unspecified; D64.9 Anemia, unspecified; K21.9 Gastro-esophageal reflux disease without esophagitis; N40.0 Benign prostatic hyperplasia without lower urinary tract symptoms; K59.09 Other constipation; J30.2 Other seasonal allergic rhinitis; M19.91 Primary osteoarthritis, unspecified site; M54.9 Dorsalgia, unspecified; H91.93 Unspecified hearing loss, bilateral; Z79.84 Long term (current) use of oral hypoglycemic drugs; Z96.642 Presence of left artificial hip joint; Z97.4 Presence of external hearing-aid; Z85.828 Personal history of other malignant neoplasm of skin; Z98.1 Arthrodesis status
CPT/HCPCS: 36415; 71045; 71275; 74177; 75716; 80048; 80053; 80061; 82550; 82553; 82962; 83690; 83735; 83874; 83880; 84484; 85025; 85027; 85610; 85730; 93005; 93041; 93306; 93454; 96374; 96375

== ENCOUNTER 2019-11-22 13:45 | Outpatient (CLI) | payer MEDICARE ==
[~2019-11-22] VITALS: Ht 180 cm; Wt 83.9 kg
[~2019-11-22 13:45] MED LIST changes: +AMLO10TA7 PO; +AMLO5TAB9 PO; +ASPI-999 PO; +ATOR40TA70 PO; +ATOR80TA76 PO; +CLOP75TA28 PO; +DOCU-143 PO; +DOXA2TAB2 PO; +FERR-84 PO; +METO50TA7 PO; +OMEP40CA27 PO; -TAMS0.4C98 PO; +TMSL.4C PO
== END 2019-11-22 14:07 | disposition home or self-care (01) ==
LOC: PREOP 13:45
PROVIDERS: ATTEND Internal Medicine
DX: Z01.818 Encounter for other preprocedural examination (principal)

== ENCOUNTER 2019-11-23 08:19 | Day surgery (SDC) | payer MEDICARE ==
--- NOTE | 2019-11-22 06:27 | HISTORY AND PHYSICAL ---
DATE OF SERVICE: ESOPHAGOGASTRODUODENOSCOPY HISTORY AND PHYSICAL HISTORY OF PRESENT ILLNESS: The patient is a 79-year-old white male who presented to the office on 11/18, complaining of loss of appetite and intermittent dysphagia, predominantly to solids. He had lost 10 pounds of weight over the past 7 weeks. He denies any significant abdominal discomfort. He denied any problems with coughing or choking and denied sore throat. He occasionally had some mild odynophagia. He denied night sweats, chills or fever. Past medical history was significant for EGD for dysphagia on 07/27. At that time, he had increased esophageal sphincter tone without esophageal dilatation. I did dilate lower esophageal sphincter to 60-Eritrean size and the patient did have improvement in the symptoms. He had no evidence for peptic ulcer disease, with mild reflux changes, no evidence for Billingsley's. Since that time; however, he did develop unstable angina in mid August with cardiac catheterization revealing significant LAD disease for which a drug-eluting stent placement was performed and the patient has been on aspirin and Plavix since that time and his weight loss is followed with the initiation of these medications. He is not aware of any past history of peptic ulcer disease or additional history. He denied melena or bright red blood per rectum. PAST MEDICAL HISTORY: Significant for hypertension and type 2 diabetes. MEDICATIONS ON ADMISSION: Include doxazosin 2 mg daily, benazepril 20 mg daily, omeprazole 40 mg daily, atorvastatin 80 mg daily, 75 mg of Plavix daily and a baby aspirin. He was still taking Flomax 0.4 mg with the evening meal. PHYSICAL EXAMINATION: GENERAL: Revealed a slightly pale white male, did not appear to be in acute distress. HEENT: Unremarkable. He has a Mallampati 2 oropharyngeal configuration. VITAL SIGNS: Blood pressure 130/60, heart rate 60 and regular. CHEST: Clear to auscultation. CARDIOVASCULAR: Revealed a regular rate and rhythm with a soft 2/6 systolic ejection murmur heard best over the aortic outflow tract without evidence for pulsus, parvus or tardus. ABDOMEN: Soft, supple. Mild epigastric discomfort to palpation was present without evidence of rebound or guarding. No mass or organomegaly was noted. No bruits were appreciated. EXTREMITIES: Reveal no cyanosis, clubbing or edema. LABORATORY DATA: Blood tests were reviewed with the patient. Basic metabolic panel revealed a fasting sugar of 114, was otherwise normal. GFR was 80 and normal electrolytes. Total cholesterol was 103 with an HDL of 53, triglyceride level of 66 and LDL of 37. Hemoglobin was up slightly from last month at 11.4 compared to 11 with an MCV of 87. His white count was mildly depressed at 2.89 thousand with 47% lymphocytes. His white count over the last year has run below 5000, typically in the 9003-8038 range. His platelet count was 156,000. ASSESSMENT AND PLAN: After discussion, the patient will be set up for EGD for evaluation of recurrent dysphagia with weight loss with likely dilatation to follow. He is at increased risk for peptic ulcer disease due to aspirin and Plavix. As he is 2-1/2 months out from drug-eluting stent placement, we will not interrupt antiplatelet therapy, we will not plan on doing any biopsies. Complex medical management in an individual who has well controlled type 2 diabetes mellitus and hypertension, in addition to coronary artery disease. Follow up in 2 months with repeat blood counts. Further recommendations pending endoscopic findings. Job ID: [id number] DocumentID: [id number] Dictated Date: 11/20/2019 09:08:09 Customer Orders Clerk Date: 11/20/2019 09:49:30 Dictated By: DIANNE SUAREZ MD [facility]
[~2019-11-23] VITALS: Ht 180 cm; Wt 83.9 kg
[2019-11-23] VITALS (12 sets, daily range): BP systolic 136–168; BP diastolic 57–89
[2019-11-23] MEDS ORDERED: D5 LR IV SOLUTION 1,000 ML IV ONE (08:27)
[2019-11-23] MEDS ORDERED: LACTATED RINGERS 1,000 ML IV STA (08:28)
[2019-11-23] MEDS ORDERED: HURRICAINE EXT TUBE (BENZOCAINE) XX PRN (08:30)
[2019-11-23] MEDS ORDERED: fentaNYL INJECTION 100 MCG/2 ML AMP IVP ONE (08:30)
[2019-11-23] MEDS ORDERED: MIDAZOLAM 5 MG/5 ML (VERSED) VIAL IV PRN (08:30)
[2019-11-23] MEDS ORDERED: LIDOCAINE JELLY 2% 6 ML SYRINGE MM PRN (08:30)
[2019-11-23] MEDS ORDERED: fentaNYL INJECTION 100 MCG/2 ML AMP ONE (08:57)
[2019-11-23] MEDS ORDERED: LIDOCAINE JELLY 2% 6 ML SYRINGE ONE (08:57)
[2019-11-23] MEDS ORDERED: MIDAZOLAM 5 MG/5 ML (VERSED) VIAL ONE (08:58)
[2019-11-23] MEDS ORDERED: HURRICAINE EXT TUBE (BENZOCAINE) ONE (08:58)
[2019-11-23] MEDS ORDERED: D5 LR IV SOLUTION 1,000 ML IV SCH (09:00)
[2019-11-23 10:13] LABS: BUN/CREATININE RATIO 24; CREATININE SERUM 1.05 MG/DL (0.60-1.30); GFR ESTIMATED > 60
[2019-11-23] MEDS ORDERED: NS 100 ML (IVPB) BAG IV ONE (11:15)
[2019-11-23] MEDS ORDERED: IOHEXOL 350 MG/ML 100 ML (OMNIPAQUE 350) VIAL IV ONE (11:15)
[2019-11-23] MEDS ORDERED: CATHETER FLUSH 10 ML SYR IV PRN (11:15)
[2019-11-23] MEDS ORDERED: HOLD METFORMIN - RECEIVED CONTRAST 20 ML VIAL IV SCH (11:15)
--- NOTE | 2019-11-23 12:04 | Pre-Op Note & Conscious Sedat ---
Pre-Operative Progress Note H&P Reviewed The H&P was reviewed, patient examined and no changes noted. Date H&P Reviewed: Nov 23, 2019 Time H&P Reviewed: 09:00 Conscious Sedation Pre-Proced ASA Score 3 For ASA 3 and 4: Consider anesthesia and medical clearance. Also, for patients with a history of failed moderate sedation consider anesthesia. Airway Lungs Heart ASA score ASA 1: a normal healthy patient ASA 2: a patient with a mild systemic disease (mid diabetes, controlled hypertension, obesity ASA 3: a patient with a severe systemic disease that limits activity (angina, COPD, prior Myocardial infarction) ASA 4: a patient with an incapacitating disease that is a constant threat to life (CHF, renal failure) ASA 5: a moribund patient not expected to survive 24 hrs. (ruptured aneurysm) ASA 6: a declared brain- patient whose organs are being harvested. For emergent operations, add the letter E after the classification Mallampati Classification Grade 2 Sedation Plan Analgesia, Amnesia, Plan communicated to team members, Discussed options with patient/fam, Discussed risks with patient/fam The patient is an appropriate candidate to undergo the planned procedure, sedation, and anesthesia. The patient immediately re-assessed prior to indication. DIANNE SUAREZ MD Nov 23, 2019 12:04
--- NOTE | 2019-11-23 13:28 | Diagnostic Imaging Report ---
PROCEDURE: CT abdomen with contrast only. TECHNIQUE: Multiple contiguous axial images were obtained through the abdomen after the administration of intravenous contrast. Auto Exposure Controls were utilized during the CT exam to meet ALARA standards for radiation dose reduction. DATE: November 23, 2019. INDICATION: 79-year-old male, abdominal pain. Dysphagia. Weight loss. History of recent endoscopy. COMPARISON: CT chest, abdomen, and pelvis August 26, 2019. FINDINGS: The visualized portions of the lung bases are clear. The heart is not enlarged. There is no identified pericardial effusion. The liver is unremarkable in size and contour. There is no identified liver lesion. The patient is status post cholecystectomy. There is no biliary ductal dilation. The main pancreatic duct is not abnormally dilated. Unremarkable appearance of the pancreatic parenchyma. The spleen is not enlarged. The adrenal glands are unremarkable. Unremarkable appearance of the renal parenchyma. The urinary collecting systems are not distended. There is no identified renal stone. There is apparent wall thickening of the stomach, particularly distally in the region of the first portion of duodenum. Recommend correlation with recent endoscopy findings. There are no abnormally distended segments of bowel. There is no identified free intraperitoneal air. There is no drainable fluid collection. There are atherosclerotic calcifications. There is no identified abnormally enlarged lymph node in the abdomen meeting size criteria for adenopathy. There are multilevel degenerative changes of the spine. IMPRESSION: 1. Apparent wall thickening of the stomach, particularly distally and in the region of the first portion of duodenum. Recommend correlation with endoscopy findings. 2. No free intraperitoneal air or focal fluid collection. Dictated by: Dictated on workstation # [id number]
--- NOTE | 2019-11-24 00:38 | OPERATIVE REPORT ---
DATE OF SERVICE: EGD SUMMARY INDICATION FOR THE PROCEDURE: Epigastric pain, significant weight loss, intermittent dysphagia. The patient was placed in the left lateral decubitus position. The endoscope was inserted into the oral cavity and under direct visualization, the esophagus was intubated. The endoscope was passed down the esophagus through the stomach and the second portion of the duodenum. Careful dissection was made as the endoscope was withdrawn. The patient tolerated the procedure well. FINDINGS: The posterior pharynx, arytenoid aperture, true and false vocal folds were unremarkable. The proximal, mid and distal esophagus were unremarkable. There was no evidence for erosive esophagitis, rings, webs or strictures. The cardia of the stomach was unremarkable. There was a roughly 3 x 4 area of mild erythema without underlying ulceration involving the mid portion of the fundus of the stomach along the anterior wall. It appeared to be slightly indurated. It did not have the typical features of adenocarcinoma and again there was no ulceration. A photograph was obtained. The patient is two and a half months out from drug-eluting stent placement and so I had maintained his aspirin and Plavix. For this reason,biopsies were not obtained. The antrum of the stomach, pylorus, pyloric channel, duodenal bulb and second portion of duodenum were unremarkable. ASSESSMENT: Questionable area of induration and mild erythema without ulceration involving the mid portion of the fundus of the stomach along the anterior wall. See above. Unfortunately, due to the need for ongoing aspirin and Plavix, I did not biopsy the area. Considering his weight loss, we need to rule out pancreatic or other extra gastric pathology, so he is being set up for CT of the abdomen with oral and IV contrast. This is scheduled for later today. Further recommendations pending. Job ID: [id number] DocumentID: [id number] Dictated Date: 11/23/2019 12:43:21 Mail Distribution Clerk Date: 11/23/2019 17:16:45 Dictated By: DIANNE SUAREZ MD [facility]
== END 2019-11-23 12:45 | disposition home or self-care (01) ==
LOC: ENDO 08:19
PROVIDERS: ATTEND Internal Medicine
DX: K31.89 Other diseases of stomach and duodenum (principal); R13.10 Dysphagia, unspecified; R63.4 Abnormal weight loss; E11.9 Type 2 diabetes mellitus without complications; I10 Essential (primary) hypertension; Z79.02 Long term (current) use of antithrombotics/antiplatelets; Z79.899 Other long term (current) drug therapy
CPT/HCPCS: 36415; 74160; 82565; 84520

== ENCOUNTER → 2020-05-14 | Outpatient (CLI) | payer MEDICARE | LOC: LAB 14:10 | PROVIDERS: ATTEND Internal Medicine | DX: I25.10 Atherosclerotic heart disease of native coronary artery without angina pectoris (principal) | CPT/HCPCS: 36415; 84484 ==

== ENCOUNTER 2020-06-16 13:00 | Outpatient (RCR) | payer MEDICARE ==
[~2020-06-16 13:00] MED LIST changes: +AMLO-250 PO; +AMLO-251 PO; -AMLO10TA7 PO; -AMLO5TAB9 PO
== END 2020-07-03 14:48 | disposition home or self-care (01) ==
PROVIDERS: ATTEND Orthopaedic Surgery
DX: M62.81 Muscle weakness (generalized) (principal)

== ENCOUNTER → 2020-06-18 | Outpatient (CLI) | payer MEDICARE ==
[~2020-06-18] MED LIST changes: -AMLO-250 PO; -AMLO-251 PO; +AMLO10TA7 PO; +AMLO5TAB9 PO
== END ==
LOC: LABNPT 05:33
PROVIDERS: ATTEND Internal Medicine
DX: Z11.59 Encounter for screening for other viral diseases (principal)
CPT/HCPCS: 87635

== ENCOUNTER 2021-04-01 06:22 | Outpatient (CLI) | payer MEDICARE ==
[~2021-04-01] VITALS: Ht 177.8 cm; Wt 85.8 kg
[~2021-04-01 06:22] MED LIST changes: +AMLO-250 PO; +AMLO-251 PO; -AMLO10TA7 PO; -AMLO5TAB9 PO; -OMEP40CA27 PO; +OMEP40CA6 PO; -OXYC-471 PO; +OXYC1TAB11 PO
[2021-04-02] MEDS ORDERED: DOCU100C37 PO (10:16)
[2021-04-02] MEDS ORDERED: METO50TA7 PO (10:16)
[2021-04-02] MEDS ORDERED: FERR325T18 PO (10:16)
[2021-04-02] MEDS ORDERED: ASPI-999 PO (10:16)
[2021-04-02] MEDS ORDERED: ATOR80TA76 PO (10:16)
[2021-04-02] MEDS ORDERED: DOXA2TAB2 PO (10:16)
[2021-04-02] MEDS ORDERED: LORA10TA7 PO (10:16)
[2021-04-02] MEDS ORDERED: CLOP75TA28 PO (10:16)
[2021-04-02] MEDS ORDERED: AMLO-251 PO (10:16)
== END 2021-04-02 10:24 | disposition home or self-care (01) ==
LOC: PREOP 06:22
PROVIDERS: ATTEND Surgery
DX: Z01.818 Encounter for other preprocedural examination (principal)

== ENCOUNTER 2021-04-01 12:53 | Outpatient (RCR) | payer MEDICARE ==
[2021-04-02] MEDS ORDERED: DOCU100C37 PO (10:16)
[2021-04-02] MEDS ORDERED: METO50TA7 PO (10:16)
[2021-04-02] MEDS ORDERED: AMLO-251 PO (10:16)
[2021-04-02] MEDS ORDERED: LORA10TA7 PO (10:16)
[2021-04-02] MEDS ORDERED: ATOR80TA76 PO (10:16)
[2021-04-02] MEDS ORDERED: FERR325T18 PO (10:16)
[2021-04-02] MEDS ORDERED: ASPI-999 PO (10:16)
[2021-04-02] MEDS ORDERED: CLOP75TA28 PO (10:16)
[2021-04-02] MEDS ORDERED: DOXA2TAB2 PO (10:16)
[2021-04-08] MEDS ORDERED: ACHD5005 PO (10:47)
== END 2021-04-26 | disposition home or self-care (01) ==
PROVIDERS: ATTEND Internal Medicine
DX: M25.552 Pain in left hip (principal); Z96.642 Presence of left artificial hip joint

== ENCOUNTER 2021-04-08 06:48 | Day surgery (SDC) | payer MEDICARE ==
[2021-04-08] VITALS (11 sets, daily range): BP systolic 121–169; BP diastolic 61–87
[~2021-04-08] VITALS: Ht 177.8 cm; Wt 85.8 kg
[~2021-04-08 06:48] MED LIST changes: +FERR325T18 PO
[2021-04-08] MEDS ORDERED: proPOfol 200 MG/20 ML (DIPRIVAN) VIAL IV ONE ×2 (07:04→08:43)
[2021-04-08] MEDS ORDERED: GLYCOPYRROLATE 0.2 MG/ML (ROBINUL) 2 ML VIAL ONE ×2 (07:04→11:32)
[2021-04-08] MEDS ORDERED: LIDOCAINE PF 2% 5 ML (XYLOCAINE) VIAL ONE (07:04)
[2021-04-08] MEDS ORDERED: ROCURONIUM 10 MG/ML 5 ML SYRINGE IV ONE ×2 (07:04→08:43)
[2021-04-08] MEDS ORDERED: ONDANSETRON 4 MG/2 ML (SDV) Z0FRAN ONE (07:04)
[2021-04-08] MEDS ORDERED: NEOSTIGMINE 3 MG/3 ML VIAL ONE (07:04)
[2021-04-08] MEDS ORDERED: fentaNYL INJ 100 MCG/2 ML AMP ONE (07:05)
[2021-04-08] MEDS: LACTATED RINGERS 1,000 ML IV PRN ×2 (07:09→11:37)
[2021-04-08] MEDS ORDERED: ceFAZolin 2 GM IV Premixed 50 ML IV ONE (07:15)
[2021-04-08] MEDS ORDERED: LIDOCAINE/EPI 1%-1:100,000 (XYLOCAINE) 20ML ONE (07:23)
[2021-04-08] MEDS ORDERED: CATHETER FLUSH 10 ML SYR IV PRN (07:30)
[2021-04-08] MEDS ORDERED: ONDANSETRON 4 MG/2 ML (SDV) Z0FRAN IVP PRN (08:00)
[2021-04-08] MEDS ORDERED: morphine INJ 10 MG/ML 1ML (SYR OR VIAL) IVP ONE (08:00)
[2021-04-08] MEDS ORDERED: HYDROmorphone 2 MG/ML VIAL (DILAUDID) IV ONE (08:00)
--- NOTE | 2021-04-08 08:15 | Progress Note-Pre Operative ---
Pre-Operative Progress Note H&P Reviewed The H&P was reviewed, patient examined and no changes noted. Time Seen by Provider: 08:04 Date H&P Reviewed: Apr 08, 2021 Time H&P Reviewed: 08:05 Pre-Operative Diagnosis: B/L inguinal hernia TRESSA ALVARENGA DO Apr 08, 2021 08:15
--- NOTE | 2021-04-08 10:41 | Progress Note-Post Operative ---
Post-Operative Progess Note Surgeon (s)/Business Affairs Manager (s) Surgeon TRESSA ALVARENGA DO Business Affairs Manager: Manuel Pre-Operative Diagnosis B/L inguinal hernia Post-Operative Diagnosis Incarcerated Left inguinal hernia Incarcerated Femoral hernia incarcerated obturator hernia Procedure & Operative Findings Date of Procedure 04/08/21 Procedure Performed/Findings PROCEDURE 1) Left Inguinal herniarraphy with mesh placement - Laparoscopic with robot assist 2.) Left Femoral herniarraphy - laparoscopic 3) Left Obturator herniarraphy - laparoscopic with mesh placement After informed consent was obtained, the patient was brought to the operating room and placed on the operating table in a supine position. He was sterilely prepped and draped in a normal fashion. Local lidocaine was used to infiltrate the skin above the umbilicus. I made an incision with #11 blade, carried down to the skin into subcutaneous tissue and then deepened down the subcutaneous tissue with Bovie electrocautery down to the fascia. Fascia was incised with Bovie electrocautery and bluntly entered the abdomen, swept a finger around, placed 0 Vicryl [id number] suture and placed limited trocar port under direct visualization. Pt noted to have adhesions from previous surgery in RUQ and midline. Created pneumoperitoneum, able to visualize the hernia and took a picture of this and then placed two 8 mm ports about 10 cm on either side of the midline port using a local lidocaine, 11 blade for stab incision and then advanced the robotic port under direct visualization. Once this was in, I then placed the patient in Trendelenburg and then placed the working instruments, the fenestrated bipolar and the scissors. Looked on the right side and saw mesh from previous inguinal hernia repair, did not appear to be a defect. Most likely on physical exam I was feeling cord lipoma and not a hernia on the right. I elected not to repair this side. I could see an indirect hernia defect on the left side with intestine in it. Next, I came across the peritoneum approximately 8 cm away from the hernia defect, going across laterally starting lateral about 17cm and cutting toward the median umbilical ligament. I then carefully dissected the visceral peritoneum away and down and then in the midline, went through the parietal side and dissected down to the pubic tubercle, dissecting this down carefully pushing the peritoneum away, I was able to then visualize the pubic tubercle and Gino's ligament. I went 2 cm posterior and at this point, we then had a critical view of the dissection, able to dissect 2 cm across the midline to the right side, 2 cm posterior to the Gino's ligament, able to then parietalize the vas deferens and spermatic vessels right at the groove between Gino's and iliac vein and able to dissect, make sure there was no peritoneum between those two, able to see the indirect hernia space, took a picture of this, looked at the femoral space a hernia was seen with incarcerated fat and it was removed, then found an obturator hernia and also took fat out of here. Could now see all three openings and pictures were taking of them. Next I looked on the cord and cord structures. There was a small cord lipoma that I was able to reduce and cut off. This was then removed throught the port to get it out of the peritoneal space. I could clearly see the inguinal canal and the indirect space. Next I carried the posterior lateral dissection all the way out and then placed a 12 x 17 Midwieght Bard 3DMax mesh. It laid in nicely, covered all three hernia defects and the rest of the area. It was above the peritoneum, sutured it at the pubic tubercle with a 3-0 Vicryl suture and tied this off. This appeared to lay in very nicely. I then brought down the pneumoperitoneum to about 8 mmHg and then started closing the peritoneum. Started laterally and used a 2-0 V-lock barbed suture to start a running stitch to close the peritoneum. This was closed nicely, took a picture of the closure at this point, then removed both needles had switched to a suture entry driver operator from the scissors. The patient was then placed back supine, removed all ports under direct visualization, allowed pneumoperitoneum to escape and then closed the supraumbilical incision, closing the fascia with 0 Vicryl suture previously placed. Copiously irrigated all incisions and then closed the two small 8 mm incisions with two interrupted 4-0 undyed Monocryl subcuticular stitches and closed the supraumbilical incision with three interrupted undyed Monocryl subcuticular stitch. Area was cleaned and dried. Dermabond was placed. The patient tolerated the procedure. The sponge, instrument and needle counts were correct at the end of the case. Dr. Martinez assisted during this surgery by making incisions, closing incisions, helping to identify anatomy and passing/retrieving suture and needles. Anesthesia Type GET Estimated Blood Loss Estimated blood loss (mL): scant Specimens/Packing Specimens Removed none TRESSA ALVARENGA DO Apr 08, 2021 10:41
[2021-04-08] MEDS ORDERED: SEVOFLURANE (ULTANE) 15 ML INHAL SOLN ONE (10:47)
[2021-04-08] MEDS ORDERED: ACHD5005 PO ×2 (10:47)
--- NOTE | 2021-04-08 10:49 | Discharge Inst-Surgical ---
Discharge Inst-Surgical Depart Medication/Instructions New, Converted or Re-Newed RX: Transmitted to Pharmacy Patient Instructions Follow up Appt: Make appointment for 1 week. [phone] Instructions: No lifting greater than 20 pounds. No strenuous activity. May shower in 24 hours, no tub bath or soaking. Use incentive spirometer at home as directed. No Smoking Skin/Wound Care: May remove bandages in am. You need to leave the Dermabond on incision it will fall off on it's own. Symptoms to Report: Appetite Changes, Extremity Discoloration, Numbness/Tingling, Swelling Increased, Bleeding Excessive, Eyesight Changes, Pain Increased, Urine Color Change, Constipation(Persistent), Fever over 101 degree F, Pain/Pressure in chest, Urinating Difficulty, Cough Up/Vomit Blood, Heart Beat Irreg/Pounding, Pain/Pressure in jaw, Cramps in feet or legs, Lightheadedness, Pain/Pressure in shoulder, Diarrhea(Persistent), Memory Changes Suddenly, Questions/Concerns, Weight gain consecutive days, Dizziness/Fainting, Nausea/Vomiting, Shortness of Breath, Weight gain over 2 pounds If questions or concerns contact your physician Or seek help at emergency department. Activity Activity as Tolerated: Yes Activity Instructions: Avoid Stress to Incision Driving Instructions: No Driving/Refer to Dr. Renteria Discharge Diet: No Restrictions Diet After 24 Hours: Clear Liquid if Nauseous If Any Problems/Questions/Issu: Contact Your Physician, Go to Emergency Room Skin/Wound Care Infection Signs and Symptoms: Increased Redness, Foul Odor of Wound, Increased Drainage, Skin Itchy or Has a Rash, Increased Swelling, Temperature Above 101 F Bathing Instructions: Shower Stitches/Fisher/Dermabond Dis: Dermabond Ice Pack: Ice On and Off Site TRESSA ALVARENGA DO Apr 08, 2021 10:49
[2021-04-08] MEDS ORDERED: HYDROmorphone 2 MG/ML VIAL (DILAUDID) ONE (11:12)
[2021-04-08] MEDS ORDERED: LACTATED RINGERS 1,000 ML IV ONE (11:35)
[2021-04-08] MEDS ORDERED: HYDROcodone/APAP 5 MG/325 MG (LORTAB) TAB ONE (11:56)
[2021-04-08] MEDS ORDERED: HYDROcodone/APAP 5 MG/325 MG (LORTAB) TAB PO ONE ×2 (12:00)
--- NOTE | 2021-04-08 14:10 | Anesthesia-General Post-Op ---
General Patient Condition Mental Status/LOC: Same as Preop Cardiovascular: Satisfactory Nausea/Vomiting: Absent Respiratory: Satisfactory Pain: Controlled Complications: Absent Post Op Complications Complications None Follow Up Care/Instructions Patient Instructions None needed. Anesthesia/Patient Condition Patient Condition Patient was seen this morning after the procedure and he was doing well, no complaints, stable vital signs, no apparent adverse anesthesia problems. CARLIE JIM DO Apr 08, 2021 14:09
== END 2021-04-08 13:07 ==
LOC: SDC 06:48
PROVIDERS: ATTEND Surgery
DX: K40.30 Unilateral inguinal hernia, with obstruction, without gangrene, not specified as recurrent (principal); K41.30 Unilateral femoral hernia, with obstruction, without gangrene, not specified as recurrent; K45.0 Other specified abdominal hernia with obstruction, without gangrene; K21.9 Gastro-esophageal reflux disease without esophagitis; I10 Essential (primary) hypertension; I25.10 Atherosclerotic heart disease of native coronary artery without angina pectoris; E78.5 Hyperlipidemia, unspecified; E11.9 Type 2 diabetes mellitus without complications; Z79.84 Long term (current) use of oral hypoglycemic drugs; Z95.1 Presence of aortocoronary bypass graft; Z79.82 Long term (current) use of aspirin; Z79.899 Other long term (current) drug therapy; Z79.02 Long term (current) use of antithrombotics/antiplatelets; Z90.49 Acquired absence of other specified parts of digestive tract; Z90.89 Acquired absence of other organs; Z79.01 Long term (current) use of anticoagulants
CPT/HCPCS: 49650; 49659; 82947; 87081; C1781

== ENCOUNTER 2021-04-08 16:12 | Outpatient (CLI) | payer MEDICARE ==
[~2021-04-08] VITALS: Ht 177.8 cm; Wt 85.8 kg
[~2021-04-08 16:12] MED LIST changes: +ACHD5005 PO
[2021-04-08 17:34] VITALS: BP 149/77
== END 2021-04-08 17:35 | disposition home or self-care (01) ==
LOC: SDC 16:12
PROVIDERS: ATTEND Surgery
DX: R33.9 Retention of urine, unspecified (principal)

== ENCOUNTER 2021-07-23 05:40 | Outpatient (CLI) | payer MEDICARE ==
[~2021-07-23] VITALS: Ht 177.8 cm; Wt 82.6 kg
[2021-07-23] MEDS ORDERED: DOCU100C37 PO (11:33)
[2021-07-23] MEDS ORDERED: BENA20TA7 PO (11:33)
== END 2021-07-23 11:42 | disposition home or self-care (01) ==
LOC: PREOP 05:40
PROVIDERS: ATTEND Otolaryngology Otolaryngology/Facial Plastic Surgery
DX: Z01.818 Encounter for other preprocedural examination (principal)

== ENCOUNTER 2021-07-28 14:19 | Outpatient (RCR) | payer MEDICARE | END 2021-07-28 15:19 | disposition home or self-care (01) | PROVIDERS: ATTEND Nurse Practitioner Family | DX: Z47.1 Aftercare following joint replacement surgery (principal); M54.16 Radiculopathy, lumbar region; Z96.642 Presence of left artificial hip joint ==

== ENCOUNTER 2021-07-31 06:49 | Day surgery (SDC) | payer MEDICARE ==
[2021-07-31] VITALS (11 sets, daily range): BP systolic 108–169; BP diastolic 55–85
[~2021-07-31] VITALS: Ht 177.8 cm; Wt 82.6 kg
[~2021-07-31 06:49] MED LIST changes: +BENA-3 PO; -BENA20TA7 PO; +CALC-774 PO; -CLD600T PO; +PIOG1TAB21 PO; -PIOG1TAB29 PO
[2021-07-31] MEDS ORDERED: LACTATED RINGERS 1,000 ML IV PRN (07:15)
[2021-07-31] MEDS ORDERED: ceFAZolin INJECTION 1,000 MG VIAL IV ONE (07:15)
[2021-07-31 08:00] LABS: BASOPHILS % (AUTO) 1 % (0-10); EOSINOPHILS # (AUTO) 0.2 10^3/uL (0.0-0.3); EOSINOPHILS % (AUTO) 5 % (0-10); HEMATOCRIT 32 % (40-54); HEMOGLOBIN 10.2 g/dL (13.3-17.7); LYMPHOCYTES % (AUTO) 27 % (12-44); MEAN CORPUSCULAR HEMOGLOBIN 28 pg (25-34); MEAN CORPUSCULAR HGB CONC 32 g/dL (32-36); MEAN CORPUSCULAR VOLUME 89 fL (80-99); MONOCYTES # (AUTO) 0.6 10^3/uL (0.0-1.0); MONOCYTES % (AUTO) 17 % (0-12); NEUTROPHILS # (AUTO) 1.8 10^3/uL (1.8-7.8); NEUTROPHILS % (AUTO) 50 % (42-75); PLATELET COUNT 155 10^3/uL (130-400); WHITE BLOOD COUNT 3.7 10^3/uL (4.3-11.0)
--- NOTE | 2021-07-31 08:06 | Progress Note-Pre Operative ---
Pre-Operative Progress Note H&P Reviewed The H&P was reviewed, patient examined and no changes noted. Date Seen by Provider: Jul 31, 2021 Time Seen by Provider: 08:00 Date H&P Reviewed: Jul 31, 2021 Time H&P Reviewed: 08:00 Pre-Operative Diagnosis: Left Posterior Scalp Lesion SHAILESH ZHANG MD Jul 31, 2021 08:06
[2021-07-31 08:15] LABS: CALCIUM 8.9 MG/DL (8.5-10.1); CREATININE SERUM 0.85 MG/DL (0.60-1.30); POTASSIUM 3.6 MMOL/L (3.6-5.0)
[2021-07-31] MEDS ORDERED: LIDOCAINE/EPI 1%-1:100,000 (XYLOCAINE) 20ML ONE (08:18)
[2021-07-31] MEDS ORDERED: fentaNYL INJ 100 MCG/2 ML AMP ONE (09:07)
[2021-07-31] MEDS ORDERED: MUPIROCIN 2% OINT 22 GM (BACTROBAN) TUBE ONE (09:34)
--- NOTE | 2021-07-31 09:39 | Progress Note-Post Operative ---
Post-Operative Progess Note Surgeon (s)/Aqueduct And Reservoir Keeper (s) Surgeon SHAILESH ZHANG MD Aqueduct And Reservoir Keeper n/a Pre-Operative Diagnosis Left Posterior Scalp Lesion Post-Operative Diagnosis same Post-Op Procedure Note Date of Procedure: Jul 31, 2021 Name of Procedure Performed: Excision of Left Posterior Scalp Lesion with REpair Description & Findings Description and Findings: n/a Anesthesia Type lma Estimated Blood Loss minimal Packing none. Specimen(s) collected/removed scalp lesion SHAILESH ZHANG MD Jul 31, 2021 09:38
[2021-07-31] MEDS ORDERED: ACETAMINOPHEN 325 MG TABLET PO PRN (09:45)
[2021-07-31] MEDS ORDERED: HYDROcodone/APAP 5 MG/325 MG (LORTAB) TAB PO PRN (09:45)
[2021-07-31] MEDS ORDERED: SEVOFLURANE (ULTANE) 15 ML INHAL SOLN ONE (10:00)
[2021-07-31] MEDS ORDERED: proPOfol 200 MG/20 ML (DIPRIVAN) VIAL IV ONE (10:01)
[2021-07-31] MEDS ORDERED: GLYCOPYRROLATE 0.2 MG/ML (ROBINUL) 2 ML VIAL ONE (10:01)
[2021-07-31] MEDS ORDERED: LIDOCAINE PF 2% 5 ML (XYLOCAINE) VIAL ONE (10:01)
[2021-07-31] MEDS ORDERED: ONDANSETRON 4 MG/2 ML (SDV) Z0FRAN ONE (10:01)
[2021-07-31] MEDS ORDERED: ACHD5005 PO (12:06)
[2021-07-31] MEDS ORDERED: CEPH500T PO (12:06)
--- NOTE | 2021-07-31 14:24 | Anesthesia-General Post-Op ---
General Patient Condition Mental Status/LOC: Same as Preop Cardiovascular: Satisfactory Nausea/Vomiting: Absent Respiratory: Satisfactory Pain: Controlled Complications: Absent Post Op Complications Complications None Follow Up Care/Instructions Patient Instructions None needed. Anesthesia/Patient Condition Patient Condition Patient is doing well, no complaints, stable vital signs, no apparent adverse anesthesia problems. No complications reported per nursing. TANK GILBERT CRNA Jul 31, 2021 14:24
== END 2021-07-31 13:33 ==
LOC: SDC 06:49
PROVIDERS: ATTEND Otolaryngology Otolaryngology/Facial Plastic Surgery
DX: L57.0 Actinic keratosis (principal); I10 Essential (primary) hypertension; I25.10 Atherosclerotic heart disease of native coronary artery without angina pectoris; E78.5 Hyperlipidemia, unspecified; K21.9 Gastro-esophageal reflux disease without esophagitis; E11.9 Type 2 diabetes mellitus without complications; D64.9 Anemia, unspecified; Z79.84 Long term (current) use of oral hypoglycemic drugs; Z79.899 Other long term (current) drug therapy; Z79.82 Long term (current) use of aspirin; Z83.3 Family history of diabetes mellitus; Z80.9 Family history of malignant neoplasm, unspecified
CPT/HCPCS: 36415; 80048; 85025; 87081; 88305; 93005

== ENCOUNTER → 2021-10-19 | Outpatient (CLI) | payer MEDICARE ==
[~2021-10-19] MED LIST changes: +CEPH500T PO
[2021-10-19 16:34] LABS: CHLORIDE 106 MMOL/L (98-107); POTASSIUM 3.6 MMOL/L (3.6-5.0); SODIUM 141 MMOL/L (135-145)
[2021-10-19 16:35] LABS: CALCIUM 8.8 MG/DL (8.5-10.1)
[2021-10-19 16:36] LABS: GLUCOSE 128 MG/DL (70-105)
[2021-10-19 16:37] LABS: TOTAL PROTEIN 6.3 GM/DL (6.4-8.2)
[2021-10-19 16:38] LABS: CARBON DIOXIDE 25 MMOL/L (21-32)
[2021-10-19 16:39] LABS: BILIRUBIN,TOTAL 0.8 MG/DL (0.1-1.0)
[2021-10-19 16:40] LABS: ALKALINE PHOSPHATASE 100 U/L (40-136); CREATININE SERUM 0.84 MG/DL (0.60-1.30); GFR ESTIMATED 88
[2021-10-19 16:41] LABS: BUN/CREATININE RATIO 21
[2021-10-19 16:43] LABS: ALANINE AMINOTRANSFERASE 14 U/L (0-55); CREATINE KINASE 230 U/L (30-200)
[2021-10-19 16:50] LABS: CREATINE KINASE MB 3.8 NG/ML (<6.6)
== END ==
LOC: CARD 16:00
PROVIDERS: ATTEND Nurse Practitioner Family
DX: I10 Essential (primary) hypertension (principal); R07.89 Other chest pain
CPT/HCPCS: 36415; 80053; 82550; 82553; 83874; 83880; 84484; 93005

== ENCOUNTER 2022-03-08 15:14 | Outpatient (RCR) | payer MEDICARE | END 2022-03-11 | disposition home or self-care (01) | LOC: CR3 15:14 | PROVIDERS: ATTEND Internal Medicine | DX: Z29.8 Encounter for other specified prophylactic measures (principal) ==

== ENCOUNTER → 2022-05-11 | Outpatient (CLI) | payer MEDICARE | LOC: CARD 13:47 | PROVIDERS: ATTEND Nurse Practitioner Family | DX: I51.7 Cardiomegaly (principal); I35.8 Other nonrheumatic aortic valve disorders | CPT/HCPCS: 93306 ==

== ENCOUNTER → 2022-05-18 | Outpatient (CLI) | payer MEDICARE ==
[~2022-05-18] VITALS: Ht 177 cm; Wt 82.0 kg
[~2022-05-18] MED LIST changes: +CATHETER FLUSH 10 ML SYR IVP PRN; +REGADENOSON 0.4 MG/5 ML SYR (LEXISCAN) IV ONE
[2022-05-18 09:13] VITALS: BP 171/78
--- NOTE | 2022-05-18 16:52 | STRESS TEST ---
DATE OF SERVICE: 05/18/2022 RESTING AND POST REGADENOSON TECHNETIUM-99M TETROFOSMIN SPECT CT IMAGING ORDERING PHYSICIAN: Mayra Fermin APRN PRIMARY PHYSICIAN: Dr. Hudson. CLINICAL DIAGNOSIS: Coronary artery disease. Baseline images were carried out after injection of 10.16 mCi of technetium-99m Tetrofosmin. This was followed by 0.4 mg regadenoson and 31.8 mCi of technetium-99m Tetrofosmin for stress imaging. The electrocardiogram showed sinus rhythm at baseline. It did not change significantly with regadenoson infusion. The patient noted lightheadedness and shortness of breath, which resolved in a few minutes. Review of images at rest and following stress does not indicate any significant perfusion defects consistent with myocardial ischemia or infarction. Gated images show normal global left ventricular systolic function with normal regional wall motion. Left ventricular ejection fraction is calculated to be 62%. CONCLUSIONS: 1. No evidence of any significant myocardial ischemia or infarction on this study. 2. Normal regional wall motion. 3. Normal global left ventricular systolic function with a calculated ejection fraction of 62%. Job ID: [id number] DocumentID: [id number] Dictated Date: 05/18/2022 16:22:06 Finishing Area Operator Date: 05/18/2022 16:51:26 Dictated By: SARAH BETH SHERWOOD MD, MA, FACP, FACC,
== END ==
LOC: CARD 07:19
PROVIDERS: ATTEND Nurse Practitioner Family
DX: I25.10 Atherosclerotic heart disease of native coronary artery without angina pectoris (principal)
CPT/HCPCS: 78452; 93017; A9502

== ENCOUNTER 2022-05-26 15:56 | Outpatient (RCR) | payer MEDICARE ==
[~2022-05-26 15:56] MED LIST changes: -CATHETER FLUSH 10 ML SYR IVP PRN; -REGADENOSON 0.4 MG/5 ML SYR (LEXISCAN) IV ONE
== END 2022-06-11 | disposition home or self-care (01) ==
LOC: CR3 15:56
PROVIDERS: ATTEND Internal Medicine
DX: Z29.8 Encounter for other specified prophylactic measures (principal)

== ENCOUNTER 2022-08-30 15:12 | Outpatient (RCR) | payer MEDICARE | END 2022-09-10 | disposition home or self-care (01) | LOC: CR3 15:12 | PROVIDERS: ATTEND Internal Medicine | DX: Z29.8 Encounter for other specified prophylactic measures (principal) ==

== ENCOUNTER 2022-11-08 14:55 | Outpatient (RCR) | payer MEDICARE | END 2022-11-11 | disposition home health service (06) | LOC: CR3 14:55 | PROVIDERS: ATTEND Internal Medicine | DX: Z29.8 Encounter for other specified prophylactic measures (principal) ==

== ENCOUNTER 2023-01-01 09:21 | Emergency (ER) | payer MEDICARE ==
[~2023-01-01] VITALS: Ht 177 cm; Wt 86.0 kg
--- NOTE | 2023-01-01 09:43 | ED Integumentary General ---
General Chief Complaint: - Reproductive Stated Complaint: RIGHT LEG/TESTICLE REDNESS Nursing Triage Note: PT AMB TO RM 7 PT CO OF R GROIN PAIN 8/100 THAT STARTED YESTERDAY. AREA VERY REDDEND AND IRRITATED. GAULD TYPE AREA. Source: patient Exam Limitations: no limitations History of Present Illness Date Seen by Provider: Jan 01, 2023 Time Seen by Provider: 09:30 Initial Comments Patient is an 82-year-old male with a history of diabetes, heart disease, hypertension who presents to the emergency room with right groin pain. Patient states that he started having groin discomfort yesterday. He states the area is quite red. He denies injury. No fevers or chills. No nausea or vomiting. No urinary complaints. He has not taken anything for the pain. Movement makes the pain worse. States the area appears little swollen. Denies any pain in the leg. No numbness weakness or tingling. Has never had a pain or issue like this before. Timing/Duration: yesterday Severity: moderate Location: genitalia Possible Cause: no cause identified Associated Symptoms: edema, other (pain) Allergies and Home Medications Allergies Coded Allergies: No Known Drug Allergies (Unverified , 11/22/19) Patient Home Medication List Home Medication List Reviewed: Yes Amlodipine Besylate (Amlodipine Besylate) 10 Mg Tablet, 10 MG PO DAILY, (Reported) Entered as Reported by: TAYLOR CEDENO on 04/02/21 1016 Aspirin (Aspirin) 81 Mg Tab.chew, 81 MG PO DAILY, (Reported) Entered as Reported by: TAYLOR CEDENO on 04/02/21 1016 Atorvastatin Calcium (Atorvastatin Calcium) 80 Mg Tablet, 80 MG PO DAILY, (Reported) Entered as Reported by: TAYLOR CEDENO on 04/02/21 1016 Benazepril HCl (Benazepril HCl) 20 Mg Tablet, 20 MG PO DAILY, (Reported) Entered as Reported by: TAYLOR CEDENO on 07/23/21 1133 Cephalexin (Cephalexin) 500 Mg Tablet, 500 MG PO TID Prescribed by: ARTURO SUTTON on 07/31/21 1206 Docusate Sodium (Docusate Sodium) 100 Mg Capsule, 200 MG PO BID, (Reported) Entered as Reported by: TAYLOR CEDENO on 07/23/21 1133 Doxazosin Mesylate (Doxazosin Mesylate) 2 Mg Tablet, 2 MG PO DAILY, (Reported) Entered as Reported by: TAYLOR CEDENO on 04/02/21 1016 Ferrous Sulfate (Ferrous Sulfate) 325 Mg Tablet, 325 MG PO UD, (Reported) Entered as Reported by: TAYLOR CEDENO on 04/02/21 1016 Flaxseed Oil (Flax Oil) 1,000 Mg Capsule, 1,000 MG PO DAILY, (Reported) Entered as Reported by: FINA BENJAMIN on 07/20/19 0958 Hydrocodone/Acetaminophen (Hydrocodone-Acetamin 5-325 mg) 1 Each Tablet, 1 TAB PO Q4H PRN for PAIN-MODERATE (5-7) Prescribed by: ARTURO SUTTON on 07/31/21 1206 Loratadine (Loratadine) 10 Mg Tablet, 10 MG PO DAILY, (Reported) Entered as Reported by: TAYLOR CEDENO on 04/02/21 1016 Metoprolol Succinate (Metoprolol Succinate) 50 Mg Tab.er.24h, 50 MG PO DAILY, (Reported) Entered as Reported by: TAYLOR CEDENO on 04/02/21 1016 Omeprazole (Omeprazole) 40 Mg Capsule.dr, 40 MG PO DAILY, (Reported) Entered as Reported by: DO DORSEY on 04/12/18 1610 Pioglitazone HCl/Metformin HCl (Pioglitazone-Metformin 15-500) 1 Each Tablet, 1 TAB PO BID, (Reported) Entered as Reported by: DO DORSEY on 04/12/18 1610 Review of Systems Review of Systems Constitutional: see HPI Respiratory: no symptoms reported Cardiovascular: no symptoms reported Gastrointestinal: no symptoms reported Genitourinary: other (painful, red area to right groin) Musculoskeletal: no symptoms reported Skin: rash All Other Systems Reviewed Negative Unless Noted: Yes Past Qntbiyb-Rhortm-Fqxbcc Hx Immunizations Up To Date PED Vaccines UTD: No First/Initial COVID19 Vaccinat: SEP 2020 Second COVID19 Vaccination [place]: OCT 2020 Third COVID19 Vaccination Date: JUL 13, 2021 Seasonal Allergies Seasonal Allergies: Yes (TAKES LORATADINE) Past Medical History Surgeries: Yes (INGUINAL HERNIA REPAIR, HEART CATH X 4, LUMBAR LAMINECTOMY, COLONOSCOPY) Cardiac, Eye Surgery, Gallbladder, Joint Replacement, Orthopedic, Rectal, Vasectomy Respiratory: No Currently Using CPAP: No Currently Using BIPAP: No Cardiac: Yes (STENT) Coronary Artery Disease, High Cholesterol, Hypertension Neurological: No Neuropathy Reproductive Disorders: No Sexually Transmitted Disease: No HIV/AIDS: No Genitourinary: No Benign Prostatic Hyperpl Gastrointestinal: Yes Gastroesophageal Reflux Musculoskeletal: Yes Chronic Back Pain Endocrine: Yes Diabetes, Non-Insulin dep HEENT: Yes (WEARS GLASSES, HEARING AIDES) Loss of Vision: Denies Hearing Impairment: Hard of Hearing, Bilateral Hearing Aide Cancer: Yes Skin What Type of Treatment Did You: Surgical Intervention Psychosocial: No Integumentary: No Blood Disorders: Yes (MILD ANEMIA) Adverse Reaction/Blood Tranf: No (N/A) Family Medical History No Pertinent Family Hx Physical Exam Vital Signs Vital Signs - First Documented 01/01/23 09:30 Temp 36.6 Pulse 60 Resp 16 B/P (MAP) 164/89 (114) Pulse Ox 97 Capillary Refill : Less Than 3 Seconds General Appearance: WD/WN, no apparent distress HEENT: PERRL/EOMI Cardiovascular: regular rate, rhythm Respiratory: no respiratory distress, no accessory muscle use Gastrointestinal: soft Extremities: normal range of motion, normal inspection, no pedal edema Neurologic/Psychiatric: alert, normal mood/affect, oriented x 3 Skin: rash Skin Problem Location: other (groing/right inguimal area) Skin Problem Character: erythema, rash, tenderness, warm, other (moist, irritated area with satellite lesions consistent with candidal dermatitis; area involves the entire right inguinal area extending into the perineum. mild erythema over the right hemiscrotum; no specific testicular swelling, mass, over tenderness) Progress/Results/Core Measures Results/Orders Lab Results Laboratory Tests Test 01/01/23 09:55 Range/Units Glucometer 157 H 70-110 MG/DL My Orders Orders - MADELIN REYES MD Accucheck Stat ONCE (01/01/23 09:43) Fluconazole Tablet (Ed Only) (Diflucan T (01/01/23 09:45) Ibuprofen Tablet (Motrin Tablet) (01/01/23 09:45) Medications Given in ED Current Medications Medications Dose Ordered Sig/Shahriar Route Start Time Stop Time Status Last Admin Dose Admin Fluconazole 150 mg ONCE ONCE PO 01/01/23 09:45 01/01/23 09:46 DC 01/01/23 09:50 150 MG Ibuprofen 400 mg ONCE ONCE PO 01/01/23 09:45 01/01/23 09:46 DC 01/01/23 09:51 400 MG Vital Signs/I&O 01/01/23 09:30 Temp 36.6 Pulse 60 Resp 16 B/P (MAP) 164/89 (114) Pulse Ox 97 Blood Pressure Mean: 114 Departure Impression Primary Impression: Tinea cruris Additional Impression: Diabetes Qualified Codes: E11.628 - Type 2 diabetes mellitus with other skin complications Disposition: HOME, SELF-CARE Condition: Stable Departure-Patient Inst. Decision time for Depature: 09:50 Referrals: DIANNE HUDSON MD (PCP/Family) Primary Care Physician Patient Instructions: Fungal Skin Rash Add. Discharge Instructions: Keep the area Clean and very dry. Monitor for worsening. Apply the antifungal powder (Miconazole) to the area twice a day for 3 weeks. This medication MAY be available over the counter - you can aske the pharmacist which option is more affordable. You can take over the counter Ibuprofen 400mg every 6 hours as needed for pain. If you develop a fever or worsening redness, swelling and pain please follow up with Dr Hudson or return to the Emergency Department for re-evaluation. Scripts Miconazole (Miconazole) 5 Gm Powder 1 UNIT MC BID for 21 Days, #5 GM 1 Refill Prov: MADELIN REYES MD 01/01/23 Copy Copies To 1: DIANNE HUDSON MD, KATHRYN M MD Jan 01, 2023 09:43
[2023-01-01] MEDS ORDERED: FLUCONAZOLE 150 MG TABLET (ED ONLY) PO ONE (09:45)
[2023-01-01] MEDS ORDERED: IBUPROFEN TABLET 200 MG TAB PO ONE (09:45)
[2023-01-01] MEDS ORDERED: MICO5POW6 MC (10:12)
[2023-01-01 10:30] VITALS: BP 164/89
== END 2023-01-01 10:33 | disposition home or self-care (01) ==
LOC: EDUNIT# 09:21 → ER 09:23
DX: B35.6 Tinea cruris (principal); E11.628 Type 2 diabetes mellitus with other skin complications
CPT/HCPCS: 82947

== ENCOUNTER 2023-01-03 14:57 | Outpatient (RCR) | payer MEDICARE ==
[~2023-01-03 14:57] MED LIST changes: +MICO5POW6 MC
== END 2023-01-09 | disposition home or self-care (01) ==
LOC: CR3 14:57
PROVIDERS: ATTEND Internal Medicine
DX: Z29.8 Encounter for other specified prophylactic measures (principal)

== ENCOUNTER 2023-03-02 16:18 | Outpatient (RCR) | payer MEDICARE | END 2023-03-11 | disposition home or self-care (01) | LOC: CR3 16:18 | PROVIDERS: ATTEND Internal Medicine | DX: Z29.8 Encounter for other specified prophylactic measures (principal) ==

== ENCOUNTER 2023-05-06 15:00 | Outpatient (RCR) | payer MEDICARE | END 2023-05-11 | disposition home or self-care (01) | LOC: CR3 15:00 | PROVIDERS: ATTEND Internal Medicine | DX: Z29.8 Encounter for other specified prophylactic measures (principal) ==

== ENCOUNTER 2023-07-08 15:50 | Outpatient (RCR) | payer MEDICARE | END 2023-07-11 | disposition home or self-care (01) | LOC: CR3 15:50 | PROVIDERS: ATTEND Internal Medicine | DX: Z01.89 Encounter for other specified special examinations (principal) ==

== ENCOUNTER → 2023-07-18 | Outpatient (CLI) | payer MEDICARE ==
--- NOTE | 2023-07-18 09:18 | Diagnostic Imaging Report ---
PROCEDURE: CT head without contrast. TECHNIQUE: Multiple contiguous axial images were obtained through the brain without the use of intravenous contrast. Auto Exposure Controls were utilized during the CT exam to meet ALARA standards for radiation dose reduction. INDICATION: Memory loss. No prior studies are available for comparison. The ventricles and sulci are appropriate for the patient's age. No sulcal effacement or midline shift is identified. No acute intra-axial or extra-axial hemorrhage is detected. Cisterns are patent. Visualized paranasal sinuses are clear. IMPRESSION: Age-related atrophy. No acute intracranial process is detected. Dictated by: Dictated on workstation # [id number]
== END ==
LOC: RAD 08:28
PROVIDERS: ATTEND Internal Medicine
DX: G31.9 Degenerative disease of nervous system, unspecified (principal)
CPT/HCPCS: 70450

== ENCOUNTER 2023-07-22 09:55 | Emergency (ER) | payer MEDICARE ==
[~2023-07-22] VITALS: Ht 177.8 cm; Wt 80.7 kg
--- NOTE | 2023-07-22 11:12 | ED Lower Extremity ---
General Chief Complaint: Lower Extremity Stated Complaint: RT LEG PAIN Nursing Triage Note: PT AMB TO RM 10 WITH CC OF RIGHT THIGH PAIN THAT RADIATES TO THE HIP AND BACK. PT REPORTS NO TRAUMA AND STATES HE HAS HAD THESE SYMPTOMS X1 WEEK FOLLOWING A TRIP TO [place]. Source: patient Exam Limitations: no limitations (PADMAJA GRANADO) History of Present Illness Date Seen by Provider: Jul 22, 2023 Time Seen by Provider: 11:09 Initial Comments Patient is a 82-year-old male who presents to ED with right leg pain. Pain starts to the right lateral thigh. Pain radiates into the right buttock and lower back and hip. Patient states pain is sharp and fairly constant. Denies any numbness and tingling, swelling bruising. Did noted the pain while traveling to [place] about a week ago. Denies of any falls. No history of DVTs. Denies of any specific skin color changes. Patient states pain is worse with movement standing bending. Denies of any bowel or urine incontinence or saddle paresthesia. Does take a baby aspirin. Patient has been taken Tylenol with very minimal improvement. History of 2 back surgeries in his lower back. Patient denies chest pain, shortness of breath, nausea vomit, diarrhea, abdominal pain. (PADMAJA GRANADO) Allergies and Home Medications Allergies Coded Allergies: No Known Drug Allergies (Unverified , 11/22/19) Patient Home Medication List Home Medication List Reviewed: Yes (PADMAJA GRANADO) Amlodipine Besylate (Amlodipine Besylate) 10 Mg Tablet, 10 MG PO DAILY, (Reported) Entered as Reported by: TAYLOR CEDENO on 04/02/21 1016 Aspirin (Aspirin) 81 Mg Tab.chew, 81 MG PO DAILY, (Reported) Entered as Reported by: TAYLOR CEDENO on 04/02/21 1016 Atorvastatin Calcium (Atorvastatin Calcium) 80 Mg Tablet, 80 MG PO DAILY, (Reported) Entered as Reported by: TAYLOR CEDENO on 04/02/21 1016 Benazepril HCl (Benazepril HCl) 20 Mg Tablet, 20 MG PO DAILY, (Reported) Entered as Reported by: TAYLOR CEDENO on 07/23/21 1133 Cephalexin (Cephalexin) 500 Mg Tablet, 500 MG PO TID Prescribed by: ARTURO SUTTON on 07/31/21 1206 Docusate Sodium (Docusate Sodium) 100 Mg Capsule, 200 MG PO BID, (Reported) Entered as Reported by: TAYLOR CEDENO on 07/23/21 1133 Doxazosin Mesylate (Doxazosin Mesylate) 2 Mg Tablet, 2 MG PO DAILY, (Reported) Entered as Reported by: TAYLOR CEDENO on 04/02/21 1016 Ferrous Sulfate (Ferrous Sulfate) 325 Mg Tablet, 325 MG PO UD, (Reported) Entered as Reported by: TAYLOR CEDENO on 04/02/21 1016 Flaxseed Oil (Flax Oil) 1,000 Mg Capsule, 1,000 MG PO DAILY, (Reported) Entered as Reported by: FINA BENJAMIN on 07/20/19 0958 Hydrocodone/Acetaminophen (Hydrocodone-Acetamin 5-325 mg) 1 Each Tablet, 1 TAB PO Q4H PRN for PAIN-MODERATE (5-7) Prescribed by: ARTURO SUTTON on 07/31/21 1206 Loratadine (Loratadine) 10 Mg Tablet, 10 MG PO DAILY, (Reported) Entered as Reported by: TAYLOR CEDENO on 04/02/21 1016 Metoprolol Succinate (Metoprolol Succinate) 50 Mg Tab.er.24h, 50 MG PO DAILY, (Reported) Entered as Reported by: TAYLOR CEDENO on 04/02/21 1016 Miconazole (Miconazole) 5 Gm Powder, 1 UNIT MC BID Prescribed by: MADELIN REYES on 01/01/23 1012 Omeprazole (Omeprazole) 40 Mg Capsule.dr, 40 MG PO DAILY, (Reported) Entered as Reported by: DO DORSEY on 04/12/18 1610 Pioglitazone HCl/Metformin HCl (Pioglitazone-Metformin 15-500) 1 Each Tablet, 1 TAB PO BID, (Reported) Entered as Reported by: DO DORSEY on 04/12/18 1610 Review of Systems Constitutional: No chills, No diaphoresis, No malaise, No weakness EENTM: No hearing loss, No ear pain, No blurred vision Respiratory: No cough, No dyspnea on exertion Cardiovascular: No chest pain Gastrointestinal: No abdominal pain, No nausea, No vomiting Genitourinary: No decreased output, No discharge Musculoskeletal: back pain; No joint pain; muscle pain, muscle stiffness Skin: No change in color, No change in hair/nails (PADMAJA GRANADO) All Other Systems Reviewed Negative Unless Noted: Yes (PADMAJA GRANADO) Past Dtketmk-Fkqwon-Hvbnmx Hx Patient Social History Tobacco Use?: No Substance use?: No Alcohol Use?: No (PADMAJA GRANADO) Immunizations Up To Date PED Vaccines UTD: No First/Initial COVID19 Vaccinat: SEP 2020 Second COVID19 Vaccination [place]: OCT 2020 Third COVID19 Vaccination Date: JUL 13, 2021 (PADMAJA GRANADO) Seasonal Allergies Seasonal Allergies: Yes (TAKES LORATADINE) (PADMAJA GRANADO) Past Medical History Surgery/Hospitalization HX: SEE LIST Surgeries: Yes (INGUINAL HERNIA REPAIR, HEART CATH X 4, LUMBAR LAMINECTOMY, COLONOSCOPY) Cardiac, Eye Surgery, Gallbladder, Joint Replacement, Orthopedic, Rectal, Vasectomy Respiratory: No Currently Using CPAP: No Currently Using BIPAP: No Cardiac: Yes (STENT) Coronary Artery Disease, High Cholesterol, Hypertension Neurological: No Neuropathy Reproductive Disorders: No Sexually Transmitted Disease: No HIV/AIDS: No Genitourinary: No Benign Prostatic Hyperpl Gastrointestinal: Yes Gastroesophageal Reflux Musculoskeletal: Yes Chronic Back Pain Endocrine: Yes Diabetes, Non-Insulin dep HEENT: Yes (WEARS GLASSES, HEARING AIDES) Loss of Vision: Denies Hearing Impairment: Hard of Hearing, Bilateral Hearing Aide Cancer: Yes Skin What Type of Treatment Did You: Surgical Intervention Psychosocial: No Integumentary: No Blood Disorders: Yes (MILD ANEMIA) Adverse Reaction/Blood Tranf: No (N/A) (PADMAJA GRANADO) Family Medical History No Pertinent Family Hx (PADMAJA GRANADO) Physical Exam Vital Signs Vital Signs - First Documented 07/22/23 10:03 Pulse 60 B/P (MAP) 145/79 (101) Pulse Ox 97 O2 Delivery Room Air (WENCESLAO MARTIN MD) Vital Signs Capillary Refill : (PADMAJA GRANADO) Height, Weight, BMI Height: 5'10.00" Weight: 193lbs. 0.6oz. 87.686338lw; 25.00 BMI Method:Stated General Appearance: WD/WN, no apparent distress HEENT: PERRL/EOMI, normal ENT inspection, TMs normal, pharynx normal Neck: non-tender, full range of motion, supple Cardiovascular: regular rate, rhythm, no edema, no gallop, no JVD Respiratory: chest non-tender, lungs clear, normal breath sounds, no respiratory distress, no accessory muscle use Gastrointestinal: normal bowel sounds, non tender, soft, no organomegaly Back: no CVA tenderness, no vertebral tenderness, vertebral tenderness (Lumbar midline tenderness, right lumbar paraspinal muscle tenderness. Normal range of motion.) Hips: right hip other (Internal and external rotation of the right hip without any pain. No right lateral hip tenderness. No swelling bruising or redness.) Legs: right leg other (Very minimal tenderness to the right lateral thigh. No swelling bruising or redness. Neurovascular intact right lower extremity. Dorsi pedis +2., Posterior tibialis +2) Ankles: bilateral ankle non-tender, bilateral ankle normal inspection, bilatera l ankle normal range of motion Neurologic/Psychiatric: cerner analyst II-XII nml as tested, no motor/sensory deficits, alert, normal mood/affect, oriented x 3 Skin: normal color (PADMAJA GRANADO) Progress/Results/Core Measures Results/Orders Vital Signs/I&O 07/22/23 07/22/23 10:03 13:09 Pulse 60 62 B/P (MAP) 145/79 (101) 158/77 Pulse Ox 97 97 O2 Delivery Room Air Room Air (WENCESLAO MARTIN MD) Blood Pressure Mean: 101 Departure Communication (PCP) Patient presents to the ED with right leg pain. No denies of any bowel or urine incontinence or saddle paresthesia. Differential diagnosis DVT, muscle strain, injury. Denies swelling or bruising. Pain located right thigh to the right hip and lower back. Seems to radiate upwards. History of low back surgery several years ago. Differential diagnosis DVT, arthritis, degenerative disc disease, peripheral vascular disease. On exam he has no right leg tenderness. Dorsalis pedis +2 posterior tibialis +2. No skin color changes. Normal range of motion right hip without pain on range of motion. It does have lower back tenderness. No greater trochanteric tenderness suggesting bursitis. Tenderness along the right lateral thigh. Ultrasound was ordered which was negative for DVT. Due to his lower back tenderness CT scan of the lower spine was ordered. CT scan shows bulging disc L5-S1 with degenerative disc disease. No severe spinal stenosis. Chronic findings noted. Refusing anything for pain. Has been taken Tylenol. At this time do not note anything emergent at this time. Suspect that this is more muscle but could potentially be a result from his degenerative disc disease or arthritis of the right hip. Did not obtain x-ray of the femur or hip since he did not fall and he has no pain on palpation. if pain does continue suggest outpatient x-ray of the right hip. Did provide hydrocodone as needed. May use ibuprofen as needed but to take with food. He states this has helped in the past with ibuprofen but do not take excessive amount due to its potential complications of developing ulcers. Suggest follow-up your PCP on Tuesday. (PADMAJA GRANADO) Impression Primary Impression: Right leg pain Disposition: HOME, SELF-CARE Condition: Stable Departure-Patient Inst. Decision time for Depature: 13:06 (PADMAJA GRANADO) Referrals: DIANNE SUAREZ MD (PCP/Family) Primary Care Physician Patient Instructions: Muscle and Bone Pain (DC) Add. Discharge Instructions: May take an ibuprofen as needed but recommend taking with food and not excessive amount. Hydrocodone as needed. Suggest following her primary care physician on Tuesday for further evaluation. If any worsening pain, fever, swelling of the right leg to return back to ED. All discharge instructions reviewed with patient and/or family. Voiced understanding. ATTENDING PHYSICIAN NOTE: I was physically present as attending physician in the emergency department during the care of this patient, but I was not directly involved in the decision making or delivery of care for this patient. (WENCESLAO MARTIN MD) PADMAJA GRANADO Jul 22, 2023 11:12 WENCESLAO MARTIN MD Jul 23, 2023 18:17
--- NOTE | 2023-07-22 12:12 | Diagnostic Imaging Report ---
PROCEDURE: US right lower extremity venous. TECHNIQUE: Multiple real-time grayscale images were obtained over the right lower extremity in various projections. Additional spectral analysis and color Doppler duplex images were also obtained. INDICATION: Right leg pain. COMPARISON: Non available. FINDINGS: The right common femoral, femoral and popliteal veins are patent by color doppler imaging and without DVT. Visualized proximal aspects of the greater saphenous, deep femoral, posterior tibial and peroneal veins are also patent. All of the evaluated deep venous structures demonstrate normal compressibility and waveform augmentation where applicable. IMPRESSION: No right lower extremity deep venous thrombosis (DVT). Dictated by: Dictated on workstation # [id number]
--- NOTE | 2023-07-22 12:50 | Diagnostic Imaging Report ---
CLINICAL INDICATION: Patient with low back pain that radiates down right leg. No known trauma. EXAM: Axial CT scan of the lumbar spine performed without IV contrast. Sagittal and coronal reformatted images are created. COMPARISON: MRI of the lumbar spine without contrast dated 01/24/2017. FINDINGS: There is no acute lumbar spine fracture. 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 There is grade 1 anterolisthesis of L4 on L5 which has progressed in the interim. There is stable chronic mild compression deformity involving the upper endplate of the L1 vertebra. There are hypertrophic spurs throughout the lumbar spine and lower lumbar spine facet arthropathy/hypertrophy. L1-L2: There is mild bilateral facet arthropathy. There is no significant central canal or neural foramen narrowing. L2-L3: There is interval progression of diffuse disk bulge with severe loss of disk space height and endplate sclerosis and endplate irregularity. There is severe bilateral facet arthropathy. There is severe bilateral neural foramen narrowing again seen. There is at least moderate central canal stenosis which is noted on the prior study as well. It is difficult to evaluate if there is any interval change in the disk component that is unable to be visualized on this exam. Previously, the MRI of the lumbar spine shows severe central canal stenosis at this level. L3-L4: There is a diffuse disk bulge and severe bilateral facet arthropathy/hypertrophy. There is severe central canal stenosis which was also noted on the prior study. There is hkwisrwc-ed-hfzgvp bilateral neural foramen narrowing. L4-L5: There is interval development of grade 1 anterolisthesis of L4 on L5. There is a diffuse disk bulge with ntyj-yg-ykdsauve loss of disk space height. There is severe bilateral facet arthropathy with hypertrophic changes on the right side. There is at least moderate central canal stenosis which was also noted on the prior study. There is severe bilateral neural foramen narrowing which has slightly progressed. L5-S1: There is a diffuse disk bulge with hxjlbuzb-uv-quxtpl loss of disk space height. There is superimposed left paracentral disk extrusion/herniation which is gas filled. There is cephalad disk migration, roughly 12 mm. There is at least xssq-ix-xbbsafik central canal stenosis and narrowing of the left lateral recess region. This finding has developed in the interim. There is moderate bilateral neural foramen narrowing. IMPRESSION: 1: There is interval progression of L5-S1 diffuse disk bulge and interval development of a moderate-sized left paracentral/subarticular disk extrusion/herniation with cephalad disk migration. There is at least xkcy-ry-cvvwfhdg central canal narrowing and narrowing of the left lateral recess. 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 There is severe degenerative disk disease at this level. 3: There is multilevel lumbar spine degenerative disc disease, which is described in detail above. Dictated by: Dictated on workstation # [id number]
[2023-07-22 13:09] VITALS: BP 158/77
== END 2023-07-22 13:15 | disposition home or self-care (01) ==
LOC: EDUNIT# 09:55 → ER 09:57
DX: M54.50 Low back pain, unspecified (principal); M79.651 Pain in right thigh; Z98.890 Other specified postprocedural states
CPT/HCPCS: 72131